=== PATIENT | female | born 1945 | race Caucasian/White ===

== ENCOUNTER 2017-10-10 08:00 | Outpatient (CLI) | payer MEDICARE, MEDICAID, SELFPAY | END 2017-10-10 09:55 | disposition home or self-care (01) | PROVIDERS: Visit Provider Internal Medicine | DX: D50.9 Iron deficiency anemia, unspecified (principal) | CPT/HCPCS: 96365; J1756 ==

== ENCOUNTER → 2017-11-05 12:08 | Outpatient (CLI) | payer MEDICARE, MEDICAID, SELFPAY ==
[2017-11-05 12:43] LABS: Basophils % 0.4 % (0.1-2.0); Eosinophils # 0.4 K/mm3 (0.0-0.4); Eosinophils % 6.5 % (0.1-12.0); Hemoglobin 8.7 g/dL (12.2-16.2); Lymphocytes # 1.6 K/mm3 (0.7-4.5); Lymphocytes % 27.9 K/mm3 (10-50); Mean Corpuscular Hemoglobin 26.6 pg (27.0-31.2); Mean Corpuscular Volume 85.5 fl (81-99); Mean Platelet Volume 11.1 fl (7.4-10.4); Monocytes # 0.4 K/mm3 (0.1-1.0); Neutrophils # 3.3 K/mm3 (1.8-7.8); Neutrophils % 58.2 % (37.0-80.0); Platelet Count 145 K/mm3 (142-424); Red Blood Count 3.27 M/mm3 (4.20-5.40); Red Cell Distribution Width 14.9 % (11.5-17.5); White Blood Count 5.6 K/mm3 (4.8-10.8)
[2017-11-05 13:34] LABS: Anion Gap 9.9 mEq/L (5-15); Blood Urea Nitrogen 28 mg/dL (7-18); Carbon Dioxide 27 mmol/L (21.0-32.0); Chloride 107 mmol/L (98-107); Creatinine,Serum 0.96 mg/dL (0.55-1.02); Estimated Glomerular Filt Rate 57 ml/min (>60); Ferritin 57 ng/mL (8-388); GFR (African American) 69 ML/MIN (>60); Glucose 104 mg/dL (74-106); Potassium 3.9 mmoL/L (3.5-5.1); Sodium 140 mmol/L (136-145)
[2017-11-06 08:21] LABS: Iron 73 ug/dL (27-139); UIBC 242 ug/dL (118-369)
[2017-11-06 12:17] LABS: Iron Saturation 23 % (15-55)
== END ==
PROVIDERS: PCP Nurse Practitioner; Visit Provider Nurse Practitioner
DX: D64.9 Anemia, unspecified (principal)
CPT/HCPCS: 36415; 80048; 80053; 82728; 83550; 85025

== ENCOUNTER → 2017-11-06 08:43 | Outpatient (CLI) | payer MEDICARE, MEDICAID, SELFPAY ==
--- NOTE | 2017-11-06 08:48 | FL_ITS ---
FL small bowel follow through CLINICAL INDICATION: ITS.REASON: ANEMIA ORDERING PHYSICIAN: Jalil Capone MD PATIENT AGE: 72 years Fluoroscopy time, 39 seconds COMPARISON: None FINDINGS: Framing Manager exam shows prior kyphoplasty at L3 and L4 with a tubular density to the right of the vertebral bodies consistent with venous or lymphatic extravasation. Small bowel has an unremarkable appearance. No bowel obstruction, mucosal abnormalities, or mass is evident. Spot views of the terminal ileum are unremarkable. Incidentally noted is a moderate sized hiatal hernia. IMPRESSION: 1. Negative small bowel follow-through. 2. Hiatal hernia
== END ==
PROVIDERS: Family Provider Nurse Practitioner Family; PCP Nurse Practitioner; Visit Provider Surgery
DX: D50.9 Iron deficiency anemia, unspecified (principal)
CPT/HCPCS: 74250

== ENCOUNTER → 2017-11-12 12:36 | Outpatient (CLI) | payer MEDICARE, MEDICAID, SELFPAY ==
--- NOTE | 2017-11-12 12:49 | CT_ITS ---
CT head/brain wo con HISTORY: Headache following injury, contusion, abrasion posterior aspect of the head ORDERING PHYSICIAN: Katja Aldana PATIENT AGE: 72 years COMPARISON: 05/22/2015 TECHNIQUE: Axial images obtained without contrast. Brain and bone windows reviewed. FINDINGS: No midline shift, mass effect, intracranial hemorrhage, hydrocephalus, or extra-axial fluid collection is evident. Involutional changes of age The calvarium has an unremarkable appearance. No mastoid effusion. No sinus air-fluid levels.. IMPRESSION: No acute intracranial findings.
--- NOTE | 2017-11-12 12:50 | XR_ITS ---
XR forearm RT 2V HISTORY: Pain and redness following a puncture wound ITS.REASON: ACUTE POST TRAUMATIC HEADACHE ORDERING PHYSICIAN: Katja Aldana PATIENT AGE: 72 years COMPARISON: None FINDINGS: No obvious fracture, dislocation, lytic change or blastic change. Normal mineralization. Unremarkable soft tissues. Minimal soft tissue calcification along the dorsal distal aspect of the forearm IMPRESSION: No acute finding
== END ==
PROVIDERS: PCP Nurse Practitioner Family; Visit Provider Nurse Practitioner Family
DX: G44.319 Acute post-traumatic headache, not intractable (principal); M79.631 Pain in right forearm
CPT/HCPCS: 70450; 73090

== ENCOUNTER 2017-11-22 09:04 | Emergency (ER) | payer MEDICARE, MEDICAID, SELFPAY ==
[2017-11-22 09:09] VITALS: BP 149/79; PULSE 96; RESP 20; TEMP 36.7; O2SAT 97; BMI 26.2
--- NOTE | 2017-11-22 09:26 | [facility].EDGENADL ---
ED Disposition Clinical Impression: Hiatus hernia syndrome Disposition: Home, Self-Care Condition on Discharge: Fair Additional Instructions: Advised to use Antacids every 4 hours and to alternate Maalox and Mylanta and use Carafate 1000mg/10ml poAC and HS Referrals: Katja Aldana [Primary Care Provider] - Time of Disposition: 12:04 - Critical Care Critical Care Time: No Attestation: On 11/22/17, the high probability of a clinically significant, sudden or life threatening deterioration of the following system(s) required my full and direct attention, intervention and personal management. The time I documented below is in addition to time spent performing reported procedures but includes the following listed in this critical care notation. Medical Decision Making - Medical Records Medical records reviewed: Yes: I reviewed the patient's medical records. Vital Signs: 11/22/17 09:09 Temperature 98.1 F Temperature Source Oral Pulse Rate [Right Radial] 96 H Respiratory Rate 20 Blood Pressure [Right Arm] 149/79 Blood Pressure Mean [Right Arm] 102 Blood Pressure Source [Right Arm] Automatic Cuff Blood Pressure Position [Right Arm] Supine 02 Sat by Pulse Oximetry 97 Oxygen Delivery Method Room Air - Lab Data Lab results reviewed: Yes: I reviewed the patient's lab results. Lab Results 11/22/17 09:50: WBC 6.4, RBC 3.20 L, Hgb 8.4 L, Hct 26.3 L, MCV 82.2, MCH 26.1 L, MCHC 31.7 L, RDW 14.1, Plt Count 151, MPV 11.4 H, Neut % (Auto) 59.6, Lymph % (Auto) 24.7, [place] % (Auto) 9.1, Eos % (Auto) 6.2, Baso % (Auto) 0.5, Neut # (Auto) 3.8, Lymph # (Auto) 1.6, [place] # (Auto) 0.6, Eos # (Auto) 0.4, Baso # (Auto) 0.0 11/22/17 10:20: Amylase 28 11/22/17 10:20: Lipase 95 11/22/17 10:20: Sodium 144, Potassium 3.7, Chloride 110 H, Carbon Dioxide 28, Anion Gap 9.7, BUN 21 H, Creatinine 1.07 H, Estimated Creat Clear 51, Estimated GFR 50 L, Est GFR ( Amer) 61, Glucose 114 H, Calcium 8.1 L, Total Bilirubin 0.3, AST 19, ALT 16, Alkaline Phosphatase 84, Total Protein 5.8 L, Albumin 2.6 L, Globulin 3.2, Albumin/Globulin Ratio 0.8 L Result diagrams: 11/22/17 09:50 11/22/17 10:20 Orders (Tests/Meds): ED MEDICATIONS Discontinued Medications Generic Name Dose Route Start Last Admin Trade Name Edgardo PRN Reason Stop Dose Admin Belladonna Alkaloids 60 ml 11/22/17 11:52 Gi Cocktail 60ml Udc PO 11/22/17 11:53 ONCE ONE Sodium Chloride 1,000 mls @ 999 mls/hr 11/22/17 09:45 11/22/17 09:50 Sod Chloride 0.9% 1000ml Bag IV 11/22/17 10:45 999 mls/hr .Q1H1M LUIS ANGEL Administration Ondansetron HCl 4 mg 11/22/17 09:42 11/22/17 09:49 Zofran 4mg/2ml Vial IM 11/22/17 09:43 4 mg ONCE ONE Administration Pantoprazole Sodium 40 mg 11/22/17 09:42 11/22/17 09:55 Protonix 40mg Vial IV 11/22/17 09:43 40 mg ONCE ONE Administration Sodium Chloride 8 ml 11/22/17 09:42 11/22/17 09:55 Saline Flush 10ml Syringe IV 11/22/17 09:43 8 ml ONCE ONE Administration Sucralfate 1 gm 11/22/17 11:55 Carafate 1gm/10ml Susp Udc PO 11/22/17 11:56 ONCE ONE ORDERS Category Date Time Status CT abdomen w con Stat Cat Scan 11/22/17 09:40 Taken Occult Blood,Gastric Fluid Stat Lab 11/22/17 09:44 Ordered Occult Blood,Stool Stat Lab 11/22/17 09:44 Ordered Urinalysis and Microscopic Stat Lab 11/22/17 09:31 Ordered - CT Data CT Scan: Abdomen, Pelvis Time Received: 12:[address] Reviewed: Yes: I have reviewed the patient's CT results Findings Narrative: Large hiatus hernia in right chest but everything else looks OK to Radiologist - Daniel Inquiry Pt receiving controlled substance: No Daniel was queried for this patient: No General Adult HPI - General Chief complaint: Weakness Stated complaint: weak vomiting DAVIES Time Seen by Provider: 11/22/17 09:27 Mode of Arrival: Wheelchair Source of Information: Patient, Relative Limitations: No Limitations Description of Symptoms (Re
--- NOTE | 2017-11-22 09:33 | ED_ITS ---
ED Disposition Clinical Impression: Hiatus hernia syndrome Disposition: Home, Self-Care Condition on Discharge: Fair Additional Instructions: Advised to use Antacids every 4 hours and to alternate Maalox and Mylanta and use Carafate 1000mg/10ml poAC and HS Referrals: Katja Aldana [Primary Care Provider] - Time of Disposition: 12:04 - Critical Care Critical Care Time: No Attestation: On 11/22/17, the high probability of a clinically significant, sudden or life threatening deterioration of the following system(s) required my full and direct attention, intervention and personal management. The time I documented below is in addition to time spent performing reported procedures but includes the following listed in this critical care notation. Medical Decision Making - Medical Records Medical records reviewed: Yes: I reviewed the patient's medical records. Vital Signs: 11/22/17 09:09 Temperature 98.1 F Temperature Source Oral Pulse Rate [Right Radial] 96 H Respiratory Rate 20 Blood Pressure [Right Arm] 149/79 Blood Pressure Mean [Right Arm] 102 Blood Pressure Source [Right Arm] Automatic Cuff Blood Pressure Position [Right Arm] Supine 02 Sat by Pulse Oximetry 97 Oxygen Delivery Method Room Air - Lab Data Lab results reviewed: Yes: I reviewed the patient's lab results. Lab Results 11/22/17 09:50: WBC 6.4, RBC 3.20 L, Hgb 8.4 L, Hct 26.3 L, MCV 82.2, MCH 26.1 L , MCHC 31.7 L, RDW 14.1, Plt Count 151, MPV 11.4 H, Neut % (Auto) 59.6, Lymph % (Auto) 24.7, [place] % (Auto) 9.1, Eos % (Auto) 6.2, Baso % (Auto) 0.5, Neut # ( Auto) 3.8, Lymph # (Auto) 1.6, Ross # (Auto) 0.6, Eos # (Auto) 0.4, Baso # (Auto ) 0.0 11/22/17 10:20: Amylase 28 11/22/17 10:20: Lipase 95 11/22/17 10:20: Sodium 144, Potassium 3.7, Chloride 110 H, Carbon Dioxide 28, Anion Gap 9.7, BUN 21 H, Creatinine 1.07 H, Estimated Creat Clear 51, Estimated GFR 50 L, Est GFR ( Amer) 61, Glucose 114 H, Calcium 8.1 L, Total Bilirubin 0.3, AST 19, ALT 16, Alkaline Phosphatase 84, Total Protein 5.8 L, Albumin 2.6 L, Globulin 3.2, Albumin/Globulin Ratio 0.8 L Result diagrams: 11/22/17 09:50 11/22/17 10:20 Orders (Tests/Meds): ED MEDICATIONS Discontinued Medications Generic Name Dose Route Start Last Admin Trade Name Edgardo PRN Reason Stop Dose Admin Belladonna Alkaloids 60 ml 11/22/17 11:52 Gi Cocktail 60ml Udc PO 11/22/17 11:53 ONCE ONE Sodium Chloride 1,000 mls @ 999 mls/hr 11/22/17 09:45 11/22/17 09:50 Sod Chloride 0.9% 1000ml Bag IV 11/22/17 10:45 999 mls/hr .Q1H1M LUIS ANGEL Administration Ondansetron HCl 4 mg 11/22/17 09:42 11/22/17 09:49 Zofran 4mg/2ml Vial IM 11/22/17 09:43 4 mg ONCE ONE Administration Pantoprazole Sodium 40 mg 11/22/17 09:42 11/22/17 09:55 Protonix 40mg Vial IV 11/22/17 09:43 40 mg ONCE ONE Administration Sodium Chloride 8 ml 11/22/17 09:42 11/22/17 09:55 Saline Flush 10ml Syringe IV 11/22/17 09:43 8 ml ONCE ONE Administration Sucralfate 1 gm 11/22/17 11:55 Carafate 1gm/10ml Susp Udc PO 11/22/17 11:56 ONCE ONE ORDERS Category Date Time Status CT abdomen w con Stat Cat Scan 11/22/17 09:40 Taken Occult Blood,Gastric Fluid Stat Lab 11/22/17 09:44 Ordered Occult Blood,Stool Stat Lab
--- NOTE | 2017-11-22 09:40 | CT_ITS ---
CT abdomen w con COMPARISON: None HISTORY: Persistent vomiting, abdominal pain TECHNIQUE: Multiple axial scans obtained from the lower chest to the pelvic floor after injection of IV contrast. Sagittal coronal reformats were evaluated as well. FINDINGS: There is a large hiatal hernia with the herniated portion of the stomach extending to the right lower posterior chest is somewhat unusual configuration for hiatal hernia. There is marginalized cardio megaly. There is minimal atelectasis in the right lower lobe posterior basilar segment. The liver spleen and pancreas appear normal. The portion of the stomach within the abdomen is distended with ingested fluid and food particles. There is been previous cholecystectomy. The adrenal glands and kidneys are normal and the kidney showing symmetrical function. Small bowel appears normal. There is been previous appendectomy. There is moderate scattered stool in the ascending and transverse colon. There is minimal barium within the sigmoid colon from recent small bowel series causing streak artifact. There is been previous hysterectomy. Urinary bladder is well distended with urine showing a mildly thickened wall. There is no free fluid in the pelvis. There is arteriosclerotic calcification of the abdominal aorta and proximal iliac arteries. There have been previous vertebral plasties involving L2 and L3. IMPRESSION: Large hiatal hernia with distended stomach as well with no obvious obstruction apparent at the gastric antrum pyloric channel.
[2017-11-22 10:05] LABS: Basophils % 0.5 % (0.1-2.0); Eosinophils # 0.4 K/mm3 (0.0-0.4); Eosinophils % 6.2 % (0.1-12.0); Hematocrit 26.3 % (37.0-47.0); Hemoglobin 8.4 g/dL (12.2-16.2); Lymphocytes # 1.6 K/mm3 (0.7-4.5); Lymphocytes % 24.7 K/mm3 (10-50); Mean Corpuscular HGB Conc 31.7 g/dL (31.8-35.4); Mean Corpuscular Hemoglobin 26.1 pg (27.0-31.2); Mean Corpuscular Volume 82.2 fl (81-99); Mean Platelet Volume 11.4 fl (7.4-10.4); Monocytes # 0.6 K/mm3 (0.1-1.0); Monocytes % 9.1 % (1.7-9.3); Neutrophils # 3.8 K/mm3 (1.8-7.8); Neutrophils % 59.6 % (37.0-80.0); Platelet Count 151 K/mm3 (142-424); Red Cell Distribution Width 14.1 % (11.5-17.5); White Blood Count 6.4 K/mm3 (4.8-10.8)
[2017-11-22 10:39] LABS: Amylase 28 U/L (25-125); Lipase 95 u/L (73-393)
--- NOTE | 2017-11-22 10:42 | PC.NURSE ---
PT ATTEMPTS TO PROVIDE URINE AND STOOL SPECIMEN WITHOUT SUCCESS. ENCOURAGED TO TRY AGAIN LATER.
[2017-11-22 10:43] LABS: Alanine Aminotransferase 16 U/L (12-78); Albumin Level 2.6 gm/dL (3.4-5.0); Albumin/Globulin Ratio 0.8 (1.1-1.8); Alkaline Phosphatase 84 U/L (46-116); Anion Gap 9.7 mEq/L (5-15); Aspartate Amino Transferase 19 U/L (15-37); Bilirubin,Total 0.3 mg/dL (0.2-1.0); Blood Urea Nitrogen 21 mg/dL (7-18); Calcium 8.1 mg/dL (8.5-10.1); Carbon Dioxide 28 mmol/L (21.0-32.0); Chloride 110 mmol/L (98-107); Creatinine Clearance Estimated 51 mL/min (0-300); Creatinine,Serum 1.07 mg/dL (0.55-1.02); Estimated Glomerular Filt Rate 50 ml/min (>60); GFR (African American) 61 ML/MIN (>60); Globulin 3.2 gm/dl (1.3-3.2); Glucose 114 mg/dL (74-106); Potassium 3.7 mmoL/L (3.5-5.1); Sodium 144 mmol/L (136-145); Total Protein,Serum 5.8 gm/dL (6.4-8.2)
--- NOTE | 2017-11-22 13:10 | PC.NURSE ---
1235- Patient immediately after taking GI cocktail vomited contents. notified.
[2017-11-22 13:24] VITALS: BP 140/70; PULSE 85; RESP 16; TEMP 36.8; O2SAT 98
== END 2017-11-22 13:26 | disposition home or self-care (01) ==
PROVIDERS: Emergency Provider General Practice; Family Provider Nurse Practitioner Family; PCP Nurse Practitioner Family
DX: K44.9 Diaphragmatic hernia without obstruction or gangrene (principal); Z79.899 Other long term (current) drug therapy; Z88.8 Allergy status to other drugs, medicaments and biological substances
CPT/HCPCS: 74160; 80053; 82150; 83690; 85025; 96365; 96375; 96376; 99283; J2405; Q9967

== ENCOUNTER 2017-11-23 09:02 | Observation (INO) ==
--- NOTE | 2017-11-23 09:18 | Emergency Department Note ---
ED Disposition Clinical Impression: UGI bleed, Renal insufficiency Anemia Qualifiers: Anemia type: unspecified type Qualified Code(s): D64.9 - Anemia, unspecified Disposition: Admitted as Observation Condition on Discharge: Good - Critical Care Critical Care Time: No Attestation: On 11/23/17, the high probability of a clinically significant, sudden or life threatening deterioration of the following system(s) required my full and direct attention, intervention and personal management. The time I documented below is in addition to time spent performing reported procedures but includes the following listed in this critical care notation. Medical Decision Making - Medical Records Medical records reviewed: Yes: I reviewed the patient's medical records. Vital Signs: 11/23/17 09:04 11/23/17 09:39 11/23/17 09:40 Temperature 98.3 F Temperature Source Oral Pulse Rate [Orthostatic Lying Right] 83 Pulse Rate [Orthostatic Sitting Right] 91 H Pulse Rate [Orthostatic Standing Right] Pulse Rate [Right Brachial] 86 Respiratory Rate 14 Blood Pressure [Orthostatic Lying Right Arm] 122/59 Blood Pressure [Orthostatic Sitting Right Arm] 95/57 Blood Pressure [Orthostatic Standing Right Arm] Blood Pressure [Right Arm] 146/70 Blood Pressure Mean [Right Arm] 95 Blood Pressure Source [Right Arm] Automatic Cuff Blood Pressure Position [Right Arm] Supine 02 Sat by Pulse Oximetry 95 Oxygen Delivery Method Room Air 11/23/17 09:41 11/23/17 10:34 Temperature Temperature Source Pulse Rate [Orthostatic Lying Right] Pulse Rate [Orthostatic Sitting Right] Pulse Rate [Orthostatic Standing Right] 91 H Pulse Rate [Right Brachial] 80 Respiratory Rate Blood Pressure [Orthostatic Lying Right Arm] Blood Pressure [Orthostatic Sitting Right Arm] Blood Pressure [Orthostatic Standing Right Arm] 126/64 Blood Pressure [Right Arm] 137/67 Blood Pressure Mean [Right Arm] 90 Blood Pressure Source [Right Arm] Automatic Cuff Blood Pressure Position [Right Arm] Sitting 02 Sat by Pulse Oximetry 95 Oxygen Delivery Method Nasal Cannula - Lab Data Lab results reviewed: Yes: I reviewed the patient's lab results. Lab Results 11/23/17 09:25: WBC 6.6, RBC 3.09 L, Hgb 7.9 L*, Hct 25.6 L, MCV 83.1, MCH 25.5 L, MCHC 30.7 L, RDW 14.1, Plt Count 144, MPV 12.2 H, Neut % (Auto) 64.5, Lymph % (Auto) 19.0, [place] % (Auto) 8.6, Eos % (Auto) 7.4, Baso % (Auto) 0.6, Neut # ( Auto) 4.3, Lymph # (Auto) 1.3, [place] # (Auto) 0.6, Eos # (Auto) 0.5 H, Baso # ( Auto) 0.0 11/23/17 09:25: Sodium 140, Potassium 4.0, Chloride 109 H, Carbon Dioxide 26, Anion Gap 9.0, BUN 21 H, Creatinine 1.10 H, Estimated Creat Clear 50, Estimated GFR 49 L, Est GFR ( Amer) 59, Glucose 104, Calcium 8.3 L, Total Bilirubin 0.2, AST 21, ALT 15, Alkaline Phosphatase 85, Total Protein 6.2 L, Albumin 2.8 L, Globulin 3.4 H, Albumin/Globulin Ratio 0.8 L, Amylase 29, Lipase 87 11/23/17 09:47: Blood Type O Positive, Crossmatch (AHG) See Detail 11/23/17 09:58: Blood Type Confirm O Positive 11/23/17 10:10: Stool Occult Blood Positive A Result diagrams: 11/23/17 09:25 11/23/17 09:25 Orders (Tests/Meds): ED MEDICATIONS Generic Name Dose Route Start Last Admin Trade Name Freq PRN Reason Stop Dose Admin Sodium Chloride 250 mls @ 25 mls/hr 11/23/17 09:45 Sodium Chloride 0.9% 250ml Bag IV 11/24/17 09:44 .Q10H [facility] ORD[facility] Category Date Time Status Red Blood Cells Stat [facility] 11/23/17 09:47 Results Type and Screen Stat [facility] 11/23/17 09:47 Results Hemoglobin and Hematocrit Routine Lab 11/23/17 13:37 Ordered Occult Blood,Stool Stat Lab 11/23/17 10:56 Ordered Occult Blood,Stool Stat Lab 11/23/17 10:57 Ordered - Physician Consults Physician Consulted: rohit Reason -: Admission - Daniel Inquiry Pt receiving controlled substance: No Nausea/Vomiting/Diarrhea HPI - General Chief complaint: Abdominal Pain Stated complaint: Vomiting,Diarrhea,weak Time Seen by Provider: 11/23/17 09:17 Mode of Arrival: Wheelchair Limitations: No Limitations Description of Symptoms (Recalled from ER Triage Doc. by RN): Pt was seen in ED yesterday and evalu'ed for abd pain. Pt presents today with abd pain/ vomiting/ diarrhea and weakness - History of Present Illness HPI Narrative: pt with recent ed visit yesterday with eval and possible gastritis - pt with hx of anemia with eval by hematology and surg - pt seen today with diarrhea and crampy abd pain MD complaint: nausea, diarrhea, abdominal pain Onset (ago): hour(s) Associated Abdominal Pain: Yes Location of pain: diffuse Severity: moderate - Related Data Home Medications Medication Instructions Recorded Confirmed amitriptyline 50 mg tablet 50 mg PO DAILY tab 10/31/17 11/22/17 tramadol 50 mg tablet 50 mg PO DAILY 10/31/17 11/22/17 gabapentin 300 mg capsule 600 mg PO DAILY cap 11/05/17 11/22/17 nebivolol 5 mg tablet 5 mg PO DAILY 11/05/17 11/22/17 omeprazole 20 mg capsule,delayed 40 mg PO DAILY cap 11/05/17 11/22/17 release Previous Rx's Medication Instructions Recorded Sucralfate [Carafate 1gm/10ml Oral 1 gm PO ACHS #480 ml 11/22/17 Susp] Allergies Allergy/AdvReac Type Severity Reaction Status Date / Time acetaminophen [From TYLENOL] Allergy Unknown I-RASH Verified 11/21/17 09:25 amantadine Allergy Unknown I-HIVES Verified 11/21/17 09:25 baclofen Allergy Unknown S-SWELLS-OR Verified 11/21/17 09:25 AL/THROAT promethazine Allergy Unknown I-HIVES Verified 11/21/17 09:25 CAN TAKE SHOT NOT TABLET rosuvastatin Allergy Unknown I-ITCHING Verified 11/21/17 09:25 simvastatin Allergy Unknown S-SWELLS-OR Verified 11/21/17 09:25 AL/THROAT [facility] History I have reviewed the patient's past medical history: Yes Medical History: Reports:: Hypertension Denies:: Cancer, Diabetes Mellitus Type 1, Diabetes Mellitus Type 2, Internal Pacemaker, MRSA Other Medical History: Reports: Arthritis Laterality Cases: Right: Arthroscopy Knee Other Surgeries: Yes: Appendectomy, Colonoscopy, , Hysterectomy-Total. No: Pacemaker Amputation: No Fractures: No - *Social History Smoking Status: Never smoker Alcohol Intake: never Alcohol Intake Frequency:: other Substance Use Type: denies use - Psychiatric History Expresses thoughts of harming self/others: None Suicide Plan Description: No Plan *Family Hx:: Cancer, Hypertension ROS Obtained: Yes All systems reviewed & no additional complaints - Constitutional Constitutional: Denies fever(s) - Eyes Eyes: Denies change in vision - ENT Ears, Nose, Mouth, and Throat: Denies sore throat - Cardiovascular Cardiovascular: Denies chest pain, Denies chest pain at rest - Respiratory Respiratory: No chest congestion, No cough - Gastrointestinal Gastrointestingal: Reports: abdominal pain, diarrhea, black, tarry stools, nausea - Musculoskeletal Musculoskeletal: Denies joint pain, Denies joint stiffness, Denies limited range of motion - Integumentary/Breasts Skin/Breast: Denies rash - Neurologic Neurologic: Denies seizure-like activity Physical Exam - General General appearance: alert, in no apparent distress - Head Head exam: normocephalic - Eye Eye exam: Present: PERRL, EOMI, other (conj pale) - ENT ENT exam: Present: mucous membranes dry - Neck Neck exam: Present: trachea midline - Respiratory Respiratory exam: Absent: respiratory distress - Cardiovascular Cardiovascular exam: Present: regular rate, systolic murmur, +S4 - Abdominal Exam Abdominal exam: Present: soft. Absent: tenderness, guarding, rebound - Extremities Exam Extremities exam: Absent: tenderness - Neurological Exam Neurological exam: Present: alert, oriented X3, CN II-XII intact - Skin Skin exam: Absent: rash
[2017-11-23 09:31] LABS: Basophils % 0.6 % (0.1-2.0); Eosinophils # 0.5 K/mm3 (0.0-0.4); Eosinophils % 7.4 % (0.1-12.0); Hematocrit 25.6 % (37.0-47.0); Lymphocytes # 1.3 K/mm3 (0.7-4.5); Mean Corpuscular HGB Conc 30.7 g/dL (31.8-35.4); Mean Corpuscular Hemoglobin 25.5 pg (27.0-31.2); Mean Corpuscular Volume 83.1 fl (81-99); Mean Platelet Volume 12.2 fl (7.4-10.4); Monocytes # 0.6 K/mm3 (0.1-1.0); Monocytes % 8.6 % (1.7-9.3); Neutrophils # 4.3 K/mm3 (1.8-7.8); Neutrophils % 64.5 % (37.0-80.0); Platelet Count 144 K/mm3 (142-424); Red Blood Count 3.09 M/mm3 (4.20-5.40); Red Cell Distribution Width 14.1 % (11.5-17.5); White Blood Count 6.6 K/mm3 (4.8-10.8)
[2017-11-23 09:33] LABS: Hemoglobin 7.9 g/dL (12.2-16.2)
[2017-11-23 09:42] LABS: Albumin Level 2.8 gm/dL (3.4-5.0); Albumin/Globulin Ratio 0.8 (1.1-1.8); Bilirubin,Total 0.2 mg/dL (0.2-1.0); Calcium 8.3 mg/dL (8.5-10.1); Globulin 3.4 gm/dl (1.3-3.2); Total Protein,Serum 6.2 gm/dL (6.4-8.2)
[2017-11-23 19:23] LABS: Hematocrit 28.7 % (37.0-47.0); Hemoglobin 9.1 g/dL (12.2-16.2)
[2017-11-24 06:48] LABS: Basophils % 0.3 % (0.1-2.0); Eosinophils # 0.5 K/mm3 (0.0-0.4); Eosinophils % 10.7 % (0.1-12.0); Hematocrit 28.6 % (37.0-47.0); Hemoglobin 8.8 g/dL (12.2-16.2); Lymphocytes # 1.3 K/mm3 (0.7-4.5); Lymphocytes % 26.1 K/mm3 (10-50); Mean Corpuscular HGB Conc 30.7 g/dL (31.8-35.4); Mean Corpuscular Hemoglobin 25.7 pg (27.0-31.2); Mean Corpuscular Volume 83.7 fl (81-99); Mean Platelet Volume 11.8 fl (7.4-10.4); Monocytes # 0.4 K/mm3 (0.1-1.0); Monocytes % 8.8 % (1.7-9.3); Neutrophils # 2.6 K/mm3 (1.8-7.8); Neutrophils % 53.9 % (37.0-80.0); Platelet Count 139 K/mm3 (142-424); Red Blood Count 3.42 M/mm3 (4.20-5.40); Red Cell Distribution Width 14.9 % (11.5-17.5); White Blood Count 4.8 K/mm3 (4.8-10.8)
--- NOTE | 2017-11-24 06:51 | History & Physical Report ---
*Admission Date: 11/23/17 *Chief complaint: Vomiting and diarrhea *History of present illness: 72-year-old female with history of iron deficiency anemia without evidence of prior GI blood loss presented to the emergency department for the second time in a 48 hour period with vomiting and diarrhea with development of black stools. Patient had been to the ER on November 22 for vomiting at that time. She did not have diarrhea on her November 22 visit. Patient was treated with antiemetics and discharged home. She later developed diarrhea and was brought back to the emergency department by family on November 23. Patient did have dark stools. She was admitted transfuse 1 unit of packed red blood cells. This morning she states that her stools have returned to normal color. She endorsed significant weakness during her episode of vomiting and diarrhea. Diarrhea panel was requested on admission to rule out infectious source but was not ordered [facility] History I have reviewed the patient's past medical history: Yes Medical History: Reports:: Congestive Heart Failure, Hyperlipidemia, Hypertension Denies:: Cancer, Diabetes Mellitus Type 1, Diabetes Mellitus Type 2, Internal Pacemaker, MRSA Other Medical History: Reports: Anemia (Iron deficiency), Arthritis, Cataracts, Hypothyroidism, Thyroid Disease Laterality Cases: Right: Arthroscopy Knee, Bilateral: Cataract Other Surgeries: Yes: Appendectomy, Colonoscopy, , EGD, Hysterectomy- Total. No: Pacemaker Amputation: No Fractures: No - *Social History Educational Level: Attended High School Smoking Status: Never smoker Alcohol Intake: never Alcohol Intake Frequency:: other Substance Use Type: denies use Occupational Status: retired Housing: house Household Members: spouse, children - Psychiatric History Expresses thoughts of harming self/others: None Suicide Plan Description: No Plan *Family Hx:: Asthma, Cancer, Diabetes, Hypertension Review of Systems - Review of Systems Review of systems:: pertinent systems reviewed and negative unless documented below - *Cardiovascular Denies chest pain - *Respiratory Denies shortness of breath - *Gastrointestinal Denies abdominal pain - *Neurologic Denies seizure-like activity Meds Home Medications Medication Instructions Recorded Confirmed Type amitriptyline 50 mg tablet 50 mg PO DAILY tab 10/31/17 11/23/17 History tramadol 50 mg tablet 50 mg PO DAILY 10/31/17 11/23/17 History gabapentin 300 mg capsule 600 mg PO DAILY cap 11/05/17 11/23/17 History nebivolol 5 mg tablet 5 mg PO DAILY 11/05/17 11/23/17 History omeprazole 20 mg capsule,delayed 40 mg PO DAILY cap 11/05/17 11/23/17 History release Levothyroxine Sodium 75 mcg PO DAILY 11/23/17 11/23/17 History [Levothyroxine 75mcg (0.075mg) Tab] Sucralfate [Carafate 1gm/10ml Oral 1 gm PO ACHS 11/23/17 11/23/17 History Susp] Allergies Allergy/AdvReac Type Severity Reaction Status Date / Time acetaminophen [From TYLENOL] Allergy Unknown I-RASH Verified 11/21/17 09:25 amantadine Allergy Unknown I-HIVES Verified 11/21/17 09:25 baclofen Allergy Unknown S-SWELLS-OR Verified 11/21/17 09:25 AL/THROAT promethazine Allergy Unknown I-HIVES Verified 11/21/17 09:25 CAN TAKE SHOT NOT TABLET rosuvastatin Allergy Unknown I-ITCHING Verified 11/21/17 09:25 simvastatin Allergy Unknown S-SWELLS-OR Verified 11/21/17 09:25 AL/THROAT Exam Vital signs and Labs for Last 24 Hours: Temp Pulse Resp BP Pulse Ox 99.2 F 72 17 148/58 91 L 11/24/17 04:00 11/24/17 04:00 11/24/17 04:00 11/24/17 04:00 11/24/17 04:00 Laboratory Results - last 24 hr 11/23/17 19:09: Hgb 9.1 L D, Hct 28.7 L I & O for Last 24 hours: Intake & Output 11/21/17 11/22/17 11/23/17 11/24/17 11:59 11:59 11:59 11:59 Intake Total 571 / 571 Balance 571 / 571 Weight 153 lb 5 oz Narrative: She is in no distress and resting comfortably. Oropharynx is moist. Lungs are clear to auscultation. Heart has a regular rate and rhythm. Abdomen is soft and nontender with active bowel sounds H&P: Result - Labs Labs: Short CBC 11/23/17 Range/Units 19:09 Hgb 9.1 L D (12.2-16.2) g/dL Hct 28.7 L (37.0-47.0) % Laboratory Results - last 24 hr 11/23/17 09:25: WBC 6.6, RBC 3.09 L, Hgb 7.9 L*, Hct 25.6 L, MCV 83.1, MCH 25.5 L, MCHC 30.7 L, RDW 14.1, Plt Count 144, MPV 12.2 H, Neut % (Auto) 64.5, Lymph % (Auto) 19.0, Hartley % (Auto) 8.6, Eos % (Auto) 7.4, Baso % (Auto) 0.6, Neut # ( Auto) 4.3, Lymph # (Auto) 1.3, Hartley # (Auto) 0.6, Eos # (Auto) 0.5 H, Baso # ( Auto) 0.0 11/23/17 09:25: Sodium 140, Potassium 4.0, Chloride 109 H, Carbon Dioxide 26, Anion Gap 9.0, BUN 21 H, Creatinine 1.10 H, Estimated Creat Clear 50, Estimated GFR 49 L, Est GFR ( Amer) 59, Glucose 104, Calcium 8.3 L, Total Bilirubin 0.2, AST 21, ALT 15, Alkaline Phosphatase 85, Total Protein 6.2 L, Albumin 2.8 L, Globulin 3.4 H, Albumin/Globulin Ratio 0.8 L, Amylase 29, Lipase 87 11/23/17 09:47: Blood Type O Positive, Antibody Screen Negative, Crossmatch (AHG ) See Detail 11/23/17 09:58: Blood Type Confirm O Positive 11/23/17 10:10: Stool Occult Blood Positive A 11/23/17 19:09: Hgb 9.1 L D, Hct 28.7 L 11/24/17 05:50: WBC 4.8 D, RBC 3.42 L, Hgb 8.8 L, Hct 28.6 L, MCV 83.7, MCH 25.7 L, MCHC 30.7 L, RDW 14.9, Plt Count 139 L, MPV 11.8 H, Neut % (Auto) 53.9, Lymph % (Auto) 26.1, Hartley % (Auto) 8.8, Eos % (Auto) 10.7, Baso % (Auto) 0.3, Neut # (Auto) 2.6, Lymph # (Auto) 1.3, Hartley # (Auto) 0.4, Eos # (Auto) 0.5 H, Baso # (Auto) 0.0 Assessment and Plan (1) Anemia Current visit: Yes Status: Chronic Qualifiers: Anemia type: iron deficiency Iron deficiency anemia type: unspecified iron deficiency Qualified Code(s): D50.9 - Iron deficiency anemia, unspecified Category: Medical Code(s): D64.9 - Anemia, unspecified (2) Renal insufficiency Current visit: Yes Status: Chronic Category: Medical Code(s): N28.9 - Disorder of kidney and ureter, unspecified (3) Hiatus hernia syndrome Current visit: No Status: Chronic Category: Medical Code(s): K44.9 - Diaphragmatic hernia without obstruction or gangrene - Assessment and plan all Dx Assessment and Plan for all problems:: Patient was transfused 1 unit of packed red blood cells. H&H remained stable at this time. Check serial H&H. Advance diet. Out of bed to chair today
--- NOTE | 2017-11-24 07:28 | Pharmacy Consult Notes ---
[facility] Pharmacy VTE Monitoring - Patient Demographics Admission date: 11/23/17 Report Date: 11/24/17 Time: 07:28 Allergies/Adverse Reactions: Patient Allergies acetaminophen [From TYLENOL] Allergy (Unknown, Verified 11/21/17 09:25) I-RASH amantadine Allergy (Unknown, Verified 11/21/17 09:25) I-HIVES baclofen Allergy (Unknown, Verified 11/21/17 09:25) A-[id number]-[id number]/THROAT promethazine Allergy (Unknown, Verified 11/21/17 09:25) I-HIVES CAN TAKE SHOT NOT TABLET rosuvastatin Allergy (Unknown, Verified 11/21/17 09:25) I-ITCHING simvastatin Allergy (Unknown, Verified 11/21/17 09:25) Z-[id number]/THROAT Height: 1.63 m Weight: 69.541 kg Patient Problems: Current Active Problems UGI bleed (Acute) Anemia (Chronic) Renal insufficiency (Chronic) - VTE Risk Labs: VTE Related Lab Results Hgb 8.8 g/dL (12.2-16.2) L 11/24/17 05:50 Hct 28.6 % (37.0-47.0) L 11/24/17 05:50 Plt Count 139 K/mm3 (142-424) L 11/24/17 05:50 BUN 15 mg/dL (7-18) D 11/24/17 05:50 Creatinine 1.08 mg/dL (0.55-1.02) H 11/24/17 05:50 Estimated Creat Clear 51 mL/min (0-300) 11/24/17 05:50 Was VTE Risk Assessment Performed: Yes VTE Score: 4 VTE Risk Level: Low Risk - Prophylaxis VTE Prophylaxis Ordered?: Yes Types of VTE Prophylaxis: TEDS Knee High Location of Applied Device: Bilateral Lower Extremeties - VTE Diagnosis Confirmed Treatment or plan recommended: Continue Current Treatment
[2017-11-24 16:25] LABS: Hematocrit 30.1 % (37.0-47.0); Hemoglobin 9.4 g/dL (12.2-16.2)
[2017-11-25 07:06] LABS: Basophils % 0.7 % (0.1-2.0); Eosinophils # 0.5 K/mm3 (0.0-0.4); Eosinophils % 11.9 % (0.1-12.0); Hemoglobin 9.1 g/dL (12.2-16.2); Lymphocytes # 1.1 K/mm3 (0.7-4.5); Mean Corpuscular HGB Conc 31.4 g/dL (31.8-35.4); Mean Corpuscular Hemoglobin 25.9 pg (27.0-31.2); Mean Corpuscular Volume 82.5 fl (81-99); Mean Platelet Volume 11.7 fl (7.4-10.4); Monocytes # 0.4 K/mm3 (0.1-1.0); Neutrophils # 2.2 K/mm3 (1.8-7.8); Neutrophils % 51.4 % (37.0-80.0); Platelet Count 130 K/mm3 (142-424); Red Blood Count 3.52 M/mm3 (4.20-5.40); Red Cell Distribution Width 14.7 % (11.5-17.5); White Blood Count 4.2 K/mm3 (4.8-10.8)
--- NOTE | 2017-11-25 07:09 | Discharge Summary ---
General - General Admission date: 11/23/17 Discharge date: 11/25/17 HPI HPI: 72-year-old female with history of iron deficiency anemia without evidence of prior GI blood loss presented to the emergency department for the second time in a 48 hour period with vomiting and diarrhea with development of black stools. Patient had been to the ER on November 22 for vomiting at that time. She did not have diarrhea on her November 22 visit. Patient was treated with antiemetics and discharged home. She later developed diarrhea and was brought back to the emergency department by family on November 23. Patient did have dark stools. She was admitted transfuse 1 unit of packed red blood cells. This morning she states that her stools have returned to normal color. She endorsed significant weakness during her episode of vomiting and diarrhea. Diarrhea panel was requested on admission to rule out infectious source but was not ordered Objective Vital signs: Temp Pulse Resp BP Pulse Ox 97.5 F L 66 20 156/63 92 L 11/25/17 04:00 11/25/17 04:00 11/25/17 04:00 11/25/17 04:00 11/25/17 04:00 Hospital Course Hospital Course: Patient was admitted and transfused 1 unit of packed red blood cells. This brought her hemoglobin to above 9. She was monitored for further symptoms of vomiting, diarrhea, melanotic stools. Initially patient had melanotic stools but these decreased in frequency. After 1 unit patient's H&H remained stable. Patient did not have any abdominal pain. When her H&H remained stable, she was eating and ablating, and there were no signs of further GI illness she was discharged home Results Labs on day of discharge: Labs from last 24 hours 11/24/17 16:10 Hgb 9.4 L Hct 30.1 L Laboratory Results - last 72 hr 11/23/17 11/23/17 11/23/17 09:25 09:25 09:47 WBC 6.6 RBC 3.09 L Hgb 7.9 L* Hct 25.6 L MCV 83.1 MCH 25.5 L MCHC 30.7 L RDW 14.1 Plt Count 144 MPV 12.2 H Neut % (Auto) 64.5 Lymph % (Auto) 19.0 Newton % (Auto) 8.6 Eos % (Auto) 7.4 Baso % (Auto) 0.6 Neut # (Auto) 4.3 Lymph # (Auto) 1.3 Newton # (Auto) 0.6 Eos # (Auto) 0.5 H Baso # (Auto) 0.0 Sodium 140 Potassium 4.0 Chloride 109 H Carbon Dioxide 26 Anion Gap 9.0 BUN 21 H Creatinine 1.10 H Estimated Creat Clear 50 Estimated GFR 49 L Est GFR ( Amer) 59 Glucose 104 Calcium 8.3 L Total Bilirubin 0.2 AST 21 ALT 15 Alkaline Phosphatase 85 Total Protein 6.2 L Albumin 2.8 L Globulin 3.4 H Albumin/Globulin Ratio 0.8 L Amylase 29 Lipase 87 Stool Occult Blood Blood Type O Positive Blood Type Confirm Antibody Screen Negative Crossmatch ([facility]) See Detail 11/23/17 11/23/17 11/23/17 09:58 10:10 19:09 WBC RBC Hgb 9.1 L D Hct 28.7 L MCV MCH MCHC RDW Plt Count MPV Neut % (Auto) Lymph % (Auto) Newton % (Auto) Eos % (Auto) Baso % (Auto) Neut # (Auto) Lymph # (Auto) Newton # (Auto) Eos # (Auto) Baso # (Auto) Sodium Potassium Chloride Carbon Dioxide Anion Gap BUN Creatinine Estimated Creat Clear Estimated GFR Est GFR ( Amer) Glucose Calcium Total Bilirubin AST ALT Alkaline Phosphatase Total Protein Albumin Globulin Albumin/Globulin Ratio Amylase Lipase Stool Occult Blood Positive A Blood Type Blood Type Confirm O Positive Antibody Screen Crossmatch ([facility]) 11/24/17 11/24/17 11/24/17 05:50 05:50 16:10 WBC 4.8 D RBC 3.42 L Hgb 8.8 L 9.4 L Hct 28.6 L 30.1 L MCV 83.7 MCH 25.7 L MCHC 30.7 L RDW 14.9 Plt Count 139 L MPV 11.8 H Neut % (Auto) 53.9 Lymph % (Auto) 26.1 Newton % (Auto) 8.8 Eos % (Auto) 10.7 Baso % (Auto) 0.3 Neut # (Auto) 2.6 Lymph # (Auto) 1.3 Newton # (Auto) 0.4 Eos # (Auto) 0.5 H Baso # (Auto) 0.0 Sodium 142 Potassium 4.0 Chloride 111 H Carbon Dioxide 27 Anion Gap 8.0 BUN 15 D Creatinine 1.08 H Estimated Creat Clear 51 Estimated GFR 50 L Est GFR ( Amer) 60 Glucose 82 D Calcium Total Bilirubin AST ALT Alkaline Phosphatase Total Protein Albumin Globulin Albumin/Globulin Ratio Amylase Lipase Stool Occult Blood Blood Type Blood Type Confirm Antibody Screen Crossmatch (AHG) DS: Diagnosis - Discharge Diagnosis (1) Anemia Status: Chronic (2) Renal insufficiency Status: Chronic (3) Hiatus hernia syndrome Status: Chronic (4) Acute gastroenteritis Status: Acute Meds Home Medications Medication Instructions Recorded Confirmed Type amitriptyline 50 mg tablet 50 mg PO DAILY tab 10/31/17 11/23/17 History tramadol 50 mg tablet 50 mg PO DAILY 10/31/17 11/23/17 History gabapentin 300 mg capsule 600 mg PO DAILY cap 11/05/17 11/23/17 History nebivolol 5 mg tablet 5 mg PO DAILY 11/05/17 11/23/17 History omeprazole 20 mg capsule,delayed 40 mg PO DAILY cap 11/05/17 11/23/17 History release Levothyroxine Sodium 75 mcg PO DAILY 11/23/17 11/23/17 History [Levothyroxine 75mcg (0.075mg) Tab] Sucralfate [Carafate 1gm/10ml Oral 1 gm PO ACHS 11/23/17 11/23/17 History Susp] Allergies Allergy/AdvReac Type Severity Reaction Status Date / Time acetaminophen [From TYLENOL] Allergy Unknown I-RASH Verified 11/21/17 09:25 amantadine Allergy Unknown I-HIVES Verified 11/21/17 09:25 baclofen Allergy Unknown S-SWELLS-OR Verified 11/21/17 09:25 AL/THROAT promethazine Allergy Unknown I-HIVES Verified 11/21/17 09:25 CAN TAKE SHOT NOT TABLET rosuvastatin Allergy Unknown I-ITCHING Verified 11/21/17 09:25 simvastatin Allergy Unknown S-SWELLS-OR Verified 11/21/17 09:25 AL/THROAT Discharge Plan - Patient Discharge Instructions ACTIVITY: Continue current activity DIET: continue same diet - Follow up Plan Follow up with: Katja Aldana [Primary Care Provider] - 2 days Disposition: Home, Self-Long-Term Medications: Home Medications Medication Instructions Recorded Confirmed Type amitriptyline 50 mg tablet 50 mg PO DAILY tab 10/31/17 11/23/17 History tramadol 50 mg tablet 50 mg PO DAILY 10/31/17 11/23/17 History gabapentin 300 mg capsule 600 mg PO DAILY cap 11/05/17 11/23/17 History nebivolol 5 mg tablet 5 mg PO DAILY 11/05/17 11/23/17 History omeprazole 20 mg capsule,delayed 40 mg PO DAILY cap 11/05/17 11/23/17 History release Levothyroxine Sodium 75 mcg PO DAILY 11/23/17 11/23/17 History [Levothyroxine 75mcg (0.075mg) Tab] Sucralfate [Carafate 1gm/10ml Oral 1 gm PO ACHS 11/23/17 11/23/17 History Susp] Prescriptions/Medication Reconciliation: Continue gabapentin 300 mg capsule 600 mg PO DAILY cap omeprazole 20 mg capsule,delayed release 40 mg PO DAILY cap nebivolol 5 mg tablet 5 mg PO DAILY amitriptyline 50 mg tablet 50 mg PO DAILY tab tramadol 50 mg tablet 50 mg PO DAILY Sucralfate [Carafate 1gm/10ml Oral Susp] 1 gm PO ACHS Levothyroxine Sodium [Levothyroxine 75mcg (0.075mg) Tab] 75 mcg PO DAILY
[2017-11-25 08:04] VITALS: BP 159/63
== END 2017-11-25 09:50 | disposition home or self-care (01) ==
LOC: ER 09:02 → 2ND 11:03 → INTOOBSV 11:28 → 2ND 11:29
PROVIDERS: ADMIT Family Medicine; ATTEND Family Medicine

== ENCOUNTER 2017-12-03 10:00 | Outpatient (RCR) | payer MEDICARE, MEDICAID, SELFPAY | END 2017-12-11 11:50 | disposition home or self-care (01) | LOC: PT 10:00 | PROVIDERS: Family Provider Nurse Practitioner Family; PCP Nurse Practitioner Family; Visit Provider Nurse Practitioner Family | DX: R26.9 Unspecified abnormalities of gait and mobility (principal); R53.1 Weakness | CPT/HCPCS: 97110 ==

== ENCOUNTER 2017-12-09 09:11 | Emergency (ER) | payer MEDICARE, MEDICAID, SELFPAY ==
[2017-12-09 09:13] VITALS: BMI 27.4
--- NOTE | 2017-12-09 09:14 | XR_ITS ---
XR chest portable HISTORY: ITS.REASON: FEVER ORDERING PHYSICIAN: Taco Foreman MD PATIENT AGE: 72 years COMPARISON: 08/13/2017 FINDINGS: Cardiomegaly without failure. Hiatal hernia is noted. There is increased density in the right lung base consistent with pneumonia. Patient's chin obscures the right apex. IMPRESSION: Right lower lobe pneumonia. Cardiomegaly with hiatal hernia
[2017-12-09 09:18] VITALS: BP 155/111; PULSE 122; RESP 24; TEMP 40.1; O2SAT 90; BMI 27.4
[2017-12-09 09:38] VITALS: BP 157/75; PULSE 118; RESP 20; O2SAT 93
[2017-12-09 09:47] LABS: Microscopic, Urine URINE MICROSCOPIC (MICROSCOPIC)
[2017-12-09 09:54] LABS: Basophils % 0.2 % (0.1-2.0); Eosinophils # 0.1 K/mm3 (0.0-0.4); Eosinophils % 2.7 % (0.1-12.0); Hematocrit 30.2 % (37.0-47.0); Hemoglobin 9.7 g/dL (12.2-16.2); Lymphocytes # 1.1 K/mm3 (0.7-4.5); Lymphocytes % 20.8 K/mm3 (10-50); Mean Corpuscular HGB Conc 32.1 g/dL (31.8-35.4); Mean Corpuscular Hemoglobin 25.7 pg (27.0-31.2); Mean Corpuscular Volume 80.3 fl (81-99); Mean Platelet Volume 13.4 fl (7.4-10.4); Monocytes # 0.7 K/mm3 (0.1-1.0); Monocytes % 13.3 % (1.7-9.3); Neutrophils # 3.3 K/mm3 (1.8-7.8); Platelet Count 75 K/mm3 (142-424); Red Blood Count 3.76 M/mm3 (4.20-5.40); Red Cell Distribution Width 14.1 % (11.5-17.5); White Blood Count 5.3 K/mm3 (4.8-10.8)
[2017-12-09 09:55] LABS: Appearance,Urine CLEAR (Clear); Bilirubin,Urine Negative (Negative); Blood, Urine 1+ (Negative); Color,Urine YELLOW (Yellow); Glucose,Urine (UA) Negative (Negative); Ketones,Urine Negative (Negative); Leukocyte Esterase,Urine Negative (Negative); Nitrate,Urine Negative (Negative); Protein,Urine Negative (Negative); Urobilinogen,Urine 0.2 EU/dl (0.2)
[2017-12-09 10:13] LABS: Lactic Acid 2.9 mmol/L (0.4-2.0)
[2017-12-09 10:16] LABS: RBC,Urine Occasional #/hpf (0-3)
--- NOTE | 2017-12-09 10:22 | PC.NURSE ---
PATIENT CURRENTLY RECEIVING 500 CC BOLUS SODIUM CHLORIDE STARTED BY UTEMS
[2017-12-09 10:28] LABS: Alanine Aminotransferase 22 U/L (12-78); Albumin Level 2.8 gm/dL (3.4-5.0); Albumin/Globulin Ratio 0.8 (1.1-1.8); Alkaline Phosphatase 105 U/L (46-116); Anion Gap 12.7 mEq/L (5-15); Aspartate Amino Transferase 40 U/L (15-37); Bilirubin,Total 0.6 mg/dL (0.2-1.0); Blood Urea Nitrogen 10 mg/dL (7-18); Calcium 8.1 mg/dL (8.5-10.1); Carbon Dioxide 26 mmol/L (21.0-32.0); Chloride 105 mmol/L (98-107); Creatinine Clearance Estimated 30 mL/min (0-300); Creatinine,Serum 1.42 mg/dL (0.55-1.02); Estimated Glomerular Filt Rate 36 ml/min (>60); GFR (African American) 44 ML/MIN (>60); Globulin 3.7 gm/dl (1.3-3.2); Glucose 112 mg/dL (74-106); Potassium 3.7 mmoL/L (3.5-5.1); Sodium 140 mmol/L (136-145); Total Protein,Serum 6.5 gm/dL (6.4-8.2)
--- NOTE | 2017-12-09 10:28 | HMH.EDGENADL ---
ED Disposition Clinical Impression: Influenza B CAP (community acquired pneumonia) Qualifiers: Laterality: right Lung location: lower lobe of lung Qualified Code(s): J18.1 - Lobar pneumonia, unspecified organism Altered mental status Qualifiers: Altered mental status type: delirium Qualified Code(s): R41.0 - Disorientation, unspecified Disposition: Xfer Short-Term Hosp Condition on Discharge: Fair Referrals: Wilber Thao MD [Primary Care Provider] - Forms: Transfer Record - ED - Critical Care Critical Care Time: No Attestation: On 12/09/17, the high probability of a clinically significant, sudden or life threatening deterioration of the following system(s) required my full and direct attention, intervention and personal management. The time I documented below is in addition to time spent performing reported procedures but includes the following listed in this critical care notation. Medical Decision Making Vital Signs: 12/09/17 09:18 12/09/17 09:38 12/09/17 10:52 Temperature 104.2 F H 101.8 F H Temperature Source Rectal Temporal Artery Scan Pulse Rate [Right Brachial] 122 H 118 H 112 H Respiratory Rate 24 20 20 Blood Pressure [Right Arm] 155/111 157/75 128/63 Blood Pressure Mean [Right Arm] 125 102 84 Blood Pressure Source [Right Arm] Automatic Cuff Automatic Cuff Automatic Cuff Blood Pressure Position [Right Arm] Supine Supine Supine 02 Sat by Pulse Oximetry 90 L 93 L 94 L Oxygen Delivery Method Nasal Cannula Nasal Cannula Nasal Cannula Oxygen Flow Rate (LPM) 4 4 4 12/09/17 13:44 Temperature 102 F H Temperature Source Temporal Artery Scan Pulse Rate [Right Brachial] 105 H Respiratory Rate 20 Blood Pressure [Right Arm] 114/51 Blood Pressure Mean [Right Arm] 72 Blood Pressure Source [Right Arm] Automatic Cuff Blood Pressure Position [Right Arm] Supine 02 Sat by Pulse Oximetry 94 L Oxygen Delivery Method Nasal Cannula Oxygen Flow Rate (LPM) 4 - Lab Data Lab Results 12/09/17 09:18: POC Glucose 110 12/09/17 09:20: Urine Color Yellow, Urine Appearance Clear, Urine pH 6.0, Ur Specific Century 1.020, Urine Protein Negative, Urine Glucose (UA) Negative, Urine Ketones Negative, Urine Blood 1+, Urine Nitrate Negative, Urine Bilirubin Negative, Urine Urobilinogen 0.2, Ur Leukocyte Esterase Negative, Urine RBC Occasional, Urine WBC None, Ur Squamous Epith Cells None, Urine Bacteria None 12/09/17 09:45: WBC 5.3, RBC 3.76 L, Hgb 9.7 L, Hct 30.2 L, MCV 80.3 L, MCH 25.7 L, MCHC 32.1, RDW 14.1, Plt Count 75 L, MPV 13.4 H, Neut % (Auto) 63.0, Lymph % (Auto) 20.8, Glynn % (Auto) 13.3 H, Eos % (Auto) 2.7, Baso % (Auto) 0.2, Neut # (Auto) 3.3, Lymph # (Auto) 1.1, Glynn # (Auto) 0.7, Eos # (Auto) 0.1, Baso # (Auto) 0.0 12/09/17 09:45: Sodium 140, Potassium 3.7, Chloride 105, Carbon Dioxide 26, Anion Gap 12.7, BUN 10, Creatinine 1.42 H, Estimated Creat Clear 30, Estimated GFR 36 L, Est GFR ( Amer) 44 L, Glucose 112 H, Calcium 8.1 L, Total Bilirubin 0.6, AST 40 H, ALT 22, Alkaline Phosphatase 105, Total Protein 6.5, Albumin 2.8 L, Globulin 3.7 H, Albumin/Globulin Ratio 0.8 L 12/09/17 09:45: Lactic Acid 2.9 H 12/09/17 09:45: Total Creatine Kinase 71, CK-MB (CK-2) < 0.5, CK-MB (CK-2) Rel Index 0.7, Troponin I 0.77 H 12/09/17 10:15: Influenza Type A Ag Negative, Influenza Type B Ag Negative 12/09/17 10:55: Chlamy pneumoniae PCR Not detected, Adenovirus (PCR) Not detected, B.parapertussis DNA PCR Not detected, Coronavirus OC43 (PCR) Not detected, Coronavirus HKU1 (PCR) Not detected, Coronavirus 229E (PCR) Not detected, Coronavirus NL63 (PCR) Not detected, Human Metapneumovir PCR Not detected, Influenza A (H1) PCR Not detected, Influ A (H1N1/09) PCR Not detected, Influenza A (H3) PCR Not detected, Influenza Type A (PCR) Not detected, Influenza Type B (PCR) Detected A, M. pneumoniae (PCR) Not detected, Parainfluenza 1 (PCR) Not detected, Parainfluenza 2 (PCR) Not detected, Parainfluenza 3 (PCR) Not detected, Parainfluenza
[2017-12-09 10:33] LABS: CKMB Relative Index 0.7 U/L (0-4.0); Creatine Kinase 71 U/L (26-192); Creatine Kinase MB < 0.5 mg/ml (0.0-3.6)
[2017-12-09 10:34] LABS: Troponin I 0.77 ng/ml (0.00-0.06)
[2017-12-09 10:52] VITALS: BP 128/63; PULSE 112; RESP 20; TEMP 38.8; O2SAT 94
[2017-12-09 11:00] LABS: Adenovirus,PCR Not Detected (NotDetected); Bordetella Pertussis Not Detected (NotDetected); Chlamydophila Pneumoniae, PCR Not Detected (NotDetected); Coronavirus 229E Not Detected (NotDetected); Coronavirus NL63 Not Detected (NotDetected); Coronavirus OC43 Not Detected (NotDetected); Coronovirus HKU1,PCR Not Detected (NotDetected); Human Metapneumovirus Not Detected (NotDetected); Influenza A, PCR Not Detected (NotDetected); Influenza AH1, 2009 Not Detected (NotDetected); Influenza AH1, PCR Not Detected (NotDetected); Influenza AH3,PCR Not Detected (NotDetected); Mycoplasma Pneumoniae, PCR Not Detected (NotDected); Parainfluenza 1, PCR Not Detected (NotDetected); Parainfluenza 2, PCR Not Detected (NotDetected); Parainfluenza 3, PCR Not Detected (NotDetected); Parainfluenza 4, PCR Not Detected (NotDetected); Respiratory Syncytial Virus Not Detected (NotDetected); Rhinovirus/Enterovirus Not Detected (NotDetected)
--- NOTE | 2017-12-09 11:42 | CT_ITS ---
CT head/brain wo con HISTORY: Altered mental status, altered level of consciousness, unresponsive, confusion ITS.REASON: AMS ORDERING PHYSICIAN: Taco Foreman MD PATIENT AGE: 72 years COMPARISON: 11/12/2017 TECHNIQUE: Axial images obtained without contrast. Brain and bone windows reviewed. FINDINGS: No midline shift, mass effect, intracranial hemorrhage, hydrocephalus, or extra-axial fluid collection is evident. Mild involutional changes of age. The calvarium has an unremarkable appearance. No mastoid effusion. No sinus air-fluid levels.. IMPRESSION: No acute intracranial findings with no significant change
[2017-12-09 12:15] LABS: Influenza B, PCR Detected (NotDetected)
--- NOTE | 2017-12-09 13:38 | PC.NURSE ---
paged dr dubois per med exchange
[2017-12-09 13:44] VITALS: BP 114/51; PULSE 105; RESP 20; TEMP 38.8; O2SAT 94
[2017-12-09 13:50] LABS: POC Glucose,Bedside 110 mg/dL (70-110)
[2017-12-09 13:52] LABS: Reflex Lactic Add Lactic Reflex
--- NOTE | 2017-12-09 13:56 | PC.NURSE ---
CASE DISCUSSED WITH DR JOSE AT [facility]. PATIENT ACCEPTED FOR TRANSFER TO [facility] BY DR JOSE
[2017-12-09 14:00] LABS: Adenovirus F 40/41, stool Not Detected (NotDetected); Astrovirus Not Detected (NotDetected); Campylobacter Not Detected (NotDetected); Clostridium Difficile A/B, PCR Not Detected (NotDetected); Cryptosporidium Not Detected (NotDetected); Cyclospora Cayetanesis Not Detected (NotDetected); Entamoeba histolytica Not Detected (NotDetected); Enteroaggregative E coli Not Detected (NotDetected); Enteropathogenic E coli Not Detected (NotDetected); Enterotoxigenic E coli Not Detected (NotDetected); Giardia lamblia Not Detected (NotDetected); Norovirus Not Detected (NotDetected); Plesimonas Shigalloides, PCR Not Detected (NotDetected); Rotavirus A Not Detected (NotDetected); Salmonella, PCR Not Detected (NotDetected); Sapovirus Not Detected (NotDetected); Shiga-like toxin E coli Not Detected (NotDetected); Shigella Enterovasive E coli Not Detected (NotDetected); Vibrio Cholerae Not Detected (NotDetected); Vibrio, PCR Not Detected (NotDetected); Yersinia Entercolitica, PCR Not Detected (NotDetected)
[2017-12-09 14:34] LABS: Troponin I 1.95 ng/ml (0.00-0.06)
--- NOTE | 2017-12-09 14:35 | PC.NURSE ---
CRITICAL LAB VALUE CALLED FROM LAB. TROPONIN 1.95. DR TOBIN NOTIFIED
--- NOTE | 2017-12-09 14:37 | PC.NURSE ---
[facility] NOTIFIED OF SECOND TROPONIN RESULTS
[2017-12-09 14:39] LABS: Lactic Acid Follow Up (RFLX 1) 3.5 (0.4-2.0)
[2017-12-09 15:03] VITALS: BP 114/51; PULSE 105; RESP 20; TEMP 39.6; O2SAT 94
[2017-12-09 16:15] LABS: Reflex Lactic (2 hrs) Add Lactic Reflex
== END 2017-12-09 15:04 | disposition short-term general hospital (02) ==
PROVIDERS: Emergency Provider Emergency Medicine; Family Provider Nurse Practitioner Family; PCP Family Medicine
DX: J11.1 Influenza due to unidentified influenza virus with other respiratory manifestations (principal); I50.9 Heart failure, unspecified; J18.9 Pneumonia, unspecified organism; I10 Essential (primary) hypertension; E03.9 Hypothyroidism, unspecified; E78.5 Hyperlipidemia, unspecified; Z88.8 Allergy status to other drugs, medicaments and biological substances; Z79.899 Other long term (current) drug therapy
CPT/HCPCS: 36415; 70450; 71045; 80053; 81001; 82550; 82553; 82962; 83605; 84484; 85025; 87040; 87275; 87276; 87486; 87507; 87581; 87633; 87798; 93005; 93041; 96365; 96366; 96367; 99285; J0456

== ENCOUNTER 2018-01-03 09:21 | Observation (INO) ==
--- NOTE | 2018-01-03 10:08 | Emergency Department Note ---
ED Disposition Clinical Impression: Altered mental status, Fever, Hypoxemia, Hx: recurrent pneumonia, History of CVA (cerebrovascular accident) Disposition: Still a Patient Condition on Discharge: Fair - Critical Care Critical Care Time: No Attestation: On 01/03/18, the high probability of a clinically significant, sudden or life threatening deterioration of the following system(s) required my full and direct attention, intervention and personal management. The time I documented below is in addition to time spent performing reported procedures but includes the following listed in this critical care notation. Medical Decision Making - Daniel Inquiry Pt receiving controlled substance: No Daniel was queried for this patient: No Vital Signs: 01/03/18 09:26 Temperature 99.3 F Temperature Source Oral Pulse Rate [Right Radial] 81 Respiratory Rate 18 Blood Pressure [Right Arm] 104/54 Blood Pressure Mean [Right Arm] 70 Blood Pressure Source [Right Arm] Automatic Cuff Blood Pressure Position [Right Arm] Supine 02 Sat by Pulse Oximetry 97 Oxygen Delivery Method Nasal Cannula Oxygen Flow Rate (LPM) 2 - Lab Data Lab Results 01/03/18 10:10: WBC 7.4, RBC 3.52 L, Hgb 8.6 L, Hct 28.2 L, MCV 80.1 L, MCH 24.4 L, MCHC 30.4 L, RDW 13.7, Plt Count 210, MPV 11.5 H, Neut % (Auto) 59.9, Lymph % (Auto) 24.6, [place] % (Auto) 10.3 H, Eos % (Auto) 5.0, Baso % (Auto) 0.3, Neut # (Auto) 4.4, Lymph # (Auto) 1.8, [place] # (Auto) 0.8, Eos # (Auto) 0.4, Baso # (Auto) 0.0 01/03/18 10:10: Sodium 136, Potassium 4.8, Chloride 101, Carbon Dioxide 28, Anion Gap 11.8, BUN 20 H, Creatinine 1.85 H, Estimated Creat Clear 31, Estimated GFR 27 L, Est GFR ( Amer) 32 L, Glucose 109 H, Calcium 8.4 L, Total Bilirubin 0.3, AST 11 L, ALT 12, Alkaline Phosphatase 86, Total Creatine Kinase 19 L, CK-MB (CK-2) < 0.5, CK-MB (CK-2) Rel Index 2.6, Troponin I < 0.02, Total Protein 6.7, Albumin 2.6 L, Globulin 4.1 H, Albumin/Globulin Ratio 0.6 L 01/03/18 10:10: Lactic Acid 1.0 Result diagrams: 01/03/18 10:10 01/03/18 10:10 Orders (Tests/Meds): ED MEDICATIONS Generic Name Dose Route Start Last Admin Trade Name Jaysonq PRN Reason Stop Dose Admin Famotidine 20 mg 01/03/18 21:00 Pepcid 20mg/2ml Vial IV 02/02/18 20:59 BID LUIS ANGEL Cefepime HCl 1 gm/ Sodium 50 mls @ 100 mls/hr 01/03/18 10:15 Chloride IV 01/17/18 10:14 Q12H LUIS ANGEL Protocol Levofloxacin/Dextrose 750 mg in 150 mls @ 100 mls/hr 01/03/18 10:15 01/03/18 10:56 Levofloxacin 750mg/150ml Premix IV 01/17/18 10:14 100 mls/hr Q24H LUIS ANGEL Administration Protocol Discontinued Medications Generic Name Dose Route Start Last Admin Trade Name Edgardo PRN Reason Stop Dose Admin Enoxaparin Sodium 60 mg 01/03/18 11:16 01/03/18 11:36 Lovenox 60mg/0.6ml Syringe SQ 01/03/18 11:17 60 mg ONCE ONE Administration Sodium Chloride 8 ml 01/03/18 11:16 Saline Flush 10ml Syringe IV 01/03/18 11:17 ONCE ONE ORDERS Category Date Time Status CT abdomen pelvis wo con Stat Cat Scan 01/03/18 11:[address] chest wo con Stat Cat Scan 01/03/18 11:29 Ordered UA [Urinalysis and Microscopic] Stat Lab 01/03/18 10:06 Ordered Blood Culture Stat Micro 01/03/18 10:04 Ordered Blood Culture Stat Micro 01/03/18 10:10 Received ABG [Arterial Blood Gas] Stat RT 01/03/18 11:16 Ordered - CT Data CT Scan: Head Time Received: 10:[address] Reviewed: Yes: I have viewed the radiologist's interpretation Preliminary Findings: Abnormal Findings Narrative: IMPRESSION: Findings of mild age-appropriate cortical atrophy no acute intracranial pathology noted. If symptoms persist or worsen suggest a follow-up MRI scan of brain - ECG Data Tracing #1 Normal sinus rhythm left axis deviation left bundle branch block unchanged from prior EKG dated September 10, 2017. ECG initial impression date: 01/03/18 ECG initial impression time: 10:19 Medical Decision Narrative: The patient underwent negative CT scan, and aspirin Plavix from her prior strokes. Her chest x-ray and abdomen series with Dr. Ayala Kohler and we did not see pneumonia or acute abdominal finding. Labs were within normal limits. The patient underwent blood cultures lactic acid and the family declined blood gases. Started on antibiotics Levaquin and cefepime. I discussed the case with Dr. zarate was covering for Dr. Thao who agreed to admit the patient for IV fluids IV antibiotics and follow-up on her CT scan of the chest and abdomen looking for a source of infection. Discussed with the family including her son was a medical power of deputy prosecuting attorney about her CODE STATUS and he wanted her to remain full code. Altered Mental Status HPI - General Chief Complaint: Altered Mental Status Stated Complaint: ams Time Seen by Provider: 01/03/18 09:25 Mode of Arrival: EMS Limitations: No Limitations Description of Symptoms (Recalled from ER Triage Doc. by RN): AMS since woke up with morning with low sbp, temp of 101.3. last known well per family is 1800 yesterday, nursing staff reports pt went to bathroom by herself at 0300. - History of Present Illness HPI narrative: 72 years old white female stroke victim more than a year ago with no residual paralysis, she was recently discharged from [facility] after an admission for pneumonia she finished her Augmentin on the December. Per family the patient was doing well until last night. The nursing staff she was awake at 3:00 in the morning and she wanted to sit on a recliner. She went back to bed and she was awakened at 7:00 in the morning to be given medications by her [facility] staff. Per NG the [facility] nurse she stated that the patient was not arousable, she leaked a water from her mouth, as when she obtained vitals and her sats are 77% on RA, she applied oxygen with improvement to 94%. Her blood pressure was 92/50 mmHg and she was febrile at 10 one-point. I interviewed the patient was arousable to admit her for having cough, she denied shortness of breath or chest pain, she denied nausea or vomiting or diarrhea, she denied having urinary complaint. I reviewed her [facility] discharge summary that showed that she had sepsis pneumonia UTI and elevated troponin. MD complaint: altered mental status Onset (ago): hour(s) Time: 07:00 Timing confirmed by: caregiver Severity: severe Associated symptoms: cough, fever Treatments prior to arrival: oxygen - Related Data Home Medications Medication Instructions Recorded Confirmed amitriptyline 50 mg tablet 50 mg PO DAILY tab 10/31/17 12/09/17 tramadol 50 mg tablet 50 mg PO DAILY 10/31/17 12/09/17 gabapentin 300 mg capsule 600 mg PO DAILY cap 11/05/17 12/09/17 nebivolol 5 mg tablet 5 mg PO DAILY 11/05/17 12/09/17 omeprazole 20 mg capsule,delayed 40 mg PO DAILY cap 11/05/17 12/09/17 release Levothyroxine Sodium 75 mcg PO DAILY 11/23/17 12/09/17 [Levothyroxine 75mcg (0.075mg) Tab] Sucralfate [Carafate 1gm/10ml Oral 1 gm PO ACHS 11/23/17 12/09/17 Susp] Doxycycline Monohydrate 100 mg PO BID 12/09/17 12/09/17 Naproxen [Naprosyn 500mg tablet] 500 mg PO BID 12/09/17 12/09/17 Ondansetron HCl [Zofran 4mg Tab] 1 tab PO Q6HP PRN 12/09/17 12/09/17 Oseltamivir Phosphate 75 mg PO BID 12/09/17 12/09/17 Allergies Allergy/AdvReac Type Severity Reaction Status Date / Time amantadine Allergy Unknown I-HIVES Verified 11/21/17 09:25 baclofen Allergy Unknown S-SWELLS-OR Verified 11/21/17 09:25 AL/THROAT promethazine Allergy Unknown I-HIVES Verified 11/21/17 09:25 CAN TAKE SHOT NOT TABLET rosuvastatin Allergy Unknown I-ITCHING Verified 11/21/17 09:25 simvastatin Allergy Unknown S-SWELLS-OR Verified 11/21/17 09:25 AL/THROAT H History I have reviewed the patient's past medical history: Yes (I reviewed [facility] and [facility] records.) Medical History: Reports:: Congestive Heart Failure, Hyperlipidemia, Hypertension Denies:: Cancer, Diabetes Mellitus Type 1, Diabetes Mellitus Type 2, Internal Pacemaker, MRSA Other Medical History: Reports: Anemia (Iron deficiency), Arthritis, Cataracts, Hypothyroidism, Thyroid Disease Laterality Cases: Right: Arthroscopy Knee Other Surgeries: Yes: Appendectomy, Cardiac Catheterization, Colonoscopy, C- section, EGD, Hysterectomy-Total. No: Pacemaker Amputation: No Fractures: No - Social History Smoking Status: Never smoker Alcohol Intake: never Alcohol Intake Frequency:: other Substance Use Type: denies use Occupational Status: retired Housing: house Household Members: spouse, children - Psychiatric History Expresses thoughts of harming self/others: None Suicide Plan Description: No Plan Family Hx:: Asthma, Cancer, Diabetes, Hypertension ROS Obtained: Yes All systems reviewed & no additional complaints Physical Exam - General General appearance: alert, in no apparent distress - Head Head exam: atraumatic, normocephalic - Eye Eye exam: Present: normal appearance, PERRL, EOMI. Absent: scleral icterus - ENT ENT exam: Present: normal exam, normal oropharynx, mucous membranes moist, TM's normal bilaterally, normal external ear exam - Neck Neck exam: Present: normal inspection, full ROM, trachea midline. Absent: meningismus, lymphadenopathy - Chest Chest inspection: Present: normal inspection, symmetric chest wall rise. Absent : tenderness - Respiratory Respiratory exam: Present: normal lung sounds bilaterally. Absent: respiratory distress - Cardiovascular Cardiovascular exam: Present: regular rate, normal rhythm, other (She does have mild superficial tenderness to palpation with no tenderness to deep palpation. No cross or rebound tenderness. Positive bowel sounds). Absent: JVD - Abdominal Exam Abdominal exam: Present: soft, tenderness, normal bowel sounds. Absent: guarding, rebound, rigidity - External exam: Present: normal external exam - Extremities Exam Extremities exam: Present: normal inspection, full ROM, normal capillary refill. Absent: pedal edema - Back Exam Back exam: Present: normal inspection. Absent: tenderness - Neurological Exam Neurological exam: Present: alert, CN II-XII intact, motor sensory deficit, reflexes normal - Psychiatric Psychiatric exam: Present: normal affect, normal mood - Skin Skin exam: Present: warm, dry, intact, normal color - Lymphatic Lymphatic Findings: no adenopathy
[2018-01-03 10:28] LABS: Basophils % 0.3 % (0.1-2.0); Eosinophils # 0.4 K/mm3 (0.0-0.4); Hematocrit 28.2 % (37.0-47.0); Hemoglobin 8.6 g/dL (12.2-16.2); Lymphocytes # 1.8 K/mm3 (0.7-4.5); Lymphocytes % 24.6 K/mm3 (10-50); Mean Corpuscular HGB Conc 30.4 g/dL (31.8-35.4); Mean Corpuscular Hemoglobin 24.4 pg (27.0-31.2); Mean Corpuscular Volume 80.1 fl (81-99); Mean Platelet Volume 11.5 fl (7.4-10.4); Monocytes # 0.8 K/mm3 (0.1-1.0); Monocytes % 10.3 % (1.7-9.3); Neutrophils # 4.4 K/mm3 (1.8-7.8); Neutrophils % 59.9 % (37.0-80.0); Platelet Count 210 K/mm3 (142-424); Red Blood Count 3.52 M/mm3 (4.20-5.40); Red Cell Distribution Width 13.7 % (11.5-17.5); White Blood Count 7.4 K/mm3 (4.8-10.8)
[2018-01-03 10:53] LABS: Alanine Aminotransferase 12 U/L (12-78); Albumin Level 2.6 gm/dL (3.4-5.0); Albumin/Globulin Ratio 0.6 (1.1-1.8); Alkaline Phosphatase 86 U/L (46-116); Anion Gap 11.8 mEq/L (5-15); Aspartate Amino Transferase 11 U/L (15-37); Bilirubin,Total 0.3 mg/dL (0.2-1.0); Blood Urea Nitrogen 20 mg/dL (7-18); Calcium 8.4 mg/dL (8.5-10.1); Carbon Dioxide 28 mmol/L (21.0-32.0); Chloride 101 mmol/L (98-107); Creatine Kinase 19 U/L (26-192); Globulin 4.1 gm/dl (1.3-3.2); Glucose 109 mg/dL (74-106); Potassium 4.8 mmoL/L (3.5-5.1); Sodium 136 mmol/L (136-145); Total Protein,Serum 6.7 gm/dL (6.4-8.2)
--- NOTE | 2018-01-03 14:33 | History & Physical Report ---
*Admission Date: 01/03/18 *Chief complaint: Weakness and malaise *History of present illness: This 72-year-old white female was [facility]. It was felt that she had altered mental status at the [facility]. She was seen in the emergency room by the ER physician. He was concerned about possible infection. Her white count is normal and her temperature is minimally elevated. Her chest x-ray was clear and CT was normal. He has a history of anemia and shows a hemoglobin of 8.6 on admission. He has been followed for her anemia by Dr. Msaon. She has received transfusions in the past. She was recently hospitalized [facility] with pneumonia. No specific etiology for her anemia has ever been located though she has extensive diverticulosis. She underwent EGD by Dr. Capone October 07, 2017. [facility] History Medical History: Reports:: Congestive Heart Failure, Hyperlipidemia, Hypertension Denies:: Cancer, Diabetes Mellitus Type 1, Diabetes Mellitus Type 2, Internal Pacemaker, MRSA Other Medical History: Reports: Anemia (Iron deficiency), Arthritis, Cataracts, Hypothyroidism, Thyroid Disease Laterality Cases: Right: Arthroscopy Knee Other Surgeries: Yes: Appendectomy, Cardiac Catheterization, Colonoscopy, C- section, EGD, Hysterectomy-Total. No: Pacemaker Amputation: No Fractures: No - *Social History Smoking Status: Never smoker Alcohol Intake: never Alcohol Intake Frequency:: other Substance Use Type: denies use Occupational Status: retired Housing: [facility] Household Members: spouse, children - Psychiatric History Expresses thoughts of harming self/others: None Suicide Plan Description: No Plan *Family Hx:: Asthma, Cancer, Diabetes, Hypertension Review of Systems - Constitutional Reports daytime sleepiness, Reports fatigue, Reports fever(s), Reports weakness , Denies chills - Eyes Denies change in vision - *Cardiovascular Denies chest pain, Denies shortness of breath, Denies rapid, pounding, or irregular heartbeat, Denies radiating jaw, neck or arm pain - *Respiratory Denies chest congestion, Denies cough, Denies shortness of breath, Denies coughing up blood, Denies stridor, Denies wheezing - *Gastrointestinal Reports abdominal pain (mild), Denies change in bowel habits, Denies change in stools, Denies coffee ground vomit, Denies vomiting blood, Denies bright, red blood in stools - *Genitourinary Denies difficulty urinating, Denies painful urination - *Musculoskeletal Denies joint swelling - Integumentary/Breasts Denies bleeding lesions, Denies skin ulcer - *Neurologic Reports weakness - Psychiatric Denies behavioral changes - Hematologic/Lymphatic Denies easy bleeding, Denies easy bruising, Denies enlarged lymph nodes - Allergic/Immunologic Denies GI upset with certain foods Meds Home Medications Medication Instructions Recorded Confirmed Type amitriptyline 50 mg tablet 50 mg PO HS tab 10/31/17 01/03/18 History tramadol 50 mg tablet 50 mg PO DAILY 10/31/17 01/03/18 History gabapentin 300 mg capsule 200 mg PO DAILY cap 11/05/17 01/03/18 History Levothyroxine Sodium 100 mcg PO DAILY 11/23/17 01/03/18 History [Levothyroxine 75mcg (0.075mg) Tab] Sucralfate [Carafate 1gm/10ml Oral 1 gm PO ACHS 11/23/17 01/03/18 History Susp] Ondansetron HCl [Zofran 4mg Tab] 1 tab PO Q6HP PRN 12/09/17 01/03/18 History Amlodipine Besylate [Norvasc 5mg 5 mg PO DAILY 01/03/18 01/03/18 History tablet] Aspirin [Aspirin 81mg EC Tab] 81 mg PO DAILY 01/03/18 01/03/18 History Carvedilol [Coreg 12.5mg 12.5 mg PO BID 01/03/18 01/03/18 History Tablet] Clopidogrel Bisulfate [Plavix 75mg 75 mg PO DAILY 01/03/18 01/03/18 History Tab] Lisinopril [Lisinopril 5mg Tablet] 5 mg PO DAILY 01/03/18 01/03/18 History Allergies Allergy/AdvReac Type Severity Reaction Status Date / Time amantadine Allergy Unknown I-HIVES Verified 11/21/17 09:25 baclofen Allergy Unknown S-SWELLS-OR Verified 11/21/17 09:25 AL/THROAT promethazine Allergy Unknown I-HIVES Verified 11/21/17 09:25 CAN TAKE SHOT NOT TABLET rosuvastatin Allergy Unknown I-ITCHING Verified 11/21/17 09:25 simvastatin Allergy Unknown S-SWELLS-OR Verified 11/21/17 09:25 AL/THROAT Exam Vital signs and Labs for Last 24 Hours: Temp Pulse Resp BP Pulse Ox 99.1 F 79 20 110/60 98 01/03/18 12:33 01/03/18 12:33 01/03/18 12:33 01/03/18 12:33 01/03/18 12:24 - Constitutional Comments: Quietly resting in bed. Very pale. Lethargic but she responds. She answers questions. Family is at bedside. - *Routine HEENT Exam Head: Present: normocephalic Eye: Present: PERRL. Absent: conjunctival icterus, periorbital swelling, nystagmus ENT: Present: mucous membranes moist - *Routine Neck Exam Present: supple - Routine Chest/Breast/Axilla Exam Chest wall: Absent: tenderness Breast: Absent: tenderness Axillae: Absent: lymphadenopathy - *Routine Respiratory Exam Present: decreased breath sounds. Absent: accessory muscle use, respiratory distress - *Routine Cardiovascular Exam Present: RRR - *Routine Abdominal Exam Present: soft. Absent: organomegaly, mass Comments: States mild tenderness to exam - *Routine Rectal Exam Comments: Deferred at this time - *Routine Extremities Exam Present: edema (Minimal) - *Routine Skin Exam Present: pallor. Absent: rash - *Routine Neurological Exam Lethargic but responds to questions. No focal deficits noted. Assessment and Plan (1) Anemia Current visit: Yes Status: Chronic Qualifiers: Anemia type: iron deficiency Iron deficiency anemia type: chronic blood loss Qualified Code(s): D50.0 - Iron deficiency anemia secondary to blood loss (chronic) Category: Medical Code(s): D64.9 - Anemia, unspecified (2) Lethargy Current visit: Yes Status: Acute Category: Medical Code(s): R53.83 - Other fatigue - Assessment and plan all Dx Assessment and Plan for all problems:: She was admitted with the premise of suspected infection. I feel that the anemia needs to be corrected. Transfusion will be ordered. She will be observed for other evidence of infection.
[2018-01-04 00:17] LABS: Hematocrit 32.2 % (37.0-47.0)
[2018-01-04 00:20] LABS: Hemoglobin 10.2 g/dL (12.2-16.2)
[2018-01-04 07:18] LABS: Basophils % 0.3 % (0.1-2.0); Eosinophils # 0.4 K/mm3 (0.0-0.4); Hematocrit 33.2 % (37.0-47.0); Hemoglobin 10.3 g/dL (12.2-16.2); Lymphocytes # 1.1 K/mm3 (0.7-4.5); Lymphocytes % 17.5 K/mm3 (10-50); Mean Corpuscular HGB Conc 30.9 g/dL (31.8-35.4); Mean Corpuscular Hemoglobin 25.4 pg (27.0-31.2); Mean Corpuscular Volume 81.9 fl (81-99); Mean Platelet Volume 11.6 fl (7.4-10.4); Neutrophils % 61.2 % (37.0-80.0); Platelet Count 150 K/mm3 (142-424); Red Blood Count 4.05 M/mm3 (4.20-5.40); Red Cell Distribution Width 14.7 % (11.5-17.5); White Blood Count 6.5 K/mm3 (4.8-10.8)
[2018-01-04 07:25] LABS: Anion Gap 11.6 mEq/L (5-15); Potassium 4.6 mmoL/L (3.5-5.1)
--- NOTE | 2018-01-04 09:30 | Pharmacy Consult Notes ---
[facility] Pharmacy VTE Monitoring - Patient Demographics Admission date: 01/04/18 (T) Report Date: 01/04/18 Time: 09:30 Allergies/Adverse Reactions: Patient Allergies amantadine Allergy (Unknown, Verified 11/21/17 09:25) I-HIVES baclofen Allergy (Unknown, Verified 11/21/17 09:25) [id number]/THROAT promethazine Allergy (Unknown, Verified 11/21/17 09:25) I-HIVES CAN TAKE SHOT NOT TABLET rosuvastatin Allergy (Unknown, Verified 11/21/17 09:25) I-ITCHING simvastatin Allergy (Unknown, Verified 11/21/17 09:25) S-[id number]-[id number]/THROAT Height: 1.63 m Weight: 67.67 kg Patient Problems: Current Active Problems Altered mental status (Acute) Fever (Acute) Hypoxemia (Acute) Hx: recurrent pneumonia (Acute) History of CVA (cerebrovascular accident) (Acute) Anemia (Chronic) Lethargy (Acute) - VTE Risk Labs: VTE Related Lab Results Hgb 10.3 g/dL (12.2-16.2) L 01/04/18 06:30 Hct 33.2 % (37.0-47.0) L 01/04/18 06:30 Plt Count 150 K/mm3 (142-424) D 01/04/18 06:30 BUN 21 mg/dL (7-18) H 01/04/18 06:30 Creatinine 1.32 mg/dL (0.55-1.02) H D 01/04/18 06:30 Estimated Creat Clear 41 mL/min (0-300) 01/04/18 06:30 Was VTE Risk Assessment Performed: Yes VTE Score: 3 VTE Risk Level: Low Risk - Prophylaxis Types of VTE Prophylaxis: Not Applicable Location of Applied Device: Not Applicable - VTE Diagnosis Confirmed Comment: YANIRA BAKER ORDERED
--- NOTE | 2018-01-04 14:57 | Progress Note ---
Internal Medicine - PN: Subj *Date: 01/04/18 *Time: 14:54 Interval history: Patient was seen this AM. Seems abit more alert, color is better. Diarrhea stools. Exam Vital signs and Labs for Last 24 Hours: Temp Pulse Resp BP Pulse Ox 99.1 F 80 16 128/61 95 01/04/18 07:53 01/04/18 07:53 01/04/18 07:53 01/04/18 07:53 01/04/18 08:00 Laboratory Results - last 24 hr 01/03/18 15:20: TSH 2.77 01/03/18 15:20: Blood Type O Positive, Antibody Screen Negative, Crossmatch (AHG ) See Detail 01/04/18 00:10: Hgb 10.2 L D, Hct 32.2 L 01/04/18 06:30: WBC 6.5, RBC 4.05 L, Hgb 10.3 L, Hct 33.2 L, MCV 81.9, MCH 25.4 L, MCHC 30.9 L, RDW 14.7, Plt Count 150 D, MPV 11.6 H, Neut % (Auto) 61.2, Lymph % (Auto) 17.5, [place] % (Auto) 15.0 H, Eos % (Auto) 6.0, Baso % (Auto) 0.3, Neut # (Auto) 4.0, Lymph # (Auto) 1.1, [place] # (Auto) 1.0, Eos # (Auto) 0.4, Baso # (Auto) 0.0 01/04/18 06:30: Sodium 134 L, Potassium 4.6, Chloride 101, Carbon Dioxide 26, Anion Gap 11.6, BUN 21 H, Creatinine 1.32 H D, Estimated Creat Clear 41, Estimated GFR 39 L, Est GFR ( Amer) 48 L D, Glucose 93, Magnesium 1.8 01/04/18 11:45: Stl Aeromonas (PCR) Not detected, Stl C. cayetanensis PCR Not detected, Stool Rotavirus (PCR) Not detected, Stl Adenov F 40/41 PCR Not detected, Stool Astrovirus (PCR) Not detected, Stool Campylobacter PCR Not detected, Stl C.difficile Tox PCR Not detected, Stool Cryptosporidium PCR Not detected, Stl E.coli Shiga Tox PCR Not detected, Stool E coli O157 PCR Not detected, Stl Enterotoxigenic E PCR Not detected, Stool EPEC (PCR) Not detected , Stool EAEC (PCR) Not detected, Stl E. histolytica PCR Not detected, Stool Giardia Lamblia PCR Not detected, Stool Salmonella PCR Not detected, Stool Sapovirus (PCR) Not detected, Stl P. shigelloides PCR Not detected, Stl Shigella /EIEC PCR Not detected, St Y.enterocolitica PCR Not detected, Stool Vibrio (PCR ) Not detected, Stl Vibrio cholerae PCR Not detected, Stl Norovirus GI/GII PCR Not detected I & O for Last 24 hours: Intake & Output 01/02/18 01/03/18 01/04/18 01/05/18 11:59 11:59 11:59 11:59 Intake Total 730 / 730 Balance 730 / 730 Weight 149 lb 3 oz - Constitutional no acute distress - *Routine Respiratory Exam Comments: normal respirations - *Routine Cardiovascular Exam Present: RRR - *Routine Abdominal Exam Present: soft Comments: no tenderness Assessment and Plan (1) Anemia Current visit: Yes Status: Chronic Qualifiers: Anemia type: iron deficiency Iron deficiency anemia type: chronic blood loss Qualified Code(s): D50.0 - Iron deficiency anemia secondary to blood loss (chronic) Category: Medical Code(s): D64.9 - Anemia, unspecified (2) Lethargy Current visit: Yes Status: Acute Category: Medical Code(s): R53.83 - Other fatigue (3) Diarrhea Current visit: Yes Status: Acute Category: Medical Code(s): R19.7 - Diarrhea, unspecified (4) Acute gastroenteritis Current visit: No Status: Acute Category: Medical Code(s): K52.9 - Noninfective gastroenteritis and colitis, unspecified - Assessment and plan all Dx Assessment and Plan for all problems:: Diarrhea PCR
--- NOTE | 2018-01-05 09:42 | Progress Note ---
<Kaye Leyva - Last Filed: 01/05/18 09:48> Internal Medicine - PN: Subj *Date: 01/05/18 *Time: 09:48 Interval history: Patient has been sitting up in a chair. She started coughing and has coughed ever since she has been back in bed. She is eating better. She does choke on some of her foods. . Family arrived and discussed her previous hospital stays. She was in [facility] for 2 weeks with pneumonia and the flu with 1 week and ICU. After this she did go to [facility] for rehab. Her last day was supposed to have been tomorrow. Exam Vital signs and Labs for Last 24 Hours: Temp Pulse Resp BP Pulse Ox 99.1 F 80 20 104/46 96 01/05/18 07:30 01/05/18 07:30 01/05/18 07:30 01/05/18 07:30 01/05/18 07:30 Laboratory Results - last 24 hr 01/03/18 15:20: Crossmatch (AHG) See Detail 01/04/18 11:45: Stl Aeromonas (PCR) Not detected, Stl C. cayetanensis PCR Not detected, Stool Rotavirus (PCR) Not detected, Stl Adenov F 40/41 PCR Not detected, Stool Astrovirus (PCR) Not detected, Stool Campylobacter PCR Not detected, Stl C.difficile Tox PCR Not detected, Stool Cryptosporidium PCR Not detected, Stl E.coli Shiga Tox PCR Not detected, Stool E coli O157 PCR Not detected, Stl Enterotoxigenic E PCR Not detected, Stool EPEC (PCR) Not detected , Stool EAEC (PCR) Not detected, Stl E. histolytica PCR Not detected, Stool Giardia Lamblia PCR Not detected, Stool Salmonella PCR Not detected, Stool Sapovirus (PCR) Not detected, Stl P. shigelloides PCR Not detected, Stl Shigella /EIEC PCR Not detected, St Y.enterocolitica PCR Not detected, Stool Vibrio (PCR ) Not detected, Stl Vibrio cholerae PCR Not detected, Stl Norovirus GI/GII PCR Not detected I & O for Last 24 hours: Intake & Output 01/02/18 01/03/18 01/04/18 01/05/18 11:59 11:59 11:59 11:59 Intake Total 730 / 730 240 / 240 Output Total 1080 / 1080 Balance 730 / 730 -840 / -840 Weight 149 lb 3 oz 150 lb - Constitutional no acute distress - *Routine Respiratory Exam Comments: Right basilar crackles - *Routine Cardiovascular Exam Present: RRR - *Routine Abdominal Exam Present: soft, normoactive bowel sounds. Absent: tenderness, distended - *Routine Extremities Exam Absent: edema, calf tenderness - *Routine Neurological Exam Present: alert, oriented X3 Assessment and Plan (1) Anemia Current visit: Yes Status: Chronic Qualifiers: Anemia type: iron deficiency Iron deficiency anemia type: chronic blood loss Qualified Code(s): D50.0 - Iron deficiency anemia secondary to blood loss (chronic) Category: Medical Code(s): D64.9 - Anemia, unspecified (2) Lethargy Current visit: Yes Status: Acute Category: Medical Code(s): R53.83 - Other fatigue (3) Diarrhea Current visit: Yes Status: Acute Category: Medical Code(s): R19.7 - Diarrhea, unspecified (4) Acute gastroenteritis Current visit: No Status: Acute Category: Medical Code(s): K52.9 - Noninfective gastroenteritis and colitis, unspecified (5) Pneumonia Current visit: Yes Status: Acute Category: Medical Code(s): J18.9 - Pneumonia, unspecified organism (6) Anemia Current visit: No Status: Chronic Qualifiers: Anemia type: iron deficiency Iron deficiency anemia type: unspecified iron deficiency Qualified Code(s): D50.9 - Iron deficiency anemia, unspecified Category: Medical Code(s): D64.9 - Anemia, unspecified (7) Hiatus hernia syndrome Current visit: No Status: Chronic Category: Medical Code(s): K44.9 - Diaphragmatic hernia without obstruction or gangrene (8) Renal insufficiency Current visit: No Status: Chronic Category: Medical Code(s): N28.9 - Disorder of kidney and ureter, unspecified - Assessment and plan all Dx Assessment and Plan for all problems:: add ABX and duo nebs; repeat CXR. Sputum for C&S. <Wilber Thao - Last Filed: 01/05/18 14:01> Internal Medicine - PN: Subj *Date: 01/05/18 *Time: 13:57 Exam Vital signs and Labs for Last 24 Hours: Temp Pulse Resp BP Pulse Ox 99.1 F 80 20 104/46 89 L 01/05/18 07:30 01/05/18 07:30 01/05/18 07:30 01/05/18 07:30 01/05/18 08:15 Laboratory Results - last 24 hr 01/03/18 15:20: Crossmatch (AHG) See Detail 01/04/18 11:45: Stl Aeromonas (PCR) Not detected, Stl C. cayetanensis PCR Not detected, Stool Rotavirus (PCR) Not detected, Stl Adenov F 40/41 PCR Not detected, Stool Astrovirus (PCR) Not detected, Stool Campylobacter PCR Not detected, Stl C.difficile Tox PCR Not detected, Stool Cryptosporidium PCR Not detected, Stl E.coli Shiga Tox PCR Not detected, Stool E coli O157 PCR Not detected, Stl Enterotoxigenic E PCR Not detected, Stool EPEC (PCR) Not detected , Stool EAEC (PCR) Not detected, Stl E. histolytica PCR Not detected, Stool Giardia Lamblia PCR Not detected, Stool Salmonella PCR Not detected, Stool Sapovirus (PCR) Not detected, Stl P. shigelloides PCR Not detected, Stl Shigella /EIEC PCR Not detected, St Y.enterocolitica PCR Not detected, Stool Vibrio (PCR ) Not detected, Stl Vibrio cholerae PCR Not detected, Stl Norovirus GI/GII PCR Not detected I & O for Last 24 hours: Intake & Output 01/03/18 01/04/18 01/05/18 01/06/18 11:59 11:59 11:59 11:59 Intake Total 730 / 730 240 / 240 Output Total 1080 / 1080 Balance 730 / 730 -840 / -840 Weight 149 lb 3 oz 150 lb Assessment and Plan (1) Pneumonia Current visit: Yes Status: Acute Category: Medical Code(s): J18.9 - Pneumonia, unspecified organism (2) Chronic anemia Current visit: Yes Status: Chronic Category: Medical Code(s): D64.9 - Anemia, unspecified (3) Lethargy Current visit: Yes Status: Acute Category: Medical Code(s): R53.83 - Other fatigue (4) Diarrhea Current visit: Yes Status: Acute Category: Medical Code(s): R19.7 - Diarrhea, unspecified (5) Acute gastroenteritis Current visit: No Status: Acute Category: Medical Code(s): K52.9 - Noninfective gastroenteritis and colitis, unspecified (6) Hiatus hernia syndrome Current visit: No Status: Chronic Category: Medical Code(s): K44.9 - Diaphragmatic hernia without obstruction or gangrene (7) Renal insufficiency Current visit: No Status: Chronic Category: Medical Code(s): N28.9 - Disorder of kidney and ureter, unspecified - Assessment and plan all Dx Assessment and Plan for all problems:: Patient seen and examined. She is quite alert and oriented this AM. Concur with above assessament and plan.
[2018-01-06 04:21] LABS: Appearance,Urine CLEAR (Clear); Bilirubin,Urine Negative (Negative); Blood, Urine 2+ (Negative); Color,Urine YELLOW (Yellow); Glucose,Urine (UA) Negative (Negative); Ketones,Urine Negative (Negative); Leukocyte Esterase,Urine Negative (Negative); Microscopic, Urine URINE MICROSCOPIC (MICROSCOPIC); PH,Urine 6.5 (5.0-8.5); Protein,Urine Negative (Negative); Specific Gravity, Urine <= 1.005 (1.005-1.030); Urobilinogen,Urine 0.2 EU/dl (0.2)
[2018-01-06 04:40] LABS: Bacteria,Urine 1+ /lpf
--- NOTE | 2018-01-06 08:27 | Progress Note ---
<Kaye Leyva - Last Filed: 01/06/18 08:28> Internal Medicine - PN: Subj *Date: 01/06/18 *Time: 08:28 Interval history: Had a good day yesterday. She ate well without problems, was out of bed, voiding QS, and slept well last night. She denies shortness of breath but has had a frequent nonproductive cough. She denies chest pain Exam Vital signs and Labs for Last 24 Hours: Temp Pulse Resp BP Pulse Ox 98.5 F 74 18 132/63 93 L 01/06/18 07:24 01/06/18 07:24 01/06/18 07:24 01/06/18 07:24 01/06/18 07:24 Laboratory Results - last 24 hr 01/03/18 15:20: Vitamin B12 689 01/03/18 15:20: Iron 17 L, TIBC 287, Iron Saturation 6 L, Unsaturated IBC 270 01/06/18 04:12: Urine Color Yellow, Urine Appearance Clear, Urine pH 6.5, Ur Specific Uvalda <= 1.005, Urine Protein Negative, Urine Glucose (UA) Negative, Urine Ketones Negative, Urine Blood 2+, Urine Nitrate Negative, Urine Bilirubin Negative, Urine Urobilinogen 0.2, Ur Leukocyte Esterase Negative, Urine RBC 3-5 , Urine WBC 3-5, Urine Bacteria 1+ I & O for Last 24 hours: Intake & Output 01/03/18 01/04/18 01/05/18 01/06/18 11:59 11:59 11:59 11:59 Intake Total 730 / 730 960 / 960 1783 / 1783 Output Total 1080 / 1080 1000 / 1000 Balance 730 / 730 -120 / -120 783 / 783 Weight 149 lb 3 oz 150 lb 146 lb 2 oz Radiology Reports for the Last 24 Hours: 01/05/18 CXR IMPRESSION: Resolving minimal right lower lobe pneumonia - Constitutional no acute distress - *Routine Respiratory Exam Comments: Review right basilar crackles - *Routine Cardiovascular Exam Present: RRR - *Routine Abdominal Exam Present: soft, normoactive bowel sounds. Absent: tenderness, distended - *Routine Extremities Exam Absent: edema, calf tenderness - *Routine Neurological Exam Present: alert, oriented X3 Conversant Assessment and Plan (1) Pneumonia Current visit: Yes Status: Acute Category: Medical Code(s): J18.9 - Pneumonia, unspecified organism (2) Chronic anemia Current visit: Yes Status: Chronic Category: Medical Code(s): D64.9 - Anemia, unspecified (3) Lethargy Current visit: Yes Status: Acute Category: Medical Code(s): R53.83 - Other fatigue (4) Diarrhea Current visit: Yes Status: Acute Category: Medical Code(s): R19.7 - Diarrhea, unspecified (5) Acute gastroenteritis Current visit: No Status: Acute Category: Medical Code(s): K52.9 - Noninfective gastroenteritis and colitis, unspecified (6) Hiatus hernia syndrome Current visit: No Status: Chronic Category: Medical Code(s): K44.9 - Diaphragmatic hernia without obstruction or gangrene (7) Renal insufficiency Current visit: No Status: Chronic Category: Medical Code(s): N28.9 - Disorder of kidney and ureter, unspecified - Assessment and plan all Dx Assessment and Plan for all problems:: Oxygen was restarted for O2 sats less than 90 yesterday. She remains on O2 at this time. Will need to wean from O2 and consider discharge <Wilber Thao - Last Filed: 01/06/18 08:46> Internal Medicine - PN: Subj *Date: 01/06/18 *Time: 08:45 Exam Vital signs and Labs for Last 24 Hours: Temp Pulse Resp BP Pulse Ox 98.5 F 74 18 132/63 93 L 01/06/18 07:24 01/06/18 07:24 01/06/18 07:24 01/06/18 07:24 01/06/18 07:24 Laboratory Results - last 24 hr 01/03/18 15:20: Vitamin B12 689 01/03/18 15:20: Iron 17 L, TIBC 287, Iron Saturation 6 L, Unsaturated IBC 270 01/06/18 04:12: Urine Color Yellow, Urine Appearance Clear, Urine pH 6.5, Ur Specific Uvalda <= 1.005, Urine Protein Negative, Urine Glucose (UA) Negative, Urine Ketones Negative, Urine Blood 2+, Urine Nitrate Negative, Urine Bilirubin Negative, Urine Urobilinogen 0.2, Ur Leukocyte Esterase Negative, Urine RBC 3-5 , Urine WBC 3-5, Urine Bacteria 1+ I & O for Last 24 hours: Intake & Output 01/03/18 01/04/18 01/05/18 01/06/18 11:59 11:59 11:59 11:59 Intake Total 730 / 730 960 / 960 1783 / 1783 Output Total 1080 / 1080 1000 / 1000 Balance 730 / 730 -120 / -120 783 / 783 Weight 149 lb 3 oz 150 lb 146 lb 2 oz Assessment and Plan (1) Pneumonia Current visit: Yes Status: Acute Category: Medical Code(s): J18.9 - Pneumonia, unspecified organism (2) Chronic anemia Current visit: Yes Status: Chronic Category: Medical Code(s): D64.9 - Anemia, unspecified (3) Lethargy Current visit: Yes Status: Acute Category: Medical Code(s): R53.83 - Other fatigue (4) Diarrhea Current visit: Yes Status: Acute Category: Medical Code(s): R19.7 - Diarrhea, unspecified (5) Acute gastroenteritis Current visit: No Status: Acute Category: Medical Code(s): K52.9 - Noninfective gastroenteritis and colitis, unspecified (6) Hiatus hernia syndrome Current visit: No Status: Chronic Category: Medical Code(s): K44.9 - Diaphragmatic hernia without obstruction or gangrene (7) Renal insufficiency Current visit: No Status: Chronic Category: Medical Code(s): N28.9 - Disorder of kidney and ureter, unspecified - Assessment and plan all Dx Assessment and Plan for all problems:: Patient seen and examined. Concur with above. Possible discharge home tomorrow.
--- NOTE | 2018-01-07 08:08 | Progress Note ---
<Beena Deal - Last Filed: 01/07/18 08:06> Internal Medicine - PN: Subj *Date: 01/07/18 *Time: 08:06 Interval history: Patient is still on oxygen this morning. She denies any pain or shortness of air. She is sitting up in a chair and has eaten breakfast. Exam Vital signs and Labs for Last 24 Hours: Temp Pulse Resp BP Pulse Ox 98.5 F 80 18 130/57 96 01/07/18 07:21 01/07/18 07:21 01/07/18 07:21 01/07/18 07:21 01/07/18 07:21 I & O for Last 24 hours: Intake & Output 01/04/18 01/05/18 01/06/18 01/07/18 11:59 11:59 11:59 11:59 Intake Total 730 / 730 1060 / 1060 1783 / 1783 1901 / 1901 Output Total 1080 / 1080 1700 / 1700 300 / 300 Balance 730 / 730 -20 / -20 83 / 83 1601 / 1601 Weight 149 lb 3 oz 150 lb 146 lb 2 oz 146 lb 1 oz - Constitutional no acute distress - *Routine Respiratory Exam Present: rales (faint rales in right base) - *Routine Cardiovascular Exam Present: RRR - *Routine Abdominal Exam Present: soft, normoactive bowel sounds. Absent: tenderness - *Routine Extremities Exam Absent: edema Assessment and Plan (1) Pneumonia Current visit: Yes Status: Acute Category: Medical Code(s): J18.9 - Pneumonia, unspecified organism (2) Chronic anemia Current visit: Yes Status: Chronic Category: Medical Code(s): D64.9 - Anemia, unspecified (3) Lethargy Current visit: Yes Status: Acute Category: Medical Code(s): R53.83 - Other fatigue (4) Diarrhea Current visit: Yes Status: Acute Category: Medical Code(s): R19.7 - Diarrhea, unspecified (5) Acute gastroenteritis Current visit: No Status: Acute Category: Medical Code(s): K52.9 - Noninfective gastroenteritis and colitis, unspecified (6) Hiatus hernia syndrome Current visit: No Status: Chronic Category: Medical Code(s): K44.9 - Diaphragmatic hernia without obstruction or gangrene (7) Renal insufficiency Current visit: No Status: Chronic Category: Medical Code(s): N28.9 - Disorder of kidney and ureter, unspecified - Assessment and plan all Dx Assessment and Plan for all problems:: Still awaiting sputum. Possible discharge home today. Will discuss with Dr. Thao. <Wilber Thao - Last Filed: 01/07/18 09:41> Internal Medicine - PN: Subj *Date: 01/07/18 *Time: 09:40 Exam Vital signs and Labs for Last 24 Hours: Temp Pulse Resp BP Pulse Ox 98.5 F 80 18 130/57 96 01/07/18 07:21 01/07/18 07:21 01/07/18 07:21 01/07/18 07:21 01/07/18 07:21 I & O for Last 24 hours: Intake & Output 01/04/18 01/05/18 01/06/18 01/07/18 11:59 11:59 11:59 11:59 Intake Total 730 / 730 1060 / 1060 1783 / 1783 1901 / 1901 Output Total 1080 / 1080 1700 / 1700 300 / 300 Balance 730 / 730 -20 / -20 83 / 83 1601 / 1601 Weight 149 lb 3 oz 150 lb 146 lb 2 oz 146 lb 1 oz Microbiology Reports for the Last 24 Hours: Microbiology 01/07/18 06:25 Sputum - Expectorated Sputum Gram Stain - Final Assessment and Plan (1) Pneumonia Current visit: Yes Status: Acute Category: Medical Code(s): J18.9 - Pneumonia, unspecified organism (2) Chronic anemia Current visit: Yes Status: Chronic Category: Medical Code(s): D64.9 - Anemia, unspecified (3) Lethargy Current visit: Yes Status: Acute Category: Medical Code(s): R53.83 - Other fatigue (4) Diarrhea Current visit: Yes Status: Acute Category: Medical Code(s): R19.7 - Diarrhea, unspecified (5) Acute gastroenteritis Current visit: No Status: Acute Category: Medical Code(s): K52.9 - Noninfective gastroenteritis and colitis, unspecified (6) Hiatus hernia syndrome Current visit: No Status: Chronic Category: Medical Code(s): K44.9 - Diaphragmatic hernia without obstruction or gangrene (7) Renal insufficiency Current visit: No Status: Chronic Category: Medical Code(s): N28.9 - Disorder of kidney and ureter, unspecified - Assessment and plan all Dx Assessment and Plan for all problems:: Clinically much improved. Stable for discharge on continued antibiotics. She will f/u with her PCP, Katja Aldana APRN.
--- NOTE | 2018-01-07 14:35 | Discharge Summary ---
General - General Admission date: 01/04/18 (T) <Beena Deal - 01/07/18 14:45> Discharge date: 01/07/18 <Beena Deal - 01/07/18 14:45> HPI HPI: This 72-year-old white female was [facility] It was felt that she had altered mental status [facility] the [facility]. She was seen in the emergency room by the ER physician. He was concerned about possible infection. Her white count is normal and her temperature is minimally elevated. Her chest x-ray was clear and CT was normal. He has a history of anemia and shows a hemoglobin of 8.6 on admission. She has been followed for her anemia by Dr. Mason. She has received transfusions in the past. She was recently hospitalized at the [facility] with pneumonia. No specific etiology for her anemia has ever been located though she has extensive diverticulosis. She underwent EGD by Dr. Capone October 07, 2017. <Beena Deal - 01/07/18 14:45> Hospital Course Hospital Course: She was admitted with the premise of suspected infection. A blood transfusion was ordered. A diarrhea panel was ordered as well and was normal. She had previously been in [facility] for 2 weeks with pneumonia and the flu. After this she did go to [facility] for rehab. Her chest CT showed a RLL pneumonia. ABX and duo nebs were added. Her symptoms improved and a repeat CXR showed improvement. Sputum for C&S is still pending. She was stable to be disharged on abx. <Beena Deal - 01/07/18 14:45> Objective Vital signs: Temp Pulse Resp BP Pulse Ox 98.5 F 80 18 130/57 96 01/07/18 07:21 01/07/18 07:21 01/07/18 07:21 01/07/18 07:21 01/07/18 07:21 <Wilber Thao - 01/12/18 21:52> Temp Pulse Resp BP Pulse Ox 98.5 F 80 18 130/57 96 01/07/18 07:21 01/07/18 07:21 01/07/18 07:21 01/07/18 07:21 01/07/18 07:21 <Beena Deal - 01/07/18 14:45> Narrative: - Constitutional Comments: Quietly resting in bed. Very pale. Lethargic but she responds. She answers questions. Family is at bedside. - *Routine HEENT Exam Head: Present: normocephalic Eye: Present: PERRL. Absent: conjunctival icterus, periorbital swelling, nystagmus ENT: Present: mucous membranes moist - *Routine Neck Exam Present: supple - Routine Chest/Breast/Axilla Exam Chest wall: Absent: tenderness Breast: Absent: tenderness Axillae: Absent: lymphadenopathy - *Routine Respiratory Exam Present: decreased breath sounds. Absent: accessory muscle use, respiratory distress - *Routine Cardiovascular Exam Present: RRR - *Routine Abdominal Exam Present: soft. Absent: organomegaly, mass Comments: States mild tenderness to exam - *Routine Rectal Exam Comments: Deferred at this time - *Routine Extremities Exam Present: edema (Minimal) - *Routine Skin Exam Present: pallor. Absent: rash - *Routine Neurological Exam Lethargic but responds to questions. No focal deficits noted. <Beena Deal - 01/07/18 14:45> DS: Diagnosis - Discharge Diagnosis (1) Pneumonia Status: Acute (2) Chronic anemia Status: Chronic (3) Lethargy Status: Acute (4) Diarrhea Status: Acute (5) Acute gastroenteritis Status: Acute (6) Hiatus hernia syndrome Status: Chronic (7) Renal insufficiency Status: Chronic <Beena Deal 01/07/18 14:27> (1) Pneumonia Status: Acute (2) Chronic anemia Status: Chronic (3) Diarrhea Status: Acute (4) Acute gastroenteritis Status: Acute (5) Hiatus hernia syndrome Status: Chronic (6) Renal insufficiency Status: Chronic <Wilber Thao - 01/12/18 21:52> Discharge Plan - Patient Discharge Instructions ACTIVITY: Continue current activity <Beena Deal 01/07/18 14:45> DIET: continue same diet <Beena Deal 01/07/18 14:45> Patient Instructions: Pneumonia-Adult <Wilber Thao - 01/12/18 21: 52> Forms: <Wilber Thao - 01/12/18 21:52> - Follow up Plan Follow up with: Katja Aldana [Referring] - 1 week <KeeshaWilber David - 21:52> Disposition: Home, Self-Care <Wilber Thao - 01/12/18 21:52> Home Medications: Home Medications Medication Instructions Recorded Confirmed Type amitriptyline 50 mg tablet 50 mg PO HS tab 10/31/17 01/03/18 History Levothyroxine Sodium 100 mcg PO DAILY 11/23/17 01/03/18 History [Levothyroxine 75mcg (0.075mg) Tab] Sucralfate [Carafate 1gm/10ml Oral 1 gm PO ACHS 11/23/17 01/03/18 History Susp] Ondansetron HCl [Zofran 4mg Tab] 1 tab PO Q6HP PRN 12/09/17 01/03/18 History Amlodipine Besylate [Norvasc 5mg 5 mg PO DAILY 01/03/18 01/03/18 History tablet] Aspirin [Aspirin 81mg EC Tab] 81 mg PO DAILY 01/03/18 01/03/18 History Carvedilol [Coreg 12.5mg 12.5 mg PO BID 01/03/18 01/03/18 History Tablet] Clopidogrel Bisulfate [Plavix 75mg 75 mg PO DAILY 01/03/18 01/03/18 History Tab] Lisinopril [Lisinopril 5mg Tablet] 5 mg PO DAILY 01/03/18 01/03/18 History Gabapentin [Neurontin 100mg 200 mg PO TID 01/04/18 01/04/18 History cap] <Wilber Thao - 01/12/18 21:52> Prescriptions/Medication Reconciliation: New levoFLOXacin [Levaquin 500mg tab] 500 mg PO DAILY #7 tab Continue amitriptyline 50 mg tablet 50 mg PO HS tab Sucralfate [Carafate 1gm/10ml Oral Susp] 1 gm PO ACHS Levothyroxine Sodium [Levothyroxine 75mcg (0.075mg) Tab] 100 mcg PO DAILY Ondansetron HCl [Zofran 4mg Tab] 1 tab PO Q6HP PRN PRN Reason: Nausea And Vomiting Carvedilol [Coreg 12.5mg Tablet] 12.5 mg PO BID Clopidogrel Bisulfate [Plavix 75mg Tab] 75 mg PO DAILY Aspirin [Aspirin 81mg EC Tab] 81 mg PO DAILY Amlodipine Besylate [Norvasc 5mg tablet] 5 mg PO DAILY Gabapentin [Neurontin 100mg cap] 200 mg PO TID Lisinopril [Lisinopril 5mg Tablet] 5 mg PO DAILY Discontinued tramadol 50 mg tablet 50 mg PO DAILY <Wilber Thao - 01/12/18 21: 52> - Additional Information Additional Information: I concur with the content of this report <Wilber Thao - 01/12/18 21:52>
== END 2018-01-07 10:25 | disposition home or self-care (01) ==
LOC: 2ND 09:21 → ER 09:21 → INTOOBSV 12:34 → OBSVTOIN 12:34 → 2ND 12:35
PROVIDERS: ADMIT Family Medicine; ATTEND Family Medicine

== ENCOUNTER → 2018-01-19 11:04 | Outpatient (CLI) | payer MEDICARE, MEDICAID, SELFPAY ==
[2018-01-19 11:08] LABS: Adenovirus F 40/41, stool Not Detected (NotDetected); Astrovirus Not Detected (NotDetected); Campylobacter Not Detected (NotDetected); Clostridium Difficile A/B, PCR Not Detected (NotDetected); Cryptosporidium Not Detected (NotDetected); Cyclospora Cayetanesis Not Detected (NotDetected); Entamoeba histolytica Not Detected (NotDetected); Enteroaggregative E coli Not Detected (NotDetected); Enteropathogenic E coli Not Detected (NotDetected); Enterotoxigenic E coli Not Detected (NotDetected); Giardia lamblia Not Detected (NotDetected); Norovirus Not Detected (NotDetected); Plesimonas Shigalloides, PCR Not Detected (NotDetected); Rotavirus A Not Detected (NotDetected); Salmonella, PCR Not Detected (NotDetected); Sapovirus Not Detected (NotDetected); Shiga-like toxin E coli Not Detected (NotDetected); Shigella Enterovasive E coli Not Detected (NotDetected); Vibrio Cholerae Not Detected (NotDetected); Vibrio, PCR Not Detected (NotDetected); Yersinia Entercolitica, PCR Not Detected (NotDetected)
[2018-01-19 14:00] LABS: Alanine Aminotransferase 12 U/L (12-78); Albumin/Globulin Ratio 0.9 (1.1-1.8); Alkaline Phosphatase 91 U/L (46-116); Anion Gap 12.5 mEq/L (5-15); Aspartate Amino Transferase 21 U/L (15-37); Bilirubin,Total 0.6 mg/dL (0.2-1.0); Blood Urea Nitrogen 18 mg/dL (7-18); Calcium 8.7 mg/dL (8.5-10.1); Carbon Dioxide 27 mmol/L (21.0-32.0); Chloride 104 mmol/L (98-107); Creatinine,Serum 1.04 mg/dL (0.55-1.02); Estimated Glomerular Filt Rate 52 ml/min (>60); GFR (African American) 63 ML/MIN (>60); Globulin 3.4 gm/dl (1.3-3.2); Glucose 88 mg/dL (74-106); Potassium 4.5 mmoL/L (3.5-5.1); Sodium 139 mmol/L (136-145); Total Protein,Serum 6.4 gm/dL (6.4-8.2)
[2018-01-19 14:19] LABS: Basophils % 0.6 % (0.1-2.0); Eosinophils # 0.4 K/mm3 (0.0-0.4); Eosinophils % 8.6 % (0.1-12.0); Hematocrit 32.9 % (37.0-47.0); Hemoglobin 10.2 g/dL (12.2-16.2); Lymphocytes # 1.1 K/mm3 (0.7-4.5); Lymphocytes % 25.4 K/mm3 (10-50); Mean Corpuscular HGB Conc 31.1 g/dL (31.8-35.4); Mean Corpuscular Hemoglobin 25.6 pg (27.0-31.2); Mean Corpuscular Volume 82.4 fl (81-99); Mean Platelet Volume 11.5 fl (7.4-10.4); Monocytes # 0.6 K/mm3 (0.1-1.0); Monocytes % 12.2 % (1.7-9.3); Neutrophils # 2.4 K/mm3 (1.8-7.8); Neutrophils % 53.3 % (37.0-80.0); Platelet Count 173 K/mm3 (142-424); Red Cell Distribution Width 14.5 % (11.5-17.5); White Blood Count 4.5 K/mm3 (4.8-10.8)
== END ==
PROVIDERS: PCP Nurse Practitioner Family; Visit Provider Nurse Practitioner Family
DX: D50.9 Iron deficiency anemia, unspecified (principal); E86.0 Dehydration; R19.7 Diarrhea, unspecified; R53.83 Other fatigue
CPT/HCPCS: 36415; 80053; 85025; 87507

== ENCOUNTER → 2018-02-02 08:04 | Outpatient (POV) | payer MEDICARE, MEDICAID, SELFPAY | PROVIDERS: Visit Provider Nurse Practitioner Acute Care | DX: Z00.00 Encounter for general adult medical examination without abnormal findings (principal) ==

== ENCOUNTER → 2018-02-10 09:31 | Outpatient (CLI) | payer MEDICARE, MEDICAID, SELFPAY ==
[2018-02-10 10:03] LABS: Blood Urea Nitrogen 9 mg/dL (7-18); Creatinine,Serum 0.81 mg/dL (0.55-1.02); Estimated Glomerular Filt Rate 69 ml/min (>60); GFR (African American) 84 ML/MIN (>60)
--- NOTE | 2018-02-10 10:04 | MR_ITS ---
MR lumbar spine wo/w con, MR 3-d myelogram/MRCP HISTORY: PT states Upper, Mid And low back pain X years. Prior back surgery around 7 years ago. Pt also states she is loosing blood and they aren't sure why or from where. ITS.REASON: SPINAL CORD STENOSIS ORDERING PHYSICIAN: Jens Mason MD PATIENT AGE: 73 years COMPARISON: Prior XRay 04/18/2017 TECHNIQUE: Standard multiplanar multiecho sequences are performed without and with contrast. 3-D MIP and myelographic images are also rendered and reviewed. 13 ML prohance FINDINGS: There is normal alignment. The spinal cord ends at the L1 level.. T11-T12: Mild disc desiccation. T12-L1: Unremarkable. L1-L2: Mild facet and ligamentum hypertrophy with mild bilateral lateral recess narrowing. A Schmorl's node is present along the L2-L3: Small concentric bulging disc with resultant mild bilateral foraminal narrowing. L3-L4: Patient has had prior vertebroplasty at L3 and L4 with heterogeneous decreased T1 and T2 signal within the vertebral bodies from the vertebroplasty material. Mild wedging of L3. Mild concentric bulging disc is present at L3-L4 with facet and ligamentum flavum hypertrophy with transverse narrowing of the canal and mild bilateral lateral recess and foraminal narrowing. L4-L5: Mild concentric bulging disc with facet and ligamentum hypertrophy with mild bilateral lateral recess and foraminal narrowing. A Schmorl's node is present in the superior endplate of L5. L5-S1: Mild concentric bulging disc or a slightly eccentric toward the right along with assessment ligamentum hypertrophy with mild bilateral lateral recess and foraminal narrowing. No extruded herniated disc.. On the enhanced images there is enhancement of the central aspect of the disc at T11-T12 and within the central aspect of the disc at L2-L3. There is minimal enhancement along the superior endplate of L3. These disc spaces are however well-preserved. The enhancement may be due to underlying inflammatory change as there are Schmorl's nodes along the infra aspect of these areas of enhancement. IMPRESSION: 1. Lumbar spondylosis with mild multilevel facet ligamentum flavum hypertrophy with areas of lateral recess and mild foraminal narrowing. Please see above for detailed description at each level. 2.Mild facet and ligamentum hypertrophy at L1-L2 with mild bilateral lateral recess narrowing. 3. Small concentric bulging disc L2-L3 with resultant mild bilateral foraminal narrowing. 4. Prior vertebroplasty at L3 and L4 with heterogeneous decreased T1 and T2 signal within the vertebral bodies from the vertebroplasty material. Mild wedging of L3. Mild concentric bulging disc is present at L3-L4 with facet and ligamentum flavum hypertrophy with transverse narrowing of the canal and mild bilateral lateral recess and foraminal narrowing. 5. Mild concentric bulging disc L4-L5 with facet and ligamentum hypertrophy with mild bilateral lateral recess and foraminal narrowing. A Schmorl's node is present in the superior endplate of L5. 6. Mild concentric bulging disc L5-S1 or a slightly eccentric toward the right along with assessment ligamentum hypertrophy with mild bilateral lateral recess and foraminal narrowing 7. Enhancement of the central aspect of the disc at T11-T12 and within the central aspect of the disc at L2-L3. There is minimal enhancement along the superior endplate of L3. These disc spaces are however well-preserved. The enhancement may be due to underlying inflammatory change as there are Schmorl's nodes along the infra aspect of these areas of enhancement.
--- NOTE | 2018-02-10 15:26 | HMH.ITSHM ---
LEVOTHYROXINE SODIUM SUCRALFATE ONDANSETRON ASPIRIN CARVEDLLOL CLOPLDOGRE GABAPENTIN LEVOFLOXACIN
== END ==
PROVIDERS: Family Provider Nurse Practitioner Family; Visit Provider Internal Medicine
DX: M48.061 Spinal stenosis, lumbar region without neurogenic claudication (principal)
CPT/HCPCS: 36415; 72158; 76376; 82565; 84520; A9576

== ENCOUNTER 2018-02-11 08:35 | Outpatient (CLI) | payer MEDICARE, MEDICAID, SELFPAY ==
[2018-02-11 09:30] VITALS: BP 105/66; PULSE 73; RESP 18; TEMP 37
[2018-02-11 10:00] VITALS: BP 98/54; PULSE 70; RESP 16
[2018-02-11 10:30] VITALS: BP 112/42; PULSE 68; RESP 18
[2018-02-11 11:00] VITALS: BP 109/59; PULSE 66; RESP 18
== END 2018-02-11 11:00 | disposition home or self-care (01) ==
LOC: INF 08:54
PROVIDERS: Family Provider Nurse Practitioner Family; Visit Provider Internal Medicine
DX: D50.0 Iron deficiency anemia secondary to blood loss (chronic) (principal)
CPT/HCPCS: 96365; J1756

== ENCOUNTER 2018-02-18 13:24 | Outpatient (CLI) | payer MEDICARE, MEDICAID, SELFPAY ==
[2018-02-18 13:20] VITALS: BP 127/63; PULSE 66; RESP 20; TEMP 36.6; O2SAT 96
[2018-02-18 14:05] VITALS: BP 143/69; PULSE 66; RESP 18; TEMP 36.6; O2SAT 97
[2018-02-18 14:20] VITALS: BP 132/68; PULSE 64; RESP 18; TEMP 36.6; O2SAT 96
[2018-02-18 14:35] VITALS: BP 143/68; PULSE 68; RESP 18; TEMP 36.6; O2SAT 97
[2018-02-18 14:50] VITALS: BP 150/60; PULSE 70; RESP 18; TEMP 36.6; O2SAT 97
[2018-02-18 14:55] VITALS: BP 150/60; PULSE 70; RESP 18; TEMP 36.6; O2SAT 96
== END 2018-02-18 14:55 | disposition home or self-care (01) ==
LOC: INF 13:24
PROVIDERS: Family Provider Nurse Practitioner Family; Visit Provider Internal Medicine
DX: D50.0 Iron deficiency anemia secondary to blood loss (chronic) (principal)
CPT/HCPCS: 96365; J1756

== ENCOUNTER 2018-02-25 08:58 | Outpatient (CLI) | payer MEDICARE, MEDICAID, SELFPAY ==
[2018-02-25 09:40] VITALS: BP 142/66; PULSE 60; RESP 18; TEMP 36.6; O2SAT 98
[2018-02-25 10:10] VITALS: BP 132/62; PULSE 58; RESP 18; O2SAT 99
[2018-02-25 10:40] VITALS: BP 143/81; PULSE 69; RESP 18; O2SAT 97
[2018-02-25 11:00] VITALS: BP 150/68; PULSE 66; RESP 18; O2SAT 98
== END 2018-02-25 11:05 | disposition home or self-care (01) ==
LOC: INF 08:58
PROVIDERS: Family Provider Nurse Practitioner Family; Visit Provider Internal Medicine
DX: D50.0 Iron deficiency anemia secondary to blood loss (chronic) (principal)
CPT/HCPCS: 96365; J1756

== ENCOUNTER 2018-03-05 08:50 | Outpatient (CLI) | payer MEDICARE, MEDICAID, SELFPAY ==
[2018-03-05 09:30] VITALS: BP 156/60; PULSE 67; RESP 18; TEMP 36.7; O2SAT 95
[2018-03-05 10:00] VITALS: BP 149/59; PULSE 69; RESP 18; O2SAT 97
[2018-03-05 10:20] VITALS: BP 151/61; PULSE 65; RESP 18; O2SAT 96
== END 2018-03-05 10:30 | disposition home or self-care (01) ==
LOC: INF 09:25
PROVIDERS: Family Provider Nurse Practitioner Family; Visit Provider Internal Medicine
DX: D50.0 Iron deficiency anemia secondary to blood loss (chronic) (principal); K92.2 Gastrointestinal hemorrhage, unspecified; N28.9 Disorder of kidney and ureter, unspecified
CPT/HCPCS: 96365; J1756

== ENCOUNTER → 2018-04-13 09:26 | Outpatient (POV) | payer MEDICARE, MEDICAID, SELFPAY ==
[2018-04-13 09:37] VITALS: BP 178/65; PULSE 62; RESP 18; TEMP 36.5; O2SAT 95
--- NOTE | 2018-04-13 10:28 | HMH.PMCON ---
Assessment and Plan (1) Facet arthropathy Current visit: Yes Status: Chronic Category: Medical Code(s): M46.90 - Unspecified inflammatory spondylopathy, site unspecified (2) Degenerative joint disease (DJD) of lumbar spine Current visit: Yes Status: Chronic Category: Medical Code(s): M47.816 - Spondylosis without myelopathy or radiculopathy, lumbar region - Assessment and plan all Dx Assessment and Plan for all problems:: Patient and I discussed facet joint injections. Patient would like to proceed with these. We will ask insurance permission for bilateral medial branch block/facet joint injections of L3-L4 L4-L5 L5-S1. Patient will have to be off her anticoagulation therapy we will contact her prescribing provider for permission. Patient's tried and failed stretching therapy, medications, Tylenol. I will follow-up with the patient after her injections. This note was dictated using voice recognition software and may contain errors or omissions HPI - Data of Consult Consult date: 04/13/18 Requesting Physician: Francy Pina APRN Primary Care Provider: Referral Provider, Family Provider: Lissette London APRN - Consult Narrative Reason for consult: Low back pain History of present illness: Ms. Thompson is a 73 year old female who presents today for consultation in regards to her low back pain. Patient rates her pain an 8 out of 10 today. She states it is in her low back however does not radiate into her legs. Patient does have an MRI showing both bulging disc and facet arthropathy. Patient states that any twisting motion increases her pain. Patient does have a history of strokes and she is currently on Plavix therapy. Patient is unable to take ibuprofen or NSAIDs due to blood disorder. Patient has not had any injections in the past. Patient has had occupational therapy after her strokes. Patient states she is interested in injective therapy. CC: Francy Pina APRN [facility] History I have reviewed the patient's past medical history: Yes Medical History: Reports:: Congestive Heart Failure, Hyperlipidemia, Hypertension Denies:: Cancer, Diabetes Mellitus Type 1, Diabetes Mellitus Type 2, Internal Pacemaker, MRSA Other Medical History: Reports: Anemia, Arthritis, Cataracts, Hypothyroidism, Thyroid Disease, Other Laterality Cases: Right: Arthroscopy Knee Other Surgeries: Yes: Appendectomy, Cardiac Catheterization, Colonoscopy, , EGD, Hysterectomy-Total. No: Pacemaker Amputation: No Fractures: No - *Social History Educational Level: Attended High School Smoking Status: Never smoker Tobacco Type: cigarettes Alcohol Intake: never Alcohol Intake Frequency:: other Substance Use Type: denies use Occupational Status: retired Housing: senior living Household Members: spouse - Psychiatric History Expresses thoughts of harming self/others: None Suicide Plan Description: No Plan *Family Hx:: Asthma, Cancer, Diabetes, Hypertension Review of Systems - Review of Systems ROS General: no recent weight change, no fever, no sleep disturbances Respiratory: no cough, no shortness of air, no recurring pulmonary infections Cardiovascular/Peripheral Vascular: No chest pain, No palpitations, no edema, no shortness of breath. Gastrointestinal: no incontinence, normal bowel movements reported Genitourinary: no incontinence Musculoskeletal: Low back pain Psychiatric: normal mood/ affect Neurological: [denies weakness in extremities], [denies balance issues] Meds Home Medications Medication Instructions Recorded Confirmed Type Levothyroxine Sodium 100 mcg PO DAILY 11/23/17 04/13/18 History [Levothyroxine 75mcg (0.075mg) Tab] Ondansetron HCl [Zofran 4mg Tab] 1 tab PO Q6HP PRN 12/09/17 04/13/18 History Aspirin [Aspirin 81mg EC Tab] 81 mg PO DAILY 01/03/18 04/13/18 History Carvedilol [Coreg 12.5mg 12.5 mg PO BID 01/03/18 04/13/18 History Tablet] Clopidogrel Bisulfa
--- NOTE | 2018-04-13 10:31 | P.CONS_ITS ---
Assessment and Plan (1) Facet arthropathy Current visit: Yes Status: Chronic Category: Medical Code(s): M46.90 - Unspecified inflammatory spondylopathy, site unspecified (2) Degenerative joint disease (DJD) of lumbar spine Current visit: Yes Status: Chronic Category: Medical Code(s): M47.816 - Spondylosis without myelopathy or radiculopathy, lumbar region - Assessment and plan all Dx Assessment and Plan for all problems:: Patient and I discussed facet joint injections. Patient would like to proceed with these. We will ask insurance permission for bilateral medial branch block/ facet joint injections of L3-L4 L4-L5 L5-S1. Patient will have to be off her anticoagulation therapy we will contact her prescribing provider for permission. Patient's tried and failed stretching therapy, medications, Tylenol. I will follow-up with the patient after her injections. This note was dictated using voice recognition software and may contain errors or omissions HPI - Data of Consult Consult date: 04/13/18 Requesting Physician: Francy Pina APRN Primary Care Provider: Referral Provider, Family Provider: Lissette London APRN - Consult Narrative Reason for consult: Low back pain History of present illness: Ms. Thompson is a 73 year old female who presents today for consultation in regards to her low back pain. Patient rates her pain an 8 out of 10 today. She states it is in her low back however does not radiate into her legs. Patient does have an MRI showing both bulging disc and facet arthropathy. Patient states that any twisting motion increases her pain. Patient does have a history of strokes and she is currently on Plavix therapy. Patient is unable to take ibuprofen or NSAIDs due to blood disorder. Patient has not had any injections in the past. Patient has had occupational therapy after her strokes. Patient states she is interested in injective therapy. CC: Francy Pina APRN [facility] History I have reviewed the patient's past medical history: Yes Medical History: Reports:: Congestive Heart Failure, Hyperlipidemia, Hypertension Denies:: Cancer, Diabetes Mellitus Type 1, Diabetes Mellitus Type 2, Internal Pacemaker, MRSA Other Medical History: Reports: Anemia, Arthritis, Cataracts, Hypothyroidism, Thyroid Disease, Other Laterality Cases: Right: Arthroscopy Knee Other Surgeries: Yes: Appendectomy, Cardiac Catheterization, Colonoscopy, C- section, EGD, Hysterectomy-Total. No: Pacemaker Amputation: No Fractures: No - *Social History Educational Level: Attended High School Smoking Status: Never smoker Tobacco Type: cigarettes Alcohol Intake: never Alcohol Intake Frequency:: other Substance Use Type: denies use Occupational Status: retired Housing: penitentiary Household Members: spouse - Psychiatric History Expresses thoughts of harming self/others: None Suicide Plan Description: No Plan *Family Hx:: Asthma, Cancer, Diabetes, Hypertension Review of Systems - Review of Systems ROS General: no recent weight change, no fever, no sleep disturbances Respiratory: no cough, no shortness of air, no recurring pulmonary infections Cardiovascular/Peripheral Vascular: No chest pain, No palpitations, no edema, no shortness of breath. Gastrointestinal: no incontinence, normal bowel movements reported Genitourinary: no incontinence Musculoskeletal: Low back pain Psychiatric: normal mood/ affect Neurological: [denies weakness in extremities], [denies balance issues] Meds [place] [facility]
--- NOTE | 2018-04-15 15:12 | PC.NURSE ---
PT WAS NOTIFIED THAT WALTER SANCHEZ APRN APPROVED FOR HER TO STOP PLAVIX 7 DAYS PRIOR TO HER INJECTION SCHEDULED FOR APRIL 24, 2018. PT VERBALIZED UNDERSTANDING.
== END ==
PROVIDERS: Family Provider Nurse Practitioner Family; Visit Provider Clinical Nurse Specialist Family Health
DX: M47.816 Spondylosis without myelopathy or radiculopathy, lumbar region (principal); M46.90 Unspecified inflammatory spondylopathy, site unspecified

== ENCOUNTER → 2018-05-04 08:58 | Outpatient (POV) | payer MEDICARE, MEDICAID, SELFPAY | PROVIDERS: Family Provider Nurse Practitioner Family; PCP Nurse Practitioner Family; Visit Provider Nurse Practitioner Acute Care | DX: Z00.00 Encounter for general adult medical examination without abnormal findings (principal) ==

== ENCOUNTER → 2018-06-01 14:47 | Outpatient (POV) | payer MEDICARE, MEDICAID, SELFPAY ==
[2018-06-01 14:54] VITALS: BP 148/65; PULSE 58; RESP 18; O2SAT 98; BMI 21.4
--- NOTE | 2018-06-01 15:10 | HMH.PAINSOAP ---
[facility] Pain Management SOAP Note Subjective:: Patient is a pleasant 73-year-old white female who presents today for follow-up after lumbar medial branch block. Patient states her lumbar spine is doing well she states her pain has decreased by 90%. She states she is much more functional however she states she is having a lot of thoracic back pain at this point patient does not have any imaging of this we will get an x-ray today. Patient is interested in doing injective therapy for her mid back as well. Patient is currently on anticoagulation therapy however has permission to come off of it for injective therapy. Patient's tried and failed chiropractic therapy, massage repeat, anti-inflammatories, medications. ROS General: no recent weight change, no fever, no sleep disturbances Respiratory: no cough, no shortness of air, no recurring pulmonary infections Cardiovascular/Peripheral Vascular: No chest pain, No palpitations, no edema, no shortness of breath. Gastrointestinal: no incontinence, normal bowel movements reported Genitourinary: no incontinence Musculoskeletal: Thoracic back pain Psychiatric: normal mood/ affect, Neurological: [denies balance issues] Objective:: Physical Exam General: Alert and oriented x3, no acute distress, pleasant and cooperative, [on room air] Lungs: Resps E/U, Symmetrical chest expansion, Eyes: PERRL Musculoskeletal: Flexion and extension of thoracic spine somewhat guarded secondary to pain, deep tendon reflexes normal, strength in upper and lower extremities [5/5], slightly antalgic gait noted Neurological: speech clear, 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 We will then schedule an injection according to the pathology noted. And is on Plavix however she has permission to abstain from this prior to her injection. I believe given the efficacy of her last injection another thoracic injection will be beneficial. This note was dictated using voice recognition software and may contain errors or omissions
--- NOTE | 2018-06-01 15:13 | P.CONS_ITS ---
[facility] Pain Management SOAP Note Subjective:: Patient is a pleasant 73-year-old white female who presents today for follow-up after lumbar medial branch block. Patient states her lumbar spine is doing well she states her pain has decreased by 90%. She states she is much more functional however she states she is having a lot of thoracic back pain at this point patient does not have any imaging of this we will get an x-ray today. Patient is interested in doing injective therapy for her mid back as well. Patient is currently on anticoagulation therapy however has permission to come off of it for injective therapy. Patient's tried and failed chiropractic therapy, massage repeat, anti-inflammatories, medications. ROS General: no recent weight change, no fever, no sleep disturbances Respiratory: no cough, no shortness of air, no recurring pulmonary infections Cardiovascular/Peripheral Vascular: No chest pain, No palpitations, no edema, no shortness of breath. Gastrointestinal: no incontinence, normal bowel movements reported Genitourinary: no incontinence Musculoskeletal: Thoracic back pain Psychiatric: normal mood/ affect, Neurological: [denies balance issues] Objective:: Physical Exam General: Alert and oriented x3, no acute distress, pleasant and cooperative, [ on room air] Lungs: Resps E/U, Symmetrical chest expansion, Eyes: PERRL Musculoskeletal: Flexion and extension of thoracic spine somewhat guarded secondary to pain, deep tendon reflexes normal, strength in upper and lower extremities [5/5], slightly antalgic gait noted Neurological: speech clear, data input clerk 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 We will then schedule an injection according to the pathology noted. And is on Plavix however she has permission to abstain from this prior to her injection. I believe given the efficacy of her last injection another thoracic injection will be beneficial. This note was dictated using voice recognition software and may contain errors or omissions
--- NOTE | 2018-06-01 15:15 | XR_ITS ---
EXAM: XR thoracic spine 3V HISTORY: ITS.REASON: BACK PAIN Comparison: None FINDINGS: There is mild levoscoliosis of the lower thoracic spine. No fracture or dislocation evident. No lytic or blastic change. There is also mild kyphosis. Incidental note is made of a moderate-sized hiatal hernia. There is been prior kyphoplasty at L3 and L4 with probable lymphatic filling of methylmethacrylate at the L4 level on the right. IMPRESSION: 1. No acute finding. 2. Mild levoscoliosis of the thoracic spine
== END ==
PROVIDERS: Family Provider Nurse Practitioner Family; PCP Nurse Practitioner Family; Visit Provider Clinical Nurse Specialist Family Health
DX: M47.816 Spondylosis without myelopathy or radiculopathy, lumbar region (principal); M51.36 Other intervertebral disc degeneration, lumbar region; M54.6 Pain in thoracic spine; Z79.01 Long term (current) use of anticoagulants
CPT/HCPCS: 72072; 99213

== ENCOUNTER → 2018-08-03 12:10 | Outpatient (CLI) | payer MEDICARE, MEDICAID, SELFPAY ==
--- NOTE | 2018-08-03 | XR_ITS ---
XR knee RT 3V HISTORY: Right knee pain and swelling ITS.REASON: RIGHT KNEE PAIN ORDERING PHYSICIAN: Lissette London PATIENT AGE: 73 years FINDINGS: There are moderate osteoarthritic changes of the medial compartment with mild osteoarthritis of the patellofemoral joint. No fracture or dislocation. No lytic or blastic change. No significant change from 01/07/2017 IMPRESSION: Osteoarthritis of the right knee
== END ==
PROVIDERS: PCP Nurse Practitioner Family; Visit Provider Nurse Practitioner Family
DX: M25.561 Pain in right knee (principal)
CPT/HCPCS: 73562

== ENCOUNTER → 2019-01-26 09:08 | Outpatient (CLI) | payer MEDICARE, MEDICAID, SELFPAY ==
--- NOTE | 2019-01-26 09:11 | MM_ITS ---
MM Dig screening mamm BI w/CAD CAD Screening COMPARISON: Digital mammograms with CAD 03/03/2017 and 01/05/2016 INDICATION: There is no personal or family history of breast cancer TECHNIQUE: Standard CC and MLO images were obtained. R2 CAD reviewed. FINDINGS: Prominent heterogenic fibroglandular densities are seen in both breast and the findings are bilateral and symmetrical. There are couple benign-appearing calcifications left breast. There is no suspicious lesion and no suspicious microcalcifications. IMPRESSION: Diffusely dense parenchymal pattern with no suspicious lesion seen BI-RADS Category: 1 Negative RECOMMENDED FOLLOW-UP: 1YR - 1 YEAR FOLLOW-UP (A letter has been sent to the patient regarding results of the study.)
== END ==
PROVIDERS: PCP Nurse Practitioner Family; Visit Provider Nurse Practitioner Family
DX: Z12.31 Encounter for screening mammogram for malignant neoplasm of breast (principal)
CPT/HCPCS: 77067

== ENCOUNTER → 2019-07-13 09:15 | Outpatient (CLI) | payer MEDICARE, MEDICAID, SELFPAY ==
[2019-07-13 09:20] LABS: Adenovirus F 40/41, stool Not Detected (NotDetected); Astrovirus Not Detected (NotDetected); Campylobacter Not Detected (NotDetected); Clostridium Difficile A/B, PCR Not Detected (NotDetected); Cryptosporidium Not Detected (NotDetected); Cyclospora Cayetanesis Not Detected (NotDetected); Entamoeba histolytica Not Detected (NotDetected); Enteroaggregative E coli Not Detected (NotDetected); Enteropathogenic E coli Not Detected (NotDetected); Enterotoxigenic E coli Not Detected (NotDetected); Giardia lamblia Not Detected (NotDetected); Norovirus Not Detected (NotDetected); Plesimonas Shigalloides, PCR Not Detected (NotDetected); Rotavirus A Not Detected (NotDetected); Salmonella, PCR Not Detected (NotDetected); Sapovirus Not Detected (NotDetected); Shiga-like toxin E coli Not Detected (NotDetected); Shigella Enterovasive E coli Not Detected (NotDetected); Vibrio Cholerae Not Detected (NotDetected); Vibrio, PCR Not Detected (NotDetected); Yersinia Entercolitica, PCR Not Detected (NotDetected)
== END ==
PROVIDERS: PCP Nurse Practitioner Family; Visit Provider Nurse Practitioner Family
DX: R19.7 Diarrhea, unspecified (principal)
CPT/HCPCS: 87506

== ENCOUNTER 2020-01-06 10:00 | Outpatient (RCR) | payer MEDICARE, MEDICAID, SELFPAY | END 2020-01-24 14:18 | disposition home or self-care (01) | LOC: PT.CARL 10:00 | PROVIDERS: PCP Nurse Practitioner Family; Visit Provider Orthopaedic Surgery Adult Reconstructive Orthopaedic Surgery | DX: M25.561 Pain in right knee (principal); Z96.651 Presence of right artificial knee joint | CPT/HCPCS: 97014; 97110; 97116; 97140; 97163; G0283 ==

== ENCOUNTER → 2020-03-24 12:52 | Outpatient (CLI) | payer MEDICARE, SELFPAY ==
--- NOTE | 2020-03-24 12:55 | MM_ITS ---
PROCEDURE: MM DIG SCREENING MAMM BI W/CAD Digital Breast Tomosynthesis Included CLINICAL INDICATION: SCREENING There is a history of breast cancer patient's father. There has been weight loss since last year's exam. COMPARISON: [facility] DIG MAMM-SCREEN JUANA from 01/05/2016 [facility] DIG MAMM-SCREEN JUANA W/CAD from 03/03/2017 [facility] MM Dig screening mamm BI w/CAD from 01/26/2019 TECHNIQUE: Standard CC and MLO images and 3D Tomosynthesis was obtained. R2 CAD reviewed. FINDINGS: Prominent diffuse heterogenic fibroglandular densities are seen throughout both breasts. Again noted a couple of benign-appearing microcalcifications left breast. There is stable asymmetric glandular elements lower central portion right breast. IMPRESSION: Stable moderate heterogenic breast density with no suspicious lesions seen BI-RAD Category: 2 Benign Finding(s) FOLLOW-UP: 1YR 1 Year Follow-up (A letter has been sent to the patient regarding results of the study.) Dictated by: Dr. Jaun Pollard MD 03/28/2020 09:[address] Jaun Pollard MD in [place] 03/28/2020 09:31
== END ==
PROVIDERS: PCP Nurse Practitioner Family; Visit Provider Nurse Practitioner Family
DX: Z12.31 Encounter for screening mammogram for malignant neoplasm of breast (principal)
CPT/HCPCS: 77063; 77067

== ENCOUNTER 2020-04-05 09:05 | Emergency (ER) | payer MEDICARE, SELFPAY ==
[2020-04-05 09:05] VITALS: BP 126/66; PULSE 86; RESP 14; TEMP 36.7; O2SAT 92; BMI 22.7
--- NOTE | 2020-04-05 09:05 | ECG_ITS ---
APPROVED REPORT Exam: Resting ECG HR:83 bpm ECG Measurements Heart Rate 83 AXES HI 122 P 48 QRSd 86 QRS 9 QT 340 T 77 QTc 399 <Conclusion> Normal sinus rhythm Low voltage QRS Poor R Wave Progression NDST-T Changes Abnormal ECG Electronically signed by : Jeffrey Corona, 04/07/2020 16:13:07
--- NOTE | 2020-04-05 09:14 | XR_ITS ---
PROCEDURE: XR CHEST PORTABLE CLINICAL HISTORY: WEAKNESS COMPARISON: CXR1VP XR chest portable from 12/09/[address] chest wo con from 01/03/2018 CXR2V XR chest 2V from 01/05/2018 CXR1VP XR chest portable from 06/09/2018 FINDINGS: Cardiomegaly. Moderate-sized hiatal hernia. Old granulomatous disease The lungs are clear without infiltrates, suspicious nodules, or pleural effusions. No acute bony abnormalities. IMPRESSION: Cardiomegaly with hiatal hernia Dictated by: Juan Champion MD 04/05/2020 10:50 Electronically signed by Juan Champion MD in [place] 04/05/2020 10:50
[2020-04-05 09:25] LABS: Microscopic, Urine URINE MICROSCOPIC (MICROSCOPIC)
[2020-04-05 09:34] VITALS: BP 119/57; PULSE 67; RESP 20; TEMP 37.5; O2SAT 100
[2020-04-05 09:41] LABS: Appearance,Urine CLEAR (Clear); Bilirubin,Urine Negative (Negative); Blood, Urine 3+ (Negative); Color,Urine DK YELLOW (Yellow); Glucose,Urine (UA) Negative (Negative); Ketones,Urine Negative (Negative); Leukocyte Esterase,Urine Negative (Negative); Nitrate,Urine Negative (Negative); Protein,Urine Negative (Negative); Urobilinogen,Urine 0.2 EU/dl (0.2)
--- NOTE | 2020-04-05 09:48 | HMH.EDWEAK ---
ED Disposition Clinical Impression: Lumbar spondylosis UTI (urinary tract infection) Qualifiers: Urinary tract infection type: site unspecified Hematuria presence: without hematuria Qualified Code(s): N39.0 - Urinary tract infection, site not specified Disposition: Home, Self-Care Condition on Discharge: Good Instructions: DI for Urinary Tract Infection (UTI) Additional Instructions: fluids and call pcp for follow up and urine culture results Prescriptions: cephALEXin [Keflex 500mg Cap] 500 mg PO TID #30 cap Transmission Status: Pending to [facility] - Critical Care Critical Care Time: No Attestation: On , the high probability of a clinically significant, sudden or life threatening deterioration of the following system(s) required my full and direct attention, intervention and personal management. The time I documented below is in addition to time spent performing reported procedures but includes the following listed in this critical care notation. Medical Decision Making - Medical Records Medical records reviewed: Yes: I reviewed the patient's medical records. - Daniel Inquiry Pt receiving controlled substance: No Vital Signs: 04/05/20 09:05 04/05/20 09:34 04/05/20 10:34 Temperature 98.1 F 99.5 F Temperature Source Oral Rectal Pulse Rate [Right Radial] 86 67 61 Respiratory Rate 14 20 20 Blood Pressure [Right Arm] 126/66 119/57 L 117/54 L Blood Pressure Mean [Right Arm] 86 77 75 Blood Pressure Source [Right Arm] Automatic Cuff Automatic Cuff Blood Pressure Position [Right Arm] Supine Sitting 02 Sat by Pulse Oximetry 92 L 100 100 Oxygen Delivery Method Room Air Nasal Cannula Nasal Cannula Oxygen Flow Rate (LPM) 2 2 - Lab Data Lab results reviewed: Yes: I reviewed the patient's lab results. Lab Results 04/05/20 08:50: WBC 4.3 L, RBC 4.06 L, Hgb 11.5 L, Hct 34.4 L, MCV 84.7, MCH 28.3, MCHC 33.4, RDW 13.1, Plt Count 85 L, MPV 11.6 H, Neut % (Auto) 62.0, Lymph % (Auto) 23.9, [place] % (Auto) 7.8, Eos % (Auto) 5.6, Baso % (Auto) 0.6, Neut # (Auto) 2.7, Lymph # (Auto) 1.0, [place] # (Auto) 0.3, Eos # (Auto) 0.2, Baso # (Auto) 0.0 04/05/20 08:50: Sodium 133 L, Potassium 3.5, Chloride 104, Carbon Dioxide 25, Anion Gap 7.5, BUN 12, Creatinine 0.90, Estimated Creat Clear 50, Estimated GFR 61, Est GFR ( Amer) 74, Glucose 94, Calcium 8.0 L, Total Bilirubin 1.0, AST 26, ALT 4 L, Alkaline Phosphatase 70, Troponin I 0.03, Total Protein 6.0 L, Albumin 3.2 L, Globulin 2.8, Albumin/Globulin Ratio 1.1 04/05/20 09:15: Urine Color Dk yellow, Urine Appearance Clear, Urine pH 6.0, Ur Specific [place] 1.020, Urine Protein Negative, Urine Glucose (UA) Negative, Urine Ketones Negative, Urine Blood 3+, Urine Nitrate Negative, Urine Bilirubin Negative, Urine Urobilinogen 0.2, Ur Leukocyte Esterase Negative, Urine RBC 10-20, Urine WBC 10-20, Ur Squamous Epith Cells 3-5, Urine Bacteria 1+ Result diagrams: 04/05/20 08:50 04/05/20 08:50 Orders (Tests/Meds): ORDERS Category Date Time Status Troponin I Q3H Lab 04/05/20 12:15 Ordered Troponin I Q3H Lab 04/05/20 15:15 Ordered Urine Culture Stat Micro 04/05/20 09:15 Received - Radiology Data #1 Image(s): Chest Image Reviewed: Yes I reviewed the patient's radiology image Preliminary Findings: Abnormal (nonspecific) - ECG Data Tracing #1 Normal Sinus Rhythm: Yes Ischemic changes: non-specific ST-T wave changes Weakness HPI - General Chief complaint: Weakness Stated complaint: BACK PAIN, WEAKNESS Time Seen by Provider: 04/05/20 09:45 Mode of Arrival: EMS Source of Information: Patient, EMS, Medical Record Limitations: No Limitations Description of Symptoms (Recalled from ER Triage Doc. by RN): PT TO ED VIA EMS C/O BACK PAIN AND WEAKNESS X2 DAYS. PT REPORTS CHRONIC BACK PAIN D/T OSTEOARTHRITIS. - History of Present Illness HPI Narrative: pt with hx of ongoing back pain which is chronic and no trauma - pt with weakness but no fever or
[2020-04-05 09:53] LABS: Bacteria,Urine 1+ /lpf
[2020-04-05 10:05] LABS: Basophils % 0.6 % (0.1-2.0); Eosinophils # 0.2 K/mm3 (0.0-0.4); Eosinophils % 5.6 % (0.1-12.0); Hematocrit 34.4 % (37.0-47.0); Hemoglobin 11.5 g/dL (12.2-16.2); Lymphocytes % 23.9 % (10-50); Mean Corpuscular HGB Conc 33.4 g/dL (31.8-35.4); Mean Corpuscular Hemoglobin 28.3 pg (27.0-31.2); Mean Corpuscular Volume 84.7 fl (81-99); Mean Platelet Volume 11.6 fl (7.4-10.4); Monocytes # 0.3 K/mm3 (0.1-1.0); Monocytes % 7.8 % (1.7-9.3); Neutrophils # 2.7 K/mm3 (1.8-7.8); Platelet Count 85 K/mm3 (142-424); Red Blood Count 4.06 M/mm3 (4.20-5.40); Red Cell Distribution Width 13.1 % (11.5-17.5); White Blood Count 4.3 K/mm3 (4.8-10.8)
[2020-04-05 10:06] LABS: Chloride 104 mmol/L (98-107)
--- NOTE | 2020-04-05 10:06 | PC.NURSE ---
rad at for portable cxr
[2020-04-05 10:07] LABS: Potassium 3.5 mmoL/L (3.5-5.1); Sodium 133 mmol/L (136-145)
[2020-04-05 10:09] LABS: Albumin Level 3.2 g/dl (3.5-5.0); Albumin/Globulin Ratio 1.1 (1.1-1.8); Alkaline Phosphatase 70 U/L (38-126); Anion Gap 7.5 mEq/L (5-15); Aspartate Amino Transferase 26 U/L (14-36); Blood Urea Nitrogen 12 mg/dl (7-17); Carbon Dioxide 25 mmol/L (22.0-30.0); Creatinine Clearance Estimated 50 mL/min (50-200); Estimated Glomerular Filt Rate 61 ml/min (>60); GFR (African American) 74 ML/MIN (>60); Globulin 2.8 g/dL (1.3-3.2)
[2020-04-05 10:11] LABS: Alanine Aminotransferase 4 U/L (12-78)
[2020-04-05 10:22] LABS: Troponin I 0.03 ng/ml (0.00-0.034)
[2020-04-05 10:30] LABS: Glucose 94 mg/dl (74-100)
[2020-04-05 10:34] VITALS: BP 117/54; PULSE 61; RESP 20; O2SAT 100
[2020-04-05 11:30] VITALS: BP 121/64; PULSE 67; RESP 20; O2SAT 97
--- NOTE | 2020-04-05 11:30 | PC.NURSE ---
pt oxygen removed at this time, will continue to monitor
[2020-04-05 12:48] VITALS: BP 120/59; PULSE 60; RESP 18; TEMP 36.7; O2SAT 90
== END 2020-04-05 12:48 | disposition home or self-care (01) ==
PROVIDERS: Emergency Provider Emergency Medicine
DX: M47.816 Spondylosis without myelopathy or radiculopathy, lumbar region (principal); N30.00 Acute cystitis without hematuria; I10 Essential (primary) hypertension; E78.5 Hyperlipidemia, unspecified; G43.709 Chronic migraine without aura, not intractable, without status migrainosus; M81.0 Age-related osteoporosis without current pathological fracture; E03.9 Hypothyroidism, unspecified; I50.9 Heart failure, unspecified; Z86.73 Personal history of transient ischemic attack (TIA), and cerebral infarction without residual deficits; Z88.8 Allergy status to other drugs, medicaments and biological substances
CPT/HCPCS: 71045; 80053; 81001; 84484; 85025; 87086; 93005; 96365; 96375; 99284

== ENCOUNTER 2020-06-13 08:45 | Observation (INO) | payer MEDICARE, SELFPAY ==
[2020-06-13] VITALS (7 sets, daily range): BP systolic 107–143; BP diastolic 58–74; PULSE 59–87; RESP 17–19; TEMP 36.7–37.9; O2SAT 94–99; BMI 19.7
--- NOTE | 2020-06-13 09:05 | HMH.EDGENADL ---
ED Disposition Clinical Impression: Pyelonephritis Disposition: Admitted as Observation Condition on Discharge: Fair Referrals: Katja Aldana [Primary Care Provider] - - Critical Care Critical Care Time: No Attestation: On 06/13/20, the high probability of a clinically significant, sudden or life threatening deterioration of the following system(s) required my full and direct attention, intervention and personal management. The time I documented below is in addition to time spent performing reported procedures but includes the following listed in this critical care notation. Medical Decision Making - Daniel Inquiry Pt receiving controlled substance: No Vital Signs: 06/13/20 08:59 06/13/20 09:42 Temperature 100.2 F H Temperature Source Oral Pulse Rate [Right Radial] 87 73 Respiratory Rate 17 Blood Pressure [Right Arm] 141/74 H 143/70 H Blood Pressure Mean [Right Arm] 96 94 Blood Pressure Source [Right Arm] Automatic Cuff Blood Pressure Position [Right Arm] Supine 02 Sat by Pulse Oximetry 99 94 L Oxygen Delivery Method Room Air Room Air - Lab Data Lab Results 06/13/20 09:17: Urine Color Dk yellow, Urine Appearance Turbid, Urine pH 6.0, Ur Specific [place] 1.025, Urine Protein 2+, Urine Glucose (UA) Negative, Urine Ketones Negative, Urine Blood 3+, Urine Nitrate Positive, Urine Bilirubin Negative, Urine Urobilinogen 0.2, Ur Leukocyte Esterase 2+ A, Urine RBC 10-20, Urine WBC Tntc, Ur Squamous Epith Cells 3-5, Ur Transition Epith Cell Occ, Urine Bacteria 2+ 06/13/20 09:17: WBC 8.5, RBC 4.26, Hgb 12.1 L, Hct 35.4 L, MCV 83.1, MCH 28.5, MCHC 34.3, RDW 12.9, Plt Count 98 L, MPV 11.8 H, Neut % (Auto) 66.8, Lymph % (Auto) 18.6, [place] % (Auto) 7.3, Eos % (Auto) 6.9, Baso % (Auto) 0.4, Neut # (Auto) 5.7, Lymph # (Auto) 1.6, [place] # (Auto) 0.6, Eos # (Auto) 0.6 H, Baso # (Auto) 0.0 06/13/20 09:17: Sodium 132 L, Potassium 3.7, Chloride 98, Carbon Dioxide 27, Anion Gap 10.7, BUN 11, Creatinine 0.90, Estimated Creat Clear 39, Estimated GFR 61, Est GFR ( Amer) 74, Glucose 92, Calcium 8.9, Total Bilirubin 0.9, AST 31, ALT 7 L, Alkaline Phosphatase 100, Total Protein 6.8, Albumin 3.7, Globulin 3.1, Albumin/Globulin Ratio 1.2 06/13/20 09:17: Lactate 0.7 Result diagrams: 06/13/20 09:17 06/13/20 09:17 Orders (Tests/Meds): ED MEDICATIONS Generic Name Dose Route Start Last Admin Trade Name Freq PRN Reason Stop Dose Admin Ceftriaxone Sodium 1 gm/ 50 mls @ 100 mls/hr 06/13/20 10:00 06/13/20 09:58 Sodium Chloride IV 06/27/20 09:59 100 mls/hr Q24H LUIS ANGEL Administration Protocol Discontinued Medications Generic Name Dose Route Start Last Admin Trade Name Freq PRN Reason Stop Dose Admin Acetaminophen 1,000 mg 06/13/20 09:17 06/13/20 09:18 Tylenol 500mg Tablet PO 06/13/20 09:18 1,000 mg ONCE ONE Administration Sodium Chloride 1,000 mls @ 999 mls/hr 06/13/20 09:30 06/13/20 09:18 Sod Chlor 0.9% 1000ml Bag IV 06/13/20 10:30 999 mls/hr .Q1H1M LUIS ANGEL Administration ORDERS Category Date Time Status Blood Culture Stat Micro 06/13/20 09:06 Received Urine Culture Stat Micro 06/13/20 09:17 Received - Physician Consults Physician Consulted: Truman Time: 10:37 Reason -: Admission Comment/Response: Agrees to admit the patient to the hospital. We discussed the patient's clinical information, including history, exam, laboratory and radiology results and ED course. Per hospital procedure, I will write temporary bridge inpatient orders on the patient. Specific orders requested by the admitting physician: Continue Rocephin, IV fluids, Tylenol General Adult HPI - General Stated complaint: kidney infection Time Seen by Provider: 06/13/20 09:26 - History of Present Illness HPI narrative: 2-day history of kidney infection . Complains of subjective fever, chills, low back pain, urinary frequency, and dysuria. States she has had kidney infections in the past but it is been
[2020-06-13 09:35] LABS: Basophils % 0.4 % (0.1-2.0); Eosinophils # 0.6 K/mm3 (0.0-0.4); Eosinophils % 6.9 % (0.1-12.0); Hematocrit 35.4 % (37.0-47.0); Hemoglobin 12.1 g/dL (12.2-16.2); Lymphocytes # 1.6 K/mm3 (0.7-4.5); Lymphocytes % 18.6 % (10-50); Mean Corpuscular HGB Conc 34.3 g/dL (31.8-35.4); Mean Corpuscular Hemoglobin 28.5 pg (27.0-31.2); Mean Corpuscular Volume 83.1 fl (81-99); Mean Platelet Volume 11.8 fl (7.4-10.4); Monocytes # 0.6 K/mm3 (0.1-1.0); Monocytes % 7.3 % (1.7-9.3); Neutrophils # 5.7 K/mm3 (1.8-7.8); Neutrophils % 66.8 % (37.0-80.0); Platelet Count 98 K/mm3 (142-424); Red Blood Count 4.26 M/mm3 (4.20-5.40); Red Cell Distribution Width 12.9 % (11.5-17.5); White Blood Count 8.5 K/mm3 (4.8-10.8)
[2020-06-13 09:38] LABS: Microscopic, Urine URINE MICROSCOPIC (MICROSCOPIC)
[2020-06-13 09:41] LABS: Alanine Aminotransferase 7 U/L (12-78); Albumin Level 3.7 g/dl (3.5-5.0); Albumin/Globulin Ratio 1.2 (1.1-1.8); Alkaline Phosphatase 100 U/L (38-126); Anion Gap 10.7 mEq/L (5-15); Aspartate Amino Transferase 31 U/L (14-36); Bilirubin,Total 0.9 mg/dl (0.2-1.3); Blood Urea Nitrogen 11 mg/dl (7-17); Calcium 8.9 mg/dl (8.4-10.2); Carbon Dioxide 27 mmol/L (22.0-30.0); Chloride 98 mmol/L (98-107); Creatinine Clearance Estimated 39 mL/min (50-200); Estimated Glomerular Filt Rate 61 ml/min (>60); GFR (African American) 74 ML/MIN (>60); Globulin 3.1 g/dL (1.3-3.2); Glucose 92 mg/dl (74-100); Potassium 3.7 mmoL/L (3.5-5.1); Sodium 132 mmol/L (136-145); Total Protein,Serum 6.8 g/dl (6.3-8.2)
[2020-06-13 09:51] LABS: Lactic Acid 0.7 mmol/L (0.7-2.1)
[2020-06-13 09:52] LABS: Appearance,Urine TURBID (Clear); Bilirubin,Urine Negative (Negative); Blood, Urine 3+ (Negative); Color,Urine DK YELLOW (Yellow); Glucose,Urine (UA) Negative (Negative); Ketones,Urine Negative (Negative); Leukocyte Esterase,Urine 2+ (Negative); Nitrate,Urine POSITIVE (Negative); Protein,Urine 2+ (Negative); Specific Gravity, Urine 1.025 (1.005-1.030); Urobilinogen,Urine 0.2 EU/dl (0.2)
[2020-06-13 10:03] LABS: Bacteria,Urine 2+ /lpf; WBC,Urine TNTC #/hpf (0-3)
[2020-06-13 10:04] LABS: Transitional Epi Cells,Urine OCC #/lpf (0-3)
--- NOTE | 2020-06-13 11:48 | PC.NURSE ---
Called house and care management about admission for pt. [id number] min prior to note.
[2020-06-13 13:15] LABS: Coronavirus 19 IgG Antibody Negative (Negative); Coronavirus 19 IgM Antibody Negative (Negative)
--- NOTE | 2020-06-13 13:22 | PC.NURSE ---
patient updated on plan of care and he denies needs or questions at this time. pt provided with clean brief and skin care complete at this time.
--- NOTE | 2020-06-13 14:05 | HMH.PHAINT ---
MEDICATION RECONCILIATION COMPLETED ON PATIENT USING EXTERNAL FILL HISTORY FROM PHARMACY AND LIST FROM MD OFFICE. -ROGER CASTILLOD
--- NOTE | 2020-06-13 14:11 | PC.NURSE ---
Report called to Elaine VERDUGO. Once room is clean, staff will be to get pt for transport
--- NOTE | 2020-06-13 14:21 | P.CONPHA_ITS ---
[facility] Pharmacy VTE Monitoring - Patient Demographics Admission date: 06/13/20 Report Date: 06/13/20 Time: 14:21 Allergies/Adverse Reactions: Patient Allergies amantadine Allergy (Unknown, Verified 06/13/20 09:06) I-HIVES baclofen Allergy (Unknown, Verified 06/13/20 09:06) C-RJLCKU-INVH/THROAT promethazine Allergy (Unknown, Verified 06/13/20 09:06) I-HIVES CAN TAKE SHOT NOT TABLET rosuvastatin Allergy (Unknown, Verified 06/13/20 09:06) I-ITCHING simvastatin Allergy (Unknown, Verified 06/13/20 09:06) K-MXOUCL-QUMI/THROAT Height: 1.63 m Weight: 52.163 kg Patient Problems: Current Active Problems Pyelonephritis (Acute) - VTE Risk Labs: VTE Related Lab Results Hgb 12.1 g/dL (12.2-16.2) L 06/13/20 09:17 Hct 35.4 % (37.0-47.0) L 06/13/20 09:17 Plt Count 98 K/mm3 (142-424) L 06/13/20 09:17 BUN 11 mg/dl (7-17) 06/13/20 09:17 Creatinine 0.90 mg/dl (0.52-1.04) 06/13/20 09:17 Estimated Creat Clear 39 mL/min (50-200) 06/13/20 09:17 - Prophylaxis VTE Prophylaxis Ordered?: Yes Types of VTE Prophylaxis: TEDS Knee High Location of Applied Device: Bilateral Lower Extremeties
--- NOTE | 2020-06-13 14:35 | PC.NURSE ---
pt arrived to the floor at this time.
--- NOTE | 2020-06-13 17:50 | HMH.HP ---
*Admission Date: 06/13/20 <Kaye Leyva 06/13/20 18:02> *Chief complaint: Urinary tract infection <Kaye Leyva 06/13/20 18:02> *History of present illness: Ms. Thompson is a 75-year-old female with a history of urinary tract infections anemia, hypothyroidism, CHF, hypertension, and pneumonia who presented to [facility] emergency room after experiencing severe abdominal discomfort with voiding. She denies hematuria and fever. He states she was unable to eat or drink much yesterday and had a decrease in her water intake the day before. With the persistence of the pain she presented to the emergency room. She denies nausea, vomiting, and states she has had diarrhea x1 day. Evaluation in the emergency room white blood cell count was 8500 with a hemoglobin of 12.1 hematocrit 35.4. Renal function was normal. Lactic acid was 0.7. Her function studies were not elevated.Temperature was 100.2.She was started on Rocephin IV and given Tylenol for fever and thousand milliliter bolus. She was then admitted for further evaluation and treatment. At the time of this exam patient continues to have some abdominal/pelvic discomfort. Temperature is down to 98.1. <LeyvaKaye 06/13/20 18:19> [facility] History Medical History: Reports:: Asthma, Congestive Heart Failure, Cerebrovascular Accident, Hyperlipidemia, Hypertension, Migraine, Osteoporosis, Transient Ischemic Attacks (TIA) Denies:: Cancer, Diabetes Mellitus Type 1, Diabetes Mellitus Type 2, Internal Pacemaker, MRSA, Seizures <GordonKaye 06/13/20 18:02> *Have you ever received a pneumonia vaccine?: Yes <GordonKaye 06/13/20 18:02> *Have you received a flu vaccine this season?: Yes <GordonKaye 06/13/20 18:02> Other Medical History: Reports: Anemia, Arthritis, Cataracts, Hypothyroidism, Osteoporosis, Sinus Problems, Thyroid Disease, Other <Kaye Leyva 06/13/20 18:02> Laterality Cases: Right: Arthroscopy Knee <Kaye Leyva 06/13/20 18:02> Other Surgeries: Yes: Appendectomy, Cardiac Catheterization, Colonoscopy, , EGD, Hysterectomy-Total. No: Pacemaker <Kaye Leyva 06/13/20 18:02> Am[facility]: No [facility] 06/13/20 18:02> Fractures: No <Gisella Leyvahy 06/13/20 18:02> - *Social History Smoking Status: Never smoker <Kaye Leyva 06/13/20 18:02> Tobacco Type: cigarettes <Kaye Leyva 06/13/20 18:02> Alcohol Intake: never <Kaye Leyva 06/13/20 18:02> Alcohol Intake Frequency:: other <[facility] 06/13/20 18:02> Substance Use Type: denies use <[facility] 06/13/20 18:02> *Occupational Status:: disabled <[facility] 06/13/20 18:02> Housing: house <Gisella Leyvahy 06/13/20 18:02> Household Members: spouse, children <Gisella Leyvahy 06/13/20 18:02> *Travel in the last 8 weeks: None <[facility] 06/13/20 18:02> Family Hx:: Cancer, Coronary Artery Disease, Diabetes, Heart Attack, Hyperlipidemia, Hypertension, Alcoholism <[facility] 06/13/20 18:02> Review of Systems - Constitutional Reports chills, Reports fever(s) <Gisella Leyvahy 06/13/20 18:19> - Eyes Denies change in vision <LeyvaKaye - 06/13/20 18:19> - ENT Denies ear pain, Denies sore throat [facility] 18:19> - *Cardiovascular Denies chest pain, Denies shortness of breath, Denies irregular heart rhythm, Denies leg swelling <LeyvaKaye - 06/13/20 18:19> - *Respiratory Denies chest congestion, Denies cough, Denies shortness of breath <LeyvaKaye - 06/13/20 18:19> - *Gastrointestinal Reports change in bowel habits, Reports loose stools, Reports nausea, Denies bright, red blood in stools, Denies black, tarry stools, Denies vomiting <LeyvaKaye - 06/13/20 18:19> - *Genitourinary Reports painful urination <Kaye Leyva 06/13/20 18:19> - *Musculoskeletal Denies joint pain <Kaye Leyva 06/13/20 18:19> - *Neurologic Denies seizure-like activity, Denies dizziness <Kaye Leyva
--- NOTE | 2020-06-14 03:49 | PC.NURSE ---
Pt A&OX4 lungs CTA. pt c/o of lower abd pain medicated per DEC. Pt slept quietly this shift. VSS will continue to monitor.
[2020-06-14 04:00] VITALS: BP 118/59; PULSE 60; RESP 16; TEMP 36.8; O2SAT 90
[2020-06-14 06:37] LABS: Neutrophils # 1.8 K/mm3 (1.8-7.8); Platelet Count 79 K/mm3 (142-424); White Blood Count 3.4 K/mm3 (4.8-10.8)
[2020-06-14 06:43] LABS: Chloride 107 mmol/L (98-107); Potassium 3.9 mmoL/L (3.5-5.1); Sodium 136 mmol/L (136-145)
[2020-06-14 06:46] LABS: Anion Gap 8.9 mEq/L (5-15); Blood Urea Nitrogen 9 mg/dl (7-17); Carbon Dioxide 24 mmol/L (22.0-30.0); Creatinine Clearance Estimated 41 mL/min (50-200); Estimated Glomerular Filt Rate 81 ml/min (>60); GFR (African American) 98 ML/MIN (>60); Glucose 61 mg/dl (74-100)
[2020-06-14 06:47] LABS: Calcium 8.1 mg/dl (8.4-10.2)
[2020-06-14 07:18] LABS: Basophils % 0.7 % (0.1-2.0); Eosinophils # 0.3 K/mm3 (0.0-0.4); Eosinophils % 10.1 % (0.1-12.0); Hematocrit 29.8 % (37.0-47.0); Lymphocytes % 28.5 % (10-50); Mean Corpuscular HGB Conc 33.9 g/dL (31.8-35.4); Mean Corpuscular Volume 82.7 fl (81-99); Mean Platelet Volume 11.1 fl (7.4-10.4); Monocytes # 0.2 K/mm3 (0.1-1.0); Monocytes % 6.4 % (1.7-9.3); Neutrophils % 54.2 % (37.0-80.0); Red Blood Count 3.61 M/mm3 (4.20-5.40)
[2020-06-14 07:22] LABS: Hemoglobin 10.1 g/dL (12.2-16.2)
[2020-06-14 07:59] VITALS: BP 131/68; PULSE 65; RESP 18; TEMP 36.6; O2SAT 93
--- NOTE | 2020-06-14 08:19 | HMH.ACPN2 ---
Internal Medicine - PN: Subj *Date: 06/14/20 *Time: 08:19 Interval history: Patient did not sleep well last night due to being cold. She continues to chill this morning. She denies nausea and vomiting. He is voiding without difficulty although she continues to burn and have lower abdominal pain. She feels this might be a little bit better. She has had no further diarrhea. She denies chest pain and shortness of breath. Hemoglobin is 10.1 today with hematocrit of 29.8 and white blood cell count of 3400. Platelet count is low at 79,000. Electrolytes and renal function are normal. Exam Vital signs and Labs for Last 24 Hours: Temp Pulse Resp BP Pulse Ox 97.9 F 65 18 131/68 93 L 06/14/20 07:59 06/14/20 07:59 06/14/20 07:59 06/14/20 07:59 06/14/20 07:59 Laboratory Results - last 24 hr 06/13/20 09:17: Urine Color Dk yellow, Urine Appearance Turbid, Urine pH 6.0, Ur Specific [place] 1.025, Urine Protein 2+, Urine Glucose (UA) Negative, Urine Ketones Negative, Urine Blood 3+, Urine Nitrate Positive, Urine Bilirubin Negative, Urine Urobilinogen 0.2, Ur Leukocyte Esterase 2+ A, Urine RBC 10-20, Urine WBC Tntc, Ur Squamous Epith Cells 3-5, Ur Transition Epith Cell Occ, Urine Bacteria 2+ 06/13/20 09:17: WBC 8.5, RBC 4.26, Hgb 12.1 L, Hct 35.4 L, MCV 83.1, MCH 28.5, MCHC 34.3, RDW 12.9, Plt Count 98 L, MPV 11.8 H, Neut % (Auto) 66.8, Lymph % (Auto) 18.6, [place] % (Auto) 7.3, Eos % (Auto) 6.9, Baso % (Auto) 0.4, Neut # (Auto) 5.7, Lymph # (Auto) 1.6, [place] # (Auto) 0.6, Eos # (Auto) 0.6 H, Baso # (Auto) 0.0 06/13/20 09:17: Sodium 132 L, Potassium 3.7, Chloride 98, Carbon Dioxide 27, Anion Gap 10.7, BUN 11, Creatinine 0.90, Estimated Creat Clear 39, Estimated GFR 61, Est GFR ( Amer) 74, Glucose 92, Calcium 8.9, Total Bilirubin 0.9, AST 31, ALT 7 L, Alkaline Phosphatase 100, Total Protein 6.8, Albumin 3.7, Globulin 3.1, Albumin/Globulin Ratio 1.2 06/13/20 09:17: Lactate 0.7 06/13/20 09:17: SARS-CoV-2 IgG Ab (Rapid) Negative, SARS-CoV-2 IgM Ab (Rapid) Negative 06/14/20 06:18: WBC 3.4 L D, RBC 3.61 L, Hgb 10.1 L D, Hct 29.8 L, MCV 82.7, MCH 28.0, MCHC 33.9, RDW 13.0, Plt Count 79 L, MPV 11.1 H, Neut % (Auto) 54.2, Lymph % (Auto) 28.5, [place] % (Auto) 6.4, Eos % (Auto) 10.1, Baso % (Auto) 0.7, Neut # (Auto) 1.8, Lymph # (Auto) 1.0, [place] # (Auto) 0.2, Eos # (Auto) 0.3, Baso # (Auto) 0.0 06/14/20 06:18: Sodium 136, Potassium 3.9, Chloride 107, Carbon Dioxide 24, Anion Gap 8.9, BUN 9, Creatinine 0.70 D, Estimated Creat Clear 41, Estimated GFR 81, Est GFR ( Amer) 98 D, Glucose 61 L D, Calcium 8.1 L I & O for Last 24 hours: Intake & Output 06/11/20 06/12/20 06/13/20 06/14/20 11:59 11:59 11:59 11:59 Intake Total 1106 / 1106 Balance 1106 / 1106 Weight 115 lb 120 lb 7 oz Microbiology Reports for the Last 24 Hours: Microbiology 06/13/20 09:17 Urine,Catheterized Urine Culture - Preliminary Gram Negative Rods - Constitutional no acute distress, thin Comments: Frail - *Routine Respiratory Exam Present: CTA bilaterally - *Routine Cardiovascular Exam Present: RRR - *Routine Abdominal Exam Present: soft, normoactive bowel sounds, tenderness (in suprapubic region). Absent: distended - *Routine Extremities Exam Present: pulses intact. Absent: edema, calf tenderness - *Routine Neurological Exam Present: alert, oriented X3 Assessment and Plan (1) UTI (urinary tract infection) Current visit: No Status: Acute Qualifiers: Urinary tract infection type: site unspecified Hematuria presence: without hematuria Qualified Code(s): N39.0 - Urinary tract infection, site not specified Category: Medical Code(s): N39.0 - Urinary tract infection, site not specified (2) Diarrhea Current visit: No Status: Acute Category: Medical Code(s): R19.7 - Diarrhea, unspecified (3) Hypertension Current visit: No Status: Chronic Category: Medical Code(s): I1
[2020-06-14 08:21] VITALS: PULSE 65; RESP 18; O2SAT 93
[2020-06-14 10:01] LABS: Thyroid Stimulating Hormone 1.79 uIU/mL (0.465-4.68)
--- NOTE | 2020-06-14 10:33 | CARE MANAGER ---
Patient has home health services with [facility]. Spoke with Jayne Leon RN. Patient was going to be discharged from PT soon. PT evaluated here and patient may benefit from continued physical therapy upon discharge. Informed Rebekah that patient was in observation status. KARTIK Sharpe, [employer]
--- NOTE | 2020-06-14 10:38 | HMH.PTEV ---
Physical Therapy Evaluation Rehab PT IP Evaluation Start: 06/14/20 09:04 Freq: ONCE Status: Active Protocol: Document 06/14/20 10:35 PHOASIA (Rec: 06/14/20 10:38 PHOASIA [id number]) Subjective/History History History 75 yowf adm to [facility] with UTI. She reports she lives with multiple family members at home, no stairs to enter, and is independent with all mobility using her walker. Subjective Subjective Pt c/o feeling cold this am. Rehab PT IP Eval Objective Appearance Patient Behavior Appropriate Patient Orientation Person,Place,Time Difficulty following instructions none Speech Pattern Clear Ambulation Patient Able to Ambulate Yes Ambulation Observation IP General Gait Pattern Observation No Deviations/Normal Ambulation Distance (feet) 50 Ambulation Assistive Device Rolling Walker Ambulation Ability Independent Balance Ability to Arise Able, w/o using arms Sitting Balance Steady, safe Standing Balance Narrow stance w/o support Dynamic Sitting Balance Ability Normal Dynamic Standing Balance Ability Good Transfers Bed Transfer Ability Independent Chair Transfer Ability Independent Sit to Stand Bed Transfer Ability Independent Sit to Stand Chair Transfer Ability Independent ROM All Extremities PT ROM Status WFL MMT All Extremities PT MMT WFL Rehab PT IP prob,goals,plan Problems Date of Evaluation: 06/14/20 Discharge Plan PT Discharge Plan Pt is independent with all mobility and ambulation at this time and has no inpatient therapy needs. She may benefit from home health therapy upon D/C. She is appropriate to return liset with family. G -code Required No Eval Complexity Eval Charge Codes 33250 - Moderate Complexity PHYSICIAN CERTIFICATION: I certify the specified therapy services for Neisha Thompson are required, authorized, and reviewed every 30 days.
[2020-06-14 14:22] VITALS: BMI 20.2
--- NOTE | 2020-06-14 15:14 | PC.NURSE ---
Pt has been pleasant and cooperative this shift. A&O X4. Pt has complained of pain X1 thus far this shift and has been medicated with [place] per DEC. Lungs CTA. No complaints of SOA and pt is on room air with sats. >90%. No edema noted. Pt is incontinent of bowel/bladder and voids without issue. No BM this shift. VSS. Call light within reach. Will continue to monitor.
[2020-06-14 15:54] VITALS: BP 128/56; PULSE 55; RESP 18; TEMP 36.6; O2SAT 92
--- NOTE | 2020-06-14 19:10 | PC.NURSE ---
report given to april
[2020-06-14 20:00] VITALS: BP 134/52; PULSE 87; RESP 14; TEMP 36.8; O2SAT 90
[2020-06-15 04:00] VITALS: BP 114/56; PULSE 66; RESP 18; TEMP 36.6; O2SAT 90
--- NOTE | 2020-06-15 05:08 | PC.NURSE ---
Pt is A&Ox4 and has slept t/o most of the shift. Pt awakens easily with verbal stimulation. Pt has c/o pain to pelvic area, medicated per MAR 1x thus far with good relief on reassessment. Pt has denied any N/V/D this shift. Pt has continued to be incontinent of bladder, pt has mixed reports whether she knows she needs to go or has already gone to the bathroom. Brief changed 2x this shift. Lungs CTA, although diminished. Pt encouraged to TCDB often while awake. Pt easily turns and repositions in bed independently. Pt refused TEDS this shift. NS-IVF continues to infuse at 100ml/hr, pt tolerating well with h/o CHF. Pt has remained afebrile this shift. Will continue to monitor.
--- NOTE | 2020-06-15 06:03 | PC.NURSE ---
Pt received and shower, full linen change, and up to chair at this time.
[2020-06-15 06:41] LABS: Basophils % 0.7 % (0.1-2.0); Eosinophils # 0.4 K/mm3 (0.0-0.4); Eosinophils % 13.2 % (0.1-12.0); Hematocrit 32.1 % (37.0-47.0); Hemoglobin 10.6 g/dL (12.2-16.2); Lymphocytes # 1.2 K/mm3 (0.7-4.5); Lymphocytes % 35.2 % (10-50); Mean Corpuscular Hemoglobin 27.8 pg (27.0-31.2); Mean Corpuscular Volume 84.2 fl (81-99); Mean Platelet Volume 10.7 fl (7.4-10.4); Monocytes # 0.2 K/mm3 (0.1-1.0); Neutrophils # 1.5 K/mm3 (1.8-7.8); Neutrophils % 43.9 % (37.0-80.0); Platelet Count 95 K/mm3 (142-424); Red Blood Count 3.81 M/mm3 (4.20-5.40); White Blood Count 3.3 K/mm3 (4.8-10.8)
[2020-06-15 06:45] LABS: Anion Gap 10.7 mEq/L (5-15); Blood Urea Nitrogen 9 mg/dl (7-17); Calcium 8.5 mg/dl (8.4-10.2); Carbon Dioxide 26 mmol/L (22.0-30.0); Chloride 104 mmol/L (98-107); Creatinine Clearance Estimated 41 mL/min (50-200); Estimated Glomerular Filt Rate 70 ml/min (>60); GFR (African American) 84 ML/MIN (>60); Glucose 79 mg/dl (74-100); Potassium 3.7 mmoL/L (3.5-5.1); Sodium 137 mmol/L (136-145)
[2020-06-15 07:53] VITALS: BP 134/63; PULSE 73; RESP 18; TEMP 36.6; O2SAT 91
[2020-06-15 08:28] VITALS: PULSE 73; RESP 18; O2SAT 91
--- NOTE | 2020-06-15 08:29 | HMH.ACPN2 ---
Internal Medicine - PN: Subj *Date: 06/15/20 *Time: 08:29 Interval history: Patient states she is feeling better today. She states she slept last night for the first time in a long time. She is tolerating a diet. She denies any pain other than in her lower abdomen. Exam Vital signs and Labs for Last 24 Hours: Temp Pulse Resp BP Pulse Ox 97.8 F 73 18 134/63 91 L 06/15/20 07:53 06/15/20 07:53 06/15/20 07:53 06/15/20 07:53 06/15/20 07:53 Laboratory Results - last 24 hr 06/14/20 06:18: TSH 1.79 06/15/20 06:08: WBC 3.3 L, RBC 3.81 L, Hgb 10.6 L, Hct 32.1 L, MCV 84.2, MCH 27.8, MCHC 33.0, RDW 13.0, Plt Count 95 L, MPV 10.7 H, Neut % (Auto) 43.9, Lymph % (Auto) 35.2, [place] % (Auto) 7.0, Eos % (Auto) 13.2 H, Baso % (Auto) 0.7, Neut # (Auto) 1.5 L, Lymph # (Auto) 1.2, [place] # (Auto) 0.2, Eos # (Auto) 0.4, Baso # (Auto) 0.0 06/15/20 06:08: Sodium 137, Potassium 3.7, Chloride 104, Carbon Dioxide 26, Anion Gap 10.7, BUN 9, Creatinine 0.80, Estimated Creat Clear 41, Estimated GFR 70, Est GFR ( Amer) 84, Glucose 79 D, Calcium 8.5 I & O for Last 24 hours: Intake & Output 06/12/20 06/13/20 06/14/20 06/15/20 11:59 11:59 11:59 11:59 Intake Total 1586 / 1586 3036 / 3036 Balance 1586 / 1586 3036 / 3036 Weight 115 lb 120 lb 7 oz 120 lb Microbiology Reports for the Last 24 Hours: Microbiology 06/13/20 09:17 Urine,Catheterized Urine Culture - Final Escherichia coli - Constitutional no acute distress - *Routine Respiratory Exam Present: CTA bilaterally - *Routine Cardiovascular Exam Present: RRR - *Routine Abdominal Exam Present: soft, normoactive bowel sounds, tenderness (suprapubic area) - *Routine Extremities Exam Absent: cyanosis, clubbing, edema - *Routine Skin Exam Present: warm. Absent: rash - *Routine Neurological Exam Present: alert, oriented X3 Assessment and Plan (1) E. coli UTI Current visit: Yes Status: Acute Category: Medical Code(s): N39.0 - Urinary tract infection, site not specified; B96.20 - Unspecified Escherichia coli [E. coli] as the cause of diseases classified elsewhere (2) Diarrhea Current visit: No Status: Acute Category: Medical Code(s): R19.7 - Diarrhea, unspecified (3) Hypertension Current visit: No Status: Chronic Category: Medical Code(s): I10 - Essential (primary) hypertension (4) Hypothyroidism Current visit: No Status: Chronic Category: Medical Code(s): E03.9 - Hypothyroidism, unspecified (5) Chronic anemia Current visit: No Status: Chronic Category: Medical Code(s): D64.9 - Anemia, unspecified - Assessment and plan all Dx Assessment and Plan for all problems:: Patient's urine culture is positive for E. coli which is sensitive to Rocephin. She is feeling much better today. Possible discharge home. Will discuss with Dr. Laughlin.
--- NOTE | 2020-06-15 10:19 | SW/DCPLANNER ---
Addendum entered by Gabriela Nelson 06/15/20 13:19: Rebekah with [facility] called and stated that patient information has been reviewed and services will resume for this patient. Original Note: Patient information has been faxed to [facility] for patient to resume home health services. Patient will discharge home today.
--- NOTE | 2020-06-16 15:34 | HMH.DCSUM ---
General - General Admission date:: 06/13/20 Discharge date: 06/15/20 HPI HPI: Ms. Thompson is a 75-year-old female with a history of urinary tract infections, anemia, hypothyroidism, CHF, hypertension, and pneumonia who presented to [facility] emergency room after experiencing severe abdominal discomfort with voiding. She denies hematuria and fever. He states she was unable to eat or drink much yesterday and had a decrease in her water intake the day before. With the persistence of the pain, she presented to the emergency room. She denies nausea, vomiting, and states she has had diarrhea x1 day. Evaluation in the emergency room white blood cell count was 8500 with a hemoglobin of 12.1 hematocrit 35.4. Renal function was normal. Lactic acid was 0.7. Her function studies were not elevated. Temperature was 100.2. She was started on Rocephin IV and given Tylenol for fever and thousand milliliter bolus. She was then admitted for further evaluation and treatment. At the time of this exam patient continues to have some abdominal/pelvic discomfort. Temperature is down to 98.1. Hospital Course Hospital Course: The patient was started on IV Rocephin. She was continued on IV fluids and her urine culture results were pending. She continued with some burning with urination and lower abdominal pain. She initially had some diarrhea, but this resolved. Her urine culture results were showing 80-90,000 gram-negative colony counts. By 06/15/2020, she was feeling better. She had finally slept for the first time in a long time and was tolerating a diet. She still had some minimal lower abdominal pain. Her urine culture was positive for E. coli, which was sensitive to Rocephin and she was stable to be discharged home on cefdinir. She will follow-up with her primary care provider. Objective Vital signs: Temp Pulse Resp BP Pulse Ox 97.8 F 73 18 134/63 91 L 06/15/20 07:53 06/15/20 08:28 06/15/20 08:28 06/15/20 07:53 06/15/20 08:28 Narrative: - Constitutional no acute distress, thin, cooperative - *Routine HEENT Exam Head: Present: normocephalic, atraumatic Eye: Present: PERRL. Absent: conjunctival icterus, scleral injection ENT: Present: mucous membranes moist, oropharynx clear - *Routine Neck Exam Absent: carotid bruit, lymphadenopathy, thyromegaly - *Routine Respiratory Exam Present: CTA bilaterally (Anteriorly and posteriorly) - *Routine Cardiovascular Exam Present: RRR - *Routine Abdominal Exam Present: soft, normoactive bowel sounds, tenderness (Pelvic region). Absent: distended - *Routine Extremities Exam Absent: edema, calf tenderness - *Routine Neurological Exam Present: alert, oriented X3 Results Labs on day of discharge: Preliminary micro results at discharge 06/13/20 09:06 Blood Culture - Preliminary Blood NO GROWTH AFTER 48 HOURS 06/13/20 09:06 Blood Culture - Preliminary Blood NO GROWTH AFTER 48 HOURS DS: Diagnosis - Discharge Diagnosis (1) E. coli UTI Status: Acute (2) Diarrhea Status: Acute (3) Hypertension Status: Chronic (4) Hypothyroidism Status: Chronic (5) Chronic anemia Status: Chronic Discharge Plan - Patient Discharge Instructions ACTIVITY: Limited activity DIET: advance to your usual diet Patient Instructions: Urinary Tract Infection - Follow up Plan Follow up with: Katja Aldana [Primary Care Provider] - 06/27/20 11:30 am Disposition: Home, Self-Usp Medications: Home Medications Medication Instructions Recorded Confirmed Type Gabapentin [Neurontin 300mg 300 mg PO TID 06/09/18 06/13/20 History capsule] Amlodipine Besylate [Amlodipine 5 mg PO DAILY 06/13/20 06/13/20 History 5mg tab] Levothyroxine Sodium 100 mcg PO DAILY 06/13/20 06/13/20 History [Levothyroxine 100mcg (0.1MG) Tab] Pantoprazole Sodium [Protonix 40mg 40 mg PO DAILY
== END 2020-06-15 12:00 | disposition home or self-care (01) ==
LOC: ER 10:30 → 2ND 06-14 06:13
PROVIDERS: Family Medicine; Admitting Provider Family Medicine; Emergency Provider Emergency Medicine; PCP Nurse Practitioner Family; Visit Provider Family Medicine
DX: N39.0 Urinary tract infection, site not specified (principal); E03.9 Hypothyroidism, unspecified; D64.9 Anemia, unspecified; I11.0 Hypertensive heart disease with heart failure; Z79.899 Other long term (current) drug therapy; Z88.8 Allergy status to other drugs, medicaments and biological substances; I50.9 Heart failure, unspecified
CPT/HCPCS: 36415; 80048; 80053; 81001; 83605; 84443; 85025; 86328; 87040; 87086; 87088; 87186; 96365; 96375; 97162; 99284; G0378; J2405

== ENCOUNTER 2021-02-06 10:17 | Emergency (ER) | payer MEDICARE, SELFPAY ==
[2021-02-06 10:17] VITALS: BP 128/70; PULSE 80; RESP 18; TEMP 36.8; O2SAT 98; BMI 21.8
--- NOTE | 2021-02-06 10:26 | HMH.EDGENADL ---
ED Disposition Clinical Impression: Low back pain Qualifiers: Chronicity: unspecified Back pain laterality: midline Sciatica presence: without sciatica Qualified Code(s): M54.5 - Low back pain Chronic hip pain Qualifiers: Laterality: right Qualified Code(s): M25.551 - Pain in right hip; G89.29 - Other chronic pain Disposition: Home, Self-Care Condition on Discharge: Fair Instructions: DI for Low Back Pain, DI for Hip Pain Additional Instructions: Acetaminophen/hydrocodone for pain. Do not take tramadol while taking this medication. Medrol Dosepak as prescribed. Follow-up with Dr. Allen, call today to make appointment. Additional instructions for CONTROLLED SUBSTANCES: You have been prescribed a medication that is a controlled substance. Controlled substances include pain medications known as opiates and sedative nerve medications known as benzodiazepines. Tramadol, fioricet, and gabapentin are also controlled substances. Some common opiates include: Codeine (such as Tylenol #3) Hydrocodone (Vicodin, Lortab, Lorcet, [place]) Oxycodone (Percocet, Percodan, Oxycodone, Oxy IR) Some common benzodiazepines include: Diazepam (Valium) Lorazepam (Ativan) Alprazolam (Xanax) Clonazepam (Klonopin) Oxazepam (Serax) All of these controlled substances are highly addictive and frequently abused. Misuse can and frequently does lead to addiction as well as overdose and . Medication should be stored in a locked cabinet or other secure storage unit. Do not store the medication in a motor vehicle. Short term supplies, 3 days or less, are prescribed because of the highly addictive nature of the medication. Any of the controlled substance medication NOT taken should be disposed of properly and NOT SAVED. The recommended method of disposing of unused medications is: Place the medicines in a sealable plastic bag. If the medicine is a solid, crush it or add water to dissolve it. Add something undesirable (cat litter, coffee grounds, etc.) Dispose of sealed bag in household trash Do not flush or pour unused medicines down a sink or drain. Controlled substances should not be shared, given away or sold. Because of the addictive nature and frequent abuse, these medications are sometimes stolen. These medications should be kept in a safe place where they cannot be stolen. Do not keep them in your car or purse. Lost or stolen prescriptions for controlled substances WILL NOT BE REFILLED in this emergency department, regardless of whether a police report was filed. Prescriptions: Hydrocod/Acet 5/325 mg [[place] 5/325mg tablet] 1 tab PO Q6HP PRN #10 tab PRN Reason: Pain Transmission Status: Sent to [facility] methylPREDNISolone [Medrol] 4 mg PO DIRECTED #21 pack Transmission Status: Pending to [facility] Referrals: Katja Aldana [Primary Care Provider] - - Critical Care Critical Care Time: No Attestation: On , the high probability of a clinically significant, sudden or life threatening deterioration of the following system(s) required my full and direct attention, intervention and personal management. The time I documented below is in addition to time spent performing reported procedures but includes the following listed in this critical care notation. Medical Decision Making - Medical Records Medical records reviewed: Yes: I reviewed the patient's medical records. MR Comment: Prior MRI of the lumbar spine reviewed from 2018. Prior treatment by Dr. Perea in 2018 reviewed. Patient had facet block performed in 2018. - Daniel Inquiry Pt receiving controlled substance: Yes Daniel was queried for this patient: Yes Risks and benefits of using a controlled substance: were discussed with pt by me Vital Signs: 02/06/21 10:17 Temperature 98.3 F Temperature Source Oral Pulse Rate [Right] 80 Respiratory Rate 18 Blood Pressure [Right Arm] 128/70 Blood Pressure Mean [Right Arm] 89 02 Sat
--- NOTE | 2021-02-06 10:39 | XR_ITS ---
PROCEDURE: XR LUMBAR SPINE 2-3V CLINICAL INDICATION: pain COMPARISON: CR LS5 LUMBAR SPINE 5 VIEWS from 04/18/2017 FINDINGS: AP and cross-table lateral films were obtained. There has been previous kyphoplasties involving the L3 and L4 vertebral bodies. Again noted is the tubular contrast adjacent to the right side of the L3 and L4 vertebral bodies likely extravasation of kyphoplasty material into a paravertebral vein. There is moderate spurring of the anterior superior border of L2. The remaining lumbar vertebrae appear normal. The SI joints are normal. IMPRESSION: Stable non recent kyphoplasties of L2 and L3, no definite acute pathology identified Dictated by: Dr. Jaun Pollard MD 02/06/2021 12:29 Dr. Jaun Pollard MD in [place] 02/06/2021 12:29
--- NOTE | 2021-02-06 10:39 | XR_ITS ---
PROCEDURE: XR HIP RT 2-3V W/PELVIS CLINICAL INDICATION: pain COMPARISON: CR HIPCMRT XR hip RT 2-3V w/pelvis from 06/09/2018 FINDINGS: The gamma nail is well positioned within the femoral neck and head. The intramedullary lee is well positioned within the proximal femur fixated at the inferior extent by horizontal threaded screw. There is no evidence of loosening. The femoral head appears viable. Tiny metallic anchors projecting on either side of the symphysis pubis likely related to previous surgery. IMPRESSION: No acute findings. Dictated by: Dr. Jaun Pollard MD 02/06/2021 12:31 Dr. Jaun Pollard MD in [place] 02/06/2021 12:31
[2021-02-06 11:51] VITALS: BP 145/61; PULSE 58; RESP 18; TEMP 36.8; O2SAT 95
== END 2021-02-06 11:51 | disposition home or self-care (01) ==
PROVIDERS: Emergency Provider Emergency Medicine; PCP Nurse Practitioner Family
DX: M54.5 Low back pain (principal); M25.551 Pain in right hip; G89.29 Other chronic pain; Z79.899 Other long term (current) drug therapy
CPT/HCPCS: 72100; 73502; 96374; 96375; 99282; J2405

== ENCOUNTER 2021-06-20 15:37 | Emergency (ER) | payer MEDICARE, SELFPAY ==
[2021-06-20 15:38] VITALS: BP 119/67; PULSE 67; RESP 14; TEMP 36.4; O2SAT 95; BMI 19.7
--- NOTE | 2021-06-20 17:33 | CT_ITS ---
PROCEDURE INFORMATION: Exam: CT Abdomen And Pelvis With Contrast Exam date and time: 06/20/2021 5:33 PM Age: 76 years old Clinical indication: Abdominal pain; Generalized; Additional info: Abd pain TECHNIQUE: Imaging protocol: Computed tomography of the abdomen and pelvis with contrast. Radiation optimization: All CT scans at this facility use at least one of these dose optimization techniques: automated exposure control; mA and/or kV adjustment per patient size (includes targeted exams where dose is matched to clinical indication); or iterative reconstruction. Contrast material: ISOVUE; Contrast volume: 75 ml; Contrast route: IV; COMPARISON: ABDPELWO CT abdomen pelvis wo con 01/03/2018 2:56 PM FINDINGS: Lungs: Dependent atelectasis in the posterior lower lungs. No focal consolidation. Calcified left lower lobe pulmonary granuloma. Liver: No hepatomegaly. No discrete mass. Calcified granulomas. Slight periportal halo , with edema surrounding portal vessels, e.g. coronal series 601, image 31. Gallbladder and bile ducts: Cholecystectomy clips. Common duct dilated up to 11 mm, more prominent compared with the previous CT of 01/03/2018, and there is also new mild intrahepatic biliary ectasia. No obstructing calcified stones are seen. Pancreas: Findings of mild pancreas atrophy, changes likely related to aging. No pancreatic ductal dilatation. No mass. Spleen: No splenomegaly. Multiple calcified splenic granulomas. Adrenal glands: Normal. No mass. Kidneys and ureters: Right renal pelvis is mildly distended compared with left but this is a chronic finding compared with 2018, likely extrarenal pelvis on the right. No hydroureter. No obstructing calcified stones. Left kidney and collecting system are unremarkable. Stomach and bowel: There is extensive diverticulosis coli, without evidence of acute diverticulitis. Scattered small intestinal air-fluid levels, no dilated loops or mucosal thickening. A very large chronic hiatal hernia, majority of the stomach is in the chest, located toward the right of the spine. Mild gastric rotation, no high-grade volvulus or obstruction seen. Appendix: No findings of appendicitis. Intraperitoneal space: There is no free intraperitoneal air. There is no significant free intraperitoneal fluid. Vasculature: Mildly ectatic infrarenal abdominal aorta up to 2.3 cm diameter coronal series 601, image 22. No significant aneurysm.The vasculature demonstrates scattered mild atherosclerotic calcification. Lymph nodes: No significantly enlarged lymph nodes by short axis criteria. Urinary bladder: Urinary bladder wall is probably within normal limits for the degree of distension, not well filled. Reproductive: Unremarkable as visualized. Post hysterectomy. Bones/joints: Right femur hardware appears intact with no evidence of loosening or infection. Bones appear diffusely demineralized suggesting osteopenia/osteoporosis, less likely would be infiltrative neoplasm such as myeloma. This is chronic compared with the prior study. Surgical screws in the pubic symphysis. Chronic L3 vertebral compression deformity. Vertebroplasty cement at L3 and L4 vertebral bodies. Chronic T11 vertebral compression deformity. No acute fracture or high-grade listhesis, compared with the prior study. Soft tissues: There are no soft tissue masses or fluid collections. IMPRESSION: 1. There is diverticulosis coli, without evidence of acute diverticulitis. 2. Increased biliary dilatation compared with the prior scan from 01/03/2018, common duct now measuring up to 1.1 cm. This may be progressive benign senile ductal ectasia post cholecystectomy, rather
[2021-06-20 18:01] LABS: Basophils % 1.1 % (0.1-2.0); Eosinophils # 0.7 K/mm3 (0.0-0.4); Eosinophils % 17.5 % (0.1-12.0); Hematocrit 36.8 % (37.0-47.0); Hemoglobin 12.3 g/dL (12.2-16.2); Lymphocytes # 1.4 K/mm3 (0.7-4.5); Lymphocytes % 37.7 % (10-50); Mean Corpuscular HGB Conc 33.3 g/dL (31.8-35.4); Mean Corpuscular Hemoglobin 27.6 pg (27.0-31.2); Mean Corpuscular Volume 82.7 fl (81-99); Mean Platelet Volume 10.8 fl (7.4-10.4); Monocytes # 0.3 K/mm3 (0.1-1.0); Neutrophils # 1.3 K/mm3 (1.8-7.8); Neutrophils % 34.7 % (37.0-80.0); Platelet Count 147 K/mm3 (142-424); Red Blood Count 4.44 M/mm3 (4.20-5.40); Red Cell Distribution Width 12.8 % (11.5-17.5); White Blood Count 3.8 K/mm3 (4.8-10.8)
[2021-06-20 18:11] LABS: Chloride 102 mmol/L (98-107); Potassium 4.3 mmoL/L (3.5-5.1); Sodium 137 mmol/L (136-145)
[2021-06-20 18:14] LABS: Alanine Aminotransferase 9 U/L (12-78); Albumin Level 3.5 g/dl (3.5-5.0); Albumin/Globulin Ratio 1.2 (1.1-1.8); Alkaline Phosphatase 77 U/L (38-126); Anion Gap 14.3 mEq/L (5-15); Aspartate Amino Transferase 48 U/L (14-36); Bilirubin,Total 0.8 mg/dl (0.2-1.3); Blood Urea Nitrogen 7 mg/dl (7-17); Carbon Dioxide 25 mmol/L (22.0-30.0); Creatinine Clearance Estimated 39 mL/min (50-200); Estimated Glomerular Filt Rate 61 ml/min (>60); GFR (African American) 73 ML/MIN (>60); Total Protein,Serum 6.5 g/dl (6.3-8.2)
[2021-06-20 18:15] LABS: Calcium 8.9 mg/dl (8.4-10.2); Glucose 52 mg/dl (74-100); Lactic Acid 0.7 mmol/L (0.7-2.1)
--- NOTE | 2021-06-20 19:35 | HMH.EDGENADL ---
ED Disposition Clinical Impression: Gastroenteritis, Dehydration Disposition: Home, Self-Care Condition on Discharge: Good Instructions: DI for Nausea -- Adult, DI for Nausea -- Child, DI for Diarrhea and Traveler's Diarrhea -- Adult, DI for Diarrhea and Traveler's Diarrhea -- Child Referrals: Katja Aldana [Primary Care Provider] - - Critical Care Critical Care Time: No Attestation: On 06/20/21, the high probability of a clinically significant, sudden or life threatening deterioration of the following system(s) required my full and direct attention, intervention and personal management. The time I documented below is in addition to time spent performing reported procedures but includes the following listed in this critical care notation. Medical Decision Making - Medical Records Medical records reviewed: Yes: I reviewed the patient's medical records. - Daniel Inquiry Pt receiving controlled substance: No Vital Signs: 06/20/21 15:38 Temperature 97.5 F L Temperature Source Oral Pulse Rate [Right Radial] 67 Respiratory Rate 14 Blood Pressure [Right Arm] 119/67 Blood Pressure Mean [Right Arm] 84 Blood Pressure Source [Right Arm] Automatic Cuff Blood Pressure Position [Right Arm] Sitting 02 Sat by Pulse Oximetry 95 Oxygen Delivery Method Room Air - Lab Data Lab Results 06/20/21 17:45: WBC 3.8 L, RBC 4.44, Hgb 12.3, Hct 36.8 L, MCV 82.7, MCH 27.6, MCHC 33.3, RDW 12.8, Plt Count 147, MPV 10.8 H, Neut % (Auto) 34.7 L, Lymph % (Auto) 37.7, Dane % (Auto) 9.0, Eos % (Auto) 17.5 H, Baso % (Auto) 1.1, Neut # (Auto) 1.3 L, Lymph # (Auto) 1.4, Dane # (Auto) 0.3, Eos # (Auto) 0.7 H, Baso # (Auto) 0.0 06/20/21 17:45: Sodium 137, Potassium 4.3, Chloride 102, Carbon Dioxide 25, Anion Gap 14.3, BUN 7, Creatinine 0.90, Estimated Creat Clear 39, Estimated GFR 61, Est GFR ( Amer) 73, Glucose 52 L, Calcium 8.9, Total Bilirubin 0.8, AST 48 H, ALT 9 L, Alkaline Phosphatase 77, Total Protein 6.5, Albumin 3.5, Globulin 3.0, Albumin/Globulin Ratio 1.2 06/20/21 17:45: Lactate 0.7 Result diagrams: 06/20/21 17:45 06/20/21 17:45 Orders (Tests/Meds): ED MEDICATIONS Discontinued Medications Generic Name Dose Route Start Last Admin Trade Name Edgardo PRN Reason Stop Dose Admin Iopamidol 75 ml 06/20/21 18:41 06/20/21 18:42 Iopamidol-370 (76%);100ml Bottle IV 06/20/21 18:42 75 ml ONCE ONE Administration Sodium Chloride 10 ml 06/20/21 18:41 06/20/21 18:42 Sodium Chloride 0.9% 10ml Syr (Rad Only) IV 06/20/21 18:42 10 ml ONCE ONE Administration ORDERS Category Date Time Status Urinalysis and Microscopic Stat Lab 06/20/21 19:00 Received Medical Decision Narrative: 76-year-old female presents the ED today for further evaluation of nausea vomiting diarrhea. Differential diagnosis includes intra-abdominal infection, constipation, gastric ulcer, gastroenteritis. Patient has had CBC, CMP, CT abdomen and pelvis with IV contrast, lipase and lactate, with no significant abnormalities on labs including no anemia no lactic acidosis. Patient CT scan shows multiple chronic abnormalities including enlarged bile duct, chronic colonic diverticulosis without evidence of diverticulitis, and osteoporosis of the spine. Patient had 1 L of IV fluids, and appears vastly improved after this, believes she was just dehydrated, patient will return to the ED for any new or worsening symptoms, has nausea medications at home, have instructed her to keep up with her losses of diarrhea with oral intake, as she states she believes she may have gotten behind on this. Patient will return for any new or worsening symptoms, home with family. General Adult HPI - General Chief complaint: Nausea/Vomiting/Diarrhea Stated complaint: Katja Aldana referred to ER for fluids Time Seen by Provider: 06/20/21 16:30 Mode of Arrival: Wheelchair Limitations: No Limitations Description of Symptoms (Recalled from ER Triage Doc. by KARTIK
[2021-06-20 19:46] VITALS: BP 112/70; PULSE 73; RESP 18; TEMP 36.8; O2SAT 98
== END 2021-06-20 19:48 | disposition home or self-care (01) ==
PROVIDERS: Emergency Provider Student in an Organized Health Care Education/Training Program; PCP Nurse Practitioner Family
DX: K52.9 Noninfective gastroenteritis and colitis, unspecified (principal); E86.0 Dehydration; E78.5 Hyperlipidemia, unspecified; I10 Essential (primary) hypertension; I50.9 Heart failure, unspecified; M81.0 Age-related osteoporosis without current pathological fracture; E03.9 Hypothyroidism, unspecified; Z79.899 Other long term (current) drug therapy
CPT/HCPCS: 74177; 80053; 83605; 85025; 99282; Q9967

== ENCOUNTER 2021-06-26 07:00 | Observation (INO) | payer MEDICARE, SELFPAY ==
[2021-06-26] VITALS (13 sets, daily range): BP systolic 107–136; BP diastolic 63–69; PULSE 51–76; RESP 12–18; TEMP 36.3–36.8; O2SAT 90–100; BMI 21.0
--- NOTE | 2021-06-26 07:00 | ECG_ITS ---
APPROVED REPORT Exam: Resting ECG HR:67 bpm ECG Measurements Heart Rate 67 AXES [place] 164 P 50 QRSd 126 QRS -51 QT 428 T 132 QTc 452 Conclusion Normal sinus rhythm Left axis deviation Left bundle branch block Abnormal ECG Electronically signed by : Troy Courtney MD 06/29/2021 10:57:51
[2021-06-26 07:25] LABS: Microscopic, Urine URINE MICROSCOPIC (MICROSCOPIC)
[2021-06-26 07:34] LABS: Alanine Aminotransferase 7 U/L (12-78); Albumin Level 3.3 g/dl (3.5-5.0); Albumin/Globulin Ratio 1.1 (1.1-1.8); Alkaline Phosphatase 68 U/L (38-126); Anion Gap 12.8 mEq/L (5-15); Appearance,Urine CLEAR (Clear); Aspartate Amino Transferase 31 U/L (14-36); Bilirubin,Total 0.6 mg/dl (0.2-1.3); Bilirubin,Urine Negative (Negative); Blood Urea Nitrogen 8 mg/dl (7-17); Blood, Urine 2+ (Negative); Calcium 8.5 mg/dl (8.4-10.2); Carbon Dioxide 28 mmol/L (22.0-30.0); Chloride 101 mmol/L (98-107); Color,Urine YELLOW (Yellow); Creatinine Clearance Estimated 36 mL/min (50-200); Estimated Glomerular Filt Rate 48 ml/min (>60); GFR (African American) 58 ML/MIN (>60); Glucose 93 mg/dl (74-100); Glucose,Urine (UA) Negative (Negative); Ketones,Urine Negative (Negative); Lactic Acid 0.9 mmol/L (0.7-2.1); Leukocyte Esterase,Urine 2+ (Negative); Nitrate,Urine POSITIVE (Negative); PH,Urine 5.5 (5.0-8.5); Potassium 3.8 mmoL/L (3.5-5.1); Protein,Urine TRACE (Negative); Sodium 138 mmol/L (136-145); Specific Gravity, Urine 1.025 (1.005-1.030); Total Protein,Serum 6.3 g/dl (6.3-8.2); Urobilinogen,Urine 0.2 EU/dl (0.2)
[2021-06-26 07:41] LABS: Basophils # 0.1 K/mm3 (0-0.2); Eosinophils # 0.7 K/mm3 (0.0-0.4); Eosinophils % 12.8 % (0.1-12.0); Hematocrit 40.3 % (37.0-47.0); Hemoglobin 12.8 g/dL (12.2-16.2); Lymphocytes # 1.9 K/mm3 (0.7-4.5); Lymphocytes % 36.4 % (10-50); Mean Corpuscular HGB Conc 31.8 g/dL (31.8-35.4); Mean Corpuscular Volume 85.1 fl (81-99); Mean Platelet Volume 11.1 fl (7.4-10.4); Monocytes # 0.4 K/mm3 (0.1-1.0); Monocytes % 7.8 % (1.7-9.3); Neutrophils # 2.2 K/mm3 (1.8-7.8); Neutrophils % 41.9 % (37.0-80.0); Platelet Count 176 K/mm3 (142-424); Red Blood Count 4.73 M/mm3 (4.20-5.40); Red Cell Distribution Width 13.2 % (11.5-17.5); White Blood Count 5.3 K/mm3 (4.8-10.8)
--- NOTE | 2021-06-26 07:44 | XR_ITS ---
PROCEDURE: XR CHEST PORTABLE CLINICAL HISTORY: weakness COMPARISON: CT CHESTWO CT chest wo con from 01/03/2018 CR CXR2V XR chest 2V from 01/05/2018 CR CXR1VP XR chest portable from 06/09/2018 CR XR CHEST PORTABLE from 04/05/2020 FINDINGS: Mild cardiomegaly without failure. There is evidence of old granulomatous disease. The lungs are clear without infiltrates, suspicious nodules, or pleural effusions. Hiatal hernia is noted. No acute bony abnormalities. IMPRESSION: Cardiomegaly and hiatal hernia otherwise negative Dictated by: Juan Champion MD 06/26/2021 08:15 Juan Champion MD in [facility] 06/26/2021 08:15
--- NOTE | 2021-06-26 07:50 | HMH.EDWEAK ---
ED Disposition Clinical Impression: Left bundle branch block (LBBB), Weakness UTI (urinary tract infection) Qualifiers: Urinary tract infection type: site unspecified Hematuria presence: without hematuria Qualified Code(s): N39.0 - Urinary tract infection, site not specified Disposition: Admitted as Observation Condition on Discharge: Good Referrals: Katja Aldana [Primary Care Provider] - - Critical Care Critical Care Time: No Attestation: On 06/26/21, the high probability of a clinically significant, sudden or life threatening deterioration of the following system(s) required my full and direct attention, intervention and personal management. The time I documented below is in addition to time spent performing reported procedures but includes the following listed in this critical care notation. Medical Decision Making - Medical Records Medical records reviewed: Yes: I reviewed the patient's medical records. - Daniel Inquiry Pt receiving controlled substance: No Vital Signs: 06/26/21 07:06 Temperature 97.6 F Temperature Source Oral Pulse Rate [Right] 68 Respiratory Rate 18 Blood Pressure [Right Arm] 124/67 Blood Pressure Mean [Right Arm] 86 02 Sat by Pulse Oximetry 91 L Oxygen Delivery Method Room Air - Lab Data Lab results reviewed: Yes: I reviewed the patient's lab results. Lab Results 06/26/21 07:09: Urine Color Yellow, Urine Appearance Clear, Urine pH 5.5, Ur Specific [place] 1.025, Urine Protein Trace, Urine Glucose (UA) Negative, Urine Ketones Negative, Urine Blood 2+, Urine Nitrate Positive, Urine Bilirubin Negative, Urine Urobilinogen 0.2, Ur Leukocyte Esterase 2+ A 06/26/21 07:09: WBC 5.3, RBC 4.73, Hgb 12.8, Hct 40.3, MCV 85.1, MCH 27.0, MCHC 31.8, RDW 13.2, Plt Count 176, MPV 11.1 H, Neut % (Auto) 41.9, Lymph % (Auto) 36.4, [place] % (Auto) 7.8, Eos % (Auto) 12.8 H, Baso % (Auto) 1.0, Neut # (Auto) 2.2, Lymph # (Auto) 1.9, [place] # (Auto) 0.4, Eos # (Auto) 0.7 H, Baso # (Auto) 0.1 06/26/21 07:09: Sodium 138, Potassium 3.8, Chloride 101, Carbon Dioxide 28, Anion Gap 12.8, BUN 8, Creatinine 1.10 H, Estimated Creat Clear 36, Estimated GFR 48 L, Est GFR ( Amer) 58 L, Glucose 93, Calcium 8.5, Total Bilirubin 0.6, AST 31, ALT 7 L, Alkaline Phosphatase 68, Total Protein 6.3, Albumin 3.3 L, Globulin 3.0, Albumin/Globulin Ratio 1.1 06/26/21 07:09: Lactate 0.9 Result diagrams: 06/26/21 07:09 06/26/21 07:09 Orders (Tests/Meds): ED MEDICATIONS Generic Name Dose Route Start Last Admin Trade Name Freq PRN Reason Stop Dose Admin Ceftriaxone Sodium 1 gm/ 50 mls @ 100 mls/hr 06/26/21 08:00 Sodium Chloride IV 07/10/21 07:59 Q24H LUIS ANGEL ORDERS Category Date Time Status Chest XR -- portable [XR chest portable] Stat Exams 06/26/21 07:44 Ordered XR chest 2V Stat Exams 06/26/21 07:14 Ordered Rapid PCR Covid and Flu A/B Stat Lab 06/26/21 07:27 Ordered Urinalysis and Microscopic Stat Lab 06/26/21 07:09 Results Blood Culture Stat Micro 06/26/21 07:09 Received Urine Culture Stat Micro 06/26/21 07:09 Received - ECG Data Tracing #1 Normal Sinus Rhythm: Yes Ischemic changes: non-specific ST-T wave changes Conduction abnormalities present: LBBB ECG compared to prior tracings: there are no significant changes Medical Decision Narrative: weakness and dec iadl and adl with uti - will admit with ivf and abx Weakness HPI - General Chief complaint: Weakness Stated complaint: weakness Time Seen by Provider: 06/26/21 07:15 Mode of Arrival: EMS Source of Information: Patient, EMS, Medical Record Limitations: No Limitations Description of Symptoms (Recalled from ER Triage Doc. by RN): PT VIA [facility] FROM HOME C/O WEAKNESS & UNABLE TO WALK SINCE 6PM YESTERDAY. RECENTLY TREATED FOR GASTROENTERITIS BY PCP. - History of Present Illness HPI Narrative: pt with weakness - generalized and was using walker last pm but unable to ambulate this am - no diarrhea and occ vom
[2021-06-26 07:51] LABS: Bacteria,Urine 1+ /lpf; Squamous Epithelial Cell,Urine Occasional #/hpf (0-5)
--- NOTE | 2021-06-26 07:55 | PC.NURSE ---
15F HARP PLACED BY JENY VERDUGO.
--- NOTE | 2021-06-26 08:04 | PC.NURSE ---
PT DOES NOT KNOW HER HOME MEDICATIONS, WILL CONTACT [facility] AT 0830 WHEN IT OPENS.
[2021-06-26 08:19] LABS: Coronavirus 19, PCR Not Detected (NotDetected); Influenza A, PCR Not Detected (NotDetected); Influenza B, PCR Not Detected (NotDetected)
[2021-06-26 08:45] LABS: Troponin I < 0.01 ng/ml (0.00-0.034)
[2021-06-26 08:48] LABS: T4 (Thyroxine) 10.8 ug/dl (5.53-11.0)
--- NOTE | 2021-06-26 08:50 | PC.NURSE ---
REPORT GIVEN TO LZU, PENDING COVID SWAB RESULTS.
--- NOTE | 2021-06-26 08:55 | HMH.PHAVTE ---
[facility] Pharm[facility] VTE Monitoring - Patient Demographics Admission date: 06/26/21 Report Date: 06/26/21 Time: 08:55 Allergies/Adverse Reactions: Patient Allergies amantadine Allergy (Unknown, Verified 06/26/21 08:03) I-HIVES baclofen Allergy (Unknown, Verified 06/26/21 08:03) [id number]/THROAT promethazine Allergy (Unknown, Verified 06/26/21 08:03) I-HIVES CAN TAKE SHOT NOT TABLET rosuvastatin Allergy (Unknown, Verified 06/26/21 08:03) I-ITCHING simvastatin Allergy (Unknown, Verified 06/26/21 08:03) P-[id number]/THROAT Height: 1.63 m Weight: 53.07 kg Patient Problems: Current Active Problems UTI (urinary tract infection) (Acute) Left bundle branch block (LBBB) (Acute) Weakness (Acute) - VTE Risk Labs: VTE Related Lab Results Hgb 12.8 g/dL (12.2-16.2) 06/26/21 07:09 Hct 40.3 % (37.0-47.0) 06/26/21 07:09 Plt Count 176 K/mm3 (142-424) 06/26/21 07:09 BUN 8 mg/dl (7-17) 06/26/21 07:09 Creatinine 1.10 mg/dl (0.52-1.04) H 06/26/21 07:09 Estimated Creat Clear 36 mL/min (50-200) 06/26/21 07:09 - Prophylaxis VTE Prophylaxis Ordered?: Yes Types of VTE Prophylaxis: TEDS Knee High Location of Applied Device: Bilateral Lower Extremeties
--- NOTE | 2021-06-26 09:00 | HMH.PHAINT ---
MEDICATION RECONCILIATION COMPLETED ON PATIENT USING EXTERNAL FILL HISTORY FROM PHARMACY AND VENANCIO REPORT. -ROGER CASTILLOD
--- NOTE | 2021-06-26 09:50 | PC.NURSE ---
pt arrived to the floor at this time
--- NOTE | 2021-06-26 10:03 | HMH.HP ---
*Admission Date: 06/26/21 *Chief complaint: weakness *History of present illness: this patient presented to the ed ith weakness - generalized and was using walker last pm but unable to ambulate this am - no diarrhea and occ vomiting- pt was found to have acute uti and was admitted for ivf and abx [facility] History I have reviewed the patient's past medical history: Yes Medical History: Reports:: Asthma, Congestive Heart Failure, Cerebrovascular Accident, Hyperlipidemia, Hypertension, Migraine, Osteoporosis, Transient Ischemic Attacks (TIA) Denies:: Cancer, Diabetes Mellitus Type 1, Diabetes Mellitus Type 2, Internal Pacemaker, MRSA, Seizures *Have you ever received a pneumonia vaccine?: No *Have you received a flu vaccine this season?: No Other Medical History: Reports: Anemia, Arthritis, Cataracts, Hypothyroidism, Osteoporosis, Sinus Problems, Thyroid Disease, Other Laterality Cases: Right: Arthroscopy Knee Other Surgeries: Yes: Appendectomy, Cardiac Catheterization, Colonoscopy, , EGD, Hysterectomy-Total. No: Pacemaker Amputation: No Fractures: No - *Social History Smoking Status: Never smoker Tobacco Type: cigarettes Alcohol Intake: never Alcohol Intake Frequency:: other Substance Use Type: denies use *Occupational Status:: disabled Housing: house Household Members: spouse, children *Travel in the last 8 weeks: None Family Hx:: Cancer, Coronary Artery Disease, Diabetes, Heart Attack, Hyperlipidemia, Hypertension, Alcoholism Review of Systems - Review of Systems Review of systems:: pertinent systems reviewed and negative unless documented below - Constitutional Reports fever(s), Reports weakness - Eyes Denies change in vision - ENT Denies dizziness - *Cardiovascular Denies chest pain at rest - *Respiratory Denies cough - *Gastrointestinal Denies abdominal pain - *Genitourinary Denies blood in urine - *Musculoskeletal Denies joint pain - Integumentary/Breasts Denies rash - *Neurologic Reports weakness, Denies localized weakness, Denies headache(s), Denies seizure-like activity - Psychiatric Denies depression Meds Home Medications Medication Instructions Recorded Confirmed Type Gabapentin [Neurontin 300mg 300 mg PO TID 06/09/18 06/26/21 History capsule] Amlodipine Besylate [Amlodipine 5 mg PO DAILY 06/13/20 06/26/21 History 5mg tab] Levothyroxine Sodium 50 mcg PO DAILY 06/13/20 06/26/21 History [Levothyroxine 100mcg (0.1MG) Tab] Trazodone HCl 100 mg PO HSP PRN 06/13/20 06/26/21 History Famotidine [Pepcid 20mg Tablet] 20 mg PO BID 06/26/21 06/26/21 History Mirabegron [Myrbetriq] 50 mg PO DAILY 06/26/21 06/26/21 History Allergies Allergy/AdvReac Type Severity Reaction Status Date / Time amantadine Allergy Unknown I-HIVES Verified 06/26/21 08:03 baclofen Allergy Unknown S-SWELLS-OR Verified 06/26/21 08:03 AL/THROAT promethazine Allergy Unknown I-HIVES Verified 06/26/21 08:03 CAN TAKE SHOT NOT TABLET rosuvastatin Allergy Unknown I-ITCHING Verified 06/26/21 08:03 simvastatin Allergy Unknown S-SWELLS-OR Verified 06/26/21 08:03 AL/THROAT Exam Vital signs and Labs for Last 24 Hours: Temp Pulse Resp BP Pulse Ox 97.7 F 63 16 125/67 99 06/26/21 07:30 06/26/21 08:00 06/26/21 08:00 06/26/21 08:00 06/26/21 08:00 Laboratory Results - last 24 hr 06/26/21 07:09: Urine Color Yellow, Urine Appearance Clear, Urine pH 5.5, Ur Specific Mcdonald 1.025, Urine Protein Trace, Urine Glucose (UA) Negative, Urine Ketones Negative, Urine Blood 2+, Urine Nitrate Positive, Urine Bilirubin Negative, Urine Urobilinogen 0.2, Ur Leukocyte Esterase 2+ A, Urine RBC 5-10, Urine WBC 5-10, Ur Squamous Epith Cells Occasional, Urine Bacteria 1+ 06/26/21 07:09: WBC 5.3, RBC 4.73, Hgb 12.8, Hct 40.3, MCV 85.1, MCH 27.0, MCHC 31.8, RDW 13.2, Plt Count 176, MPV 11.1 H, Neut % (Auto) 41.9, Lymph % (Auto) 36.4, Richardson % (Auto) 7.8, Eos % (Auto) 12.8 H, Baso % (Auto)
[2021-06-26 11:45] LABS: Troponin I 0.02 ng/ml (0.00-0.034)
[2021-06-26 15:31] LABS: Troponin I < 0.01 ng/ml (0.00-0.034)
--- NOTE | 2021-06-26 16:35 | PC.NURSE ---
PT RESTING WITH EYES CLOSED AT THIS TIME, AWAKENS EASILY. A&O X 4. HRR, VITAL SIGNS STABLE, AFEBRILE. PT WITH O2 A 1L/NC. LUNGS CTAB. NO C/O PAIN. IV TO LEFT AC PATENT, HARP DRAINING CLOUDY YELLOW URINE. BOWEL SOUNDS ACTIVE X 4 QUADS. FAMILY AT BEDSIDE. CALL LIGHT WITHIN REACH. WILL CONTINUE TO MONITOR
[2021-06-27] VITALS (9 sets, daily range): BP systolic 121–141; BP diastolic 66–82; PULSE 60–74; RESP 16–18; TEMP 36.6–37.6; O2SAT 86–100; BMI 20.9; BMI 21.0
[2021-06-27 06:01] LABS: Basophils % 0.7 % (0.1-2.0); Eosinophils # 0.4 K/mm3 (0.0-0.4); Eosinophils % 11.9 % (0.1-12.0); Hematocrit 33.1 % (37.0-47.0); Lymphocytes # 1.3 K/mm3 (0.7-4.5); Lymphocytes % 35.1 % (10-50); Mean Corpuscular HGB Conc 32.5 g/dL (31.8-35.4); Mean Corpuscular Hemoglobin 27.7 pg (27.0-31.2); Mean Corpuscular Volume 85.5 fl (81-99); Mean Platelet Volume 11.2 fl (7.4-10.4); Monocytes # 0.3 K/mm3 (0.1-1.0); Monocytes % 9.3 % (1.7-9.3); Neutrophils # 1.6 K/mm3 (1.8-7.8); Neutrophils % 43.1 % (37.0-80.0); Platelet Count 138 K/mm3 (142-424); Red Blood Count 3.87 M/mm3 (4.20-5.40); Red Cell Distribution Width 13.2 % (11.5-17.5); White Blood Count 3.6 K/mm3 (4.8-10.8)
[2021-06-27 06:12] LABS: Anion Gap 7.8 mEq/L (5-15); Blood Urea Nitrogen 7 mg/dl (7-17); Calcium 7.7 mg/dl (8.4-10.2); Carbon Dioxide 27 mmol/L (22.0-30.0); Chloride 105 mmol/L (98-107); Creatinine Clearance Estimated 41 mL/min (50-200); Estimated Glomerular Filt Rate 70 ml/min (>60); GFR (African American) 84 ML/MIN (>60); Glucose 84 mg/dl (74-100); Magnesium 1.6 mg/dl (1.6-2.3); Potassium 3.8 mmoL/L (3.5-5.1); Sodium 136 mmol/L (136-145)
[2021-06-27 06:29] LABS: Hemoglobin 10.7 g/dL (12.2-16.2)
--- NOTE | 2021-06-27 10:20 | HMH.OTEV ---
OT Inpatient Evaluation Rehab OT IP Evaluation Start: 06/27/21 09:15 Freq: ONCE Status: Complete Protocol: Document 06/27/21 10:13 UZAIR (Rec: 06/27/21 10:20 UZAIR [id number]) Rehab OT IP Assessment Subjective History 76 year old female this patient presented to the ed with weakness - generalized and was using walker last pm but unable to ambulate this am - no diarrhea and occ vomiting- pt was found to have acute uti and was admitted for ivf and abx [facility] History I have reviewed the patient's past medical history: Yes Medical History: Reports:: Asthma, Congestive Heart Failure, Cerebrovascular Accident, Hyperlipidemia, Hypertension, Migraine, Osteoporosis, Transient Ischemic Attacks (TIA) Patient lives in 1 story home with , son and brother law with no JENN. Patient verbalize being independent with functional mobility such as transfers, ambulation and bed mobility with usage of rollator to use daily with hx of falling. Patient stated to require assistance for ADLs by family daily 2* being incontinent at times. Subjective I can get up. Co-treated with PT. Instructed Patient on safety awareness to complete bed mobility, sit< ->stand transfers, ambulation with usage of RW and safety awareness during fx'l mobility . Patient requires assistance at home daily for ADLs and appears to be at baseline. Patient completed all functional mobility tasks with Min to CGA with usage of RW. Patient ambulated ~15ft within environment with RW and no LOB noted. Daphne
--- NOTE | 2021-06-27 11:05 | HMH.PTEV ---
Physical Therapy Evaluation Rehab PT IP Evaluation Start: 06/27/21 09:15 Freq: ONCE Status: Active Protocol: Document 06/27/21 09:45 PHORGRUPO (Rec: 06/27/21 11:05 PHORNE [id number]) Subjective/History History History 76 yowf adm to [facility] with UTI. She lives with family and they provide her assistance at baseline. She uses a RW for ambulation and has no steps to enter the home. Subjective Subjective Pt reports she feels cold this am. Rehab PT IP Eval Objective Appearance Patient Behavior Appropriate Patient Orientation Person,Place,Time Difficulty following instructions none Speech Pattern Clear Ambulation Patient Able to Ambulate Yes Ambulation Observation IP General Gait Pattern Observation Wide Based Gait,Shuffling Step Ambulation Distance (feet) 15 Ambulation Assistive Device Rolling Walker Ambulation Ability Contact Guard/Hand Hold Balance Ability to Arise Able, uses arms to help Sitting Balance Steady, safe Standing Balance Steady, wide stance Dynamic Sitting Balance Ability Good Dynamic Standing Balance Ability Good Transfers Bed Transfer Ability Minimal x 1 (25% assist) Chair Transfer Ability Minimal x 1 (25% assist) Sit to Stand Bed Transfer Ability Minimal x 1 (25% assist) Sit to Stand Chair Transfer Ability Minimal x 1 (25% assist) ROM All Extremities PT ROM Status WFL MMT All Extremities PT MMT WFL Rehab PT IP prob,goals,plan Problems Date of Evaluation: 06/27/21 PT IP Problems Bed Mobility,Transfers,Gait Rehab Potential Rehab Potential Good Plan PT Intervention Plan Bed Mobility,Transfers,Gait, Therapeutic Exercise PT Plan Frequency BID Duration LOS Discharge Goals Bed Transfer Ability Contact Guard/Hand Hold Sit to Stand Chair Transfer Ability Contact Guard/Hand Hold Ambulation Assistive Device Rolling Walker Ambulation Distance (feet) 30 Discharge Plan PT Discharge Plan Pt is appropriate to return home once medically stable. G -code Required No Eval Complexity Eval Charge Codes 58502 - Moderate Complexity PHYSICIAN CERTIFICATION: I certify the specified therapy services for Neisha Thompson are required, authorized, and reviewed every 30 days.
--- NOTE | 2021-06-27 13:41 | HMH.ACPN2 ---
Internal Medicine - PN: Subj *Date: 06/27/21 *Time: 08:40 Interval history: pt laying in bed, stt4es no c/o Exam Vital signs and Labs for Last 24 Hours: Temp Pulse Resp BP Pulse Ox 99.2 F 71 18 130/66 95 06/27/21 08:00 06/27/21 12:00 06/27/21 08:00 06/27/21 08:00 06/27/21 08:00 Laboratory Results - last 24 hr 06/26/21 07:09: Urine Color Yellow, Urine Appearance Clear, Urine pH 5.5, Ur Specific [place] 1.025, Urine Protein Trace, Urine Glucose (UA) Negative, Urine Ketones Negative, Urine Blood 2+, Urine Nitrate Positive, Urine Bilirubin Negative, Urine Urobilinogen 0.2, Ur Leukocyte Esterase 2+ A, Urine RBC 5-10, Urine WBC 5-10, Ur Squamous Epith Cells Occasional, Urine Bacteria 1+ 06/26/21 14:18: Troponin I < 0.01 06/27/21 05:37: WBC 3.6 L D, RBC 3.87 L, Hgb 10.7 L D, Hct 33.1 L, MCV 85.5, MCH 27.7, MCHC 32.5, RDW 13.2, Plt Count 138 L, MPV 11.2 H, Neut % (Auto) 43.1, Lymph % (Auto) 35.1, [place]oll[place] % (Auto) 9.3, Eos % (Auto) 11.9, Baso % (Auto) 0.7, Neut # (Auto) 1.6 L, Lymph # (Auto) 1.3, [place]olls # (Auto) 0.3, Eos # (Auto) 0.4, Baso # (Auto) 0.0 06/27/21 05:37: Sodium 136, Potassium 3.8, Chloride 105, Carbon Dioxide 27, Anion Gap 7.8, BUN 7, Creatinine 0.80 D, Estimated Creat Clear 41, Estimated GFR 70, Est GFR ( Amer) 84 D, Glucose 84, Calcium 7.7 L, Magnesium 1.6 I & O for Last 24 hours: Intake & Output 06/25/21 06/26/21 06/27/21 06/28/21 11:59 11:59 11:59 11:59 Intake Total 840 / 840 120 / 120 Output Total 1300 / 1300 Balance -460 / -460 120 / 120 Weight 122 lb 9 oz 123 lb 7.342 oz Microbiology Reports for the Last 24 Hours: Microbiology 06/26/21 07:09 Urine,Clean Catch Urine Culture - Preliminary Gram Negative Rods - Constitutional no acute distress - *Routine HEENT Exam Head: Present: normocephalic Eye: Present: PERRL ENT: Present: mucous membranes moist - *Routine Neck Exam Present: supple. Absent: lymphadenopathy - *Routine Respiratory Exam Present: CTA bilaterally - *Routine Cardiovascular Exam Present: RRR - *Routine Abdominal Exam Present: soft, normoactive bowel sounds. Absent: tenderness - *Routine Exam Comments: roldan at bedside - *Routine Extremities Exam Present: normal capillary refill. Absent: cyanosis, clubbing, edema - *Routine Skin Exam Present: warm. Absent: rash - *Routine Neurological Exam Present: alert Assessment and Plan (1) Left bundle branch block (LBBB) Status: Acute Category: Medical Code(s): I44.7 - Left bundle-branch block, unspecified (2) UTI (urinary tract infection) Status: Acute Qualifiers: Urinary tract infection type: site unspecified Hematuria presence: without hematuria Qualified Code(s): N39.0 - Urinary tract infection, site not specified Category: Medical Code(s): N39.0 - Urinary tract infection, site not specified (3) Weakness Status: Acute Category: Medical Code(s): R53.1 - Weakness (4) Chronic hip pain Status: Acute Qualifiers: Laterality: right Qualified Code(s): M25.551 - Pain in right hip; G89.29 - Other chronic pain Category: Medical Code(s): M25.559 - Pain in unspecified hip; G89.29 - Other chronic pain (5) Hypothyroidism Status: Chronic Category: Medical Code(s): E03.9 - Hypothyroidism, unspecified - Assessment and plan all Dx Assessment and Plan for all problems:: rounded with dr gaytan all orders per dr lucila roldan pt/ot consult wait c&S
--- NOTE | 2021-06-27 14:28 | SW/DCPLANNER ---
Addendum entered by Gabriela Nelson 06/28/21 10:35: This patient will discharge home today. Patient stated that she has everything she needs at home and is not interested in home health services at time of discharge. Original Note: PT/OT has evaluated this patient and stated that patient is at baseline to return home once medically stable. I will follow up with patient/family in the AM to make sure al their needs are met prior to discharging. Patient could potentially discharge home tomorrow.
--- NOTE | 2021-06-27 19:05 | PC.NURSE ---
PT IS RESTING IN BED. TOLERATED SITTING UP IN THE CHAIR FOR 45 MIN THIS MORNING. LUNG SOUNDS CLEAR. ABDOMEN SOFT/NON TENDER WITH ACTIVE BOWEL SOUNDS. PT HAS VOIDED SINCE CATHETER WAS REMOVED. INCONTINENT OF BOWEL/BLADDER. VSS. WILL CONTINUE TO MONITOR.
[2021-06-27 19:36] LABS: Adenovirus F 40/41, stool Not Detected (NotDetected); Astrovirus Not Detected (NotDetected); Campylobacter Not Detected (NotDetected); Clostridium Difficile A/B, PCR Not Detected (NotDetected); Cryptosporidium Not Detected (NotDetected); Cyclospora Cayetanesis Not Detected (NotDetected); Entamoeba histolytica Not Detected (NotDetected); Enteroaggregative E coli Not Detected (NotDetected); Enteropathogenic E coli Not Detected (NotDetected); Enterotoxigenic E coli Not Detected (NotDetected); Giardia lamblia Not Detected (NotDetected); Norovirus Not Detected (NotDetected); Plesimonas Shigalloides, PCR Not Detected (NotDetected); Rotavirus A Not Detected (NotDetected); Salmonella, PCR Not Detected (NotDetected); Shiga-like toxin E coli Not Detected (NotDetected); Shigella Enterovasive E coli Not Detected (NotDetected); Vibrio Cholerae Not Detected (NotDetected); Vibrio, PCR Not Detected (NotDetected); Yersinia Entercolitica, PCR Not Detected (NotDetected)
[2021-06-27 21:01] LABS: Sapovirus Detected (NotDetected)
[2021-06-28] VITALS: BP 141/64; PULSE 60; PULSE 67; RESP 17; TEMP 36.8; O2SAT 97
--- NOTE | 2021-06-28 03:04 | PC.NURSE ---
NO acute changes overnight. pt had episode of nausea, zofran given per mar with desired effects. no c/o pain this shift. pt had a 99.4 fever, tylenol given per mar. Pt has been incontinent this shift, brief in place. pt able to make needs known to staff. IV patent, NS @ 100. VSS< call light in reach, no concerns at this time.
[2021-06-28 04:00] VITALS: BP 129/59; PULSE 60; PULSE 63; RESP 18; TEMP 36.8; O2SAT 99
[2021-06-28 05:04] VITALS: BMI 21.2
[2021-06-28 06:22] LABS: Basophils % 0.5 % (0.1-2.0); Eosinophils # 0.5 K/mm3 (0.0-0.4); Eosinophils % 14.6 % (0.1-12.0); Hematocrit 31.7 % (37.0-47.0); Hemoglobin 10.4 g/dL (12.2-16.2); Lymphocytes # 1.1 K/mm3 (0.7-4.5); Lymphocytes % 34.3 % (10-50); Mean Corpuscular HGB Conc 32.6 g/dL (31.8-35.4); Mean Corpuscular Hemoglobin 27.8 pg (27.0-31.2); Mean Corpuscular Volume 85.1 fl (81-99); Mean Platelet Volume 11.3 fl (7.4-10.4); Monocytes # 0.4 K/mm3 (0.1-1.0); Neutrophils # 1.3 K/mm3 (1.8-7.8); Neutrophils % 39.5 % (37.0-80.0); Platelet Count 119 K/mm3 (142-424); Red Blood Count 3.73 M/mm3 (4.20-5.40); Red Cell Distribution Width 13.1 % (11.5-17.5); White Blood Count 3.3 K/mm3 (4.8-10.8)
[2021-06-28 06:37] LABS: Anion Gap 6.8 mEq/L (5-15); Blood Urea Nitrogen 3 mg/dl (7-17); Calcium 7.6 mg/dl (8.4-10.2); Carbon Dioxide 27 mmol/L (22.0-30.0); Chloride 103 mmol/L (98-107); Creatinine Clearance Estimated 42 mL/min (50-200); Estimated Glomerular Filt Rate 97 ml/min (>60); GFR (African American) 117 ML/MIN (>60); Glucose 78 mg/dl (74-100); Potassium 3.8 mmoL/L (3.5-5.1); Sodium 133 mmol/L (136-145)
[2021-06-28 08:00] VITALS: BP 157/75; PULSE 74; RESP 16; TEMP 37; O2SAT 97
--- NOTE | 2021-06-28 09:50 | HMH.DCSUM ---
General - General Admission date:: 06/26/21 Discharge date: 06/28/21 HPI HPI: this patient presented to the ed ith weakness - generalized and was using walker last pm but unable to ambulate this am - no diarrhea and occ vomiting- pt was found to have acute uti and was admitted for ivf and abx Hospital Course Hospital Course: 76-year-old female patient presented to the [facility] emergency department for complaints of generalized weakness, was able to use walker last night and unable to ambulate this morning. She denies any diarrhea but acknowledges occasional emesis. Emergency department was found to have UTI and was admitted for IV fluids and antibiotics 06/26/21 CXR: FINDINGS: Mild cardiomegaly without failure. There is evidence of old granulomatous disease. The lungs are clear without infiltrates, suspicious nodules, or pleural effusions. Hiatal hernia is noted. No acute bony abnormalities. IMPRESSION: Cardiomegaly and hiatal hernia otherwise negative Dictated by: Juan Champion MD Urine culture resulted E. coli and she has been receiving ceftriaxone during her stay. Blood cultures x2 - at 48 hours Stool PCR resulted Sapovirus 76-year-old female patient up to the side of the bed with walker and physical therapy, discussed discharge home today she is agreement to this PLAN: 1. We will discharge home today 2. Levofloxacin 750 mg daily x7 days 3. Follow-up with PCP in 2 weeks Objective Vital signs: Temp Pulse Resp BP Pulse Ox 98.6 F 74 16 157/75 H 97 06/28/21 08:00 06/28/21 08:00 06/28/21 08:00 06/28/21 08:00 06/28/21 08:00 no acute distress - *Routine HEENT Exam Head: Present: normocephalic Eye: Present: EOMI ENT: Present: mucous membranes moist - *Routine Neck Exam Present: trachea midline. Absent: tracheal deviation - *Routine Respiratory Exam Present: CTA bilaterally. Absent: accessory muscle use - *Routine Cardiovascular Exam Present: RRR - *Routine Abdominal Exam Present: soft, normoactive bowel sounds. Absent: tenderness - *Routine Extremities Exam Present: full ROM, pulses intact. Absent: cyanosis, clubbing - *Routine Skin Exam Present: intact, erythema, dry. Absent: cyanosis - *Routine Neurological Exam Present: alert, oriented X3. Absent: altered mental status - Routine Psychiatric Exam Present: normal affect, normal thought process. Absent: auditory hallucinations Results Labs on day of discharge: Labs from last 24 hours 06/28/21 06/28/21 06/27/21 05:56 05:56 16:25 WBC 3.3 L RBC 3.73 L Hgb 10.4 L Hct 31.7 L MCV 85.1 MCH 27.8 MCHC 32.6 RDW 13.1 Plt Count 119 L MPV 11.3 H Neut % (Auto) 39.5 Lymph % (Auto) 34.3 [place] % (Auto) 11.0 H Eos % (Auto) 14.6 H Baso % (Auto) 0.5 Neut # (Auto) 1.3 L Lymph # (Auto) 1.1 [place] # (Auto) 0.4 Eos # (Auto) 0.5 H Baso # (Auto) 0.0 Sodium 133 L Potassium 3.8 Chloride 103 Carbon Dioxide 27 Anion Gap 6.8 BUN 3 L D Creatinine 0.60 D Estimated Creat Clear 42 Estimated GFR 97 Est GFR ( Amer) 117 D Glucose 78 Calcium 7.6 L Stl Aeromonas (PCR) Not detected Stl C. cayetanensis PCR Not detected Stool Rotavirus (PCR) Not detected Stl Adenov F 40/41 PCR Not detected Stool Astrovirus (PCR) Not detected Stool Campylobacter PCR Not detected Stl C.difficile Tox PCR Not detected Stool Cryptosporidium PCR Not detected Stl E.coli Shiga Tox PCR Not detected Stool E coli O157 PCR Not detected Stl Enterotoxigenic E PCR Not detected Stool EPEC (PCR) Not detected Stool EAEC (PCR) Not detected Stl E. histolytica PCR Not detected Stool Giardia Lamblia PCR Not detected Stool Salmonella PCR Not detected Stool Sapovirus (PCR) Detected A Stl P. shigelloides PCR Not detected Stl Shigella/EIEC PCR Not detected St Y.en
[2021-06-28 12:00] VITALS: BP 144/53; PULSE 66; RESP 18; TEMP 36.8; O2SAT 97
--- NOTE | 2021-06-28 13:00 | HMH.PHAINT ---
MEDICATION DISCHARGE COUNSELING COMPLETED. PATIENT HAD NO QUESTIONS AND SAID THAT SHE HAD PREVIOUSLY TAKEN LEVOFLOXACIN. I COUNSELED HER AND HER SON ON ADVERSE REACTION TO WATCH FOR, AND HOW TO TAKE ABX.
== END 2021-06-28 14:07 | disposition home or self-care (01) ==
LOC: ER 07:59 → 2ND 08:15
PROVIDERS: Nurse Practitioner Family; Admitting Provider Emergency Medicine; Emergency Provider Emergency Medicine; PCP Nurse Practitioner Family; Visit Provider Emergency Medicine
DX: N39.0 Urinary tract infection, site not specified (principal); Z20.822 Contact with and (suspected) exposure to COVID-19; I44.7 Left bundle-branch block, unspecified; M25.551 Pain in right hip; G89.29 Other chronic pain; E03.9 Hypothyroidism, unspecified; I11.0 Hypertensive heart disease with heart failure; I50.9 Heart failure, unspecified; G43.909 Migraine, unspecified, not intractable, without status migrainosus
CPT/HCPCS: G0378; 36415; 71045; 80048; 80053; 81001; 83605; 83735; 84436; 84443; 84484; 85025; 87040; 87086; 87088; 87186; 87506; 93005; 94760; 94761; 96365; 96367; 97162; 97165; 97530; 99285; J2405; U0003

== ENCOUNTER 2021-11-10 09:54 | Inpatient (IN) | payer MEDICARE, SELFPAY ==
[2021-11-10] VITALS (14 sets, daily range): BP systolic 110–163; BP diastolic 62–78; PULSE 79–89; RESP 13–20; TEMP 37.6–39.6; O2SAT 91–99; BMI 20.5; BMI 20.9
--- NOTE | 2021-11-10 10:18 | XR_ITS ---
PROCEDURE INFORMATION: Exam: XR Chest Exam date and time: 11/10/2021 10:18 AM Age: 76 years old Clinical indication: Shortness of breath; Additional info: Suspected sepsis TECHNIQUE: Imaging protocol: XR of the chest. Views: 1 view. COMPARISON: CR XR CHEST PORTABLE 06/26/2021 7:55 AM FINDINGS: Limitations: Multiple EKG leads are superimposed on the chest. Lungs: There is nonspecific streaking in the right lung base, consistent with atelectasis or pneumonia. Pleural spaces: Unremarkable. No pleural effusion. No pneumothorax. Heart/Mediastinum: A large hiatal hernia is present. There are multiple small calcified lymph nodes in the mediastinum, consistent with remote granulomatous organism exposure. Bones/joints: Unremarkable. IMPRESSION: There is nonspecific streaking in the right lung base, consistent with atelectasis or pneumonia.
--- NOTE | 2021-11-10 10:18 | CT_ITS ---
PROCEDURE INFORMATION: Exam: CT Head Without Contrast Exam date and time: 11/10/2021 10:18 AM Age: 76 years old Clinical indication: Altered mental status/memory loss and other: Overall weakness; Confusion or disorientation; Additional info: AMS, weakness TECHNIQUE: Imaging protocol: Computed tomography of the head without contrast. Radiation optimization: All CT scans at this facility use at least one of these dose optimization techniques: automated exposure control; mA and/or kV adjustment per patient size (includes targeted exams where dose is matched to clinical indication); or iterative reconstruction. COMPARISON: HEADWO CT head/brain wo con 01/03/2018 9:28 AM FINDINGS: Brain: There is moderate atrophy and chronic white matter microangiopathic changes. Cerebral ventricles: There is compensatory ventricular dilation. Paranasal sinuses: Visualized sinuses are unremarkable. No fluid levels. Mastoid air cells: Visualized mastoid air cells are well aerated. Vasculature: The vasculature demonstrates diffuse moderate atherosclerotic calcification. Bones/joints: Unremarkable. No acute fracture. Soft tissues: Unremarkable. Other findings: There is a normal empty pituitary sella. IMPRESSION: No acute intracranial process is identified.
--- NOTE | 2021-11-10 10:20 | HMH.EDGENADL ---
ED Disposition Clinical Impression: Pneumonia Disposition: Admitted As Inpatient Condition on Discharge: Fair - Critical Care Critical Care Time: No Attestation: On 11/10/21, the high probability of a clinically significant, sudden or life threatening deterioration of the following system(s) required my full and direct attention, intervention and personal management. The time I documented below is in addition to time spent performing reported procedures but includes the following listed in this critical care notation. Medical Decision Making - Daniel Inquiry Pt receiving controlled substance: No Vital Signs: 11/10/21 09:54 11/10/21 10:53 11/10/21 11:00 Temperature 103.2 F H Temperature Source Rectal Pulse Rate 79 79 Pulse Rate [Left Radial] 82 Respiratory Rate 20 20 18 Blood Pressure 156/73 H 157/74 H Blood Pressure [Right Arm] 163/78 H Blood Pressure Mean 100 96 Blood Pressure Mean [Right Arm] 106 Blood Pressure Source [Right Arm] Automatic Cuff Blood Pressure Position [Right Arm] Sitting 02 Sat by Pulse Oximetry 97 97 98 Oxygen Delivery Method Nasal Cannula Oxygen Flow Rate (LPM) 2 11/10/21 11:40 11/10/21 12:00 11/10/21 12:30 Temperature Temperature Source Pulse Rate 82 84 89 Pulse Rate [Left Radial] Respiratory Rate 16 17 13 Blood Pressure 149/66 H 135/65 135/63 Blood Pressure [Right Arm] Blood Pressure Mean 93 84 87 Blood Pressure Mean [Right Arm] Blood Pressure Source [Right Arm] Blood Pressure Position [Right Arm] 02 Sat by Pulse Oximetry 99 97 97 Oxygen Delivery Method Oxygen Flow Rate (LPM) 11/10/21 13:00 11/10/21 13:30 11/10/21 14:00 Temperature Temperature Source Pulse Rate 89 85 82 Pulse Rate [Left Radial] Respiratory Rate 15 14 16 Blood Pressure 123/63 123/69 140/69 Blood Pressure [Right Arm] Blood Pressure Mean 81 79 92 Blood Pressure Mean [Right Arm] Blood Pressure Source [Right Arm] Blood Pressure Position [Right Arm] 02 Sat by Pulse Oximetry 97 98 98 Oxygen Delivery Method Oxygen Flow Rate (LPM) 11/10/21 14:30 11/10/21 14:45 Temperature 100.0 F H Temperature Source Pulse Rate 82 85 Pulse Rate [Left Radial] Respiratory Rate 15 16 Blood Pressure 110/62 110/62 Blood Pressure [Right Arm] Blood Pressure Mean 91 Blood Pressure Mean [Right Arm] Blood Pressure Source [Right Arm] Blood Pressure Position [Right Arm] 02 Sat by Pulse Oximetry 98 96 Oxygen Delivery Method Room Air Oxygen Flow Rate (LPM) - Lab Data Lab Results 11/10/21 10:25: Urine Color Yellow, Urine Appearance Clear, Urine pH 6.0, Ur Specific Helen 1.020, Urine Protein 1+, Urine Glucose (UA) Negative, Urine Ketones Negative, Urine Blood 3+, Urine Nitrate Negative, Urine Bilirubin Negative, Urine Urobilinogen 0.2, Ur Leukocyte Esterase Negative, Urine RBC 20-50, Urine WBC Occasional, Ur Squamous Epith Cells None, Urine Bacteria Trace 11/10/21 10:25: WBC 4.2 L, RBC 3.96 L, Hgb 11.1 L, Hct 34.4 L, MCV 87.0, MCH 28.0, MCHC 32.2, RDW 13.6, Plt Count 56 L, MPV 14.8 H, Neut % (Auto) 41.2, Lymph % (Auto) 36.9, Dillon % (Auto) 14.8 H, Eos % (Auto) 3.5, Baso % (Auto) 3.6 H, Neut # (Auto) 1.7 L, Lymph # (Auto) 1.6, [place] # (Auto) 0.6, Eos # (Auto) 0.2, Baso # (Auto) 0.2 11/10/21 10:25: Sodium 133 L, Potassium 4.2, Chloride 105, Carbon Dioxide 23, Anion Gap 9.2, BUN 13, Creatinine 0.80, Estimated Creat Clear 40, Estimated GFR 70, Est GFR ( Amer) 84, Glucose 82, Calcium 7.9 L, Magnesium 1.6, Total Bilirubin 0.9, AST 46 H, ALT 7 L, Alkaline Phosphatase 69, Total Protein 6.4, Albumin 3.3 L, Globulin 3.1, Albumin/Globulin Ratio 1.1, TSH 7.68 H, Thyroxine (T4) 12.3 H, Salicylates < 1.0 L, Acetaminophen < 10 L 11/10/21 10:25: SARS-CoV-2 (PCR) Detected A, Influenza A Untype (PCR) Not detected, Influenza Type B (PCR) Not detected 11/10/21 10:25: Urine Opiates Screen Negative, Urine Methadone Screen Negative, Ur Barbituates Screen Negative,
--- NOTE | 2021-11-10 10:36 | PC.NURSE ---
10:36 Patient in radiology
[2021-11-10 10:58] LABS: Influenza A, PCR Not Detected (NotDetected); Influenza B, PCR Not Detected (NotDetected); Microscopic, Urine URINE MICROSCOPIC (MICROSCOPIC)
--- NOTE | 2021-11-10 11:04 | ECG_ITS ---
APPROVED REPORT Exam: Resting ECG HR:80 bpm ECG Measurements Heart Rate 80 AXES LA 116 P -2 QRSd 130 QRS -47 QT 483 T -28 QTc 519 Conclusion SINUS RHYTHM WITH SHORT LA INTERVAL LEFT AXIS DEVIATION [QRS AXIS < -30] LEFT BUNDLE BRANCH BLOCK [120+ ms QRS DURATION, 80+ ms Q/S IN V1/V2, 85+ ms R IN I/aVL/V5/V6] ABNORMAL ECG UNCONFIRMED REPORT Electronically signed by : Troy Courtney MD 11/11/2021 14:05:39
[2021-11-10 11:06] LABS: Chloride 105 mmol/L (98-107); Potassium 4.2 mmoL/L (3.5-5.1); Sodium 133 mmol/L (136-145)
[2021-11-10 11:08] LABS: Alanine Aminotransferase 7 U/L (12-78); Aspartate Amino Transferase 46 U/L (14-36); Blood Urea Nitrogen 13 mg/dl (7-17); Creatinine Clearance Estimated 40 mL/min (50-200); Estimated Glomerular Filt Rate 70 ml/min (>60); GFR (African American) 84 ML/MIN (>60)
[2021-11-10 11:09] LABS: Albumin Level 3.3 g/dl (3.5-5.0); Albumin/Globulin Ratio 1.1 (1.1-1.8); Alkaline Phosphatase 69 U/L (38-126); Anion Gap 9.2 mEq/L (5-15); Bilirubin,Total 0.9 mg/dl (0.2-1.3); Calcium 7.9 mg/dl (8.4-10.2); Carbon Dioxide 23 mmol/L (22.0-30.0); Globulin 3.1 g/dL (1.3-3.2); Glucose 82 mg/dl (74-100); Magnesium 1.6 mg/dl (1.6-2.3); Total Protein,Serum 6.4 g/dl (6.3-8.2)
[2021-11-10 11:11] LABS: Appearance,Urine CLEAR (Clear); Bilirubin,Urine Negative (Negative); Blood, Urine 3+ (Negative); Color,Urine YELLOW (Yellow); Glucose,Urine (UA) Negative (Negative); Ketones,Urine Negative (Negative); Leukocyte Esterase,Urine Negative (Negative); Nitrate,Urine Negative (Negative); Protein,Urine 1+ (Negative); Urobilinogen,Urine 0.2 EU/dl (0.2)
[2021-11-10 11:12] LABS: Acetaminophen < 10 ug/ml (10-30); Salicylate < 1.0 mg/dL (2.0-20.0)
[2021-11-10 11:21] LABS: Benzodiazepines Screen,Urine Negative ng/ml (<200)
[2021-11-10 11:22] LABS: Amphetamine/Metha Screen,Urine Negative ng/ml (<1000); Barbiturates Screen,Urine Negative ng/ml (<200)
[2021-11-10 11:23] LABS: Cannabinoid Screen,Urine Negative ng/ml (<50)
[2021-11-10 11:24] LABS: Basophils # 0.2 K/mm3 (0-0.2); Basophils % 3.6 % (0.1-2.0); Cocaine Screen,Urine Negative ng/ml (<300); Eosinophils # 0.2 K/mm3 (0.0-0.4); Eosinophils % 3.5 % (0.1-12.0); Hematocrit 34.4 % (37.0-47.0); Hemoglobin 11.1 g/dL (12.2-16.2); Lymphocytes # 1.6 K/mm3 (0.7-4.5); Lymphocytes % 36.9 % (10-50); Mean Corpuscular HGB Conc 32.2 g/dL (31.8-35.4); Mean Platelet Volume 14.8 fl (7.4-10.4); Methadone Screen,Urine Negative ng/ml (<300); Monocytes # 0.6 K/mm3 (0.1-1.0); Monocytes % 14.8 % (1.7-9.3); Neutrophils # 1.7 K/mm3 (1.8-7.8); Neutrophils % 41.2 % (37.0-80.0); Platelet Count 56 K/mm3 (142-424); Red Blood Count 3.96 M/mm3 (4.20-5.40); Red Cell Distribution Width 13.6 % (11.5-17.5); White Blood Count 4.2 K/mm3 (4.8-10.8)
[2021-11-10 11:25] LABS: Opiate Screen,Urine Negative ng/ml (<300); Phencyclidine Screen,Urine Negative ng/ml (<25)
[2021-11-10 11:26] LABS: T4 (Thyroxine) 12.3 ug/dl (5.53-11.0)
[2021-11-10 11:40] LABS: Thyroid Stimulating Hormone 7.68 uIU/mL (0.465-4.68); WBC,Urine Occasional #/hpf (0-3)
--- NOTE | 2021-11-10 11:40 | PC.NURSE ---
11:40; Patient is resting comfortably at this time.
[2021-11-10 11:41] LABS: Bacteria,Urine Trace /lpf; RBC,Urine 20-50 #/hpf (0-3)
[2021-11-10 11:51] LABS: Coronavirus 19, PCR Detected (NotDetected)
--- NOTE | 2021-11-10 12:41 | PC.NURSE ---
Dr. Sherwin wilkerson
--- NOTE | 2021-11-10 12:58 | PC.NURSE ---
on phone with Dr. Courtney
--- NOTE | 2021-11-10 13:28 | HMH.PHACONS ---
- Pharmacy Consult Date: 11/10/21 Time: 13:28 Referring provider: DR. HERNANDEZ Reason for Consult:: VANCOMYCIN DOSING Allergies and ADEs:: Allergies Allergy/AdvReac Type Severity Reaction Status Date / Time amantadine Allergy Unknown I-HIVES Verified 06/26/21 08:03 baclofen Allergy Unknown S-SWELLS-OR Verified 06/26/21 08:03 AL/THROAT promethazine Allergy Unknown I-HIVES Verified 06/26/21 08:03 CAN TAKE SHOT NOT TABLET rosuvastatin Allergy Unknown I-ITCHING Verified 06/26/21 08:03 simvastatin Allergy Unknown S-SWELLS-OR Verified 06/26/21 08:03 AL/THROAT Home Medications:: Home Medications Medication Instructions Recorded Confirmed Type Gabapentin [Neurontin 300mg 300 mg PO TID 06/09/18 06/26/21 History capsule] Amlodipine Besylate [Amlodipine 5 mg PO DAILY 06/13/20 06/26/21 History 5mg tab] Levothyroxine Sodium 50 mcg PO DAILY 06/13/20 06/26/21 History [Levothyroxine 100mcg (0.1MG) Tab] Trazodone HCl 100 mg PO HSP PRN 06/13/20 06/26/21 History Famotidine [Pepcid 20mg Tablet] 20 mg PO BID 06/26/21 06/26/21 History Mirabegron [Myrbetriq] 50 mg PO DAILY 06/26/21 06/26/21 History levoFLOXacin [Levaquin 750mg 750 mg PO DAILY 7 Days #7 tab 06/28/21 Rx tablet] Height: 1.63 m Weight: 54.431 kg Laboratory Results:: Laboratory Results - last 24 hr 11/10/21 10:25: Urine Color Yellow, Urine Appearance Clear, Urine pH 6.0, Ur Specific [place] 1.020, Urine Protein 1+, Urine Glucose (UA) Negative, Urine Ketones Negative, Urine Blood 3+, Urine Nitrate Negative, Urine Bilirubin Negative, Urine Urobilinogen 0.2, Ur Leukocyte Esterase Negative, Urine RBC 20-50, Urine WBC Occasional, Ur Squamous Epith Cells None, Urine Bacteria Trace 11/10/21 10:25: WBC 4.2 L, RBC 3.96 L, Hgb 11.1 L, Hct 34.4 L, MCV 87.0, MCH 28.0, MCHC 32.2, RDW 13.6, Plt Count 56 L, MPV 14.8 H, Neut % (Auto) 41.2, Lymph % (Auto) 36.9, [place] % (Auto) 14.8 H, Eos % (Auto) 3.5, Baso % (Auto) 3.6 H, Neut # (Auto) 1.7 L, Lymph # (Auto) 1.6, [place] # (Auto) 0.6, Eos # (Auto) 0.2, Baso # (Auto) 0.2 11/10/21 10:25: Sodium 133 L, Potassium 4.2, Chloride 105, Carbon Dioxide 23, Anion Gap 9.2, BUN 13, Creatinine 0.80, Estimated Creat Clear 40, Estimated GFR 70, Est GFR ( Amer) 84, Glucose 82, Calcium 7.9 L, Magnesium 1.6, Total Bilirubin 0.9, AST 46 H, ALT 7 L, Alkaline Phosphatase 69, Total Protein 6.4, Albumin 3.3 L, Globulin 3.1, Albumin/Globulin Ratio 1.1, TSH 7.68 H, Thyroxine (T4) 12.3 H, Salicylates < 1.0 L, Acetaminophen < 10 L 11/10/21 10:25: SARS-CoV-2 (PCR) Detected A, Influenza A Untype (PCR) Not detected, Influenza Type B (PCR) Not detected 11/10/21 10:25: Urine Opiates Screen Negative, Urine Methadone Screen Negative, Ur Barbituates Screen Negative, Ur Phencyclidine Scrn Negative, Ur Amphetamines Screen Negative, U Benzodiazepines Scrn Negative, Urine Cocaine Screen Negative, U Marijuana (THC) Screen Negative Medical History: Reports:: Asthma, Congestive Heart Failure, Cerebrovascular Accident, Hyperlipidemia, Hypertension, Migraine, Osteoporosis, Transient Ischemic Attacks (TIA) Denies:: Cancer, Diabetes Mellitus Type 1, Diabetes Mellitus Type 2, Internal Pacemaker, MRSA, Seizures Assessment and Plan - Assessment and plan all Dx Assessment and Plan for all problems:: Pharmacokinetic dosing service Objective: Patient: Floor: Age: 76 yo Serum creatinine: 0.80 mg/dL Height: 64.2 Inches Weight (kg): 54.4 Assessment: IBW (kg): 55.16 Dosing wt(kg): 54.4 Estimated Creatinine clearance (ml/min): 50.6 CRCL method: Cockcroft and Gault using ibw(default). Drug selected: Vancomycin Loading dose (mg): Vd (liters): 38.1 (factor used: 0.7 L/kg) [place] (hr-1): 0.046 Half life (hrs): 15.07 CLvanco=?? 1.753 L/hr Recommended dose: 1000 mg Interval: 24 hrs Infusion time (hrs): 2.0 Pred
--- NOTE | 2021-11-10 14:52 | PC.NURSE ---
Patient transferred to 2nd floor by WENDI Calvert
[2021-11-11] VITALS: BP 128/56; PULSE 88; RESP 14; TEMP 37.6; O2SAT 94
[2021-11-11 04:00] VITALS: BP 156/74; PULSE 90; RESP 14; TEMP 36.6; O2SAT 91
[2021-11-11 06:00] VITALS: BMI 21.7
[2021-11-11 08:00] VITALS: BP 189/91; PULSE 110; PULSE 96; RESP 16; TEMP 37; O2SAT 92; O2SAT 93
[2021-11-11 08:59] LABS: Basophils # 0.1 K/mm3 (0-0.2); Eosinophils # 0.1 K/mm3 (0.0-0.4); Eosinophils % 1.6 % (0.1-12.0); Hematocrit 33.4 % (37.0-47.0); Hemoglobin 10.8 g/dL (12.2-16.2); Lymphocytes % 20.8 % (10-50); Mean Corpuscular HGB Conc 32.5 g/dL (31.8-35.4); Mean Corpuscular Hemoglobin 28.3 pg (27.0-31.2); Monocytes # 0.6 K/mm3 (0.1-1.0); Monocytes % 11.2 % (1.7-9.3); Neutrophils # 3.2 K/mm3 (1.8-7.8); Neutrophils % 65.4 % (37.0-80.0); Platelet Count 51 K/mm3 (142-424); Red Blood Count 3.84 M/mm3 (4.20-5.40); Red Cell Distribution Width 13.9 % (11.5-17.5); White Blood Count 4.9 K/mm3 (4.8-10.8)
[2021-11-11 09:07] LABS: Chloride 109 mmol/L (98-107)
[2021-11-11 09:08] LABS: Sodium 137 mmol/L (136-145)
[2021-11-11 09:11] LABS: Blood Urea Nitrogen 18 mg/dl (7-17); Carbon Dioxide 15 mmol/L (22.0-30.0); Creatinine Clearance Estimated 39 mL/min (50-200); Estimated Glomerular Filt Rate 48 ml/min (>60); GFR (African American) 58 ML/MIN (>60)
--- NOTE | 2021-11-11 09:23 | HMH.HP ---
*Admission Date: 11/11/21 *Chief complaint: Mental status change/fever *History of present illness: 76-year-old white female who lives at home, is in somewhat tenuous health from multiple medical problems but was brought to the emergency department by her family because of encephalopathy type symptoms, diminished responsiveness and fever. Uncertain vaccination status as family is not available at this point for history, and patient unable to give a history but in the emergency department she had a positive COVID PCR, chest x-ray with streaky infiltrate, fever of 103 but no elevated white count. Admitted to hospital for broad-spectrum antibiotics, work-up of encephalopathy, sepsis and treatment of COVID-19 infection. [facility] History I have reviewed the patient's past medical history: Yes Medical History: Reports:: Asthma, Congestive Heart Failure, Cerebrovascular Accident, Hyperlipidemia, Hypertension, Migraine, Osteoporosis, Transient Ischemic Attacks (TIA) Denies:: Cancer, Diabetes Mellitus Type 1, Diabetes Mellitus Type 2, Internal Pacemaker, MRSA, Seizures *Have you ever received a pneumonia vaccine?: Yes *Have you received a flu vaccine this season?: Yes Other Medical History: Reports: Anemia, Arthritis, Cataracts, Hypothyroidism, Osteoporosis, Sinus Problems, Thyroid Disease, Other Laterality Cases: Right: Arthroscopy Knee Other Surgeries: Yes: Appendectomy, Cardiac Catheterization, Colonoscopy, , EGD, Hysterectomy-Total. No: Pacemaker Amputation: No Fractures: No - *Social History Smoking Status: Never smoker Tobacco Type: cigarettes Alcohol Intake: never Alcohol Intake Frequency:: other Substance Use Type: denies use *Occupational Status:: retired Housing: house Household Members: spouse, children *Travel in the last 8 weeks: None Family Hx:: Anemia, Cancer, Diabetes, Hyperlipidemia, Hypertension, Stroke Review of Systems - Review of Systems Review of systems:: unable to obtain Meds Home Medications Medication Instructions Recorded Confirmed Type Gabapentin [Neurontin 300mg 300 mg PO TID 06/09/18 06/26/21 History capsule] Amlodipine Besylate [Amlodipine 5 mg PO DAILY 06/13/20 06/26/21 History 5mg tab] Levothyroxine Sodium 50 mcg PO DAILY 06/13/20 06/26/21 History [Levothyroxine 100mcg (0.1MG) Tab] Trazodone HCl 100 mg PO HSP PRN 06/13/20 06/26/21 History Famotidine [Pepcid 20mg Tablet] 20 mg PO BID 06/26/21 06/26/21 History Mirabegron [Myrbetriq] 50 mg PO DAILY 06/26/21 06/26/21 History levoFLOXacin [Levaquin 750mg 750 mg PO DAILY 7 Days #7 tab 06/28/21 Rx tablet] Allergies Allergy/AdvReac Type Severity Reaction Status Date / Time amantadine Allergy Unknown I-HIVES Verified 06/26/21 08:03 baclofen Allergy Unknown S-SWELLS-OR Verified 06/26/21 08:03 AL/THROAT promethazine Allergy Unknown I-HIVES Verified 06/26/21 08:03 CAN TAKE SHOT NOT TABLET rosuvastatin Allergy Unknown I-ITCHING Verified 06/26/21 08:03 simvastatin Allergy Unknown S-SWELLS-OR Verified 06/26/21 08:03 AL/THROAT Exam Vital signs and Labs for Last 24 Hours: Temp Pulse Resp BP Pulse Ox 97.8 F 90 14 156/74 H 91 L 11/11/21 04:00 11/11/21 04:00 11/11/21 04:00 11/11/21 04:00 11/11/21 04:00 Laboratory Results - last 24 hr 11/10/21 10:25: Urine Color Yellow, Urine Appearance Clear, Urine pH 6.0, Ur Specific [place] 1.020, Urine Protein 1+, Urine Glucose (UA) Negative, Urine Ketones Negative, Urine Blood 3+, Urine Nitrate Negative, Urine Bilirubin Negative, Urine Urobilinogen 0.2, Ur Leukocyte Esterase Negative, Urine RBC 20-50, Urine WBC Occasional, Ur Squamous Epith Cells None, Urine Bacteria Trace 11/10/21 10:25: WBC 4.2 L, RBC 3.96 L, Hgb 11.1 L, Hct 34.4 L, MCV 87.0, MCH 28.0, MCHC 32.2, RDW 13.6, Plt Count 56 L, MPV 14.8 H, Neut % (Auto) 41.2, Lymph % (Auto) 36.9, [place] % (Auto) 14.8 H, Eos % (Auto) 3.5, Baso % (Auto) 3.6 H, Neut # (Auto) 1.7 L, Lymph # (Auto) 1.6, [place] #
[2021-11-11 09:28] LABS: Glucose 50 mg/dl (74-100)
[2021-11-11 10:34] VITALS: BMI 21.7
[2021-11-11 10:56] LABS: POC Glucose,Bedside 80 (70-110)
--- NOTE | 2021-11-11 10:58 | PC.NURSE ---
temp 101.2 axillary
--- NOTE | 2021-11-11 14:26 | HMH.PHAVTE ---
[facility] Pharmacy VTE Monitoring - Patient Demographics Admission date: 11/10/21 Report Date: 11/11/21 Time: 14:26 Allergies/Adverse Reactions: Patient Allergies amantadine Allergy (Unknown, Verified 06/26/21 08:03) I-HIVES baclofen Allergy (Unknown, Verified 06/26/21 08:03) A-HWEPAG-GJJQ/THROAT promethazine Allergy (Unknown, Verified 06/26/21 08:03) I-HIVES CAN TAKE SHOT NOT TABLET rosuvastatin Allergy (Unknown, Verified 06/26/21 08:03) I-ITCHING simvastatin Allergy (Unknown, Verified 06/26/21 08:03) U-[id number]-HHYW/THROAT Height: 1.63 m Weight: 57.6 kg Patient Problems: Current Active Problems CAP (community acquired pneumonia) (Acute) Altered mental status (Acute) Hypothyroidism (Chronic) Dehydration (Acute) Pneumonia (Acute) COVID-19 virus infection (Acute) Encephalopathy (Acute) - VTE Risk Labs: VTE Related Lab Results Hgb 10.8 g/dL (12.2-16.2) L 11/11/21 08:43 Hct 33.4 % (37.0-47.0) L 11/11/21 08:43 Plt Count 51 K/mm3 (142-424) L 11/11/21 08:43 BUN 18 mg/dl (7-17) H D 11/11/21 08:43 Creatinine 1.10 mg/dl (0.52-1.04) H D 11/11/21 08:43 Estimated Creat Clear 39 mL/min (50-200) 11/11/21 08:43 VTE Score: 4 VTE Risk Level: Low Risk - Prophylaxis VTE Prophylaxis Ordered?: Yes Types of VTE Prophylaxis: TEDS Knee High, Pharmacological Location of Applied Device: Bilateral Lower Extremeties Pharmacologic Type: Enoxaparin
[2021-11-11 16:00] VITALS: BP 137/66; PULSE 89; RESP 12; TEMP 36.9; O2SAT 95
--- NOTE | 2021-11-11 16:39 | HMH.PHAINT ---
MEDICATION RECONCILIATION COMPLETED ON PATIENT USING EXTERNAL FILL HISTORY FROM PHARMACY. -ENDY GALLEGOS, ROGERD
[2021-11-11 16:59] LABS: POC Glucose,Bedside 127 (70-110)
[2021-11-11 20:00] VITALS: O2SAT 2
[2021-11-12] VITALS (10 sets, daily range): BP systolic 138–184; BP diastolic 59–88; PULSE 74–89; RESP 14–20; TEMP 36.2–37; O2SAT 94–99; BMI 21.7
[2021-11-12 07:29] LABS: Alanine Aminotransferase 9 U/L (12-78); Albumin Level 3.1 g/dl (3.5-5.0); Albumin/Globulin Ratio 1.1 (1.1-1.8); Alkaline Phosphatase 48 U/L (38-126); Anion Gap 14.1 mEq/L (5-15); Aspartate Amino Transferase 45 U/L (14-36); Bilirubin,Total 0.6 mg/dl (0.2-1.3); Blood Urea Nitrogen 20 mg/dl (7-17); Calcium 8.3 mg/dl (8.4-10.2); Carbon Dioxide 17 mmol/L (22.0-30.0); Chloride 111 mmol/L (98-107); Creatinine Clearance Estimated 39 mL/min (50-200); Estimated Glomerular Filt Rate 48 ml/min (>60); GFR (African American) 58 ML/MIN (>60); Globulin 2.9 g/dL (1.3-3.2); Glucose 170 mg/dl (74-100); Potassium 4.1 mmoL/L (3.5-5.1); Sodium 138 mmol/L (136-145)
[2021-11-12 07:30] LABS: Basophils % 0.5 % (0.1-2.0); Eosinophils % 0.4 % (0.1-12.0); Hematocrit 33.3 % (37.0-47.0); Hemoglobin 10.5 g/dL (12.2-16.2); Lymphocytes # 0.5 K/mm3 (0.7-4.5); Lymphocytes % 16.8 % (10-50); Mean Corpuscular HGB Conc 31.6 g/dL (31.8-35.4); Mean Corpuscular Hemoglobin 28.4 pg (27.0-31.2); Mean Corpuscular Volume 89.9 fl (81-99); Mean Platelet Volume 14.7 fl (7.4-10.4); Monocytes # 0.2 K/mm3 (0.1-1.0); Monocytes % 5.9 % (1.7-9.3); Neutrophils # 2.2 K/mm3 (1.8-7.8); Neutrophils % 76.5 % (37.0-80.0); Platelet Count 51 K/mm3 (142-424); White Blood Count 2.8 K/mm3 (4.8-10.8)
[2021-11-12 08:06] LABS: POC Glucose,Bedside 149 (70-110)
[2021-11-12 08:06] LABS: POC Glucose,Bedside 159 (70-110)
--- NOTE | 2021-11-12 09:07 | HMH.ACPN2 ---
Internal Medicine - PN: Subj *Date: 11/12/21 *Time: 09:07 Interval history: Patient is slightly more alert and awake. Responsive to verbal stimuli. Continues to have a cough. Exam Vital signs and Labs for Last 24 Hours: Temp Pulse Resp BP Pulse Ox 97.8 F 78 18 150/85 H 99 11/12/21 08:00 11/12/21 08:00 11/12/21 08:00 11/12/21 08:00 11/12/21 08:00 Laboratory Results - last 24 hr 11/11/21 08:43: Sodium 137, Potassium 4.0, Chloride 109 H, Carbon Dioxide 15 L, Anion Gap 17.0 H, BUN 18 H D, Creatinine 1.10 H D, Estimated Creat Clear 39, Estimated GFR 48 L, Est GFR ( Amer) 58 L D, Glucose 50 L D, Calcium 8.0 L 11/11/21 10:49: POC Glucose 80 11/11/21 16:41: POC Glucose 127 H 11/11/21 21:59: POC Glucose 159 H 11/12/21 05:40: POC Glucose 149 H 11/12/21 07:08: WBC 2.8 L D, RBC 3.70 L, Hgb 10.5 L, Hct 33.3 L, MCV 89.9, MCH 28.4, MCHC 31.6 L, RDW 14.0, Plt Count 51 L, MPV 14.7 H, Neut % (Auto) 76.5, Lymph % (Auto) 16.8, [place] % (Auto) 5.9, Eos % (Auto) 0.4, Baso % (Auto) 0.5, Neut # (Auto) 2.2, Lymph # (Auto) 0.5 L, [place] # (Auto) 0.2, Eos # (Auto) 0.0, Baso # (Auto) 0.0 11/12/21 07:08: Sodium 138, Potassium 4.1, Chloride 111 H, Carbon Dioxide 17 L, Anion Gap 14.1, BUN 20 H, Creatinine 1.10 H, Estimated Creat Clear 39, Estimated GFR 48 L, Est GFR ( Amer) 58 L, Glucose 170 H D, Calcium 8.3 L, Total Bilirubin 0.6, AST 45 H, ALT 9 L D, Alkaline Phosphatase 48, Total Protein 6.0 L, Albumin 3.1 L, Globulin 2.9, Albumin/Globulin Ratio 1.1 I & O for Last 24 hours: Intake & Output 11/09/21 11/10/21 11/11/21 11/12/21 11:59 11:59 11:59 11:59 Intake Total 120 / 120 Output Total 700 / 700 Balance -580 / -580 Weight 120 lb 126 lb 15.78 oz 127 lb 3.307 oz Microbiology Reports for the Last 24 Hours: Microbiology 11/10/21 10:25 Urine,Catheterized Urine Culture - Preliminary NO GROWTH AFTER 24 HOURS Narrative: More alert but falls back to sleep when she is left alone. Has a cough, sounds wet but is unable to produce sputum. Is more alert in regards to vocabulary but is unable to give me a lot of detailed sentences, is able to provide yes or no answers. States she has no pain, states that she feels better than yesterday but has no memory of yesterday. Lungs have rhonchi in her bases, heart rate regular. Abdomen is soft, tissue perfusion is good. Oropharynx clear. Neurologic exam improved as noted Assessment and Plan (1) COVID-19 virus infection Status: Acute Category: Medical Code(s): U07.1 - COVID-19 (2) Encephalopathy Status: Acute Category: Medical Code(s): G93.40 - Encephalopathy, unspecified (3) Altered mental status Status: Acute Category: Medical Code(s): R41.82 - Altered mental status, unspecified (4) CAP (community acquired pneumonia) Status: Acute Qualifiers: Laterality: right Lung location: lower lobe of lung Category: Medical Code(s): J18.9 - Pneumonia, unspecified organism (5) Dehydration Status: Acute Category: Medical Code(s): E86.0 - Dehydration (6) Hypothyroidism Status: Chronic Category: Medical Code(s): E03.9 - Hypothyroidism, unspecified - Assessment and plan all Dx Assessment and Plan for all problems:: Overall improving. I reviewed chest x-ray and her labs, I do not know that she needs the antibiotic coverage ordered to the ER, we will go back to ceftriaxone and azithromycin for community-acquired pneumonia, speech therapy evaluation to see if she is able to take pills today. Please see notes from H&P regarding encephalopathy issues. This is slightly improved.
--- NOTE | 2021-11-12 10:42 | HMH.OTEV ---
OT Inpatient Evaluation Rehab OT IP Evaluation Start: 11/12/21 09:02 Freq: ONCE Status: Complete Protocol: Document 11/12/21 10:32 ARSCHATAIGNIER (Rec: 11/12/21 10:41 [facility] [id number]) Rehab OT IP Assessment Subjective History Pt oriented x1 (self). Pt unable to recall her birthday or place. Pt was admitted via ED on 11/10/21 due to mental status change, fever, and PNA. The following information was copied from PCP's history and physical reports: 76-year-old white female who lives at home, is in somewhat tenuous health from multiple medical problems but was brought to the emergency department by her family because of encephalopathy type symptoms, diminished responsiveness and fever. Uncertain vaccination status as family is not available at this point for history, and patient unable to give a history but in the emergency department she had a positive COVID PCR, chest x-ray with streaky infiltrate, fever of 103 but no elevated white count. Admitted to hospital for broad -spectrum antibiotics, work-up of encephalopathy, sepsis and treatment of COVID-19 infection. Pt has a past medical history of Asthma, Congestive Heart Failure, Cerebrovascular Accident, Hyperlipidemia, Hypertension, Migraine, Osteoporosis, Transient Ischemic Attacks (TIA). Due to contniued confusion, pt was unable to provide any information about previous level of function. Therapist reviewed reports and it appears she lived at home with her family prior to being in the hospital.
--- NOTE | 2021-11-12 11:27 | HMH.PTEV ---
Physical Therapy Evaluation Rehab PT IP Evaluation Start: 11/12/21 09:02 Freq: ONCE Status: Active Protocol: Document 11/12/21 11:21 JANICE (Rec: 11/12/21 11:27 JANICE [id number]) Subjective/History History History 76 yo female w/ hx HTN, HLD, CVA, asthma, DM presented to ED for evaluation of AMS. Patient reportedly found altered by family members, not able to move out of bed on her own, patient was confused, sleepy appearing. was found with nonbloody vomitus on her shirt this morning. Has reportedly felt weak for last few days as well. Subjective Subjective Pt slow to respond to questions - confused to awareness questions Rehab PT IP Eval Objective Appearance Patient Behavior Fatigued,Confused Patient Orientation Name,Situation Difficulty following instructions moderate Speech Pattern Delayed,Soft-Spoken,Monotone Ambulation Patient Able to Ambulate Yes Ambulation Observation IP General Gait Pattern Observation Shuffling Step Ambulation Distance (feet) 3 Ambulation Assistive Device None Ambulation Ability Maximum x 1 (75% assist) Balance Ability to Arise Unable Sitting Balance Leans or slides in chair Standing Balance Unsteady Dynamic Sitting Balance Ability Poor Dynamic Standing Balance Ability Zero Transfers Sit to Stand Bed Transfer Ability Maximum x 1 (75% assist) Sit to Stand Chair Transfer Ability Maximum x 1 (75% assist) Rehab PT IP prob,goals,plan Problems Date of Evaluation: 11/12/21 PT IP Problems Bed Mobility,Transfers,Gait, Balance,Self care,Safety Rehab Potential Rehab Potential Poor Equipment Needs Assistive Devices Rolling / Wheeled Walker Plan PT Intervention Plan Bed Mobility,Transfers,Gait, Balance,Self care,Safety, Therapeutic Exercise PT Plan Frequency BID Duration LOS Discharge Goals Bed Transfer Ability Maximum x 1 (75% assist) Sit to Stand Chair Transfer Ability Maximum x 1 (75% assist) Ambulation Assistive Device Rolling Walker Ambulation Distance (feet) 3 Discharge Plan PT Discharge Plan At this time pt will require skilled therapeutic services
[2021-11-12 12:20] LABS: Vancomycin,Trough 11.4 ug/mL (5.0-10.0)
--- NOTE | 2021-11-12 13:03 | HMH.SLDYSPHA ---
Speech & Language Evaluation Speech/Language Dysphagia Evaluation Start: 11/12/21 12:49 Freq: ONCE Status: Active Protocol: Document 11/12/21 12:49 EDWIGE (Rec: 11/12/21 13:03 EDWIGE [id number]) Dysphagia Assess/Goals/Plan Assessment Date of Evaluation: 11/12/21 Evaluation Type Initial Certification Assessment/Problems Dysphagia Does Patient Qualify for Service No Qualify/Failure Comment Patient displays signs of dysphagia at this time. Diet modifications made. Patient will be reevaled as overall health conditions improve. Recommendations PHYSICIAN CERTIFICATION: The specified therapy services are required, authorized, and reviewed every 30 days. Diet Recommendations Mechanical Soft Liquid Type Recommendations [place] Consistency SL Swallow Guidelines Standard Aspiration Prec. Crush Meds Crush all meds Dysphagia Swallow Precautions/Strategies Sitting Upright (90 deg),Small Bites and Sips,Alternate Liquids/Solids Plan Pt/Guardian verbally ack understanding Yes: RN notified of dx/prognosis/goals G -code Required No Speech & Language HPI Language Primary Language Serbian General Information General Current Food Consistancy NPO Dentition Upper & Lower Dentures Oxygen Status Nasal Cannula Facial Symmetry Symmetrical Patient Orientation Person,Place Ability to Follow Directions Good Communication Ability Mild Impairment Dysphagia:Food Presentation Evaluation Food Type Pureed,Mechanical Soft,Regular ,Liquid Normal/Thin Liquid Response Coughing after swallow,Wet voice Dysphagia Evaluation Summary Pt was given the following consistencies; thins via straws and open cup, necture via straw and open cup, puree, mech soft, and regular. Pt presented with signs of dysphagia when given thin liquids via straw and open cup characterized by coughing and throat clearing. Pt refused pudding trial. Diet modifications were made to include reg diet with chopped meats with gravy/sauce and necture liquids. Pt will be reevaled as overall health
[2021-11-12 16:44] LABS: Vancomycin,Peak 11.1 ug/ml (11-39)
[2021-11-12 21:33] LABS: POC Glucose,Bedside 178 (70-110)
[2021-11-12 21:33] LABS: POC Glucose,Bedside 178 (70-110)
[2021-11-13] VITALS (9 sets, daily range): BP systolic 146–167; BP diastolic 63–83; PULSE 60–82; RESP 16–20; TEMP 36.3–37.1; O2SAT 95–100; BMI 21.6
[2021-11-13 06:09] LABS: POC Glucose,Bedside 176 (70-110)
--- NOTE | 2021-11-13 06:11 | PC.NURSE ---
PT TOLERATING 2LNC WELL. ONLY ALERT TO SELF. TURNED Q2H. F/C DRAINING DARK BLOODY URINE. NO C/O. VSS WILL CONTINUE TO MONITOR.
--- NOTE | 2021-11-13 06:49 | HMH.ACPN2 ---
Internal Medicine - PN: Subj *Date: 11/13/21 *Time: 08:45 Interval history: No acute events overnight. Stable O2 requirement. No fever. still confused. Opens eyes on exam, but returns to sleep quickly. No emesis, diarrhea, CP, agitation. Moran still in place. Exam Vital signs and Labs for Last 24 Hours: Temp Pulse Resp BP Pulse Ox 98.5 F 77 18 167/74 H 95 11/13/21 04:00 11/13/21 04:00 11/13/21 04:00 11/13/21 04:00 11/13/21 04:00 Laboratory Results - last 24 hr 11/11/21 21:59: POC Glucose 159 H 11/12/21 05:40: POC Glucose 149 H 11/12/21 07:08: WBC 2.8 L D, RBC 3.70 L, Hgb 10.5 L, Hct 33.3 L, MCV 89.9, MCH 28.4, MCHC 31.6 L, RDW 14.0, Plt Count 51 L, MPV 14.7 H, Neut % (Auto) 76.5, Lymph % (Auto) 16.8, [place] % (Auto) 5.9, Eos % (Auto) 0.4, Baso % (Auto) 0.5, Neut # (Auto) 2.2, Lymph # (Auto) 0.5 L, [place] # (Auto) 0.2, Eos # (Auto) 0.0, Baso # (Auto) 0.0 11/12/21 07:08: Sodium 138, Potassium 4.1, Chloride 111 H, Carbon Dioxide 17 L, Anion Gap 14.1, BUN 20 H, Creatinine 1.10 H, Estimated Creat Clear 39, Estimated GFR 48 L, Est GFR ( Amer) 58 L, Glucose 170 H D, Calcium 8.3 L, Total Bilirubin 0.6, AST 45 H, ALT 9 L D, Alkaline Phosphatase 48, Total Protein 6.0 L, Albumin 3.1 L, Globulin 2.9, Albumin/Globulin Ratio 1.1 11/12/21 11:02: Vancomycin Trough 11.4 H 11/12/21 12:15: POC Glucose 178 H 11/12/21 15:50: Vancomycin Peak 11.1 11/12/21 19:58: POC Glucose 178 H 11/13/21 05:14: POC Glucose 176 H I & O for Last 24 hours: Intake & Output 11/10/21 11/11/21 11/12/21 11/13/21 23:59 23:59 23:59 23:59 Intake Total 120 / 120 0 / 0 710 / 710 Output Total 700 / 700 450 / 1000 550 / 550 Balance 120 / -280 -700 / -700 260 / -290 -550 / -550 Weight 55.4 kg 57.6 kg 57.7 kg Microbiology Reports for the Last 24 Hours: Microbiology 11/10/21 10:25 Blood Blood Culture - Preliminary NO GROWTH AFTER 48 HOURS 11/10/21 10:25 Blood Blood Culture - Preliminary NO GROWTH AFTER 48 HOURS 11/10/21 10:25 Urine,Catheterized Urine Culture - Final NO GROWTH AFTER 48 HOURS Narrative: - Constitutional no acute distress, somnolent - *Routine HEENT Exam Head: Present: normocephalic Eye: Present: EOMI, PERRL ENT: Present: mucous membranes dry - *Routine Neck Exam Present: supple. Absent: lymphadenopathy - *Routine Respiratory Exam Present: no wheeze, crackles or rhonchi - *Routine Cardiovascular Exam Present: RRR - *Routine Abdominal Exam Present: soft, normoactive bowel sounds. Absent: tenderness - *Routine Extremities Exam Present: pulses intact. Absent: cyanosis, clubbing, edema - *Routine Skin Exam Present: warm. Absent: rash - *Routine Neurological Exam Present: altered mental status, Somnolent, responds to physical stimuli with eye opening, withdrawal behaviors and pushing the hand away and saying no with painful stimuli. Facial expression is symmetric. Moves arms bilaterally equally with withdrawal behaviors Assessment and Plan (1) COVID-19 virus infection Status: Acute Category: Medical Code(s): U07.1 - COVID-19 (2) Encephalopathy Status: Acute Category: Medical Code(s): G93.40 - Encephalopathy, unspecified (3) Altered mental status Status: Acute Category: Medical Code(s): R41.82 - Altered mental status, unspecified (4) CAP (community acquired pneumonia) Status: Acute Qualifiers: Laterality: right Lung location: lower lobe of lung Qualified Code(s): J18.9 - Pneumonia, unspecified organism Category: Medical Code(s): J18.9 - Pneumonia, unspecified organism (5) Dehydration Status: Acute Category: Medical Code(s): E86.0 - Dehydration (6) Hypothyroidism Status: Chronic Category: Medical Code(s): E03.9 - Hypothyroidism, unspecified - Assessment and plan all Dx Assessment and Plan for all problems:: encephalopathy no better
[2021-11-13 09:34] LABS: Basophils % 0.1 % (0.1-2.0); Eosinophils % 0.5 % (0.1-12.0); Hematocrit 28.1 % (37.0-47.0); Lymphocytes # 0.4 K/mm3 (0.7-4.5); Lymphocytes % 9.9 % (10-50); Mean Corpuscular HGB Conc 31.9 g/dL (31.8-35.4); Mean Corpuscular Volume 87.8 fl (81-99); Mean Platelet Volume 15.5 fl (7.4-10.4); Monocytes # 0.3 K/mm3 (0.1-1.0); Monocytes % 7.1 % (1.7-9.3); Neutrophils # 2.9 K/mm3 (1.8-7.8); Neutrophils % 82.4 % (37.0-80.0); Platelet Count 58 K/mm3 (142-424); Red Cell Distribution Width 14.3 % (11.5-17.5); White Blood Count 3.5 K/mm3 (4.8-10.8)
[2021-11-13 09:56] LABS: Alanine Aminotransferase 8 U/L (12-78); Albumin Level 2.7 g/dl (3.5-5.0); Alkaline Phosphatase 42 U/L (38-126); Anion Gap 7.9 mEq/L (5-15); Aspartate Amino Transferase 42 U/L (14-36); Bilirubin,Total 0.4 mg/dl (0.2-1.3); Blood Urea Nitrogen 21 mg/dl (7-17); Calcium 8.1 mg/dl (8.4-10.2); Carbon Dioxide 20 mmol/L (22.0-30.0); Chloride 117 mmol/L (98-107); Creatinine Clearance Estimated 43 mL/min (50-200); Estimated Glomerular Filt Rate 70 ml/min (>60); GFR (African American) 84 ML/MIN (>60); Globulin 2.8 g/dL (1.3-3.2); Glucose 150 mg/dl (74-100); Potassium 3.9 mmoL/L (3.5-5.1); Sodium 141 mmol/L (136-145); Total Protein,Serum 5.5 g/dl (6.3-8.2)
[2021-11-13 11:38] LABS: POC Glucose,Bedside 165 (70-110)
[2021-11-13 11:39] LABS: POC Glucose,Bedside 126 (70-110)
[2021-11-13 17:28] LABS: POC Glucose,Bedside 205 (70-110)
--- NOTE | 2021-11-13 19:49 | PC.NURSE ---
patient has done well this shift. has slept most of day but is easily arousable and will communicate with you. will feed self with setup assistance. tolerating thickened liquids did sit up on side of bed with pt. no complaints. roldan removed per verbal from md. noted blood in roldan catheter. vitals have been stable. remains on 2l
[2021-11-14] VITALS (11 sets, daily range): BP systolic 130–198; BP diastolic 70–94; PULSE 61–78; RESP 14–18; TEMP 36.5–37; O2SAT 94–100; BMI 21.7
--- NOTE | 2021-11-14 03:42 | PC.NURSE ---
Pt had no c/o this shift. pt has void per attends, rested well throughout shift VSS. pt remains on 2L NC
[2021-11-14 07:14] LABS: Basophils % 0.5 % (0.1-2.0); Eosinophils % 0.4 % (0.1-12.0); Hematocrit 27.5 % (37.0-47.0); Hemoglobin 8.7 g/dL (12.2-16.2); Lymphocytes # 0.6 K/mm3 (0.7-4.5); Mean Corpuscular HGB Conc 31.5 g/dL (31.8-35.4); Mean Corpuscular Hemoglobin 27.9 pg (27.0-31.2); Mean Corpuscular Volume 88.6 fl (81-99); Mean Platelet Volume 16.3 fl (7.4-10.4); Monocytes # 0.3 K/mm3 (0.1-1.0); Monocytes % 8.8 % (1.7-9.3); Neutrophils # 2.2 K/mm3 (1.8-7.8); Neutrophils % 72.3 % (37.0-80.0); Platelet Count 56 K/mm3 (142-424); Red Blood Count 3.11 M/mm3 (4.20-5.40); Red Cell Distribution Width 14.3 % (11.5-17.5)
[2021-11-14 07:22] LABS: Alanine Aminotransferase 8 U/L (12-78); Albumin Level 2.8 g/dl (3.5-5.0); Albumin/Globulin Ratio 1.1 (1.1-1.8); Alkaline Phosphatase 45 U/L (38-126); Anion Gap 9.1 mEq/L (5-15); Aspartate Amino Transferase 48 U/L (14-36); Bilirubin,Total 0.3 mg/dl (0.2-1.3); Blood Urea Nitrogen 16 mg/dl (7-17); Calcium 8.1 mg/dl (8.4-10.2); Carbon Dioxide 21 mmol/L (22.0-30.0); Chloride 116 mmol/L (98-107); Creatinine Clearance Estimated 43 mL/min (50-200); Estimated Glomerular Filt Rate 97 ml/min (>60); GFR (African American) 117 ML/MIN (>60); Globulin 2.6 g/dL (1.3-3.2); Glucose 122 mg/dl (74-100); Potassium 3.1 mmoL/L (3.5-5.1); Sodium 143 mmol/L (136-145); Total Protein,Serum 5.4 g/dl (6.3-8.2)
--- NOTE | 2021-11-14 08:31 | HMH.ACPN2 ---
Internal Medicine - PN: Subj *Date: 11/14/21 *Time: 08:31 Interval history: Patient is much more awake, recognizes me, alert, speech therapy has evaluated patient determined she is okay for thin liquids. Exam Vital signs and Labs for Last 24 Hours: Temp Pulse Resp BP Pulse Ox 97.7 F 74 16 180/77 H 98 11/14/21 08:00 11/14/21 08:00 11/14/21 08:00 11/14/21 08:00 11/14/21 08:00 Laboratory Results - last 24 hr 11/12/21 16:40: POC Glucose 165 H 11/13/21 08:53: Sodium 141, Potassium 3.9, Chloride 117 H, Carbon Dioxide 20 L, Anion Gap 7.9, BUN 21 H, Creatinine 0.80 D, Estimated Creat Clear 43, Estimated GFR 70, Est GFR ( Amer) 84 D, Glucose 150 H, Calcium 8.1 L, Total Bilirubin 0.4, AST 42 H, ALT 8 L, Alkaline Phosphatase 42, Total Protein 5.5 L, Albumin 2.7 L D, Globulin 2.8, Albumin/Globulin Ratio 1.0 L 11/13/21 08:53: WBC 3.5 L, RBC 3.20 L, Hgb 9.0 L, Hct 28.1 L, MCV 87.8, MCH 28.0, MCHC 31.9, RDW 14.3, Plt Count 58 L, MPV 15.5 H, Neut % (Auto) 82.4 H, Lymph % (Auto) 9.9 L, [place] % (Auto) 7.1, Eos % (Auto) 0.5, Baso % (Auto) 0.1, Neut # (Auto) 2.9, Lymph # (Auto) 0.4 L, [place] # (Auto) 0.3, Eos # (Auto) 0.0, Baso # (Auto) 0.0 11/13/21 11:08: POC Glucose 126 H 11/13/21 17:07: POC Glucose 205 H 11/14/21 06:55: Sodium 143, Potassium 3.1 L D, Chloride 116 H, Carbon Dioxide 21 L, Anion Gap 9.1, BUN 16, Creatinine 0.60 D, Estimated Creat Clear 43, Estimated GFR 97, Est GFR ( Amer) 117 D, Glucose 122 H, Calcium 8.1 L, Total Bilirubin 0.3, AST 48 H, ALT 8 L, Alkaline Phosphatase 45, Total Protein 5.4 L, Albumin 2.8 L, Globulin 2.6, Albumin/Globulin Ratio 1.1 11/14/21 06:55: WBC 3.0 L, RBC 3.11 L, Hgb 8.7 L, Hct 27.5 L, MCV 88.6, MCH 27.9, MCHC 31.5 L, RDW 14.3, Plt Count 56 L, MPV 16.3 H, Neut % (Auto) 72.3, Lymph % (Auto) 18.0, [place] % (Auto) 8.8, Eos % (Auto) 0.4, Baso % (Auto) 0.5, Neut # (Auto) 2.2, Lymph # (Auto) 0.6 L, [place] # (Auto) 0.3, Eos # (Auto) 0.0, Baso # (Auto) 0.0 I & O for Last 24 hours: Intake & Output 11/11/21 11/12/21 11/13/21 11/14/21 11:59 11:59 11:59 11:59 Intake Total 120 / 120 650 / 650 1985 60 / 60 Output Total 700 / 700 450 / 450 550 / 550 0 / 0 Balance -580 / -580 200 / 200 1436 / 1436 60 / 60 Weight 126 lb 15.78 oz 127 lb 3.307 oz 126 lb 12.253 oz 126 lb 15.78 oz Narrative: Neurologic exam better. Lungs have rhonchi but otherwise good air movement, heart rate regular. Abdomen soft, no edema or clubbing. Significant weakness noted still. However overall improving nicely. Assessment and Plan (1) COVID-19 virus infection Status: Acute Category: Medical Code(s): U07.1 - COVID-19 (2) Encephalopathy Status: Acute Category: Medical Code(s): G93.40 - Encephalopathy, unspecified (3) Altered mental status Status: Acute Category: Medical Code(s): R41.82 - Altered mental status, unspecified (4) CAP (community acquired pneumonia) Status: Acute Qualifiers: Laterality: right Lung location: lower lobe of lung Qualified Code(s): J18.9 - Pneumonia, unspecified organism Category: Medical Code(s): J18.9 - Pneumonia, unspecified organism (5) Dehydration Status: Acute Category: Medical Code(s): E86.0 - Dehydration (6) Hypothyroidism Status: Chronic Category: Medical Code(s): E03.9 - Hypothyroidism, unspecified - Assessment and plan all Dx Assessment and Plan for all problems:: Encephalopathy related to Covid/metabolic illness improving. Given global weakness patient will need short-term stay at skilled care. Continue follow-up at this point, care management consult in. Restart Synthroid at slightly higher dose given slightly elevated TSH on admission. Restart gabapentin but at lower dose to avoid sedation.
[2021-11-14 11:27] LABS: POC Glucose,Bedside 183 (70-110)
[2021-11-14 11:55] LABS: POC Glucose,Bedside 130 (70-110)
--- NOTE | 2021-11-14 12:16 | DIET.NUTRFU ---
Addendum entered by Simona Dee RD, LD 11/14/21 13:08: Spoke to nurses aid, patient is more alert and drank 2 ensure today at lunch. Original Note: [employer] saw patient today with thin liquids, patient was more alert today. Diet was upgraded to MSOFT chopped with thin liquids no straws. Will continue to send ensure with lunch and dinner trays. Kictehn aware of change in order.
[2021-11-14 16:54] LABS: POC Glucose,Bedside 131 (70-110)
[2021-11-14 17:28] LABS: POC Glucose,Bedside 126 (70-110)
[2021-11-15] VITALS: BP 161/83; PULSE 76; RESP 18; TEMP 36.7; O2SAT 97
[2021-11-15 04:00] VITALS: BP 157/76; PULSE 76; RESP 18; TEMP 36.6; O2SAT 96
--- NOTE | 2021-11-15 05:21 | PC.NURSE ---
No acute changes. Pt tolerating RA w/ O2 sats >95%.
[2021-11-15 06:08] VITALS: BMI 21.5
[2021-11-15 06:31] VITALS: PULSE 78; PULSE 80
[2021-11-15 07:54] LABS: Alanine Aminotransferase 14 U/L (12-78); Albumin Level 2.7 g/dl (3.5-5.0); Albumin/Globulin Ratio 1.1 (1.1-1.8); Alkaline Phosphatase 47 U/L (38-126); Anion Gap 7.7 mEq/L (5-15); Aspartate Amino Transferase 73 U/L (14-36); Bilirubin,Total 0.6 mg/dl (0.2-1.3); Blood Urea Nitrogen 13 mg/dl (7-17); Calcium 7.7 mg/dl (8.4-10.2); Carbon Dioxide 21 mmol/L (22.0-30.0); Chloride 116 mmol/L (98-107); Creatinine Clearance Estimated 43 mL/min (50-200); Estimated Glomerular Filt Rate 97 ml/min (>60); GFR (African American) 117 ML/MIN (>60); Globulin 2.4 g/dL (1.3-3.2); Glucose 88 mg/dl (74-100); Potassium 3.7 mmoL/L (3.5-5.1); Sodium 141 mmol/L (136-145); Total Protein,Serum 5.1 g/dl (6.3-8.2)
[2021-11-15 08:00] VITALS: BP 177/83; PULSE 72; RESP 18; TEMP 36.7; O2SAT 97
--- NOTE | 2021-11-15 08:54 | HMH.DCSUM ---
General - General Admission date:: 11/10/21 Discharge date: 11/15/21 HPI HPI: 76-year-old white female who lives at home, is in somewhat tenuous health from multiple medical problems but was brought to the emergency department by her family because of encephalopathy type symptoms, diminished responsiveness and fever. Uncertain vaccination status as family is not available at this point for history, and patient unable to give a history but in the emergency department she had a positive COVID PCR, chest x-ray with streaky infiltrate, fever of 103 but no elevated white count. Admitted to hospital for broad-spectrum antibiotics, work-up of encephalopathy, sepsis and treatment of COVID-19 infection. Hospital Course Hospital Course: Patient was admitted. Placed on antibiotics for community acquired pneumonia. Encephalopathy was determined to be from significant weakness, COVID-19 pneumonia and metabolic derangements. No focal lab abnormalities were identified except her TSH was slightly elevated at 7. Over the next couple of days after admission she improved with fluids, rest and oxygen support. Oxygen requirements diminished to 0, and she was able to participate in therapy and eat. She passed a swallowing evaluation as noted, she was restored on a regular diet but remained globally very weak. This morning she had no oxygen requirement. Eating better, but still very weak. She will need aggressive PT and OT over the next couple of weeks and she will be transferred in [facility] as noted for further rehab evaluation. Please note she will need TSH follow-up as an outpatient. We have increased her Synthroid to 75 mcg. She will need a CBC and a BMP on November 19. She will need aggressive PT/OT/speech therapy evaluation. Objective Vital signs: Temp Pulse Resp BP Pulse Ox 97.8 F 78 18 157/76 H 96 11/15/21 04:00 11/15/21 06:31 11/15/21 04:00 11/15/21 04:00 11/15/21 04:00 no acute distress - *Routine HEENT Exam Head: Present: normocephalic Eye: Present: EOMI, PERRL ENT: Present: mucous membranes moist - *Routine Neck Exam Present: supple - *Routine Respiratory Exam Present: CTA bilaterally - *Routine Cardiovascular Exam Present: RRR - *Routine Abdominal Exam Present: soft, normoactive bowel sounds. Absent: tenderness - *Routine Extremities Exam Absent: cyanosis, clubbing, edema - *Routine Skin Exam Present: warm. Absent: rash - *Routine Neurological Exam Present: alert Cranial nerves intact, speech clear, extremely weak and frail. No focal neurologic deficits. - Detailed Eye Exam Eyelids: Bilateral normal inspection Results Labs on day of discharge: Labs from last 24 hours 11/15/21 11/14/21 11/14/21 06:51 17:21 11:23 Sodium 141 Potassium 3.7 Chloride 116 H Carbon Dioxide 21 L Anion Gap 7.7 BUN 13 Creatinine 0.60 Estimated Creat Clear 43 Estimated GFR 97 Est GFR ( Amer) 117 Glucose 88 D POC Glucose 126 H 130 H Calcium 7.7 L Total Bilirubin 0.6 AST 73 H D ALT 14 D Alkaline Phosphatase 47 Total Protein 5.1 L Albumin 2.7 L Globulin 2.4 Albumin/Globulin Ratio 1.1 11/14/21 11/13/21 05:06 20:31 Sodium Potassium Chloride Carbon Dioxide Anion Gap BUN Creatinine Estimated Creat Clear Estimated GFR Est GFR ( Amer) Glucose POC Glucose 131 H 183 H Calcium Total Bilirubin AST ALT Alkaline Phosphatase Total Protein Albumin Globulin Albumin/Globulin Ratio Preliminary micro results at discharge 11/10/21 10:25 Blood Culture - Preliminary Blood NO GROWTH AFTER 48 HOURS 11/10/21 10:25 Blood Culture - Preliminary Blood NO GROWTH AFTER 48 HOURS DS: Diagnosis - Discharge Diagnosis (1) COVID-19 virus infection Status: Acute (2) Encephalopathy Status: Acute (3) Altered mental st
[2021-11-15 10:21] LABS: Influenza A, PCR Not Detected (NotDetected); Influenza B, PCR Not Detected (NotDetected)
--- NOTE | 2021-11-15 10:42 | SW/DCPLANNER ---
MADE ROUNDS WITH DR BIRCH YESTERDAY AND HE FELT [facility] WOULD BENEFIT FROM A SHORT TERM SKILLED REHAB STAY TO GET HER BACK ON HER FEET PRIOR TO RETURNING HOME.. I SENT REFERRAL TO [facility] SINCE PATIENT HAS A HUMANA/MCR AND THEY HAVE A CONTRACT WITH HER INSURANCE.. I HAVE CALLED FAMILY AND THEY ARE IN AGREEMENT AND DR BIRCH TOLD PATIENT AND SHE AGREED. PATIENT WILL TRANSPORT VIA AMBULANCE. DR MCCRAY IS THE ACCEPTING PHYSICIAN..
[2021-11-15 10:51] LABS: Coronavirus 19, PCR Detected (NotDetected)
[2021-11-15 12:00] VITALS: BP 179/85; PULSE 71; RESP 16; TEMP 36.4; O2SAT 98
[2021-11-15 14:25] LABS: POC Glucose,Bedside 120 (70-110)
[2021-11-15 14:25] LABS: POC Glucose,Bedside 102 (70-110)
[2021-11-15 14:25] LABS: POC Glucose,Bedside 124 (70-110)
== END 2021-11-15 15:30 | DRG 177 ==
LOC: ER 10:08 → 2ND 14:26
PROVIDERS: Internal Medicine Adolescent Medicine; Admitting Provider Internal Medicine Adolescent Medicine; Emergency Provider Student in an Organized Health Care Education/Training Program; PCP Nurse Practitioner Family; Visit Provider Internal Medicine Adolescent Medicine
DX: U07.1 COVID-19 (principal); J18.9 Pneumonia, unspecified organism; G93.40 Encephalopathy, unspecified; E86.0 Dehydration; E03.9 Hypothyroidism, unspecified; Z86.73 Personal history of transient ischemic attack (TIA), and cerebral infarction without residual deficits; I11.0 Hypertensive heart disease with heart failure; I50.9 Heart failure, unspecified; M81.0 Age-related osteoporosis without current pathological fracture; M19.90 Unspecified osteoarthritis, unspecified site; J45.909 Unspecified asthma, uncomplicated
CPT/HCPCS: 36415; 70450; 71045; 80048; 80053; 80202; 80305; 80329; 81001; 82962; 83735; 84436; 84443; 85025; 87040; 87086; 92526; 92610; 93005; 94640; 96365; 96367; 96375; 97110; 97116; 97162; 97166; 97530; 97535; 99284; C9803; J0696; J2543; J3370; U0003; U0005

== ENCOUNTER 2022-04-26 10:17 | Emergency (ER) | payer MEDICARE, SELFPAY ==
[2022-04-26] VITALS (8 sets, daily range): BP systolic 112–137; BP diastolic 56–81; PULSE 56–75; RESP 19–20; TEMP 36.3; O2SAT 95–97; BMI 22.8
--- NOTE | 2022-04-26 10:32 | CT_ITS ---
FINAL REPORT CLINICAL HISTORY: abd pain with nausea and vomiting 75 ml isovure 370 given COMPARISON: June 20, 2021 FINDINGS: CT OF THE ABDOMEN AND PELVIS WITH CONTRAST Axial CT images of the abdomen and pelvis were obtained after the administration of intravenous contrast. Coronal reformatted images were also obtained and reviewed.This study was performed with techniques to keep radiation doses as low as reasonably achievable (ALARA). Individualized dose reduction techniques using automated exposure control or adjustment of mA and/or kV according to the patient's size were employed. Abdomen: There is mild bibasilar atelectasis or scarring. There is a large hiatal hernia. There is a small pericardial effusion. The heart is enlarged. The liver has an unremarkable appearance. There has been cholecystectomy. There is moderate biliary duct dilatation, stable. Mild periportal edema is stable. There are multiple borderline size retroperitoneal lymph nodes. The spleen is unremarkable. No adrenal mass is present. The pancreas has an unremarkable appearance. The kidneys are normal, without evidence of mass or hydronephrosis. The aorta is normal in caliber. No mass or abnormal fluid collection is seen. Pelvis: The appendix is not well-visualized. The urinary bladder is unremarkable. There is mild, diffuse colon wall thickening that may represent mild colitis. There has been kyphoplasty at L2 and L3 with methylmethacrylate extending into lumbar veins, stable. There is diverticulosis of the sigmoid colon. There has been hysterectomy. Postoperative changes are seen in the right femur. IMPRESSION: Mild diffuse colon wall thickening may represent mild colitis. Large hiatal hernia. Mild periportal edema, stable. Diverticulosis without evidence of diverticulitis. Reviewed, Interpreted and Dictated by Jalil Montgomery III, MD Transcribed by Bonifacio Franz Authenticated and [facility]
[2022-04-26 10:35] LABS: Coronavirus 19, PCR Not Detected (NotDetected); Influenza A, PCR Not Detected (NotDetected); Influenza B, PCR Not Detected (NotDetected)
[2022-04-26 10:47] LABS: Basophils # 0.1 K/mm3 (0-0.2); Eosinophils # 0.6 K/mm3 (0.0-0.4); Eosinophils % 15.3 % (0.1-12.0); Hematocrit 34.4 % (37.0-47.0); Hemoglobin 11.1 g/dL (12.2-16.2); Lymphocytes # 1.3 K/mm3 (0.7-4.5); Lymphocytes % 30.9 % (10-50); Mean Corpuscular HGB Conc 32.3 g/dL (31.8-35.4); Mean Corpuscular Hemoglobin 27.4 pg (27.0-31.2); Mean Corpuscular Volume 84.8 fl (81-99); Mean Platelet Volume 12.4 fl (7.4-10.4); Monocytes # 0.5 K/mm3 (0.1-1.0); Monocytes % 11.2 % (1.7-9.3); Neutrophils # 1.7 K/mm3 (1.8-7.8); Neutrophils % 40.5 % (37.0-80.0); Platelet Count 152 K/mm3 (142-424); Red Blood Count 4.06 M/mm3 (4.20-5.40); Red Cell Distribution Width 13.6 % (11.5-17.5); White Blood Count 4.2 K/mm3 (4.8-10.8)
[2022-04-26 10:54] LABS: Alanine Aminotransferase 9 U/L (12-78); Albumin Level 3.5 g/dl (3.5-5.0); Albumin/Globulin Ratio 1.3 (1.1-1.8); Alkaline Phosphatase 71 U/L (38-126); Anion Gap 8.4 mEq/L (5-15); Aspartate Amino Transferase 33 U/L (14-36); Bilirubin,Total 0.5 mg/dl (0.2-1.3); Blood Urea Nitrogen 9 mg/dl (7-17); Calcium 8.2 mg/dl (8.4-10.2); Carbon Dioxide 26 mmol/L (22.0-30.0); Chloride 107 mmol/L (98-107); Creatinine Clearance Estimated 39 mL/min (50-200); Estimated Glomerular Filt Rate 69 ml/min (>60); GFR (African American) 84 ML/MIN (>60); Globulin 2.8 g/dL (1.3-3.2); Glucose 109 mg/dl (74-100); Potassium 3.4 mmoL/L (3.5-5.1); Sodium 138 mmol/L (136-145); Total Protein,Serum 6.3 g/dl (6.3-8.2)
--- NOTE | 2022-04-26 10:54 | HMH.EDGENADL ---
ED Disposition Clinical Impression: Low blood pressure reading Vomiting Qualifiers: Vomiting type: unspecified Nausea presence: with nausea Qualified Code(s): R11.2 - Nausea with vomiting, unspecified Ringing in ears Qualifiers: Laterality: bilateral Qualified Code(s): H93.13 - Tinnitus, bilateral Headache Qualifiers: Headache type: unspecified Headache chronicity pattern: acute headache Intractability: not intractable Qualified Code(s): R51.9 - Headache, unspecified Disposition: Home, Self-Care Condition on Discharge: Good Instructions: DI for Nausea -- Adult, DI for Headache, DI for Abdominal Pain-Adult Additional Instructions: Rest and drink plenty of fluids. Take Zofran as needed for nausea or vomiting. Follow-up with your primary care provider next week if symptoms persist. Additional instructions for ABDOMINAL PAIN: See your physician as soon as possible for further evaluation, call for appointment. Return immediately if worsening abdominal pain, vomiting, shortness of breath, fever, vomiting of blood or abdominal distention. Additional instructions for HEADACHE: See your physician as soon as possible for further evaluation, call for appointment. Return immediately if worsening headache, vomiting, problems with vision or speech, fever, numbness or weakness of the extremities, neck pain or stiffness. Prescriptions: Ondansetron [Zofran 4mg ODT] 4 mg PO TIDP PRN #10 tab PRN Reason: Nausea And Vomiting Transmission Status: Pending to [facility] Referrals: Tayler Smalls PA [Primary Care Provider] - - Critical Care Critical Care Time: No Attestation: On 04/26/22, the high probability of a clinically significant, sudden or life threatening deterioration of the following system(s) required my full and direct attention, intervention and personal management. The time I documented below is in addition to time spent performing reported procedures but includes the following listed in this critical care notation. Medical Decision Making - Daniel Inquiry Pt receiving controlled substance: No Vital Signs: 04/26/22 10:19 04/26/22 11:00 04/26/22 11:27 Temperature 97.4 F L Temperature Source Oral Pulse Rate 66 73 Pulse Rate [Left Radial] 71 Respiratory Rate 19 20 Blood Pressure 136/68 134/66 Blood Pressure [Right Arm] 137/81 Blood Pressure Mean 99 Blood Pressure Mean [Right Arm] 99 Blood Pressure Source [Right Arm] Automatic Cuff Blood Pressure Position [Right Arm] Sitting 02 Sat by Pulse Oximetry 96 97 95 Oxygen Delivery Method Room Air Room Air 04/26/22 11:30 Temperature Temperature Source Pulse Rate 72 Pulse Rate [Left Radial] Respiratory Rate Blood Pressure 130/68 Blood Pressure [Right Arm] Blood Pressure Mean 95 Blood Pressure Mean [Right Arm] Blood Pressure Source [Right Arm] Blood Pressure Position [Right Arm] 02 Sat by Pulse Oximetry 95 Oxygen Delivery Method - Lab Data Lab Results 04/26/22 10:31: SARS-CoV-2 (PCR) Not detected, Influenza A Untype (PCR) Not detected, Influenza Type B (PCR) Not detected 04/26/22 10:35: WBC 4.2 L, RBC 4.06 L, Hgb 11.1 L, Hct 34.4 L, MCV 84.8, MCH 27.4, MCHC 32.3, RDW 13.6, Plt Count 152, MPV 12.4 H, Neut % (Auto) 40.5, Lymph % (Auto) 30.9, [place] % (Auto) 11.2 H, Eos % (Auto) 15.3 H, Baso % (Auto) 2.0, Neut # (Auto) 1.7 L, Lymph # (Auto) 1.3, [place] # (Auto) 0.5, Eos # (Auto) 0.6 H, Baso # (Auto) 0.1 04/26/22 10:35: Sodium 138, Potassium 3.4 L, Chloride 107, Carbon Dioxide 26, Anion Gap 8.4, BUN 9, Creatinine 0.80, Estimated Creat Clear 39, Estimated GFR 69, Est GFR ( Amer) 84, Glucose 109 H, Calcium 8.2 L, Total Bilirubin 0.5, AST 33, ALT 9 L, Alkaline Phosphatase 71, Total Protein 6.3, Albumin 3.5, Globulin 2.8, Albumin/Globulin Ratio 1.3 Result diagrams: 04/26/22 10:35 04/26/22 10:35 Orders (Tests/Meds): ED MEDICATIONS Discontinued Medications Generic Name Dose Route Start
--- NOTE | 2022-04-26 11:02 | CT_ITS ---
FINAL REPORT CLINICAL HISTORY: headache, vomiting COMPARISON: 11/10/2021 FINDINGS: Axial images of the head were obtained without contrast. Coronal reformatted images were also obtained. This study was performed with techniques to keep radiation doses as low as reasonably achievable (ALARA). Individualized dose reduction techniques using automated exposure control or adjustment of mA and/or kV according to the patient's size were employed. There is generalized age-appropriate atrophy. Periventricular low-attenuation areas are seen consistent with mild chronic ischemic changes. There is no evidence of intracranial hemorrhage or mass. There is no evidence of acute infarct. There is no evidence of shift of the midline structures. No skull abnormality is seen on the bone window images. IMPRESSION: Atrophy and mild periventricular chronic ischemic changes. No acute intracranial abnormality identified. Reviewed, Interpreted and Dictated by Jalil Montgomery III, MD Transcribed by Bonifacio Franz Authenticated and [facility]
--- NOTE | 2022-04-26 11:20 | PC.NURSE ---
pt return from radiology via wheelchair at this time.
== END 2022-04-26 13:15 | disposition home or self-care (01) ==
PROVIDERS: Emergency Provider Emergency Medicine; PCP Physician Assistant
DX: H93.13 Tinnitus, bilateral (principal); H92.03 Otalgia, bilateral; R11.2 Nausea with vomiting, unspecified; R19.7 Diarrhea, unspecified; D64.9 Anemia, unspecified; Z20.822 Contact with and (suspected) exposure to COVID-19; I11.0 Hypertensive heart disease with heart failure; I50.9 Heart failure, unspecified; I25.2 Old myocardial infarction; E78.5 Hyperlipidemia, unspecified; E03.9 Hypothyroidism, unspecified; K44.9 Diaphragmatic hernia without obstruction or gangrene; K57.90 Diverticulosis of intestine, part unspecified, without perforation or abscess without bleeding; M19.90 Unspecified osteoarthritis, unspecified site; H26.9 Unspecified cataract; G43.909 Migraine, unspecified, not intractable, without status migrainosus; J45.909 Unspecified asthma, uncomplicated; Z79.1 Long term (current) use of non-steroidal anti-inflammatories (NSAID); Z79.4 Long term (current) use of insulin; Z79.51 Long term (current) use of inhaled steroids; Z79.899 Other long term (current) drug therapy; Z88.8 Allergy status to other drugs, medicaments and biological substances; Z86.73 Personal history of transient ischemic attack (TIA), and cerebral infarction without residual deficits; Z82.49 Family history of ischemic heart disease and other diseases of the circulatory system; Z83.438 Family history of other disorder of lipoprotein metabolism and other lipidemia; Z83.3 Family history of diabetes mellitus; Z80.9 Family history of malignant neoplasm, unspecified; Z83.2 Family history of diseases of the blood and blood-forming organs and certain disorders involving the immune mechanism
CPT/HCPCS: 70450; 74177; 80053; 85025; 96361; 96374; 99285; C9803; J2405; Q9967; U0003; U0005

== ENCOUNTER → 2023-02-05 10:41 | Outpatient (CLI) | payer MEDICARE, SELFPAY ==
--- NOTE | 2023-02-05 10:51 | XR_ITS ---
FINAL REPORT CLINICAL HISTORY: Chronic neck pain COMPARISON: None FINDINGS: CERVICAL SPINE Three views of the cervical spine were obtained. There is no acute fracture or malalignment. Inter-vertebral disc and vertebral body heights are preserved. Cervical lordosis is preserved. Facet joints are properly aligned. Mild degenerative changes with osteophytes. THORACIC SPINE: Two views of the thoracic spine were obtained. There is no acute fracture. Vertebral body heights are preserved. There is mild degenerative change with osteophytes. There is moderate kyphosis. There is mild leftward curvature. IMPRESSION: Degenerative changes with no acute process. Reviewed, Interpreted and Dictated by Jalil Montgomery III, MD Transcribed by Brittany Turk Authenticated and [facility]
--- NOTE | 2023-02-05 11:04 | XR_ITS ---
FINAL REPORT CLINICAL HISTORY: ABDOMINAL PAIN COMPARISON: None FINDINGS: Chest: The heart and mediastinal within normal limits. The lungs are clear. There is no pneumothorax. Osseous structures are unremarkable. Abdomen: Three views of the abdomen were obtained. There is a nonspecific bowel gas pattern. There is a moderate hiatal hernia. There is no free air. There are no abnormal calcifications. There are postoperative changes in the right upper quadrant. There are postoperative changes from kyphoplasty at L3 and L4. Postoperative changes are seen in the proximal femur. IMPRESSION: No acute cardiopulmonary process. Nonspecific bowel gas pattern. Reviewed, Interpreted and Dictated by Jalil Montgomery III, MD Transcribed by Brittany Turk Authenticated and . [facility]
== END ==
LOC: RAD 10:43
PROVIDERS: PCP Nurse Practitioner Family; Visit Provider Nurse Practitioner Family
DX: R10.9 Unspecified abdominal pain (principal); M54.2 Cervicalgia
CPT/HCPCS: 72084; 74021

== ENCOUNTER 2023-04-15 10:48 | Emergency (ER) | payer MEDICARE, SELFPAY ==
[2023-04-15] VITALS (10 sets, daily range): BP systolic 124–151; BP diastolic 58–69; PULSE 62–87; RESP 16–18; TEMP 36.4–36.6; O2SAT 95–97; BMI 23.6
--- NOTE | 2023-04-15 10:56 | HMH.EDGENADL ---
Discharge Plan Disposition Patient Disposition: Home, Self-Care Condition: Fair Prescriptions Prescriptions: New polyethylene glycol 3350 [Miralax] 17 gram/dose powder 17 g PO DAILY 14 Days Qty: 238 0RF No Action ondansetron 4 MG tablet,disintegrating 4 mg PO TIDP PRN (Reason: Nausea And Vomiting) Qty: 10 0RF ondansetron HCl 4 MG tablet 4 mg PO TIDP PRN (Reason: Nausea And Vomiting) mirtazapine 30 MG tablet 30 mg PO HS acetaminophen 650 MG suppository 650 mg RC Q6HP PRN (Reason: Fever Or Mild Pain) 0RF ipratropium-albuterol 3 ML solution for nebulization 3 ml IH TIDRT 0RF ascorbic acid (vitamin C) 500 MG tablet 500 mg PO QID 0RF ergocalciferol (vitamin D2) 50,000 UNIT capsule 50,000 unit PO WEEKLY 0RF insulin lispro 100 UNIT/ML solution 0 unit SQ ACHS 0RF zinc sulfate 220 MG capsule 220 mg PO DAILY 0RF azithromycin 250 MG tablet 250 mg PO DIRECTED Qty: 6 0RF Rx Instructions: Take two (2) tablets on day #1, then one (1) tablet day #2 thru #5 dexamethasone 4 MG tablet 4 mg PO BID Qty: 14 0RF cefdinir 300 MG capsule 300 mg PO BID Qty: 14 0RF levothyroxine 50 MCG tablet 75 mcg PO DAILY Qty: 30 0RF gabapentin 300 MG capsule 300 mg PO TID Qty: 90 0RF Referrals Follow up/Referrals: Katja Aldana [Primary Care Provider] - 7-14 days Clinical Impressions Clinical Impression: Constipation Instructions Patient Instructions: DI for Acute Abdominal Pain Print Language Print Language: Armenian Discharge ED Provider: Rodriguez Winn Adult HPI General Chief complaint: Abdominal Pain Stated complaint: CONSTIPATION Time Seen by Provider: 04/15/23 10:56 Mode of Arrival: EMS Source of Information: Patient Limitations: No Limitations Description of Symptoms (Recalled from ER Triage Doc. by RN): 78 yo F presents to ED from home via EMS for constipation, abdominal cramping. pt states that she has not had good bowel movement for 6 days. pt reports that she had small stool this morning, but was not enough and she feels that she has more to come out. pt reports taking stool softener at home, but no laxatives. History of Present Illness HPI narrative: The patient presents with lower abdominal pain and no good BM for 6 days. Nausea no vomiting, no fever Onset (ago): day(s) (6) Location: abdomen Severity: moderate Quality: dull Related Data Home Medications Medication Instructions Recorded Confirmed mirtazapine 30 mg tablet 30 mg PO HS SLEEP 11/11/21 11/11/21 ondansetron HCl 4 mg tablet 4 mg PO TIDP PRN Nausea And 11/11/21 11/11/21 Vomiting Previous Rx's Medication Instructions Recorded acetaminophen 650 mg rectal 650 mg RC Q6HP PRN Fever Or Mild 11/15/21 suppository Pain ascorbic acid (vitamin C) 500 mg 500 mg PO QID 11/15/21 tablet azithromycin 250 mg tablet 250 mg PO DIRECTED #6 tabs 11/15/21 cefdinir 300 mg capsule 300 mg PO BID #14 caps 11/15/21 dexamethasone 4 mg tablet 4 mg PO BID #14 tabs 11/15/21 ergocalciferol (vitamin D2) 1,250 50,000 unit PO WEEKLY 11/15/21 mcg (50,000 unit) capsule gabapentin 300 mg capsule 300 mg PO TID NEUROPATHY #90 caps 11/15/21 insulin lispro 100 unit/mL 0 unit (0 mL) SQ ACHS 11/15/21 subcutaneous solution ipratropium 0.5 mg-albuterol 3 mg 3 ml IH TIDRT 11/15/21 (2.5 mg base)/3 mL nebulization soln levothyroxine 50 mcg tablet 75 mcg PO DAILY THYROID #30 tabs 11/15/21 zinc sulfate 50 mg zinc (220 mg) 220 mg PO DAILY 11/15/21 capsule ondansetron 4 mg disintegrating 4 mg PO TIDP PRN Nausea And 04/26/22 tablet Vomiting #10 tabs polyethylene glycol 3350 17 17 g PO DAILY 14 days #238 grams 04/15/23 gram/dose oral powder (Miralax) Allergies Allergy/AdvReac Type Severity Reaction Status Date / Time amantadine Allergy Unknown I-HIVES Verified 06/26/21 08:03 baclofen Allergy Unknown S-SWELLS-OR Verified 06/26/21 08:03 AL/THROAT promethazine Allergy Unknow
--- NOTE | 2023-04-15 11:25 | PC.NURSE ---
pt tolerated enema administration. pt placed onto bed velásquez at this time and covered with warm blanket for privacy and comfort
--- NOTE | 2023-04-15 11:56 | CT_ITS ---
FINAL REPORT CLINICAL HISTORY: fecal impaction COMPARISON: 04/26/2022 FINDINGS: CT OF THE ABDOMEN AND PELVIS WITH CONTRAST Axial CT images of the abdomen and pelvis were obtained after the administration of oral and IV contrast. Coronal and sagittal reformatted images were also obtained and reviewed. This study was performed with techniques to keep radiation doses as low as reasonably achievable (ALARA). Individualized dose reduction techniques using automated exposure control or adjustment of mA and/or kV according to the patient's size were employed. Abdomen: There is a large hiatal hernia noted which was also present on the prior CT of April 2022. There is a small left pleural effusion and bibasilar atelectasis present. The gallbladder has been surgically removed. There is mild biliary ductal dilatation as noted on the prior CT, probably post cholecystectomy change. The heart is normal in size. The liver has an unremarkable appearance, without evidence of mass. The spleen is unremarkable. No adrenal mass is present. The pancreas has an unremarkable appearance. There are multiple borderline retroperitoneal nodes, stable since the prior CT, favor reactive. There is mild adenopathy in the small bowel mesentery also stable, most likely a reactive adenitis. The kidneys are normal, without evidence of mass or hydronephrosis. The aorta is normal in caliber. There is no free fluid or adenopathy. No mass or abnormal fluid collection is seen. Pelvis: The appendix is not well-visualized. The urinary bladder is unremarkable. Sigmoid diverticulosis is once again noted. There is a moderate to large amount of retained stool present with presacral mild fat stranding that may represent stercoral colitis. There is no evidence of bowel obstruction. Postoperative changes are once again seen in the right proximal femur. IMPRESSION: Moderate to large amount of retained stool in the colon with mild presacral fat stranding, may represent mild stercoral colitis. Small left pleural effusion, bibasilar atelectasis, and large hiatal hernia. Mild adenopathy in the small bowel mesentery and retroperitoneal areas, unchanged since the prior CT and likely reactive. Reviewed, Interpreted and Dictated by Jalil Montgomery III, MD Transcribed by Cookie Dahl Authenticated and [facility]
--- NOTE | 2023-04-15 12:09 | PC.NURSE ---
ROUNDED ON PATIENT, PATIENT GIVEN BLANKET FAMILY AT BEDSIDE NO OTHER NEEDS AT THIS TIME
[2023-04-15 12:34] LABS: Eosinophils # 0.7 K/mm3 (0.0-0.4); Eosinophils % 18.1 % (0.1-12.0); Hematocrit 36.8 % (37.0-47.0); Hemoglobin 12.1 g/dL (12.2-16.2); Lymphocytes # 0.9 K/mm3 (0.7-4.5); Lymphocytes % 23.9 % (10-50); Mean Corpuscular HGB Conc 32.8 g/dL (31.8-35.4); Mean Corpuscular Hemoglobin 26.7 pg (27.0-31.2); Mean Corpuscular Volume 81.3 fl (81-99); Mean Platelet Volume 11.9 fl (7.4-10.4); Monocytes # 0.4 K/mm3 (0.1-1.0); Monocytes % 10.9 % (1.7-9.3); Neutrophils # 1.7 K/mm3 (1.8-7.8); Neutrophils % 46.1 % (37.0-80.0); Platelet Count 113 K/mm3 (142-424); Red Blood Count 4.53 M/mm3 (4.20-5.40); Red Cell Distribution Width 13.1 % (11.5-17.5); White Blood Count 3.6 K/mm3 (4.8-10.8)
[2023-04-15 12:44] LABS: Alanine Aminotransferase 12 U/L (12-78); Albumin Level 3.5 g/dl (3.5-5.0); Albumin/Globulin Ratio 1.2 (1.1-1.8); Alkaline Phosphatase 62 U/L (38-126); Amylase 80 U/L (30-110); Anion Gap 12.8 mEq/L (5-15); Aspartate Amino Transferase 39 U/L (14-36); Bilirubin,Total 0.9 mg/dl (0.2-1.3); Blood Urea Nitrogen 8 mg/dl (7-17); Calcium 8.5 mg/dl (8.4-10.2); Carbon Dioxide 26 mmol/L (22.0-30.0); Chloride 92 mmol/L (98-107); Creatinine Clearance Estimated 40 mL/min (50-200); Estimated Glomerular Filt Rate 81 ml/min (>60); GFR (African American) 98 ML/MIN (>60); Globulin 2.9 g/dL (1.3-3.2); Glucose 92 mg/dl (74-100); Lipase 121 U/L (23-300); Potassium 3.8 mmoL/L (3.5-5.1); Sodium 127 mmol/L (136-145); Total Protein,Serum 6.4 g/dl (6.3-8.2)
--- NOTE | 2023-04-15 12:45 | PC.NURSE ---
pt given more warm blankets, no other needs at this time. Sons at BS
--- NOTE | 2023-04-15 14:02 | PC.NURSE ---
PT TO CT
== END 2023-04-15 16:30 | disposition home or self-care (01) ==
PROVIDERS: Emergency Provider Emergency Medicine; PCP Nurse Practitioner Family
DX: R10.30 Lower abdominal pain, unspecified (principal); K59.00 Constipation, unspecified
CPT/HCPCS: 74177; 80053; 82150; 83690; 85025; 99284; 99285; Q9967

== ENCOUNTER 2023-04-27 13:56 | Emergency (ER) | payer MEDICARE, SELFPAY ==
[2023-04-27 14:02] VITALS: BP 138/67; PULSE 73; O2SAT 95
[2023-04-27 14:04] VITALS: BP 138/67; PULSE 73; RESP 18; O2SAT 95; BMI 23.4
--- NOTE | 2023-04-27 14:10 | HMH.EDGENADL ---
Discharge Plan Disposition Patient Disposition: Home, Self-Care Condition: Fair Prescriptions Prescriptions: New lactulose 20 gram/30 mL solution 20 g PO BID Qty: 2880 0RF Discontinued polyethylene glycol 3350 [Miralax] 17 gram/dose powder 17 g PO DAILY 14 Days Qty: 238 0RF No Action ondansetron 4 MG tablet,disintegrating 4 mg PO TIDP PRN (Reason: Nausea And Vomiting) Qty: 10 0RF ondansetron HCl 4 MG tablet 4 mg PO TIDP PRN (Reason: Nausea And Vomiting) mirtazapine 30 MG tablet 30 mg PO HS acetaminophen 650 MG suppository 650 mg RC Q6HP PRN (Reason: Fever Or Mild Pain) 0RF ipratropium-albuterol 3 ML solution for nebulization 3 ml IH TIDRT 0RF ascorbic acid (vitamin C) 500 MG tablet 500 mg PO QID 0RF ergocalciferol (vitamin D2) 50,000 UNIT capsule 50,000 unit PO WEEKLY 0RF insulin lispro 100 UNIT/ML solution 0 unit SQ ACHS 0RF zinc sulfate 220 MG capsule 220 mg PO DAILY 0RF azithromycin 250 MG tablet 250 mg PO DIRECTED Qty: 6 0RF Rx Instructions: Take two (2) tablets on day #1, then one (1) tablet day #2 thru #5 dexamethasone 4 MG tablet 4 mg PO BID Qty: 14 0RF cefdinir 300 MG capsule 300 mg PO BID Qty: 14 0RF levothyroxine 50 MCG tablet 75 mcg PO DAILY Qty: 30 0RF gabapentin 300 MG capsule 300 mg PO TID Qty: 90 0RF Referrals Follow up/Referrals: Katja Aldana [Primary Care Provider] - See instructions Clinical Impressions Clinical Impression: Constipation Instructions Patient Instructions: DI for Acute Abdominal Pain Print Language Print Language: Sinhala Discharge ED Provider: Rodriguez Winn Adult HPI General Chief complaint: Abdominal Pain Stated complaint: Constipation Time Seen by Provider: 04/27/23 14:10 History of Present Illness HPI narrative: The patient reports that she was seen 1 week ago and had a bowel movement that had not and had a bowel movement for the next 2 days. The patient reports that she has been unable to have a bowel movement since then. complaint: Constipation Onset (ago): day(s) (6) Severity: moderate Relieving factors: none Exacerbating factors: none Associated symptoms: negative chest pain or nausea/vomiting Related Data Home Medications Medication Instructions Recorded Confirmed mirtazapine 30 mg tablet 30 mg PO HS SLEEP 11/11/21 11/11/21 ondansetron HCl 4 mg tablet 4 mg PO TIDP PRN Nausea And 11/11/21 11/11/21 Vomiting Previous Rx's Medication Instructions Recorded acetaminophen 650 mg rectal 650 mg RC Q6HP PRN Fever Or Mild 11/15/21 suppository Pain ascorbic acid (vitamin C) 500 mg 500 mg PO QID 11/15/21 tablet azithromycin 250 mg tablet 250 mg PO DIRECTED #6 tabs 11/15/21 cefdinir 300 mg capsule 300 mg PO BID #14 caps 11/15/21 dexamethasone 4 mg tablet 4 mg PO BID #14 tabs 11/15/21 ergocalciferol (vitamin D2) 1,250 50,000 unit PO WEEKLY 11/15/21 mcg (50,000 unit) capsule gabapentin 300 mg capsule 300 mg PO TID NEUROPATHY #90 caps 11/15/21 insulin lispro 100 unit/mL 0 unit (0 mL) SQ ACHS 11/15/21 subcutaneous solution ipratropium 0.5 mg-albuterol 3 mg 3 ml IH TIDRT 11/15/21 (2.5 mg base)/3 mL nebulization soln levothyroxine 50 mcg tablet 75 mcg PO DAILY THYROID #30 tabs 11/15/21 zinc sulfate 50 mg zinc (220 mg) 220 mg PO DAILY 11/15/21 capsule ondansetron 4 mg disintegrating 4 mg PO TIDP PRN Nausea And 04/26/22 tablet Vomiting #10 tabs lactulose 20 gram/30 mL oral 20 g (30 mL) PO BID #2,880 mL 04/27/23 solution Allergies Allergy/AdvReac Type Severity Reaction Status Date / Time amantadine Allergy Unknown I-HIVES Verified 06/26/21 08:03 baclofen Allergy Unknown S-SWELLS-OR Verified 06/26/21 08:03 AL/THROAT promethazine Allergy Unknown I-HIVES Verified 06/26/21 08:03 CAN TAKE SHOT NOT TABLET rosuvastatin Allergy Unknown I-ITCHING Verified 06/26/21 08:03 simvastatin Allergy Unknown S-SWELLS-OR
--- NOTE | 2023-04-27 14:40 | PC.NURSE ---
PT HAD A LARGE BOWL MOVEMENT, CLAENED PT UP HELPED HER GET IN BED AND COVER UP
--- NOTE | 2023-04-27 14:45 | PC.NURSE ---
PT RECEIVED A WARM BLANKET
[2023-04-27 15:05] VITALS: BP 135/62; PULSE 70; RESP 16; TEMP 36.4; O2SAT 96
== END 2023-04-27 15:05 | disposition home or self-care (01) ==
PROVIDERS: Emergency Provider Emergency Medicine; PCP Nurse Practitioner Family
DX: R10.9 Unspecified abdominal pain (principal); K59.00 Constipation, unspecified
CPT/HCPCS: 99283; 99284

== ENCOUNTER 2023-05-08 17:15 | Emergency (ER) | payer MEDICARE, SELFPAY ==
[2023-05-08] VITALS (7 sets, daily range): BP systolic 94–131; BP diastolic 51–74; PULSE 71–117; RESP 16–18; TEMP 38.1–38.5; O2SAT 92–95; BMI 26.5
[2023-05-08 17:09] LABS: Microscopic, Urine URINE MICROSCOPIC (MICROSCOPIC)
[2023-05-08 17:12] LABS: Appearance,Urine SL CLOUDY (Clear); Bilirubin,Urine Negative (Negative); Blood, Urine 2+ (Negative); Color,Urine YELLOW (Yellow); Glucose,Urine (UA) Negative (Negative); Ketones,Urine Negative (Negative); Leukocyte Esterase,Urine 3+ (Negative); Nitrate,Urine POSITIVE (Negative); Protein,Urine TRACE (Negative); Specific Gravity, Urine <= 1.005 (1.005-1.030); Urobilinogen,Urine 0.2 EU/dl (0.2)
--- NOTE | 2023-05-08 17:17 | CT_ITS ---
PROCEDURE INFORMATION: Exam: CT Abdomen And Pelvis With Contrast Exam date and time: 05/08/2023 6:02 PM Age: 78 years old Clinical indication: Abdominal pain; Generalized; Additional info: Flank pain, fever TECHNIQUE: Imaging protocol: Computed tomography of the abdomen and pelvis with contrast. Radiation optimization: All CT scans at this facility use at least one of these dose optimization techniques: automated exposure control; mA and/or kV adjustment per patient size (includes targeted exams where dose is matched to clinical indication); or iterative reconstruction. Contrast material: ISOVUE; Contrast volume: 75 ml; Contrast route: IV; REPORTING DATA: Count of CT and Cardiac NM exams in prior 12 months: This patient has received [address] and 0 known cardiac nuclear medicine studies in the 12 months prior to the current study. COMPARISON: CT ABDOMEN PELVIS W CON 04/15/2023 2:08 PM FINDINGS: Lungs: Partial atelectasis of the bilateral lower lobes. Pleural spaces: Minimal left pleural effusion. Liver: Mild periportal edema. No focal hepatic abnormality. Gallbladder and bile ducts: Gallbladder is surgically absent. Mild diffuse biliary ductal dilation. Pancreas: Normal. No ductal dilation. Spleen: Normal. No splenomegaly. Adrenal glands: Normal. No mass. Kidneys and ureters: There appears to be mild wall thickening and enhancement of the right renal pelvis raising concern for urinary tract infection. No evidence of nini pyelonephritis or hydronephrosis. Stomach and bowel: Stable findings of large hiatal hernia with the proximal stomach in the right lower chest. Appendix: No evidence of appendicitis. Intraperitoneal space: Unremarkable. No free air. No significant fluid collection. Vasculature: Moderate atherosclerotic calcification throughout the aorta and iliac arteries. No evidence aortic dissection. Stable mild fusiform dilation of the infrarenal abdominal aorta measuring 2.3 cm in greatest diameter. Methylmethacrylate again noted in lumbar vein at the level of prior vertebroplasty in the upper lumbar region. Lymph nodes: Unremarkable. No enlarged lymph nodes. Urinary bladder: Mild apparent bladder wall thickening, possibly due to underdistention. Reproductive: Unremarkable as visualized. Bones/joints: Mildly sclerotic appearance of osseous structures and mild degenerative changes throughout the lumbar spine. No acute fracture or vertebral body compression. Orthopedic hardware noted in the proximal right femur. Soft tissues: Unremarkable. IMPRESSION: 1. Findings concerning for urinary tract infection including mild apparent bladder wall thickening and right renal pelvis thickening. No evidence of nini pyelonephritis. 2. Mild nonspecific periportal edema in the liver 3. Stable minimal left pleural effusion and large hiatal hernia noted in the lower chest.
[2023-05-08 17:23] LABS: Bacteria,Urine 3+ /lpf; Squamous Epithelial Cell,Urine Occasional #/hpf (0-5); WBC,Urine 20-50 #/hpf (0-3)
[2023-05-08 17:40] LABS: Chloride 90 mmol/L (98-107); Sodium 122 mmol/L (136-145)
[2023-05-08 17:41] LABS: Potassium 3.4 mmoL/L (3.5-5.1)
--- NOTE | 2023-05-08 17:41 | HMH.EDGENADL ---
Discharge Plan Disposition Patient Disposition: Home, Self-Care Condition: Good Prescriptions Prescriptions: New levofloxacin 750 mg tablet 750 mg PO DAILY 7 Days Qty: 7 0RF No Action ondansetron 4 MG tablet,disintegrating 4 mg PO TIDP PRN (Reason: Nausea And Vomiting) Qty: 10 0RF lactulose 20 gram/30 mL solution 20 g PO BID Qty: 2880 0RF ondansetron HCl 4 MG tablet 4 mg PO TIDP PRN (Reason: Nausea And Vomiting) mirtazapine 30 MG tablet 30 mg PO HS acetaminophen 650 MG suppository 650 mg RC Q6HP PRN (Reason: Fever Or Mild Pain) 0RF ipratropium-albuterol 3 ML solution for nebulization 3 ml IH TIDRT 0RF ascorbic acid (vitamin C) 500 MG tablet 500 mg PO QID 0RF ergocalciferol (vitamin D2) 50,000 UNIT capsule 50,000 unit PO WEEKLY 0RF insulin lispro 100 UNIT/ML solution 0 unit SQ ACHS 0RF zinc sulfate 220 MG capsule 220 mg PO DAILY 0RF azithromycin 250 MG tablet 250 mg PO DIRECTED Qty: 6 0RF Rx Instructions: Take two (2) tablets on day #1, then one (1) tablet day #2 thru #5 dexamethasone 4 MG tablet 4 mg PO BID Qty: 14 0RF cefdinir 300 MG capsule 300 mg PO BID Qty: 14 0RF levothyroxine 50 MCG tablet 75 mcg PO DAILY Qty: 30 0RF gabapentin 300 MG capsule 300 mg PO TID Qty: 90 0RF Referrals Follow up/Referrals: Provider,Referral, MD [Referring] - See instructions Activity Restrictions/Add. Instructions Additional Instructions/Restrictions: You were evaluated in the emergency department today. Please chicken picker your prescription for antibiotics and take the full course as prescribed. Follow-up with your primary care provider over the next 3 days for reassessment. Return to the emergency department for new or worsening symptoms. Take Tylenol and ibuprofen at home as needed for pain and fever. Clinical Impressions Clinical Impression: UTI (urinary tract infection) Instructions Patient Instructions: DI for Urinary Tract Infection (UTI), DI for Fever (Symptom) -- Adult Discharge ED Provider: Yodit Noel General Adult HPI General Chief complaint: Fever Stated complaint: weakness Time Seen by Provider: 05/08/23 17:15 Mode of Arrival: EMS Source of Information: EMS Limitations: No Limitations Description of Symptoms (Recalled from ER Triage Doc. by RN): PT BROUGHT IN VIA EMS FOR FEVER. PT REPORTS KIDNEY PAIN History of Present Illness HPI narrative: This patient is a 78-year-old female with a history of CVA, chronic constipation, and UTI presenting to the emergency department for evaluation with concern for fever, bilateral flank pain, and dysuria. She states that her symptoms initially started a week ago but worsened today with new fever. She saw her primary care provider yesterday and notes that they told her something was wrong with her kidneys, but she is unable to further specify. She states she is also been having issues with constipation, but she has had bowel movements today. She denies any other concerns. Related Data Home Medications Medication Instructions Recorded Confirmed mirtazapine 30 mg tablet 30 mg PO HS SLEEP 11/11/21 11/11/21 ondansetron HCl 4 mg tablet 4 mg PO TIDP PRN Nausea And 11/11/21 11/11/21 Vomiting Previous Rx's Medication Instructions Recorded acetaminophen 650 mg rectal 650 mg RC Q6HP PRN Fever Or Mild 11/15/21 suppository Pain ascorbic acid (vitamin C) 500 mg 500 mg PO QID 11/15/21 tablet azithromycin 250 mg tablet 250 mg PO DIRECTED #6 tabs 11/15/21 cefdinir 300 mg capsule 300 mg PO BID #14 caps 11/15/21 dexamethasone 4 mg tablet 4 mg PO BID #14 tabs 11/15/21 ergocalciferol (vitamin D2) 1,250 50,000 unit PO WEEKLY 11/15/21 mcg (50,000 unit) capsule gabapentin 300 mg capsule 300 mg PO TID NEUROPATHY #90 caps 11/15/21 insulin lispro 100 unit/mL 0 unit (0 mL) SQ ACHS 11/15/21 subcutaneous solution ipratropium 0.5 mg-albuterol 3 mg 3 ml IH TIDRT 11/15/21
[2023-05-08 17:43] LABS: Alanine Aminotransferase 15 U/L (12-78); Alkaline Phosphatase 80 U/L (38-126); Anion Gap 11.4 mEq/L (5-15); Aspartate Amino Transferase 34 U/L (14-36); Bilirubin,Total 1.3 mg/dl (0.2-1.3); Blood Urea Nitrogen 6 mg/dl (7-17); Carbon Dioxide 24 mmol/L (22.0-30.0); Creatinine Clearance Estimated 49 mL/min (50-200); Estimated Glomerular Filt Rate 69 ml/min (>60); GFR (African American) 84 ML/MIN (>60); Lipase 99 U/L (23-300)
[2023-05-08 17:44] LABS: Albumin Level 3.5 g/dl (3.5-5.0); Albumin/Globulin Ratio 1.2 (1.1-1.8); Basophils % 0.2 % (0.1-2.0); Calcium 8.5 mg/dl (8.4-10.2); Eosinophils # 0.5 K/mm3 (0.0-0.4); Eosinophils % 7.2 % (0.1-12.0); Glucose 95 mg/dl (74-100); Hematocrit 32.8 % (37.0-47.0); Hemoglobin 10.9 g/dL (12.2-16.2); Lactic Acid 1.7 mmol/L (0.7-2.1); Lymphocytes # 0.6 K/mm3 (0.7-4.5); Lymphocytes % 8.9 % (10-50); Mean Corpuscular HGB Conc 33.1 g/dL (31.8-35.4); Mean Corpuscular Hemoglobin 26.8 pg (27.0-31.2); Mean Corpuscular Volume 80.8 fl (81-99); Mean Platelet Volume 9.5 fl (7.4-10.4); Monocytes # 0.2 K/mm3 (0.1-1.0); Monocytes % 2.2 % (1.7-9.3); Neutrophils # 5.5 K/mm3 (1.8-7.8); Neutrophils % 81.5 % (37.0-80.0); Platelet Count 170 K/mm3 (142-424); Red Blood Count 4.05 M/mm3 (4.20-5.40); Red Cell Distribution Width 12.5 % (11.5-17.5); Total Protein,Serum 6.5 g/dl (6.3-8.2); White Blood Count 6.8 K/mm3 (4.8-10.8)
--- NOTE | 2023-05-08 17:54 | PC.NURSE ---
PT TO CT
--- NOTE | 2023-05-08 18:09 | PC.NURSE ---
PT RETURNED FROM CT
--- NOTE | 2023-05-08 18:45 | PC.NURSE ---
Rounded on patient and family; rechecked temperature (101.3 rectal temp). Patient's depend was dry and patient was readjusted in the bed. Call adams within reach nothing needed at this time
--- NOTE | 2023-05-08 19:00 | PC.NURSE ---
Reported handed off to operations supervisor 2nd shift
== END 2023-05-08 20:57 | disposition home or self-care (01) ==
PROVIDERS: Emergency Provider Emergency Medicine; PCP Nurse Practitioner Family
DX: N39.0 Urinary tract infection, site not specified (principal); R10.9 Unspecified abdominal pain; Z86.73 Personal history of transient ischemic attack (TIA), and cerebral infarction without residual deficits
CPT/HCPCS: 74177; 80053; 81001; 83605; 83690; 85025; 87086; 87088; 87186; 96361; 96365; 96375; 99285; J0696; J2405; Q9967

== ENCOUNTER 2023-05-10 11:18 | Inpatient (IN) | payer MEDICARE, SELFPAY ==
[2023-05-10] VITALS (13 sets, daily range): BP systolic 94–132; BP diastolic 49–68; PULSE 57–78; RESP 16–20; TEMP 34.1–37.2; O2SAT 95–99; BMI 22.3
--- NOTE | 2023-05-10 12:08 | CT_ITS ---
PROCEDURE INFORMATION: Exam: CT Abdomen And Pelvis With Contrast Exam date and time: 05/10/2023 1:56 PM Age: 78 years old Clinical indication: Abdominal pain; Generalized; Additional info: Abdominal pain w/ new n/v TECHNIQUE: Imaging protocol: Computed tomography of the abdomen and pelvis with contrast. Radiation optimization: All CT scans at this facility use at least one of these dose optimization techniques: automated exposure control; mA and/or kV adjustment per patient size (includes targeted exams where dose is matched to clinical indication); or iterative reconstruction. Contrast material: ISOVUE; Contrast volume: 75 ml; Contrast route: IV; REPORTING DATA: Count of CT and Cardiac NM exams in prior 12 months: This patient has received 2 known CTs and 0 known cardiac nuclear medicine studies in the 12 months prior to the current study. COMPARISON: CT ABDOMEN PELVIS W CON 05/08/2023 6:02 PM FINDINGS: Lungs: Bilateral compressive atelectasis. Pleural spaces: Small left pleural effusion. Heart: Cardiomegaly attributable to multi cardiac chamber enlargement. Diaphragm: Hiatal hernia noted. Liver: No focal hepatic lesions. Gallbladder and bile ducts: There has been a cholecystectomy. Pancreas: No peripancreatic fluid stranding. No main pancreatic ductal dilation. Spleen: Multiple splenic granulomas. No splenomegaly. Adrenal glands: The adrenal glands are normal. Kidneys and ureters: Nephrograms are symmetric. No nephrolithiasis or hydroureteronephrosis on either side. No solid lesions Stomach and bowel: No bowel wall thickening or distention. Appendix: No evidence of appendicitis. Intraperitoneal space: Unremarkable. No free air. No significant fluid collection. Vasculature: The aorta demonstrates severe atherosclerotic calcification and ectasia. Lymph nodes: Unremarkable. No enlarged lymph nodes. Urinary bladder: Urinary bladder is unremarkable. Reproductive: Unremarkable as visualized. Bones/joints: Status post L3-L4 kyphoplasty. Diffuse osteopenia. No acute osseous abnormality. There is a right femoral intramedullary lee. Soft tissues: Unremarkable. IMPRESSION: 1. No acute abnormality in the abdomen or pelvis 2. Large hiatal hernia and small left pleural efussion.
[2023-05-10 12:11] LABS: Microscopic, Urine URINE MICROSCOPIC (MICROSCOPIC)
--- NOTE | 2023-05-10 12:11 | CT_ITS ---
PROCEDURE INFORMATION: Exam: CT Head Without Contrast Exam date and time: 05/10/2023 1:53 PM Age: 78 years old Clinical indication: Altered mental status/memory loss; Additional info: Increased confusion TECHNIQUE: Imaging protocol: Computed tomography of the head without contrast. Radiation optimization: All CT scans at this facility use at least one of these dose optimization techniques: automated exposure control; mA and/or kV adjustment per patient size (includes targeted exams where dose is matched to clinical indication); or iterative reconstruction. REPORTING DATA: Count of CT and Cardiac NM exams in prior 12 months: This patient has received 2 known CTs and 0 known cardiac nuclear medicine studies in the 12 months prior to the current study. COMPARISON: CT HEAD/BRAIN WO CON 04/26/2022 11:06 AM FINDINGS: Brain: Global cerebral volume loss. No acute intracranial hemorrhage. No intra- or extra-axial fluid collection. No mass effect or midline shift. Periventricular and subcortical white matter hypodensities related to chronic hypertensive microvascular disease, not significantly changed from prior exam. No evidence of acute/subacute large vascular territory infarct. Cerebral ventricles: No hydrocephalus. Paranasal sinuses: No air fluid levels in the visualized paranasal sinuses. Mastoid air cells: Visualized mastoid air cells are well aerated. Orbital cavities: Bilateral lens replacement. Globes and orbital structures are otherwise unremarkable. Bones/joints: No acute calvarial or skull base fracture. Soft tissues: Unremarkable. IMPRESSION: 1. No evidence of acute intracranial abnormality. 2. Additional chronic ancillary findings are unchanged from prior exam, as detailed above.
[2023-05-10 12:12] LABS: Appearance,Urine CLEAR (Clear); Bilirubin,Urine Negative (Negative); Blood, Urine 2+ (Negative); Color,Urine YELLOW (Yellow); Glucose,Urine (UA) Negative (Negative); Ketones,Urine 1+ (Negative); Leukocyte Esterase,Urine 1+ (Negative); Nitrate,Urine Negative (Negative); Protein,Urine TRACE (Negative); Urobilinogen,Urine 0.2 EU/dl (0.2)
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
[2023-05-10 12:39] LABS: Bacteria,Urine Trace /lpf; Squamous Epithelial Cell,Urine Occasional #/hpf (0-5)
--- NOTE | 2023-05-10 12:45 | PC.NURSE ---
lab aware of pt needing blood draw
[2023-05-10 13:21] LABS: Eosinophils # 0.2 K/mm3 (0.0-0.4); Eosinophils % 7.5 % (0.1-12.0); Hemoglobin 10.5 g/dL (12.2-16.2); Lymphocytes # 0.3 K/mm3 (0.7-4.5); Mean Corpuscular Hemoglobin 26.5 pg (27.0-31.2); Mean Corpuscular Volume 83.1 fl (81-99); Mean Platelet Volume 10.7 fl (7.4-10.4); Monocytes # 0.2 K/mm3 (0.1-1.0); Monocytes % 11.7 % (1.7-9.3); Neutrophils # 1.3 K/mm3 (1.8-7.8); Neutrophils % 63.8 % (37.0-80.0); Platelet Count 84 K/mm3 (142-424); Red Blood Count 3.97 M/mm3 (4.20-5.40); Red Cell Distribution Width 13.4 % (11.5-17.5)
[2023-05-10 13:25] LABS: Chloride 91 mmol/L (98-107)
[2023-05-10 13:26] LABS: Potassium 3.5 mmoL/L (3.5-5.1); Sodium 121 mmol/L (136-145)
[2023-05-10 13:28] LABS: Alanine Aminotransferase 18 U/L (12-78); Alkaline Phosphatase 69 U/L (38-126); Anion Gap 17.5 mEq/L (5-15); Aspartate Amino Transferase 57 U/L (14-36); Bilirubin,Total 0.6 mg/dl (0.2-1.3); Blood Urea Nitrogen 13 mg/dl (7-17); Calcium 7.9 mg/dl (8.4-10.2); Carbon Dioxide 16 mmol/L (22.0-30.0); Creatinine Clearance Estimated 39 mL/min (50-200); Estimated Glomerular Filt Rate 48 ml/min (>60); GFR (African American) 58 ML/MIN (>60); Glucose 108 mg/dl (74-100); Lipase 53 U/L (23-300)
--- NOTE | 2023-05-10 13:28 | PC.NURSE ---
pt sugar 117
[2023-05-10 13:29] LABS: POC Glucose,Bedside 117 (70-110)
[2023-05-10 13:29] LABS: Albumin Level 2.9 g/dl (3.5-5.0); Albumin/Globulin Ratio 1.1 (1.1-1.8); Globulin 2.7 g/dL (1.3-3.2); Lactic Acid 1.7 mmol/L (0.7-2.1); Total Protein,Serum 5.6 g/dl (6.3-8.2)
--- NOTE | 2023-05-10 13:29 | PC.NURSE ---
family at bs
--- NOTE | 2023-05-10 13:29 | PC.NURSE ---
pt needed nothing , sons at bs also wanted to know if she was going to receive any fluids i let them know i would ask doctor and let them know, charge nurse went right after and started fluids
[2023-05-10 13:35] LABS: Magnesium 1.6 mg/dl (1.6-2.3)
--- NOTE | 2023-05-10 14:30 | PC.NURSE ---
HS aware of admission
--- NOTE | 2023-05-10 14:40 | PC.NURSE ---
pt was incontinent and was cleaned up. Re-positioned in the bed. Warm blankets applied. Family at BS
--- NOTE | 2023-05-10 15:11 | PC.NURSE ---
report called to dolores on med surg
--- NOTE | 2023-05-10 16:52 | PC.NURSE ---
upon arrival to floor patient rectal temp noted to be 93.3. patient noted to be very pale.
[2023-05-10 16:58] LABS: Chloride 92 mmol/L (98-107); Sodium 121 mmol/L (136-145)
[2023-05-10 16:59] LABS: Potassium 4.1 mmoL/L (3.5-5.1)
[2023-05-10 17:01] LABS: Blood Urea Nitrogen 12 mg/dl (7-17); Creatinine Clearance Estimated 40 mL/min (50-200); Estimated Glomerular Filt Rate 60 ml/min (>60); GFR (African American) 73 ML/MIN (>60)
[2023-05-10 17:02] LABS: Anion Gap 15.1 mEq/L (5-15); Calcium 7.8 mg/dl (8.4-10.2); Carbon Dioxide 18 mmol/L (22.0-30.0); Glucose 90 mg/dl (74-100); Magnesium 1.5 mg/dl (1.6-2.3); Phosphorous 3.7 mg/dl (2.5-4.5)
--- NOTE | 2023-05-10 18:28 | PC.NURSE ---
patient and patient family unable to relay medications. did go over external med history and placed in summary. family stated they would bring bottle of meds in morning. educated on medicare obs and need for them. patient is noted to be pale. does cry out in pain with movement to legs. noted to be hypothermic and has gradually increased since placing kailey paws.
--- NOTE | 2023-05-10 18:53 | PC.NURSE ---
patient did require multiple sticks for blood work upon admission. labs sent down.
--- NOTE | 2023-05-10 18:54 | EXP.HP ---
History of Present Illness *Admission Date: 05/10/23 *Reason for visit:: Generalized weakness and *History of present illness: Patient is a 78-year-old female who presented to ER on 05/10/2023 with altered mental status, combativeness, weakness and lethargy. History obtained from review of records from ER and discussing with ER physician, no family member at bedside when I saw the patient. Per history patient was found to have worsening mental status , confusion and agitation today for which EMS was called. EMS noticed hypoglycemic event and was given D50 and the scene. Her blood sugar was 34 at that time. It improved to 150 after D50. Patient was recently seen in the ER and was sent home on p.o. antibiotics for suspected urinary tract infection. Today in the ER patient was found to have a sodium of 121 compared to 138 on 04/26/2022 Her anion gap was elevated to 17.5. Her bicarb was 16., Lactic acid was 1.7 Her white cell count was 2 with hemoglobin of 10.5 and hematocrit of 33 and platelet of 84. She does have chronic pancytopenia and counts are close to her baseline. Head CT on 05/10/2023 did not show any acute intracranial abnormality. Abdomen and pelvis CT showed large hiatal hernia and small left pleural effusion -On arrival to patient's room patient was found to have hypothermia episode with temperature of 93.3 for which a Paul hugger was initiated which improved her core temperature She was mildly hypotensive on arrival with a blood pressure of 92/52 that improved with IV fluids PFSH PFSH Disclaimer: The information contained in this section may have been updated after the patient was seen, as this information can be updated by other users. Medical History Stroke Surgical History H/O: knee surgery History of hip replacement Family History Other Alzheimer disease Cancer Colon cancer Diabetes Parkinson disease Social History Smoking Status: Never smoker second hand exposure: No alcohol intake: never counseling provided: provider counseling substance use type: denies use current occupational status: retired Travel in the last 8 weeks: None household members: spouse and children housing: house caffeine: Yes Review of Systems Review of Systems Review of systems:: unable to obtain Constitutional Constitutional: Denies headache(s) and Reports weakness ENT Ears, Nose, Mouth, and Throat: Denies dizziness and Denies headache(s) *Musculoskeletal Musculoskeletal: Denies numbness and Denies tingling *Neurologic Neurologic: Denies dizziness, Denies headache(s), Denies numbness, Denies tingling and Reports weakness Meds Home Medications and Allergies Home Medications Medication Instructions Recorded Confirmed Type mirtazapine 30 mg tablet 30 mg PO HS SLEEP 11/11/21 11/11/21 History ondansetron HCl 4 mg tablet 4 mg PO TIDP PRN Nausea And 11/11/21 11/11/21 History Vomiting acetaminophen 650 mg rectal 650 mg RC Q6HP PRN Fever Or Mild 11/15/21 Rx suppository Pain ascorbic acid (vitamin C) 500 mg 500 mg PO QID 11/15/21 Rx tablet azithromycin 250 mg tablet 250 mg PO DIRECTED #6 tabs 11/15/21 Rx cefdinir 300 mg capsule 300 mg PO BID #14 caps 11/15/21 Rx dexamethasone 4 mg tablet 4 mg PO BID #14 tabs 11/15/21 Rx ergocalciferol (vitamin D2) 1,250 50,000 unit PO WEEKLY 11/15/21 Rx mcg (50,000 unit) capsule gabapentin 300 mg capsule 300 mg PO TID NEUROPATHY #90 caps 11/15/21 05/10/23 Rx insulin lispro 100 unit/mL 0 unit (0 mL) SQ ACHS 11/15/21 Rx subcutaneous solution ipratropium 0.5 mg-albuterol 3 mg 3 ml IH TIDRT 11/15/21 Rx (2.5 mg base)/3 mL nebulization soln levothyroxine 50 mcg tablet 75 mcg PO DAILY THYROID #30 tabs 11/15/21 Rx zinc sulfate 50 mg zinc (22
[2023-05-10 19:06] LABS: POC Glucose,Bedside 88 (70-110)
--- NOTE | 2023-05-10 19:42 | PC.NURSE ---
patient temp 98.1 kailey chely suero
[2023-05-10 20:46] LABS: POC Glucose,Bedside 106 (70-110)
[2023-05-10 22:07] LABS: Sodium 122 mmol/L (136-145)
--- NOTE | 2023-05-10 23:57 | PC.NURSE ---
THIS RN AND MANDA VERDUGO HAVE BEEN IN PT'S ROOM DUE TO PT SCREAMING. PT STATED THAT HER IV WAS HURTING. THIS RN HAS FLUSHED THE IV AND THERE ARE NO SIGNS OF INFILTRATION. MANDA VERDUGO HAS PLACED AN ICE PACK ON PT'S IV TO HELP WITH PAIN.
[2023-05-11] VITALS: BP 106/44; PULSE 70; RESP 16; TEMP 36.8; O2SAT 93
[2023-05-11 00:42] LABS: Sodium 124 mmol/L (136-145)
[2023-05-11 04:00] VITALS: BP 116/53; PULSE 66; RESP 17; TEMP 36.8; O2SAT 95; BMI 19.1
--- NOTE | 2023-05-11 05:21 | PC.NURSE ---
at 0516 pt's fsbs was initially in the 440's which was severly different from previous readings. fsbs reobtained and result was 114
[2023-05-11 05:35] LABS: Basophils % 0.3 % (0.1-2.0); Eosinophils # 0.3 K/mm3 (0.0-0.4); Eosinophils % 15.5 % (0.1-12.0); Hematocrit 25.5 % (37.0-47.0); Lymphocytes # 0.4 K/mm3 (0.7-4.5); Lymphocytes % 23.8 % (10-50); Mean Corpuscular Volume 81.9 fl (81-99); Mean Platelet Volume 10.5 fl (7.4-10.4); Monocytes # 0.2 K/mm3 (0.1-1.0); Monocytes % 12.1 % (1.7-9.3); Neutrophils # 0.9 K/mm3 (1.8-7.8); Neutrophils % 48.3 % (37.0-80.0); Platelet Count 89 K/mm3 (142-424); Red Blood Count 3.12 M/mm3 (4.20-5.40); Red Cell Distribution Width 13.3 % (11.5-17.5); White Blood Count 1.8 K/mm3 (4.8-10.8)
[2023-05-11 05:37] LABS: Anion Gap 8.6 mEq/L (5-15); Blood Urea Nitrogen 7 mg/dl (7-17); Calcium 6.5 mg/dl (8.4-10.2); Carbon Dioxide 19 mmol/L (22.0-30.0); Chloride 103 mmol/L (98-107); Creatinine Clearance Estimated 42 mL/min (50-200); Estimated Glomerular Filt Rate 81 ml/min (>60); GFR (African American) 98 ML/MIN (>60); Potassium 3.6 mmoL/L (3.5-5.1); Sodium 127 mmol/L (136-145)
--- NOTE | 2023-05-11 05:44 | PC.NURSE ---
NO ACUTE CHANGES THIS SHIFT. PT HAS BEEN CONFUSED AT TIMES. HAS BEEN TURNED REQUESTED. VSS.
--- NOTE | 2023-05-11 06:15 | PC.NURSE ---
THIS RN IS AWARE THAT PT REFUSED A BATH THIS SHIFT.
[2023-05-11 06:38] LABS: Hemoglobin 8.5 g/dL (12.2-16.2)
[2023-05-11 06:39] LABS: Glucose 440 mg/dl (74-100)
[2023-05-11 07:30] VITALS: BP 113/52; PULSE 75; RESP 18; TEMP 37.1; O2SAT 94
--- NOTE | 2023-05-11 09:34 | EXP.ACUTE.PN ---
Subjective *Date: 05/11/23 *Time: 09:54 Interval history: More awake alert, answering questions appropriately, she knows where she is, she follows commands she is c/o pain all over. No specific sites that is not hurting. No other complaints Medical Exam Vital signs and Labs for Last 24 Hours: Vital Signs Temp Pulse Pulse Resp BP BP Pulse Ox 05/11/23 07:30 98.8 F 75 18 113/52 L 94 L 05/11/23 06:55 05/11/23 05:00 05/11/23 03:00 05/11/23 04:00 98.2 F 66 17 116/53 L 95 05/11/23 01:00 05/11/23 00:00 98.2 F 70 16 106/44 L 93 L 05/10/23 23:00 05/10/23 21:00 05/10/23 20:00 05/10/23 19:45 99.0 F 66 18 107/49 L 95 05/10/23 19:04 98.1 F 05/10/23 16:00 05/10/23 18:52 05/10/23 17:00 05/10/23 15:30 05/10/23 15:46 93.3 F L 69 16 114/57 L 97 05/10/23 15:31 98.0 F 70 17 109/56 L 05/10/23 15:00 70 18 109/56 L 97 05/10/23 14:30 67 18 111/57 L 98 05/10/23 13:30 57 L 18 103/54 L 98 05/10/23 13:00 66 18 103/56 L 98 05/10/23 12:30 60 94/53 L 99 05/10/23 12:01 67 20 98/52 L 98 05/10/23 11:30 77 132/68 95 05/10/23 11:21 78 103/53 L 97 05/10/23 11:32 97.9 F 76 17 132/68 97 O2 Del Method O2 Flow Rate 05/11/23 07:30 Room Air 05/11/23 06:55 Room Air 05/11/23 05:00 Room Air 05/11/23 03:00 Room Air 05/11/23 04:00 Room Air 05/11/23 01:00 Room Air 05/11/23 00:00 Room Air 05/10/23 23:00 Room Air 05/10/23 21:00 Room Air 05/10/23 20:00 Room Air 05/10/23 19:45 Room Air 05/10/23 19:04 05/10/23 16:00 Room Air 05/10/23 18:52 Room Air 05/10/23 17:00 Room Air 05/10/23 15:30 Nasal Cannula 2 05/10/23 15:46 Room Air 05/10/23 15:31 05/10/23 15:00 05/10/23 14:30 05/10/23 13:30 05/10/23 13:00 05/10/23 12:30 Room Air 05/10/23 12:01 05/10/23 11:30 05/10/23 11:21 05/10/23 11:32 Intake and Output 05/10/23 05/11/23 05/11/23 23:59 07:59 15:59 Intake Total Balance Intake: Intake, Oral Amount 0 / 0 Intake, Total IV Amount Ceftriaxone Sodium 1 gm In 0.9 50 / 50 % Sodium Chloride 50 ml @ 100 mls/hr IV Q24H [facility] Rx#: [id number] Lactated Ringers 1000ML 1,000 153 / 153 ml @ 999 mls/hr IV .Q1H1M [facility] Rx#:[id number] Other: Weight 58.649 kg Patient Weight 05/11/23 23:59 Weight 58.649 kg Laboratory Results - last 24 hr 05/10/23 12:08: Urine Color Yellow, Urine Appearance Clear, Urine pH 6.0, Ur Specific [place] 1.010, Urine Protein Trace, Urine Glucose (UA) Negative, Urine Ketones 1+, Urine Blood 2+, Urine Nitrate Negative, Urine Bilirubin Negative, Urine Urobilinogen 0.2, Ur Leukocyte Esterase 1+ A, Urine RBC 5-10, Urine WBC 3-5, Ur Squamous Epith Cells Occasional, Urine Bacteria Trace 05/10/23 13:14: WBC 2.0 L D, RBC 3.97 L, Hgb 10.5 L, Hct 33.0 L, MCV 83.1, MCH 26.5 L, MCHC 32.0, RDW 13.4, Plt Count 84 L D, MPV 10.7 H, Neut % (Auto) 63.8, Lymph % (Auto) 16.0, [place] % (Auto) 11.7 H, Eos % (Auto) 7.5, Baso % (Auto) 1.0, Neut # (Auto) 1.3 L, Lymph # (Auto) 0.3 L, [place] # (Auto) 0.2, Eos # (Auto) 0.2, Baso # (Auto) 0.0, Sodium 121 L, Potassium 3.5, Chloride 91 L, Carbon Dioxide 16 L, Anion Gap 17.5 H, BUN 13 D, Creatinine 1.10 H D, Estimated Creat Clear 39, Estimated GFR 48 L, Est GFR ( Amer) 58 L D, Glucose 108 H, Lactate 1.7, Calcium 7.9 L, Magnesium 1.6, Total Bilirubin 0.6, AST 57 H D, ALT 18, Alkaline Phosphatase 69, Total Protein 5.6 L, Albumin 2.9 L, Globulin 2.7, Albumin/Globulin Ratio 1.1, Lipase 53 05/10/23 13:19: POC Glucose 117 H 05/10/23 15:48: POC Glucose 88 05/10/23 16:30: Sodium 121 L, Potassium 4.1, Chloride 92 L, Carbon Dioxide 18 L, Anion Gap 15.1 H, BUN 12, Creatinine 0.90, Estimated Creat Clear 40, Estimated GFR 60, Est GFR ( Amer) 73 D, Glucose 90, Calcium 7.8
[2023-05-11 11:32] VITALS: BP 115/60; PULSE 76; RESP 18; TEMP 37.2; O2SAT 94
[2023-05-11 11:38] LABS: POC Glucose,Bedside 116 (70-110)
--- NOTE | 2023-05-11 12:28 | HMH.PTEV ---
Physical Therapy Evaluation Rehab PT IP Evaluation Start: 05/10/23 19:11 Freq: ONCE Status: Active Protocol: Document 05/11/23 12:23 PHORNE (Rec: 05/11/23 12:28 PHORNE [id number]) Subjective/History History History 78 yowf adm to [facility] with AMS, hyponatremia, KATHRYN. She has recent hx of UTI. She reports she is generally able to perform all ADLs independently , she ambulates with RW short distances at home at baseline, She lives with her and son, no steps to enter the home. Subjective Subjective Pt reports she feels very weak , has pain in her R LE and her back. Rehab PT IP Eval Objective Appearance Patient Behavior Appropriate Patient Orientation Person,Place Difficulty following instructions none Speech Pattern Clear Ambulation Patient Able to Ambulate No Balance Ability to Arise Unable Sitting Balance Leans or slides in chair Standing Balance Unsteady Dynamic Sitting Balance Ability Fair Dynamic Standing Balance Ability Poor Transfers Bed Transfer Ability Moderate x 1 (50% assist) Chair Transfer Ability Maximum x 1 (75% assist) Sit to Stand Bed Transfer Ability Moderate x 1 (50% assist) Sit to Stand Chair Transfer Ability Maximum x 1 (75% assist) Rehab PT IP prob,goals,plan Problems Date of Evaluation: 05/11/23 PT IP Problems Bed Mobility,Transfers,Gait Rehab Potential Rehab Potential Good Plan PT Intervention Plan Bed Mobility,Transfers,Gait, Therapeutic Exercise PT Plan Frequency Daily Duration LOS Discharge Goals Bed Transfer Ability Minimal x 2 (25% assist) Sit to Stand Chair Transfer Ability Moderate x 1 (50% assist) Ambulation Assistive Device Rolling Walker Ambulation Distance (feet) 10 Discharge Plan PT Discharge Plan Pt is currently most appropriate for rehab placement prior to return home once medically stable. If she returns home without skilled intervention, she will be at significant risk for debility, falls, injury, wounds, or . G -code Required No Eval Complexity Eval Charge Code
[2023-05-11 13:01] LABS: Sodium 124 mmol/L (136-145)
[2023-05-11 13:21] LABS: 25-OH Vitamin D, Total 20.7 ng/mL (30-100)
[2023-05-11 15:23] VITALS: BP 119/59; PULSE 70; RESP 17; TEMP 37.1; O2SAT 94
[2023-05-11 16:47] LABS: POC Glucose,Bedside 115 (70-110)
[2023-05-11 18:40] LABS: Sodium 125 mmol/L (136-145)
[2023-05-11 19:58] VITALS: BP 128/65; PULSE 64; RESP 16; TEMP 36.6; O2SAT 94
[2023-05-11 20:49] LABS: POC Glucose,Bedside 130 (70-110)
[2023-05-11 20:55] LABS: Sodium 125 mmol/L (136-145)
[2023-05-12] VITALS: BP 136/55; PULSE 78; RESP 16; TEMP 36.6; O2SAT 96
[2023-05-12 00:30] LABS: Sodium 126 mmol/L (136-145)
[2023-05-12 03:58] VITALS: BP 123/57; PULSE 73; RESP 16; TEMP 36.6; O2SAT 95; BMI 18.6
--- NOTE | 2023-05-12 04:15 | PC.NURSE ---
PT HAS RESTED MUCH BETTER THIS SHIFT. NO C/O PAIN. REPOSITIONED REQUESTED. VSS. SODIUM IS CONTINUING TO TREND UP. NO C/O NAUSEA THIS SHIFT.
[2023-05-12 05:34] LABS: POC Glucose,Bedside 115 (70-110)
[2023-05-12 05:53] LABS: Basophils % 0.4 % (0.1-2.0); Eosinophils # 0.4 K/mm3 (0.0-0.4); Eosinophils % 18.3 % (0.1-12.0); Hematocrit 28.6 % (37.0-47.0); Hemoglobin 9.3 g/dL (12.2-16.2); Lymphocytes # 0.6 K/mm3 (0.7-4.5); Lymphocytes % 26.8 % (10-50); Mean Corpuscular HGB Conc 32.7 g/dL (31.8-35.4); Mean Corpuscular Hemoglobin 26.4 pg (27.0-31.2); Mean Corpuscular Volume 80.7 fl (81-99); Mean Platelet Volume 10.3 fl (7.4-10.4); Monocytes # 0.2 K/mm3 (0.1-1.0); Monocytes % 8.9 % (1.7-9.3); Neutrophils % 45.7 % (37.0-80.0); Platelet Count 123 K/mm3 (142-424); Red Blood Count 3.55 M/mm3 (4.20-5.40); Red Cell Distribution Width 13.4 % (11.5-17.5); White Blood Count 2.1 K/mm3 (4.8-10.8)
[2023-05-12 06:00] LABS: Anion Gap 5.8 mEq/L (5-15); Blood Urea Nitrogen 3 mg/dl (7-17); Calcium 8.1 mg/dl (8.4-10.2); Carbon Dioxide 24 mmol/L (22.0-30.0); Chloride 103 mmol/L (98-107); Creatinine Clearance Estimated 41 mL/min (50-200); Estimated Glomerular Filt Rate 96 ml/min (>60); GFR (African American) 117 ML/MIN (>60); Glucose 106 mg/dl (74-100); Potassium 3.8 mmoL/L (3.5-5.1); Sodium 129 mmol/L (136-145)
[2023-05-12 08:00] VITALS: BP 140/66; PULSE 66; RESP 18; TEMP 36.6; O2SAT 96
--- NOTE | 2023-05-12 08:19 | SW/DCPLANNER ---
Addendum entered by Gabriela Nelson 05/13/23 09:08: Patient will discharge to [facility] level of care today. Addendum entered by Gabriela Nelson 05/12/23 11:51: Patient has been approved per Harper. I have updated her that patient will be medically stable for discharge tomorrow pending no setbacks. Addendum entered by Gabriela Nelson 05/12/23 10:28: Patient family is agreeable w/ plan to [facility]. Addendum entered by Gabriela Nelson 05/12/23 09:34: Harper crooks/ [facility] stated that she can accept this patient and precert will be started today. Original Note: I spoke with this patient regarding discharge plans once medically stable. PT evaluated patient and recommended SNF level of care at time of discharge. Patient is agreeable to placement once ready for discharge. Patient has been to [facility] in the past and would prefer to return their once medically stable. Patient information will be faxed to Harper Romero this AM. Discharge date is unknown at this time.
--- NOTE | 2023-05-12 08:45 | PC.NURSE ---
ROUNDED ON PT 0750, PT SLEEPING AT THIS TIME. CALL LIGHT WITHIN REACH, NO FURTHER REQUESTS. K PATY, SRNA
[2023-05-12 11:36] VITALS: BP 136/56; PULSE 65; RESP 18; TEMP 37; O2SAT 97
[2023-05-12 11:36] LABS: POC Glucose,Bedside 83 (70-110)
--- NOTE | 2023-05-12 12:10 | HMH.OTEV ---
OT Inpatient Evaluation Rehab OT IP Evaluation Start: 05/10/23 19:11 Freq: ONCE Status: Active Protocol: Document 05/12/23 09:58 ISACMAULIK (Rec: 05/12/23 12:09 UZAIR [id number]) Rehab OT IP Assessment Subjective History Patient is a 78-year-old female who presented to ER on 05/10/2023 with altered mental status, combativeness, weakness and lethargy. History obtained from review of records from ER and discussing with ER physician, no family member at bedside when I saw the patient. Per history patient was found to have worsening mental status , confusion and agitation today for which EMS was called. EMS noticed hypoglycemic event and was given D50 and the scene. Her blood sugar was 34 at that time. It improved to 150 after D50. Patient was recently seen in the ER and was sent home on p.o. antibiotics for suspected urinary tract infection. Today in the ER patient was found to have a sodium of 121 compared to 138 on 04/26/2022 Her anion gap was elevated to 17.5. Her bicarb was 16., Lactic acid was 1.7 Her white cell count was 2 with hemoglobin of 10.5 and hematocrit of 33 and platelet of 84. She does have chronic pancytopenia and counts are close to her baseline. Head CT on 05/10/2023 did not show any acute intracranial abnormality. Abdomen and pelvis CT showed large hiatal hernia and small left pleural effusion -On arrival to patient's room patient was found to have hypothermia episode with temperature of 93.3 for which a Paul hugger was initiated
[2023-05-12 13:23] LABS: Calcium, Ionized 4.4 mg/dL (4.5-5.6)
[2023-05-12 14:39] VITALS: BMI 18.6
--- NOTE | 2023-05-12 14:52 | DIET.NUTRFU ---
Attempted to reach family members for pt history without success. Will continue to follow-up. Pt demonstrates poor PO intakes since admission and is considered underweight for age at BMI of 18.7. Pt is at risk for malnutrition. Will provide nutritional supplements with all meals to meet energy and protein needs. Recommend to provide pt assistance with feeding herself as needed. Pt will be placed in rehab facility upon d/c where she can continue to receive dietary intervention.
[2023-05-12 15:41] VITALS: BP 134/59; PULSE 56; RESP 18; TEMP 37.3; O2SAT 99
[2023-05-12 16:10] LABS: Prealbumin <3 mg/dL (9-32)
--- NOTE | 2023-05-12 16:21 | PC.NURSE ---
PT ALERT X3, RESPONDS TO VOICE. TOLERATING RA WELL. HAS SLEPT THE MAJORITY OF SHIFT THUS FAR. FAMILY HAS BEEN VISITING. PT UP TO CHAIR FOR SHORT AMOUNT OF TIME, DIDN'T TOLERATE VERY WELL. BACK IN BED TO REST. IS BEING TURNED Q2H. PT HAS NOT HAD MUCH OF AN APPETITE TODAY. BED ALARM ON WHEN FAMILY IS NOT IN ROOM. NO NEEDS OR C/O NOTED AT THIS TIME. VSS.
[2023-05-12 16:45] LABS: POC Glucose,Bedside 100 (70-110)
--- NOTE | 2023-05-12 16:49 | EXP.ACUTE.PN ---
Subjective *Date: 05/12/23 *Time: 16:49 Interval history: Patient has remained pleasant today. Afebrile overnight. Blood sugar doing better. Improvement in sodium and electrolytes. Labs in general showing improvement with stable white cell count and hemoglobin. Case management discussing placement with patient and family today. Both are open to placement. On room air. No nausea or vomiting. Medical Exam Vital signs and Labs for Last 24 Hours: Vital Signs Temp Pulse Resp BP Pulse Ox O2 Del Method 05/12/23 16:33 Room Air 05/12/23 15:41 99.1 F 56 L 18 134/59 L 99 05/12/23 15:00 Room Air 05/12/23 12:34 Room Air 05/12/23 11:36 98.6 F 65 18 136/56 L 97 05/12/23 11:00 Room Air 05/12/23 09:00 Room Air 05/12/23 08:00 Room Air 05/12/23 08:00 97.9 F 66 18 140/66 96 Room Air 05/12/23 06:41 Room Air 05/12/23 05:00 Room Air 05/12/23 03:58 97.9 F 73 16 123/57 L 95 Room Air 05/12/23 03:00 Room Air 05/12/23 01:00 Room Air 05/12/23 00:00 97.9 F 78 16 136/55 L 96 Room Air 05/11/23 22:46 Room Air 05/11/23 21:00 Room Air 05/11/23 20:00 Room Air 05/11/23 19:58 98 F 64 16 128/65 94 L Room Air 05/11/23 19:00 Room Air 05/11/23 17:00 Room Air Intake and Output 05/12/23 05/12/23 05/12/23 07:59 15:59 23:59 Intake Total 3630 / 3630 0 / 3630 Output Total 800 / 800 0 / 800 Balance 2830 / 2830 0 / 2830 Intake: Intake, Oral Amount 60 / 60 0 / 60 Intake, Total IV Amount 3570 / 3570 Dextrose 5 % and 0.9 % NaCl 1, 3570 / 3570 000 ml @ 50 mls/hr IV .Q20H [facility] Rx#:[id number] Output: Output, Urine Amount 800 / 800 0 / 800 Other: Number of Unmeasured Voids 1 1 Number of Bowel Movements 1 Weight 57.198 kg 57.198 kg Patient Weight 05/12/23 23:59 Weight 57.198 kg Laboratory Results - last 24 hr 05/11/23 12:20: Ionized Calcium 4.4 L, Prealbumin <3 L 05/11/23 18:21: Sodium 125 L 05/11/23 20:41: Sodium 125 L 05/11/23 20:42: POC Glucose 130 H 05/12/23 00:16: Sodium 126 L 05/12/23 05:15: WBC 2.1 L, RBC 3.55 L, Hgb 9.3 L, Hct 28.6 L, MCV 80.7 L, MCH 26.4 L, MCHC 32.7, RDW 13.4, Plt Count 123 L D, MPV 10.3, Neut % (Auto) 45.7, Lymph % (Auto) 26.8, [place] % (Auto) 8.9, Eos % (Auto) 18.3 H, Baso % (Auto) 0.4, Neut # (Auto) 1.0 L, Lymph # (Auto) 0.6 L, [place] # (Auto) 0.2, Eos # (Auto) 0.4, Baso # (Auto) 0.0, Sodium 129 L, Potassium 3.8, Chloride 103, Carbon Dioxide 24, Anion Gap 5.8, BUN 3 L D, Creatinine 0.60, Estimated Creat Clear 41, Estimated GFR 96, Est GFR ( Amer) 117, Glucose 106 H D, Calcium 8.1 L 05/12/23 05:25: POC Glucose 115 H 05/12/23 11:26: POC Glucose 83 05/12/23 16:38: POC Glucose 100 I & O for Labs for Last 24 Hours: Intake & Output 05/09/23 05/10/23 05/11/23 05/12/23 23:59 23:59 23:59 23:59 Intake Total 120 / 180 3630 / 3630 Output Total 800 / 800 Balance 120 / 180 2830 / 2830 Weight 54.941 kg 58.649 kg 57.198 kg Microbiology Reports for the Last 24 Hours: Microbiology 05/10/23 12:08 Urine,Catheterized Urine Culture - Final NO GROWTH AFTER 48 HOURS Constitutional: Present no acute distress and chronically ill appearing Comment:: frail, pale Head: Present atraumatic and normocephalic ENT: Present mucous membranes moist Respiratory: Present diminished air movement; Absent rhonchi or wheezes Cardiac: Present Reg Rate and Rhythm GI: Present soft Comments:: non tender Comment:: 1+ pitting edema of B/L LE Skin: Present intact Neuro: Present alert, awake and oriented x 3 Comment:: speech normal, no facial droop, APRIL b/l, moving all 4 ext, answering questions appropriately. Assessment and Plan *Assessment and plan (1) Hyponatremia: Status: Acute Category: Medical Code(s): E87.1 - Hypo-osmolality and hyponatremia (2) Acute metabolic encephalopathy:
[2023-05-12 18:05] LABS: Hemoglobin A1C 4.7 % (4.0-6.0)
[2023-05-12 20:00] VITALS: BP 130/59; PULSE 63; RESP 19; TEMP 36.7; O2SAT 94
[2023-05-12 20:32] LABS: POC Glucose,Bedside 93 (70-110)
[2023-05-13] VITALS: BP 120/53; PULSE 71; RESP 18; TEMP 37.1; O2SAT 91
[2023-05-13 04:00] VITALS: BP 124/64; PULSE 68; RESP 19; TEMP 37.1; O2SAT 92; BMI 20.8
[2023-05-13 06:50] LABS: Basophils % 0.6 % (0.1-2.0); Eosinophils # 0.5 K/mm3 (0.0-0.4); Eosinophils % 20.6 % (0.1-12.0); Hematocrit 28.1 % (37.0-47.0); Hemoglobin 9.1 g/dL (12.2-16.2); Lymphocytes # 0.8 K/mm3 (0.7-4.5); Lymphocytes % 34.3 % (10-50); Mean Corpuscular HGB Conc 32.5 g/dL (31.8-35.4); Mean Corpuscular Hemoglobin 26.7 pg (27.0-31.2); Mean Corpuscular Volume 82.2 fl (81-99); Mean Platelet Volume 10.2 fl (7.4-10.4); Monocytes # 0.2 K/mm3 (0.1-1.0); Monocytes % 7.4 % (1.7-9.3); Neutrophils # 0.9 K/mm3 (1.8-7.8); Neutrophils % 37.1 % (37.0-80.0); Platelet Count 116 K/mm3 (142-424); Red Blood Count 3.42 M/mm3 (4.20-5.40); Red Cell Distribution Width 13.6 % (11.5-17.5); White Blood Count 2.3 K/mm3 (4.8-10.8)
[2023-05-13 07:06] LABS: Alanine Aminotransferase 15 U/L (12-78); Albumin Level 2.2 g/dl (3.5-5.0); Albumin/Globulin Ratio 0.9 (1.1-1.8); Alkaline Phosphatase 58 U/L (38-126); Anion Gap 2.9 mEq/L (5-15); Aspartate Amino Transferase 48 U/L (14-36); Bilirubin,Total 0.3 mg/dl (0.2-1.3); Blood Urea Nitrogen 3 mg/dl (7-17); Calcium 8.6 mg/dl (8.4-10.2); Carbon Dioxide 27 mmol/L (22.0-30.0); Chloride 103 mmol/L (98-107); Creatinine Clearance Estimated 46 mL/min (50-200); Estimated Glomerular Filt Rate 81 ml/min (>60); GFR (African American) 98 ML/MIN (>60); Globulin 2.5 g/dL (1.3-3.2); Glucose 78 mg/dl (74-100); Magnesium 1.3 mg/dl (1.6-2.3); Phosphorous 3.3 mg/dl (2.5-4.5); Potassium 3.9 mmoL/L (3.5-5.1); Sodium 129 mmol/L (136-145); Total Protein,Serum 4.7 g/dl (6.3-8.2)
[2023-05-13 07:41] VITALS: BP 122/68; PULSE 65; RESP 19; TEMP 37.2; O2SAT 93
[2023-05-13 08:00] VITALS: O2SAT 94
--- NOTE | 2023-05-13 08:13 | EXP.PHA.PN ---
Subjective *Date: 05/13/23 *Time: 08:13 Medical Exam Vital signs and Labs for Last 24 Hours: Vital Signs Temp Pulse Resp BP Pulse Ox O2 Del Method 05/13/23 07:41 98.9 F 65 19 122/68 93 L Room Air 05/13/23 06:58 Room Air 05/13/23 05:00 Room Air 05/13/23 03:00 Room Air 05/13/23 04:00 98.8 F 68 19 124/64 92 L Room Air 05/13/23 00:00 98.8 F 71 18 120/53 L 91 L Room Air 05/13/23 01:00 Room Air 05/12/23 23:00 Room Air 05/12/23 21:00 Room Air 05/12/23 20:00 Room Air 05/12/23 20:00 98.0 F 63 19 130/59 L 94 L Room Air 05/12/23 18:34 Room Air 05/12/23 16:33 Room Air 05/12/23 15:41 99.1 F 56 L 18 134/59 L 99 05/12/23 15:00 Room Air 05/12/23 12:34 Room Air 05/12/23 11:36 98.6 F 65 18 136/56 L 97 05/12/23 11:00 Room Air 05/12/23 09:00 Room Air Intake and Output 05/12/23 05/13/23 05/13/23 23:59 07:59 15:59 Intake Total 240 / 240 Output Total 0 / 800 0 / 0 Balance 0 / 2830 240 / 240 Intake: Intake, Oral Amount 240 / 240 Output: Output, Urine Amount 0 / 800 0 / 0 Other: Number of Unmeasured Voids 1 1 Weight 63.82 kg Patient Weight 05/13/23 23:59 Weight 63.82 kg Laboratory Results - last 24 hr 05/11/23 12:20: Ionized Calcium 4.4 L, Prealbumin <3 L 05/12/23 05:18: Hemoglobin A1c 4.7 05/12/23 11:26: POC Glucose 83 05/12/23 16:38: POC Glucose 100 05/12/23 19:59: POC Glucose 93 05/13/23 06:35: WBC 2.3 L, RBC 3.42 L, Hgb 9.1 L, Hct 28.1 L, MCV 82.2, MCH 26.7 L, MCHC 32.5, RDW 13.6, Plt Count 116 L, MPV 10.2, Neut % (Auto) 37.1, Lymph % (Auto) 34.3, [place] % (Auto) 7.4, Eos % (Auto) 20.6 H, Baso % (Auto) 0.6, Neut # (Auto) 0.9 L*, Lymph # (Auto) 0.8, [place] # (Auto) 0.2, Eos # (Auto) 0.5 H, Baso # (Auto) 0.0, Sodium 129 L, Potassium 3.9, Chloride 103, Carbon Dioxide 27, Anion Gap 2.9 L, BUN 3 L, Creatinine 0.70, Estimated Creat Clear 46, Estimated GFR 81, Est GFR ( Amer) 98, Glucose 78, Calcium 8.6, Phosphorus 3.3, Magnesium 1.3 L D, Total Bilirubin 0.3, AST 48 H, ALT 15, Alkaline Phosphatase 58, Total Protein 4.7 L, Albumin 2.2 L, Globulin 2.5, Albumin/Globulin Ratio 0.9 L I & O for Labs for Last 24 Hours: Intake & Output 05/10/23 05/11/23 05/12/23 05/13/23 23:59 23:59 23:59 23:59 Intake Total 203 / 203 120 / 180 3630 / 3630 240 / 240 Output Total 800 / 800 0 / 0 Balance 203 / 203 120 / 180 2830 / 2830 240 / 240 Weight 54.941 kg 58.649 kg 57.198 kg 63.82 kg Microbiology Reports for the Last 24 Hours: Microbiology 05/10/23 16:30 Blood Blood Culture - Preliminary NO GROWTH AFTER 48 HOURS 05/10/23 16:30 Blood Blood Culture - Preliminary NO GROWTH AFTER 48 HOURS 05/10/23 12:08 Urine,Catheterized Urine Culture - Final NO GROWTH AFTER 48 HOURS The patient's infection will respond to the chosen ABx?: Yes (INITIAL URINE CX = E COLI SENSITIVE TO CEFEPIME, REPEAT = NO GROWTH) Is the patient receiving the right drug, dose, and route?: Yes Could a more targeted ABx be ordered?: No
--- NOTE | 2023-05-13 08:49 | EXP.DC.SUM ---
General Admission date:: 05/10/23 Discharge date: 05/13/23 HPI HPI HPI: Patient is a 78-year-old female who presented to ER on 05/10/2023 with altered mental status, combativeness, weakness and lethargy. History obtained from review of records from ER and discussing with ER physician, no family member at bedside when I saw the patient. Per history patient was found to have worsening mental status , confusion and agitation today for which EMS was called. EMS noticed hypoglycemic event and was given D50 and the scene. Her blood sugar was 34 at that time. It improved to 150 after D50. Patient was recently seen in the ER and was sent home on p.o. antibiotics for suspected urinary tract infection. Today in the ER patient was found to have a sodium of 121 compared to 138 on 04/26/2022 Her anion gap was elevated to 17.5. Her bicarb was 16., Lactic acid was 1.7 Her white cell count was 2 with hemoglobin of 10.5 and hematocrit of 33 and platelet of 84. She does have chronic pancytopenia and counts are close to her baseline. Head CT on 05/10/2023 did not show any acute intracranial abnormality. Abdomen and pelvis CT showed large hiatal hernia and small left pleural effusion -On arrival to patient's room patient was found to have hypothermia episode with temperature of 93.3 for which a Paul hugger was initiated which improved her core temperature She was mildly hypotensive on arrival with a blood pressure of 92/52 that improved with IV fluids Hospital Course Hospital Course Hospital Course: 78-year-old female presenting from home with acute encephalopathy, found to have severe hyponatremia of 121 on arrival. Other labs revealing high anion gap metabolic acidosis, severe dehydration, possible UTI, chronic pancytopenia and hypothyroidism. Admitted for further management of symptomatic hyponatremia. Hyponatremia has improved during admission. Sodium to 129 on day of discharge. Appears to be the best level she has had in the past few months. Work-up resulted in finding hypothyroidism and a UTI. Problems addressed as follows: UTI -Urine positive for E. coli and Proteus. Culture sensitive to cephalosporins. Transition from ceftriaxone to cefdinir to complete a 7-day course of antibiotics. Start oral regimen on 05/14. Blood cultures remained negative. Hypoglycemia Hyponatremia -Resolved with IV fluids. Sodium stable at 129 on day of discharge. Recommend repeat labs in 1 week including CBC and CMP. Mentation back to baseline. Continue with nutritional supplementation. Recommend nutrition consult when patient arrives to nursing facility to address her deficiencies. Pancytopenia -Well-known, long history. No treatment at this time. Stable findings on day of discharge with leukopenia of 2.3, anemia with hemoglobin 9.1, thrombocytopenia with platelets of 116. Hypothyroidism -TSH uncontrolled at 16.1, increased levothyroxine to 100 mcg daily Vitamin D deficiency -Continue vitamin D/calcium supplementation. Add 50,000 units of vitamin D weekly p.o. Hypertension -Discontinued patient's amlodipine and carvedilol given her normotension during admission. Debility -PT and OT consulted, recommend placement. Patient is graciously been accepted by [facility] for further care. Will discharge today to their facility. Exam Data for Last 24 hours Vital signs and Labs for Last 24 Hours: Temp Pulse Resp BP Pulse Ox O2 Del Method O2 Flow Rate 98.9 F 65 19 122/68 93 L Room Air 97 05/13/23 07:41 05/13/23 07:41 05/13/23 07:41 05/13/23 07:41 05/13/23 07:41 05/13/23 08:41 05/13/23 08:41 Laboratory Results - last 24 hr 05/11/23 12:20: Ionized Calcium 4.4 L, Prealbumin <3 L 05/12/23 05:18: Hemoglobin A1c 4.7 05/12/23 11:26: POC Glucose 83 05/12/23 16:38: POC Glucose 100 05/12/23 19:59: POC Glucose 93 05/13/23 06:35: WBC 2.3 L, RBC 3.42 L, Hgb 9.1 L, Hct 28.1 L, MCV 82.2, MCH 26.7 L, MCHC 32.5, RDW 13.6, Plt Count 1
--- NOTE | 2023-05-13 08:57 | PC.NURSE ---
Pharmacy said okay to give Ceftriaxone after run of mag.
[2023-05-13 10:02] LABS: POC Glucose,Bedside 91 (70-110)
--- NOTE | 2023-05-13 10:33 | PC.NURSE ---
Iv removed and report called to [facility] and rehab nurse Italia Smith LPN.
== END 2023-05-13 11:00 | DRG 640 ==
LOC: ER 11:57 → 2ND 14:42
PROVIDERS: Internal Medicine Adolescent Medicine; Admitting Provider Internal Medicine; Emergency Provider Emergency Medicine; Visit Provider Internal Medicine
DX: E87.1 Hypo-osmolality and hyponatremia (principal); G93.41 Metabolic encephalopathy; D61.818 Other pancytopenia; N39.0 Urinary tract infection, site not specified; N17.9 Acute kidney failure, unspecified; E87.29 Other acidosis; T68.XXXA Hypothermia, initial encounter; E03.9 Hypothyroidism, unspecified; E83.51 Hypocalcemia; N28.9 Disorder of kidney and ureter, unspecified; E55.9 Vitamin D deficiency, unspecified; B96.20 Unspecified Escherichia coli [E. coli] as the cause of diseases classified elsewhere; B96.4 Proteus (mirabilis) (morganii) as the cause of diseases classified elsewhere; R53.81 Other malaise
CPT/HCPCS: 36415; 70450; 74177; 80048; 80053; 81001; 82306; 82330; 82962; 83036; 83605; 83690; 83735; 83930; 84100; 84134; 84295; 84443; 85025; 87040; 87086; 97110; 97163; 97165; 97530; 99285; G0378; J0696; J2405; J3475; Q9967